=== PATIENT | female | born 1940 | race Caucasian/White ===

== ENCOUNTER → 2016-09-21 | Outpatient (CLI) | payer BC ==
[~2016-09-21] MED LIST: CARV25TA2 PO; ESCI1TAB6 PO; LCTL45 PO; LCTX PO; LSX40 PO; MAGNTAB4 PO; METO-157 PO; MONT1TAB3 PO; MULT1TAB22 PO; PANT40TA PO; POTA10CA28 PO; SPIR25TA PO; SYMIN160 INH; ULT50X PO; WARF-280 PO
[2016-09-21 12:11] LABS: BASO % 0.2 %; BASO ABS # 0.02 K/uL (0-0.2); COMPLETE YES; EOS % 0.9 %; HEMATOCRIT 37.1 % (37-47); IG% 0.3 %; LYMPH % 7.4 %; LYMPH ABS # 0.78 K/uL (1.2-3.4); MEAN CELL VOLUME 91.6 fL (80-100); MEAN CORPUSCULAR HEMOGLOBIN 31.4 pg (25-34); MEAN CORPUSCULAR HGB CONC 34.2 g/dl (32-36); MEAN PLATELET VOLUME 11.5 fL (7.4-10.4); MONO % 6.6 %; NEUT % 84.6 %; PLATELET COUNT 241 K/uL (130-400); RED BLOOD COUNT 4.05 M/uL (4.2-5.4); WHITE BLOOD COUNT 10.47 K/uL (4.8-10.8)
--- NOTE | 2016-09-21 12:27 | DIAGNOSTIC IMAGING REPORT ---
CHEST 2 VIEWS ROUTINE CLINICAL HISTORY: 76 years-old Female presenting with chronic asthmatic bronchitis. TECHNIQUE: PA and lateral views of the chest were obtained. COMPARISON: 02/09/2016. FINDINGS: Right sided implanted cardiac defibrillator with leads to the right atrium and right ventricular apex. Abandoned left-sided leads unchanged. Median sternotomy wires and prosthetic mitral valve also noted. Atherosclerosis of the aortic arch. Slight prominence of the main pulmonary artery, unchanged. No focal infiltrate. No large effusion or pneumothorax. Osseous structures and upper abdomen normal. IMPRESSION: 1. No acute cardiopulmonary disease. Electronically signed by: Sai Renee M.D. 09/21/2016 12:26 PM Dictated Date/Time: 09/21/2016 12:23 PM
[2016-09-21 12:44] LABS: ALT/SGPT 28 U/L (12-78); BLOOD UREA NITROGEN 78 mg/dl (7-18); BUN/CREATININE RATIO 48.9 (10-20); CALCIUM 9.9 mg/dl (8.5-10.1); CARBON DIOXIDE 28 mmol/L (21-32); CHLORIDE 88 mmol/L (98-107); GLUCOSE 93 mg/dl (70-99); POTASSIUM 5.2 mmol/L (3.5-5.1); SODIUM 124 mmol/L (136-145)
[2016-09-21 12:47] LABS: ALB/GLOB RATIO 0.9 (0.9-2); ALKALINE PHOSPHATASE 136 U/L (45-117); AST/SGOT 28 U/L (15-37)
== END | disposition home or self-care (01) ==
LOC: C.RAD 11:22
PROVIDERS: ATTEND Internal Medicine Pulmonary Disease
DX: J44.9 Chronic obstructive pulmonary disease, unspecified (principal)

== ENCOUNTER → 2017-01-23 | Outpatient (CLI) | payer BC ==
[2017-01-23 17:44] LABS: BASO % 0.2 %; BASO ABS # 0.02 K/uL (0-0.2); COMPLETE YES; EOS % 1.1 %; HEMATOCRIT 35.4 % (37-47); IG% 0.4 %; LYMPH % 10.7 %; LYMPH ABS # 0.91 K/uL (1.2-3.4); MEAN CELL VOLUME 90.5 fL (80-100); MEAN CORPUSCULAR HEMOGLOBIN 31.7 pg (25-34); MEAN PLATELET VOLUME 10.6 fL (7.4-10.4); MONO % 6.6 %; PLATELET COUNT 254 K/uL (130-400); RED BLOOD COUNT 3.91 M/uL (4.2-5.4); WHITE BLOOD COUNT 8.54 K/uL (4.8-10.8)
--- NOTE | 2017-01-23 17:44 | DIAGNOSTIC IMAGING REPORT ---
ABDOMEN LIMITED (US) HISTORY: Pain ACUTE RLQ PAIN, R10.31. COMPARISON: None. FINDINGS: The appendix is not identified. No evidence for abscess or collection. No free fluid. IMPRESSION: The appendix is not identified. The above report was generated using voice recognition software. It may contain grammatical, syntax or spelling errors. Electronically signed by: Derek Castanon M.D. 01/23/2017 5:43 PM Dictated Date/Time: 01/23/2017 5:42 PM
== END | disposition home or self-care (01) ==
LOC: C.ULTR 17:05
PROVIDERS: ATTEND Family Medicine
DX: R10.31 Right lower quadrant pain (principal)

== ENCOUNTER → 2017-05-26 | Outpatient (CLI) | payer BC ==
[2017-05-26 16:43] LABS: BASO % 0.3 %; BASO ABS # 0.02 K/uL (0-0.2); EOS % 1.1 %; EOS ABS # 0.07 K/uL (0-0.5); HEMATOCRIT 32.8 % (37-47); HEMOGLOBIN 11.3 g/dL (12.0-16.0); IG# 0.02 K/uL (0.00-0.02); LYMPH % 9.3 %; MEAN CELL VOLUME 89.1 fL (80-100); MEAN CORPUSCULAR HEMOGLOBIN 30.7 pg (25-34); MEAN CORPUSCULAR HGB CONC 34.5 g/dl (32-36); MEAN PLATELET VOLUME 10.5 fL (7.4-10.4); MONO % 6.8 %; MONO ABS # 0.44 K/uL (0.11-0.59); NEUT % 82.2 %; NEUT ABS # 5.29 K/uL (1.4-6.5); PLATELET COUNT 272 K/uL (130-400); RED CELL DISTRIBUTION WIDTH CV 15.1 % (11.5-14.5); WHITE BLOOD COUNT 6.44 K/uL (4.8-10.8)
[2017-05-26 17:02] LABS: ALBUMIN 3.8 gm/dl (3.4-5.0); BLOOD UREA NITROGEN 75 mg/dl (7-18); CALCIUM 9.3 mg/dl (8.5-10.1); CARBON DIOXIDE 27 mmol/L (21-32); CREATININE 1.41 mg/dl (0.60-1.20); GLUCOSE 109 mg/dl (70-99); POTASSIUM 4.8 mmol/L (3.5-5.1); SODIUM 125 mmol/L (136-145)
[2017-05-26 17:13] LABS: PHOSPHORUS 3.1 mg/dl (2.5-4.9)
== END | disposition home or self-care (01) ==
LOC: C.LAB1850 14:45
PROVIDERS: ATTEND Internal Medicine Cardiovascular Disease
DX: I48.2 Chronic atrial fibrillation (principal); I50.22 Chronic systolic (congestive) heart failure; I47.2 Ventricular tachycardia; Z87.898 Personal history of other specified conditions

== ENCOUNTER → 2017-06-02 | Outpatient (CLI) | payer BC | END | disposition home or self-care (01) | LOC: C.LAB1850 16:24 | PROVIDERS: ATTEND Internal Medicine Cardiovascular Disease | DX: R53.83 Other fatigue (principal) ==

== ENCOUNTER → 2017-06-15 | Outpatient (CLI) | payer BC ==
[~2017-06-15] MED LIST changes: +DMX250 PO; +FLUT0.15 NAE; +FRS/40 PO; +FURO80TA63 PO; +LACTCAP27 PO; +METO2.5T PO; +OFLO0.3S4 OP; +PANT20TA2 PO; +POTA1CAP53 PO; +PRDFOPS OPR; +SLWMEC PO; +TMPOPS15 OPR; +VNTHFA/IN INH; +[UNRECOGNIZED DRUG - CODE] OPR
--- NOTE | 2017-06-15 14:57 | DIAGNOSTIC IMAGING REPORT ---
PELVIS 1 OR 2 VIEW ROUTINE HISTORY: 77 years-old Female R07.81,M25.559 acute pelvic pain without known injury COMPARISON: CT abdomen and pelvis 02/12/2015 TECHNIQUE: Single AP view of the pelvis FINDINGS: Mild degenerative changes about the bilateral hips. The bones appear mildly demineralized. Pelvic ring is intact acute fracture. The bilateral hips also appear intact without acute fracture or dislocation. Degenerative changes are seen within the imaged lumbar spine. Probable phleboliths of the pelvis. IMPRESSION: No acute fracture or dislocation. The above report was generated using voice recognition software. It may contain grammatical, syntax or spelling errors. Electronically signed by: Adi Santos M.D. 06/15/2017 2:56 PM Dictated Date/Time: 06/15/2017 2:54 PM
--- NOTE | 2017-06-15 15:01 | DIAGNOSTIC IMAGING REPORT ---
L RIBS UNILATERAL WITH PA CHEST CLINICAL HISTORY: Left sided rib pain. COMPARISON STUDY: Chest radiograph September 21, 2016. FINDINGS: There is no pneumothorax or pleural effusion. A right subclavian pacer/AICD is noted. Old left-sided leads are noted. There are median sternotomy wires and a prosthetic mitral valve. Moderate cardiomegaly is noted without evidence for pulmonary edema. Biapical scarring is unchanged. There is no consolidation to suggest pneumonia. No acute left rib fractures are identified. IMPRESSION: 1. No pneumothorax. No acute left-sided rib fractures. 2. Moderate cardiomegaly. No acute cardiopulmonary findings. Electronically signed by: Donato Vasquez M.D. 06/15/2017 3:00 PM Dictated Date/Time: 06/15/2017 2:55 PM
== END | disposition home or self-care (01) ==
LOC: C.RAD1850 14:24
PROVIDERS: ATTEND Student in an Organized Health Care Education/Training Program
DX: R07.81 Pleurodynia (principal); M25.559 Pain in unspecified hip

== ENCOUNTER 2017-06-20 04:24 | Observation (INO) | payer BC ==
[~2017-06-20] VITALS: Ht 167.6 cm; Wt 71.3 kg
[~2017-06-20 04:24] MED LIST changes: -DMX250 PO; -FLUT0.15 NAE; -FRS/40 PO; -FURO80TA63 PO; -LACTCAP27 PO; -METO2.5T PO; -OFLO0.3S4 OP; -PANT20TA2 PO; -POTA1CAP53 PO; -PRDFOPS OPR; -SLWMEC PO; -TMPOPS15 OPR; -VNTHFA/IN INH; -[UNRECOGNIZED DRUG - CODE] OPR
[2017-06-20] MEDS ORDERED: AcetaZOLAMIDE 250 MG TAB PO STA (04:40)
[2017-06-20] MEDS ORDERED: PROPARACAINE HCL 0.5% OP SOLN 15 ML BTL OP STA (04:40)
[2017-06-20] MEDS ORDERED: FENTANYL CITRATE INJ 50 MCG/1 ML 2 ML VIAL IV STA ×2 (04:40→06:33)
[2017-06-20] MEDS ORDERED: TIMOLOL MALEATE 0.5% OP SOLN 5 ML BTL OP STA (04:40)
[2017-06-20] MEDS ORDERED: [UNRECOGNIZED DRUG - OTHER] OP STA (04:52)
[2017-06-20] MEDS ORDERED: PILOCARPINE HCL 2% OP SOLN 15 ML BTL OP ONE (05:00)
[2017-06-20] MEDS ORDERED: PrednisoLONE ACET 1% OP SUSP 5 ML BTL OP ONE (05:00)
[2017-06-20 05:44] LABS: BASO % 0.1 %; BASO ABS # 0.01 K/uL (0-0.2); EOS % 0.4 %; EOS ABS # 0.03 K/uL (0-0.5); HEMATOCRIT 30.6 % (37-47); HEMOGLOBIN 10.6 g/dL (12.0-16.0); IG# 0.02 K/uL (0.00-0.02); LYMPH % 5.8 %; MEAN CELL VOLUME 88.7 fL (80-100); MEAN CORPUSCULAR HEMOGLOBIN 30.7 pg (25-34); MEAN CORPUSCULAR HGB CONC 34.6 g/dl (32-36); MEAN PLATELET VOLUME 9.1 fL (7.4-10.4); MONO ABS # 0.41 K/uL (0.11-0.59); NEUT % 87.4 %; NEUT ABS # 5.99 K/uL (1.4-6.5); PLATELET COUNT 225 K/uL (130-400); RED CELL DISTRIBUTION WIDTH SD 51.5 fL (36.4-46.3); WHITE BLOOD COUNT 6.86 K/uL (4.8-10.8)
--- NOTE | 2017-06-20 05:47 | EMERGENCY ROOM VISIT NOTE ---
History First contact with patient: 04:30 Chief Complaint: EYE PAIN Stated Complaint: SEVERE EYE/HEAD PAIN S/P LASER SURG History of Present Illness The patient is a 77 year old female who presents to the Emergency Room for evaluation of right eye pain. Patient with poor vision in right eye since . Notes several weeks of eye issues with surgery [address] Orozco to left eye. Over last week on and off discomfort left eye. Last evening severe right eye pain with decreased vision. Pain radiates to right side of head. Associated iwth nothing. No trauma/injuries. Nothing makes better nor worse. Seen in Ophtho clinic at 10pm and had laser surgery for acute angle glaucoma with pressures in the 50s in the right eye. She was given "many drops " and was feeling better with pressure to the 30s thus discharged to home with planned follow up in am with Dr Orozco. Patient notes that symptoms rapidly worsened once home and now pain is much worse than previous. Associated nausea and unable to open eyes due to pain. Notes associated photophobia as well. Used drops at home without relief. Of note patient with worsening abdominal cramping last few weeks similar to that which required 3 week admission several years ago of uncertain etiology. Review of Systems See HPI for pertinent positives & negatives. A total of 10 systems reviewed and were otherwise negative. Past Medical/Surgical History Medical Problems: (1) Acute angle-closure glaucoma (2) Acute on chronic systolic heart failure (3) Ascites (4) BRUGADA SYNDROME (5) Cardiac cirrhosis (6) Implantation of automatic cardioverter/defibrillator, total system (7) Pneumonia (8) Recurrent right pleural effusion (9) Third degree heart block Surgical Problems: (1) History of heart valve repair Family History Cancer Diabetes mellitus Heart disease Seizures Social History Smoking Status: Never Smoker Alcohol Use: none Marital Status: Housing Status: lives with significant other Occupation Status: retired Current/Historical Medications Scheduled Budesonide/Formoterol Fumarate (Symbicort 160/4.5 Inhaler ), 2 PUFFS INH BID Carvedilol (Coreg), 25 MG PO BIDM Escitalopram Oxalate (Lexapro), 5 MG PO QAM Fluticasone Propionate (Nasal) (Flonase Allergy Relief), 2 SPRAYS JURGEN DAILY Furosemide (Lasix), 40 MG PO QPM Furosemide (Lasix), 80 MG PO QAM Lactobacillus-Inulin (Culturelle Digestive Heal), 1 CAP PO BID Magnesium Chloride (Slow-Mag Tab), 64 MG PO BID Montelukast Sodium (Singulair), 10 MG PO HS Multiple Vitamins W/ Minerals (One Daily For Women), 1 TAB PO DAILY Pantoprazole Sodium (Protonix), 20 MG PO DAILY Potassium Chloride (Klor-Con Sprinkle), 10 MEQ PO BID Spironolactone (Aldactone), 25 MG PO BID Warfarin Sodium (Warfarin Sodium), 2.5 MG PO DAILY Scheduled PRN Albuterol Hfa (Ventolin Hfa), 2 PUFFS INH QID PRN for Wheezing Metolazone (Zaroxolyn), 2.5 MG PO UD PRN for weight gain Physical Exam Vital Signs Date Time Temp Pulse Resp B/P (MAP) Pulse Ox O2 Delivery O2 Flow Rate FiO2 06/20/17 06:49 61 06/20/17 06:44 62 14 99/64 95 Room Air 06/20/17 05:48 62 12 109/60 93 Room Air 06/20/17 05:17 94 Room Air 06/20/17 05:14 69 18 96/62 93 Room Air 06/20/17 04:28 36.6 64 20 96/51 95 Room Air Physical Exam GENERAL: Patient is severely uncomfortable appearing and in severe distress, writhing in pain EYES: Right eye is firm to touch, with moderate sized fixed pupil, cloudy anterior chamber and injected conjunctiva. No evidence of abrasion to cornea itself. Left eye is reactive and normal. Pain in right eye with light shined in left. ENT: Mucous membranes moist, no nasal congestion. NECK: No masses appreciated, no meningismus, trachea is midline. RESPIRATORY: No dyspnea. Clear to auscultation and equal bilaterally. No wheeze , no rhonchi. CARDIOVASCULAR: Regular rate and rhythm. No murmurs, rubs, gallops appreciated. ABDO: Minimal TTP without distension BACK: Nontender EXTREMITIES: Normal motion all extremities, no cyanosis, no edema. NEUROLOGIC: Alert and oriented, no acute motor or sensory deficits, no focal weakness, cranial nerves grossly intact. SKIN: No rash, no jaundice, no diaphoresis. Medical Decision & Procedures Laboratory Results 06/20/17 05:32 Red Blood Count 3.45, Mean Corpuscular Volume 88.7, Mean Corpuscular Hemoglobin 30.7, Mean Corpuscular Hemoglobin Concent 34.6, Mean Platelet Volume 9.1, Neutrophils (%) (Auto) 87.4, Lymphocytes (%) (Auto) 5.8, Monocytes (%) (Auto) 6.0, Eosinophils (%) (Auto) 0.4, Basophils (%) (Auto) 0.1, Neutrophils # (Auto) 5.99, Lymphocytes # (Auto) 0.40, Monocytes # (Auto) 0.41, Eosinophils # (Auto) 0.03, Basophils # (Auto) 0.01 06/20/17 05:32 Test 06/20/17 05:32 White Blood Count 6.86 K/uL (4.8-10.8) Red Blood Count 3.45 M/uL (4.2-5.4) Hemoglobin 10.6 g/dL (12.0-16.0) Hematocrit 30.6 % (37-47) Mean Corpuscular Volume 88.7 fL (80-100) Mean Corpuscular Hemoglobin 30.7 pg (25-34) Mean Corpuscular Hemoglobin Concent 34.6 g/dl (32-36) Platelet Count 225 K/uL (130-400) Mean Platelet Volume 9.1 fL (7.4-10.4) Neutrophils (%) (Auto) 87.4 % Lymphocytes (%) (Auto) 5.8 % Monocytes (%) (Auto) 6.0 % Eosinophils (%) (Auto) 0.4 % Basophils (%) (Auto) 0.1 % Neutrophils # (Auto) 5.99 K/uL (1.4-6.5) Lymphocytes # (Auto) 0.40 K/uL (1.2-3.4) Monocytes # (Auto) 0.41 K/uL (0.11-0.59) Eosinophils # (Auto) 0.03 K/uL (0-0.5) Basophils # (Auto) 0.01 K/uL (0-0.2) RDW Standard Deviation 51.5 fL (36.4-46.3) RDW Coefficient of Variation 16.0 % (11.5-14.5) Immature Granulocyte % (Auto) 0.3 % Immature Granulocyte # (Auto) 0.02 K/uL (0.00-0.02) Prothrombin Time 20.2 SECONDS (9.0-12.0) Prothromb Time International Ratio 1.9 (0.9-1.1) Anion Gap 6.0 mmol/L (3-11) Estimated GFR () 36.2 Estimated GFR (Non- 31.2 BUN/Creatinine Ratio 38.9 (10-20) Calcium Level 9.3 mg/dl (8.5-10.1) Medications Administered Medications (Trade) Dose Ordered Sig/Golden Route Start Time Stop Time Status Last Admin Dose Admin Fentanyl Citrate (Fentanyl Inj) 50 mcg NOW STAT IV 06/20/17 04:40 06/20/17 04:52 DC 06/20/17 05:00 50 MCG Acetazolamide (Diamox Tab) 500 mg NOW STAT PO 06/20/17 04:40 06/20/17 04:52 DC 06/20/17 05:25 500 MG Timolol Maleate (Timoptic 0.5% Oph Soln) 4 drops NOW STAT OP 06/20/17 04:40 06/20/17 04:52 DC 06/20/17 05:28 4 DROPS Apraclonidine HCl (Iopidine 0.5% Op Soln) 1 drops NOW STAT OP 06/20/17 04:52 06/20/17 04:54 DC 06/20/17 05:28 1 DROPS Pilocarpine HCl (Isopto Carpine 2% Oph Soln) 1 drops NOW ONCE OP 06/20/17 05:00 06/20/17 05:01 DC 06/20/17 05:25 1 DROPS Prednisolone Acetate (Pred Forte 1% Oph Susp) 1 drops NOW ONCE OP 06/20/17 05:00 06/20/17 05:01 DC 06/20/17 05:26 1 DROPS Mannitol 500 ml/ Empty Bag 500 ml @ 1,000 mls/hr TODAY@0630 IV 06/20/17 06:30 07/20/17 06:29 06/20/17 06:51 1,000 MLS/HR Fentanyl Citrate (Fentanyl Inj) 50 mcg NOW STAT IV 06/20/17 06:33 06/20/17 06:34 DC 06/20/17 06:39 50 MCG Medical Decision 77 yr old female arrives with acute right eye pain already diagnosed with acute angle glaucoma by Ophtho this evening with laser therapy. Arrives in severe pain requiring IV narcotics. Initially pressure 65. Immediately discussed with Dr Aviles who advises drops, acetazolamide and re-assess. Multiple rechecks of patient and pressure has dropped to 55 after 45 minutes from initiation of treatment. Rediscussed with Dr Aviles who advised IV mannitol. He requested patient receive this and be discharged to clinic, but unfortunately patient clearly will not tolerate outpatient pain control, nor am I completely comfortable sending home patient with her extensive medical history, cardiac disease and worsening hyponatremia. Discussed with hospitalist for further evaluation and management. Patient with many re-peat evaluations throughout entire stay. Medication Reconcilliation Current Medication List: was personally reviewed by me Blood Pressure Screening Patient's blood pressure: Low blood pressure (along with previous vitals seems stable.) Impression Primary Impression: Acute angle-closure glaucoma Additional Impression: Hyponatremia Critical Care I have personally spent greater than 45 minutes of critical care time in the direct management of this patient. This was a life/limb threatening event. This includes time spent evaluating patient, direct bedside care, chart review, placing orders, interpretation of diagnostic studies, discussion with consultants, patient, and family members, as well as other required patient management activities. This 45 minutes is in excess of all separately billable procedures. Departure Information Referrals Maia Vega D.O. (PCP) Patient Instructions [facility] Problem Qualifiers
[2017-06-20 05:56] LABS: INR 1.9 (0.9-1.1)
[2017-06-20 06:04] LABS: BLOOD UREA NITROGEN 62 mg/dl (7-18); CALCIUM 9.3 mg/dl (8.5-10.1); CARBON DIOXIDE 23 mmol/L (21-32); GLUCOSE 116 mg/dl (70-99); POTASSIUM 4.5 mmol/L (3.5-5.1); SODIUM 122 mmol/L (136-145)
[2017-06-20] MEDS ORDERED: PANT20TA2 PO (06:04)
[2017-06-20] MEDS ORDERED: POTA1CAP53 PO (06:04)
[2017-06-20] MEDS ORDERED: FURO80TA63 PO (06:06)
[2017-06-20] MEDS ORDERED: FRS/40 PO (06:06)
[2017-06-20] MEDS ORDERED: FLUT0.15 NAE (06:08)
[2017-06-20] MEDS ORDERED: SLWMEC PO (06:08)
[2017-06-20] MEDS ORDERED: METO2.5T PO (06:08)
[2017-06-20] MEDS ORDERED: LACTCAP27 PO (06:10)
[2017-06-20] MEDS ORDERED: VNTHFA/IN INH (06:10)
[2017-06-20] MEDS ORDERED: 0.2 MICRON FILTER SET 1 EA IV SCH (06:30)
[2017-06-20] MEDS ORDERED: MANNITOL 20% IV SCH (06:30)
[2017-06-20] MEDS ORDERED: ACETAMINOPHEN IV 100 ML IV PRN (07:00)
[2017-06-20] MEDS ORDERED: ONDANSETRON INJ 2 MG/ML 2 ML VIAL IV PRN (07:00)
[2017-06-20] MEDS ORDERED: METOLAZONE 2.5 MG TAB PO PRN (07:00)
[2017-06-20] MEDS ORDERED: ALBUTEROL HFA 8 GM INHALER INH PRN (07:00)
[2017-06-20] MEDS ORDERED: FENTANYL CITRATE INJ 50 MCG/1 ML 2 ML VIAL IV PRN (07:00)
[2017-06-20] MEDS ORDERED: ALUMINUM/MAGNESIUM/SIMETH (MAALOX MAX) 30 ML UDC PO PRN (07:00)
[2017-06-20 07:30] VITALS: O2SAT 96; Ht 167.6 cm; Wt 71.3 kg
[2017-06-20] MEDS ORDERED: IV FLUIDS COMPLETED PRN (07:30)
--- NOTE | 2017-06-20 07:46 | History and Physical ---
History & Physical Date & Time of Service: Jun 20, 2017 at 07:17 Chief Complaint: Severe Eye/Head Pain S/P Laser Surg Primary Care Physician: Maia Vega D.O. History of Present Illness Source: patient, family Patient is a 77yo C female with complicated medial history presenting with acute angle closure glaucoma. She has been having intermittent right eye pain. Last evening she had severe right eye pain, decreased vision and headache. She was seen in Optho clinic at 2200, intraocular pressures at that time were 54. She was given drops and laser treatment and had a repeat pressure of 38. Her symptoms improved so she was sent home with plan to followup with Dr. Orozco today. However, the pain and headache continued through the night and rapidly worsened. She also has nausea, photophobia and is unable to open her eye due to pain. She had laser surgery performed 1 week ago on the LEFT eye by Dr. Orozco and has been complaining of intermittent left eye pain. Patient is followed by Dr. Horner ER Course: Pilocarpine gtt, Prednisolone gtt, Iopidine gtt, Proparacane gtt, Fentanyl, Diamox, Timolol Past Medical/Surgical History Medical Problems: 1. Acute angle-closure glaucoma 2. Heart failure 3. Renal insufficiency 4. Anemia 5. Ascites 6. Brugada syndrome 7. Cardiac cirrhosis 8. ICD placement 9. Third degree heart block Surgical Problems: (1) History of heart valve repair 2. ICD placement 3. Mitral valve repair - 2000 4. Cardiac ablation x 2 Family History Cancer Diabetes mellitus Heart disease Seizures Social History Smoking Status: Never Smoker Smokeless Tobacco Use: No Alcohol Use: none Drug Use: none Marital Status: Housing status: lives with family Occupational Status: retired Immunizations History of Influenza Vaccine: Yes Influenza Vaccine Date: Nov 10, 2008 History of Tetanus Vaccine?: Unknown History of Pneumococcal: Yes Pneumococcal Date: Apr 12, 1999 History of Hepatitis B Vaccine: Unknown Allergies Coded Allergies: AMADOU Inhibitors (Verified Allergy, Unknown, 06/20/17) Amiodarone (Verified Allergy, Unknown, 06/20/17) Azithromycin (Verified Allergy, Unknown, 06/20/17) Clarithromycin (Verified Allergy, Unknown, 06/20/17) Hydralazine (Verified Allergy, Unknown, 06/20/17) Hydrochlorothiazide (Unverified Allergy, Unknown, RASH, 06/20/17) Pt unsure of reaction, possible rash. Lisinopril (Verified Allergy, Unknown, 06/20/17) Penicillins (Verified Allergy, Unknown, 06/20/17) Procainamide (Verified Allergy, Unknown, 06/20/17) Home Medications Scheduled Budesonide/Formoterol Fumarate (Symbicort 160/4.5 Inhaler ), 2 PUFFS INH BID Carvedilol (Coreg), 25 MG PO BIDM Escitalopram Oxalate (Lexapro), 5 MG PO QAM Fluticasone Propionate (Nasal) (Flonase Allergy Relief), 2 SPRAYS JURGEN DAILY Furosemide (Lasix), 40 MG PO QPM Furosemide (Lasix), 80 MG PO QAM Lactobacillus-Inulin (Culturelle Digestive Heal), 1 CAP PO BID Magnesium Chloride (Slow-Mag Tab), 64 MG PO BID Montelukast Sodium (Singulair), 10 MG PO HS Multiple Vitamins W/ Minerals (One Daily For Women), 1 TAB PO DAILY Pantoprazole Sodium (Protonix), 20 MG PO DAILY Potassium Chloride (Klor-Con Sprinkle), 10 MEQ PO BID Spironolactone (Aldactone), 25 MG PO BID Warfarin Sodium (Warfarin Sodium), 2.5 MG PO DAILY Scheduled PRN Albuterol Hfa (Ventolin Hfa), 2 PUFFS INH QID PRN for Wheezing Metolazone (Zaroxolyn), 2.5 MG PO UD PRN for weight gain Review of Systems Constitutional: No fever, No chills Eyes: + worsening of vision, + eye pain, + redness, + diplopia, + problem reported ENT: + sore throat Respiratory: + cough, + sputum Cardiovascular: + chest pain Abdomen: + pain, + nausea, No vomiting, No diarrhea Physical Exam Vital Signs Date Time Temp Pulse Resp B/P (MAP) Pulse Ox O2 Delivery O2 Flow Rate FiO2 06/20/17 06:49 61 06/20/17 06:44 62 14 99/64 95 Room Air 06/20/17 05:48 62 12 109/60 93 Room Air 06/20/17 05:17 94 Room Air 06/20/17 05:14 69 18 96/62 93 Room Air 06/20/17 04:28 36.6 64 20 96/51 95 Room Air General: patient resting in bed, in mild distress secondary to pain Skin: warm, dry, intact, no rashes or lesions HEENT: NC/AT, left pupil small, minimally reactive with postoperative changes, right pupil dilated and irregular, unresponsive to light, +conjunctival injection, eye firm and tender to palpation, MMM, dentition intact, no JVD CV: +S1/S2, regular 3/6 rumbling JUNG at base with radiation across precordium Lungs: CTA, no rales/rhonchi or wheezes Abd: +BS, soft, NT/ND Ext: warm, well perfused, no edema Neuro: grossly nonfocal, patient ambulates with assistance Diagnostics Laboratory Results Results Past 24 Hours Test 06/20/17 05:32 Range/Units White Blood Count 6.86 4.8-10.8 K/uL Red Blood Count 3.45 4.2-5.4 M/uL Hemoglobin 10.6 12.0-16.0 g/dL Hematocrit 30.6 37-47 % Mean Corpuscular Volume 88.7 80-100 fL Mean Corpuscular Hemoglobin 30.7 25-34 pg Mean Corpuscular Hemoglobin Concent 34.6 32-36 g/dl Platelet Count 225 130-400 K/uL Mean Platelet Volume 9.1 7.4-10.4 fL Neutrophils (%) (Auto) 87.4 % Lymphocytes (%) (Auto) 5.8 % Monocytes (%) (Auto) 6.0 % Eosinophils (%) (Auto) 0.4 % Basophils (%) (Auto) 0.1 % Neutrophils # (Auto) 5.99 1.4-6.5 K/uL Lymphocytes # (Auto) 0.40 1.2-3.4 K/uL Monocytes # (Auto) 0.41 0.11-0.59 K/uL Eosinophils # (Auto) 0.03 0-0.5 K/uL Basophils # (Auto) 0.01 0-0.2 K/uL RDW Standard Deviation 51.5 36.4-46.3 fL RDW Coefficient of Variation 16.0 11.5-14.5 % Immature Granulocyte % (Auto) 0.3 % Immature Granulocyte # (Auto) 0.02 0.00-0.02 K/uL Prothrombin Time 20.2 9.0-12.0 SECONDS Prothromb Time International Ratio 1.9 0.9-1.1 Sodium Level 122 136-145 mmol/L Potassium Level 4.5 3.5-5.1 mmol/L Chloride Level 93 98-107 mmol/L Carbon Dioxide Level 23 21-32 mmol/L Anion Gap 6.0 3-11 mmol/L Blood Urea Nitrogen 62 7-18 mg/dl Creatinine 1.60 0.60-1.20 mg/dl Estimated GFR () 36.2 Estimated GFR (Non- 31.2 BUN/Creatinine Ratio 38.9 10-20 Random Glucose 116 70-99 mg/dl Calcium Level 9.3 8.5-10.1 mg/dl Impression Assessment and Plan 77yo C female with complex medical history presenting with acute angle-closure glaucoma. 1. Acute angle-closure glaucoma - pressures still elevated while in ER (66 on arrival which improved to 56 after administration of eye drops). Still above threshold, patient with considerable pain. -Mannitol infusion started in ER, to be completed on floor -Timolol gtt BID -Acetazolamide 250mg po q 6 hours -Prednisolone gtt q 6 hours -Iopidine gtt q 8 hours -Ophthalmology consultation -Fentanyl 25mcg IV q 4 hours PRN pain 2. CHF - patient with severely depressed LV function - EF of 20% per echo in 2015, severely dilated LV with anterior and septal dyskinesis. She seems to be well compensated at present, however, administration of Acetazolamide and Mannitol in CHF can be risky -Continue home medications to include Coreg, Lasix and Metolazone -Careful monitoring of cardiac status -Consider Cardiology consultation, patient is known to Dr. Horner 3. Renal insufficiency - patient with BUN of 62 and Cr of 1.6 which is near her baseline -Monitor BUN/Cr, electrolytes and UOP 4. Hyponatremia - patient with Mu=229, near her baseline, history of the same -Continue to monitor -BMP q 8 hours 5. Cardiac cirrhosis - stable, patient with no evidence of decompensated cirrhosis at this time -Continue to monitor 6. F/E/N - Mannitol infusion as above, monitor electrolytes TID, AHA diet as tolerated 7. Ppx - CAROLE stockings, patient is on Coumadin 8. Code - DNR per discussion with family 9. Dispo - Observation to medical floor Resuscitation Status DNR VTE Prophylaxis Will order VTE Prophylaxis: Yes Social Service Consult None Apply
[2017-06-20 08:13] VITALS: O2SAT 91
[2017-06-20 08:50] VITALS: BP 120/67; PULSE 71; TEMP 36.3; O2SAT 92
[2017-06-20] MEDS ORDERED: FLUTICASONE PROPIONATE NA SPR 16 GM BTL NAE SCH (09:00)
[2017-06-20] MEDS ORDERED: MAGNESIUM CHLORIDE 64MG DELAYED REL TAB PO SCH (09:00)
[2017-06-20] MEDS ORDERED: ESCITALOPRAM OXALATE 10 MG TAB PO SCH (09:00)
[2017-06-20] MEDS ORDERED: FUROSEMIDE 80 MG TAB PO SCH (09:00)
[2017-06-20] MEDS ORDERED: CEROVITE ADV FORMULA TAB PO SCH (09:00)
[2017-06-20] MEDS ORDERED: SPIRONOLACTONE 25 MG TAB PO SCH (09:00)
[2017-06-20] MEDS ORDERED: FUROSEMIDE INJ 80 MG in SYRINGE 0 ML IV ONE (10:35)
[2017-06-20] MEDS ORDERED: AcetaZOLAMIDE 250 MG TAB PO SCH (12:00)
[2017-06-20] MEDS ORDERED: [UNRECOGNIZED DRUG - OTHER] OPR SCH (14:00)
[2017-06-20] MEDS ORDERED: FUROSEMIDE INJ 80 MG in SYRINGE 0 ML IV SCH (14:00)
[2017-06-20 14:28] LABS: CALCIUM 8.8 mg/dl (8.5-10.1); CREATININE 1.53 mg/dl (0.60-1.20); POTASSIUM 3.9 mmol/L (3.5-5.1)
[2017-06-20] MEDS ORDERED: PRDFOPS OPR (15:13)
[2017-06-20] MEDS ORDERED: [UNRECOGNIZED DRUG - CODE] OPR (15:13)
[2017-06-20] MEDS ORDERED: DMX250 PO (15:13)
[2017-06-20] MEDS ORDERED: TMPOPS15 OPR (15:13)
--- NOTE | 2017-06-20 15:15 | Discharge Instructions ---
Discharge Instructions Date of Service Jun 20, 2017. Admission Reason for Admission: Acute Angle-Closure Glaucoma Discharge Discharge Diagnosis / Problem: Acute angle-closure glaucoma Discharge Goals Goal(s): Decrease discomfort, Diagnostic testing (go to see DR. AVILES) Activity Recommendations Activity Limitations: resume your previous activity . Instructions / Follow-Up Instructions / Follow-Up Medications: drops per Dr. Aviles, he gave you samples Diamox (acetazolamide) 250mg every 6 hours follow up this afternoon with DR. AVILES for further instructions Current Hospital Diet Patient's current hospital diet: AHA Diet (Heart Healthy) Discharge Diet Recommended Diet: AHA Diet (Heart Healthy) Pending Studies Studies pending at discharge: no Medical Emergencies . Who to Call and When: Medical Emergencies: If at any time you feel your situation is an emergency, please call 911 immediately. . Non-Emergent Contact Non-Emergency issues call your: Motor Vehicle Salesperson Call Non-Emergent contact if: your pain is not controlled, you have any medication questions . . "Provider Documentation" section prepared by Jerry Nunn. . [place] Drug Monitoring Program Search Results: no issues identified
[2017-06-20 15:29] VITALS: BP 120/67; PULSE 71; TEMP 36.3; O2SAT 92
[2017-06-20] MEDS ORDERED: WARFARIN SOD 2.5 MG TAB PO SCH (16:00)
[2017-06-20] MEDS ORDERED: FUROSEMIDE 40 MG TAB PO SCH (17:00)
[2017-06-20] MEDS ORDERED: CARVEDILOL 25 MG TAB PO SCH (17:00)
[2017-06-20] MEDS ORDERED: BUDESONIDE/FORMOTEROL FUMARATE 160/4.5 60 PUFFS/INHALER INH SCH (20:00)
[2017-06-20] MEDS ORDERED: TIMOLOL MALEATE 0.5% OP SOLN 5 ML BTL OPR SCH (20:00)
[2017-06-20] MEDS ORDERED: MONTELUKAST SOD 10 MG TAB PO SCH (22:00)
[2017-06-21] MEDS ORDERED: PrednisoLONE ACET 1% OP SUSP 5 ML BTL OPR SCH (08:00)
[2017-06-21] MEDS ORDERED: PANTOprazole SOD 40 MG TAB PO SCH (08:00)
--- NOTE | 2017-06-21 09:26 | Discharge Summary ---
Discharge Summary Date of Service Jun 20, 2017. Discharge Summary Admission Date: Jun 20, 2017 at 07:07 Discharge Date: Jun 20, 2017 Discharge Disposition: Home Principal Diagnosis: Acute angle closure glaucoma Problems/Secondary Diagnoses: Chronic systolic heart failure, compensated Chronic hyponatremia CKD stage III, stable Cardiac cirrhosis Immunizations: Have You Had Influenza Vaccine: Yes Influenza Vaccine Date: Nov 10, 2008 History of Tetanus Vaccine?: Unknown History of Pneumococcal: Yes Pneumococcal Date: Apr 12, 1999 History of Hepatitis B Vaccine: Unknown Procedures: none Consultations: Ophthomology - Dr. Aviles over the phone Medication Reconciliation New Medications: Acetazolamide (Acetazolamide) 250 Mg Tab 250 MG PO Q6, #120 TAB 0 Refills Apraclonidine HCl (Apraclonidine) 75 Drops/5 Ml Soln 1 DROPS OPR Q8, #1 BTL 1 Refill Prednisolone Acetate (Prednisolone Acetate) 75 Drops/5 Ml Susp 1 DROPS OPR DAILY, #1 BTL 1 Refill Timolol Maleate (Timolol 0.5% Oph Soln 15 Ml) 15 Ml Soln 4 DROPS OPR BID, #1 BTL 1 Refill Continued Medications: Albuterol Hfa (Ventolin Hfa) 200 Puffs/41324 Mcg Aers 2 PUFFS INH QID PRN for Wheezing, #1 INHALER Budesonide/Formoterol Fumarate (Symbicort 160/4.5 Inhaler ) Aero 2 PUFFS INH BID Carvedilol (Coreg) 25 Mg Tab 25 MG PO BIDM Escitalopram Oxalate (Lexapro) 5 Mg Tab 5 MG PO QAM Fluticasone Propionate (Nasal) (Flonase Allergy Relief) 50 Mcg/Act Spr 2 SPRAYS JURGEN DAILY Furosemide (Lasix) 40 Mg Tab 40 MG PO QPM, TAB Furosemide (Lasix) 80 Mg Tab 80 MG PO QAM, TAB Lactobacillus-Inulin (Culturelle Digestive Heal) 1 Cap Cap 1 CAP PO BID Magnesium Chloride (Slow-Mag Tab) 64 Mg Tabcr 64 MG PO BID, TAB Metolazone (Zaroxolyn) 2.5 Mg Tab 2.5 MG PO UD PRN for weight gain take 30 min before lasix as needed for weight gain Montelukast Sodium (Singulair) 10 Mg Tab 10 MG PO HS Multiple Vitamins W/ Minerals (One Daily For Women) 1 Tab Tab 1 TAB PO DAILY Pantoprazole Sodium (Protonix) 20 Mg Tab 20 MG PO DAILY Potassium Chloride (Klor-Con Sprinkle) 10 Meq Cap 10 MEQ PO BID Spironolactone (Aldactone) 25 Mg Tab 25 MG PO BID, TAB Warfarin Sodium (Warfarin Sodium) 2.5 Mg Tab 2.5 MG PO DAILY Discharge Exam Patient was feeling better on day of discharge, minimal right eye pain, reported that her vision was at baseline in that eye. Got up and ambulated, right eye pain increased slightly but nothing close to as bad as on admission. Checked pressure in right eye, found to be 28 which was much improved compared to admission when it was >50. Discussed with Dr. Aviles over the phone, he was pleased that her pain was improved and pressure down to 28. Requested that she be discharged so she could come to the office for detailed eye exam. Discussed this with patient and her daughter at the bedside, they agreed with plan to go see Dr. Aviles. Review of Systems: Constitutional: No fever, No chills, No sweats, No weight loss, No weakness , No fatigue, No problem reported Eyes: + eye pain (right eye, minimal), No redness, No discharge, No diplopia ENT: No hearing loss, No unusual epistaxis, No nasal symptoms, No sore throat, No tinnitus, No dental problems, No trouble swallowing, No problem reported Respiratory: No cough, No sputum, No wheezing, No shortness of breath, No dyspnea on exertion, No dyspnea at rest, No hemoptysis, No problem reported Cardiovascular: No chest pain, No orthopnea, No PND, No edema, No claudication, No palpitations, No problem reported Abdomen: No pain, No nausea, No vomiting, No diarrhea, No constipation, No GI bleeding, No problem reported Musculoskeletal: No joint pain, No muscle pain, No swelling, No calf pain, No problem reported Genitourinary - Female: No dysuria, No urinary frequency, No urinary urgency , No urinary incontinence, No urinary retention Neurologic: No memory loss, No paralysis, No weakness, No numbness/tingling , No vertigo, No balance problems, No problem reported Psychiatric: No depression symptoms, No anhedonism, No anxiety, No insomnia , No substance abuse, No problem reported Endocrine: No fatigue, No excessive thirst, No excessive urination, No problem reported Hematologic / Lymphatic: No abnormal bleeding/bruising, No clotting problems , No swollen lymph nodes, No night sweats, No problem reported Integumentary: No rash, No itch, No new/changing skin lesions, No color change, No bleeding, No problem reported Physical Exam: General Appearance: WD/WN, no apparent distress Eyes: normal inspection, PERRL, EOMI, sclerae normal ENT: normal ENT inspection, hearing grossly normal, pharynx normal Neck: supple, no adenopathy, thyroid normal, no JVD, no carotid bruits, trachea midline Respiratory/Chest: chest non-tender, lungs clear, normal breath sounds, no respiratory distress, no accessory muscle use Cardiovascular: regular rate, rhythm, no edema, no gallop, no JVD, no murmur , normal peripheral pulses Abdomen / GI: normal bowel sounds, non tender, soft, no organomegaly Extremities: normal inspection, no calf tenderness, normal capillary refill , no pedal edema, normal range of motion Neurologic/Psychiatric: peoplesoft developer II-XII nml as tested, no motor/sensory deficits , alert, normal mood/affect, normal reflexes, oriented x 3 Skin: normal color, warm/dry, no rash Hospital Course 77yo C female with complex medical history presenting with acute angle-closure glaucoma. 1. Acute angle-closure glaucoma - pressures elevated while in ER (66 on arrival which improved to 56 after administration of eye drops). patient with considerable pain. -Mannitol infusion started in ER, completed on the floor -Timolol gtt BID -Acetazolamide 250mg po q 6 hours -Prednisolone gtt q 6 hours -Iopidine gtt q 8 hours -Fentanyl 25mcg IV q 4 hours PRN pain pain markedly improved in the afternoon rechecked eye pressure and found to be 28 visual acuity was normal for her discharged and patient went directly to see Dr. Aviles reviewed necessary medications, daughter confirmed that they had all necessary drops 2. CHF - patient with severely depressed LV function - EF of 20% per echo in 2015, severely dilated LV with anterior and septal dyskinesis. She seems to be well compensated at present, no issues with Acetazolamide and Mannitol while admitted -Continue home medications to include Coreg, Lasix and Metolazone -Careful monitoring of cardiac status 3. Renal insufficiency - patient with BUN of 62 and Cr of 1.6 which is near her baseline -Monitor BUN/Cr, electrolytes and UOP 4. Hyponatremia - patient with Fj=615, near her baseline, history of the same 5. Cardiac cirrhosis - stable, patient with no evidence of decompensated cirrhosis at this time -Continue to monitor 6. F/E/N - Mannitol infusion as above, monitor electrolytes TID, AHA diet as tolerated 7. Ppx - CAROLE stockings, patient is on Coumadin 8. Code - DNR per discussion with family d/c to home, close follow up with Dr. Aviles Total Time Spent: Greater than 30 minutes This includes examination of the patient, discharge planning, medication reconciliation, and communication with other providers. Discharge Instructions Please refer to the electronic Patient Visit Report (Discharge Instructions) for additional information. Follow-Up Dr. Aviles on 06/20 Additional Copies To Maia Vega D.O.; Campbell Orozco D.O.
--- NOTE | 2017-06-23 11:45 | OPHTHALMOLOGY CONSULTATION ---
DATE OF CONSULTATION: 06/20/2017 REASON FOR CONSULTATION: Angle-closure glaucoma, right eye. HISTORY OF PRESENT ILLNESS: Patient is a 77-year-old white female with a 1 day history of angle-closure glaucoma in the right eye. She originally presented to my office in angle-closure with a pressure of 58. I attempted 2 laser PIs, which did not go all the way through due to corneal edema; however, with globe pressure and topical Simbrinza, Betimol and Lumigan, her pressure was down to 36 upon leaving the office. She called overnight with worsening eye pain and was sent to the ER for IV mannitol. She received IV mannitol and was monitored in the hospital and upon leaving the hospital, her pressure was reported to have dropped to 28. She was asked to follow up again in my office that afternoon to recheck her pressure. Review of her topical eye drops, which include Simbrinza twice a day, timolol twice a day, Lumigan at night and prednisolone 4 times a day and to get set up for emergent cataract extraction to resolve for angle-closure glaucoma.
[2017-06-24] MEDS ORDERED: FURO80TA63 PO (13:44)
== END 2017-06-20 16:29 | disposition home or self-care (01) ==
LOC: C.EDB 04:26 → C.MS4W 07:07 → EDBEDREQ 07:12 → ENRESERV 07:41
PROVIDERS: ADMIT Internal Medicine; ATTEND Internal Medicine
DX: H40.211 Acute angle-closure glaucoma, right eye (principal); E87.1 Hypo-osmolality and hyponatremia; I50.23 Acute on chronic systolic (congestive) heart failure; N18.3 Chronic kidney disease, stage 3 (moderate); N28.9 Disorder of kidney and ureter, unspecified; Z82.49 Family history of ischemic heart disease and other diseases of the circulatory system; Z82.0 Family history of epilepsy and other diseases of the nervous system; Z88.1 Allergy status to other antibiotic agents; Z88.0 Allergy status to penicillin

== ENCOUNTER 2017-06-23 11:36 | Inpatient (IN) | payer BC, OTHER ==
[~2017-06-23] VITALS: Ht 167.6 cm; Wt 73.0 kg
[~2017-06-23 11:36] MED LIST changes: +DMX250 PO; +FLUT0.15 NAE; +FRS/40 PO; +FURO80TA63 PO; +LACTCAP27 PO; -LCTL45 PO; -LCTX PO; -LSX40 PO; -MAGNTAB4 PO; -METO-157 PO; +METO2.5T PO; +PANT20TA2 PO; -PANT40TA PO; -POTA10CA28 PO; +POTA1CAP53 PO; +PRDFOPS OPR; +SLWMEC PO; +TMPOPS15 OPR; -ULT50X PO; +VNTHFA/IN INH; +[UNRECOGNIZED DRUG - CODE] OPR
[2017-06-23] MEDS ORDERED: OFLO0.3S4 OP (12:00)
[2017-06-23] MEDS ORDERED: SODIUM CHLORIDE 0.9% 500ML 500 ML IV STA ×2 (12:07→13:13)
[2017-06-23 12:15] LABS: BASO % 0.3 %; BASO ABS # 0.02 K/uL (0-0.2); EOS % 1.1 %; EOS ABS # 0.08 K/uL (0-0.5); HEMATOCRIT 39.1 % (37-47); HEMOGLOBIN 13.2 g/dL (12.0-16.0); IG# 0.04 K/uL (0.00-0.02); LYMPH % 9.3 %; LYMPH ABS # 0.69 K/uL (1.2-3.4); MEAN CELL VOLUME 90.1 fL (80-100); MEAN CORPUSCULAR HEMOGLOBIN 30.4 pg (25-34); MEAN CORPUSCULAR HGB CONC 33.8 g/dl (32-36); MEAN PLATELET VOLUME 9.9 fL (7.4-10.4); MONO % 8.1 %; NEUT % 80.7 %; PLATELET COUNT 295 K/uL (130-400); RED CELL DISTRIBUTION WIDTH CV 15.7 % (11.5-14.5); RED CELL DISTRIBUTION WIDTH SD 51.2 fL (36.4-46.3); WHITE BLOOD COUNT 7.43 K/uL (4.8-10.8)
--- NOTE | 2017-06-23 12:29 | DIAGNOSTIC IMAGING REPORT ---
CHEST ONE VIEW PORTABLE CLINICAL HISTORY: Weakness COMPARISON STUDY: 09/21/2016 FINDINGS: There is a right subclavian pacer/defibrillator present. There are unusual electrodes on the left side. There are postsurgical changes of a midline sternotomy and valvular replacement. There is no focal pulmonary consolidation. There are no pleural effusions.[ IMPRESSION: No active disease in the chest. Electronically signed by: Shreyas Resi M.D. 06/23/2017 12:28 PM Dictated Date/Time: 06/23/2017 12:27 PM
[2017-06-23 12:30] LABS: BLOOD UREA NITROGEN 81 mg/dl (7-18); CALCIUM 9.6 mg/dl (8.5-10.1); CARBON DIOXIDE 27 mmol/L (21-32); CREATININE 1.97 mg/dl (0.60-1.20); GLUCOSE 84 mg/dl (70-99); POTASSIUM 3.6 mmol/L (3.5-5.1); SODIUM 122 mmol/L (136-145)
[2017-06-23 12:36] LABS: ISTAT IONIZED CALCIUM 1.15 mmol/l (1.12-1.32); ISTAT POTASSIUM 3.7 mEq/L (3.3-5.0)
[2017-06-23 13:26] VITALS: O2SAT 97; Ht 167.6 cm; Wt 73.0 kg
[2017-06-23] MEDS ORDERED: ALBUTEROL HFA 8 GM INHALER INH PRN (13:45)
[2017-06-23 14:24] LABS: PTT PATIENT 52.8 SECONDS (21.0-31.0)
[2017-06-23 14:25] LABS: INR 4.2 (0.9-1.1)
--- NOTE | 2017-06-23 14:30 | History and Physical ---
History & Physical Date & Time of Service: Jun 23, 2017 at 14:02 Chief Complaint: General Weakness Primary Care Physician: Maia Vega D.O. History of Present Illness Source: patient, family Ms. Rod is a pleasant 77yo female who was recently at [facility] for acute angle- closure glaucoma of the right eye for which she was treated with Acetazolamide and IV Mannitol infusion. She was discharged home in stable condition and was followed by Ophthalmology outpatient. She presents today with severe weakness and fatigue requiring her to use a wheelchair at home. Patient presently complaining of feeling tired and weak as well as some occasional dizziness. She denies fevers/chills/cough/sputum/dysuria/abdominal pain/ diarrhea or vomiting. Denies hematuria/bloody stools. Denies AICD firing. States that her appetite is intact. The patient's and daughter-in law are at the bedside and endorse some periods of confusion as well. On arrival to the ER the patient was afebrile, 36.4, HR of 71, paced and regular, BP of 79/52. She was breathing 17 bpm and 97% on room air. She was administered 500mL of NSS. ER Course: NSS x 500mL received, 2nd 500mL bag hung now Past Medical/Surgical History Medical Problems: 1. Acute angle-closure glaucoma - s/p laser ablation 2. Heart failure - dilated cardiomyopathy with EF of <20% per echo in 2014 3. Renal insufficiency - baseline Cr of 1.6 4. Anemia 5. Ascites 6. Brugada syndrome 7. Cardiac cirrhosis 8. ICD placement 9. Third degree heart block 10 Paroxysmal VT s/p ablation 11. 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 ICD placement 3. Mitral valve repair - 2000 4. Cardiac ablation x 2 5. Cataract surgery yesterday - right eye Family History Cancer Diabetes mellitus Heart disease Seizures Social History Smoking Status: Never Smoker Drug Use: none Marital Status: Housing status: lives with family Occupational Status: retired Immunizations History of Influenza Vaccine: Yes Influenza Vaccine Date: Nov 10, 2008 History of Tetanus Vaccine?: Unknown History of Pneumococcal: Yes Pneumococcal Date: Apr 12, 1999 History of Hepatitis B Vaccine: Unknown Allergies Coded Allergies: AMADOU Inhibitors (Verified Allergy, Unknown, 06/20/17) Amiodarone (Verified Allergy, Unknown, 06/20/17) Azithromycin (Verified Allergy, Unknown, 06/20/17) Clarithromycin (Verified Allergy, Unknown, 06/20/17) Hydralazine (Verified Allergy, Unknown, 06/20/17) Hydrochlorothiazide (Unverified Allergy, Unknown, RASH, 06/20/17) Pt unsure of reaction, possible rash. Lisinopril (Verified Allergy, Unknown, 06/20/17) Penicillins (Verified Allergy, Unknown, 06/20/17) Procainamide (Verified Allergy, Unknown, 06/20/17) Home Medications Scheduled Budesonide/Formoterol Fumarate (Symbicort 160/4.5 Inhaler ), 2 PUFFS INH BID Carvedilol (Coreg), 25 MG PO BIDM Escitalopram Oxalate (Lexapro), 5 MG PO QAM Fluticasone Propionate (Nasal) (Flonase Allergy Relief), 2 SPRAYS JURGEN DAILY Furosemide (Lasix), 40 MG PO QPM Furosemide (Lasix), 80 MG PO QAM Lactobacillus-Inulin (Culturelle Digestive Heal), 1 CAP PO BID Magnesium Chloride (Slow-Mag Tab), 64 MG PO BID Montelukast Sodium (Singulair), 10 MG PO HS Multiple Vitamins W/ Minerals (One Daily For Women), 1 TAB PO DAILY Ofloxacin (Oph) (Ocuflox Oph Soln), 1 DROP OP QID Pantoprazole Sodium (Protonix), 20 MG PO DAILY Potassium Chloride (Klor-Con Sprinkle), 10 MEQ PO BID Prednisolone Acetate (Prednisolone Acetate), 1 DROPS OPR DAILY Spironolactone (Aldactone), 25 MG PO BID Warfarin Sodium (Warfarin Sodium), 2.5 MG PO DAILY Scheduled PRN Albuterol Hfa (Ventolin Hfa), 2 PUFFS INH QID PRN for Wheezing Metolazone (Zaroxolyn), 2.5 MG PO UD PRN for weight gain Review of Systems Constitutional: + weakness, + fatigue, No fever, No chills, No weight loss Eyes: No worsening of vision, No eye pain, No redness, No discharge, No diplopia ENT: No hearing loss, No sore throat, No trouble swallowing Respiratory: No cough, No sputum, No wheezing, No shortness of breath, No dyspnea on exertion Cardiovascular: No chest pain, No edema, No palpitations Abdomen: No pain, No nausea, No vomiting, No diarrhea, No constipation Musculoskeletal: No muscle pain, No swelling Genitourinary - Female: No dysuria, No urinary frequency, No urinary urgency Neurologic: + weakness, + balance problems, No numbness/tingling Endocrine: + fatigue, No excessive thirst, No excessive urination Hematologic / Lymphatic: No abnormal bleeding/bruising Integumentary: No rash Physical Exam Vital Signs Date Time Temp Pulse Resp B/P (MAP) Pulse Ox O2 Delivery O2 Flow Rate FiO2 06/23/17 13:26 97 Room Air 06/23/17 12:43 62 06/23/17 11:38 36.4 71 17 79/52 97 Room Air General: elderly C female resting comfortably in bed, oriented x 4, NAD Skin: warm, dry, intact, scattered ecchymoses on extremities HEENT: NC/AT, right pupil irregular and unreactive, left pupil round and reactive, anicteric sclera, conjunctiva without injection, MMM, dentition intact , neck supple, no JVD, no thyromegaly, trachea midline Heart: +S1/S2, regular, 4/6 JUNG at apex with radiation across precordium Lungs: CTA bilaterally, no rales/rhonchi or wheezes Abdomen: +BS, soft, NT/ND, no masses/organomegaly Extremities: warm, 2+ pulses in UE/LE bilaterally, no clubbing/cyanosis or edema Neuro: grossly nonfocal, moves 4 extremities with equal strength 4/5 Diagnostics Laboratory Results Results Past 24 Hours Test 06/23/17 11:55 06/23/17 12:12 06/23/17 13:47 06/23/17 13:54 Range/Units White Blood Count 7.43 4.8-10.8 K/uL Red Blood Count 4.34 4.2-5.4 M/uL Hemoglobin 13.2 12.0-16.0 g/dL Hematocrit 39.1 37-47 % Mean Corpuscular Volume 90.1 80-100 fL Mean Corpuscular Hemoglobin 30.4 25-34 pg Mean Corpuscular Hemoglobin Concent 33.8 32-36 g/dl Platelet Count 295 130-400 K/uL Mean Platelet Volume 9.9 7.4-10.4 fL Neutrophils (%) (Auto) 80.7 % Lymphocytes (%) (Auto) 9.3 % Monocytes (%) (Auto) 8.1 % Eosinophils (%) (Auto) 1.1 % Basophils (%) (Auto) 0.3 % Neutrophils # (Auto) 6.00 1.4-6.5 K/uL Lymphocytes # (Auto) 0.69 1.2-3.4 K/uL Monocytes # (Auto) 0.60 0.11-0.59 K/uL Eosinophils # (Auto) 0.08 0-0.5 K/uL Basophils # (Auto) 0.02 0-0.2 K/uL RDW Standard Deviation 51.2 36.4-46.3 fL RDW Coefficient of Variation 15.7 11.5-14.5 % Immature Granulocyte % (Auto) 0.5 % Immature Granulocyte # (Auto) 0.04 0.00-0.02 K/uL Sodium Level 122 136-145 mmol/L Potassium Level 3.6 3.5-5.1 mmol/L Chloride Level 86 98-107 mmol/L Carbon Dioxide Level 27 21-32 mmol/L Anion Gap 9.0 17.0 16-25 mmol/L Blood Urea Nitrogen 81 7-18 mg/dl Creatinine 1.97 0.60-1.20 mg/dl Est Creatinine Clear Calc Drug Dose 23.1 ml/min Estimated GFR () 28.1 Estimated GFR (Non- 24.3 BUN/Creatinine Ratio 41.0 10-20 Random Glucose 84 70-99 mg/dl Calcium Level 9.6 8.5-10.1 mg/dl Magnesium Level 3.2 1.8-2.4 mg/dl Troponin I < 0.015 0-0.045 ng/ml Chemistry Specimen Hemolysis Bedside Hemoglobin 15.3 12.0-16.0 g/dl Bedside Hematocrit 45 37-47 % Bedside Sodium 124 135-144 mEq/L Bedside Potassium 3.7 3.3-5.0 mEq/L Bedside Chloride 85 101-112 mEq/L Bedside Total CO2 27 24-31 mEq/l Bedside Blood Urea Nitrogen 74 7-18 mg/dl Bedside Creatinine 2.0 0.6-1.3 mg/dl Bedside Glucose (other) 85 70-99 mg/dl Bedside Ionized Calcium (Sharon) 1.15 1.12-1.32 mmol/l Microbiology Results 06/23/17 Blood Culture, Ordered Pending 06/23/17 Blood Culture, Ordered Pending Diagnostic Radiology CHEST ONE VIEW PORTABLE CLINICAL HISTORY: Weakness COMPARISON STUDY: 09/21/2016 FINDINGS: There is a right subclavian pacer/defibrillator present. There are unusual electrodes on the left side. There are postsurgical changes of a midline sternotomy and valvular replacement. There is no focal pulmonary consolidation. There are no pleural effusions.[ IMPRESSION: No active disease in the chest. EKG The study demonstrates A-sensed, V-paced at 62 bpm, no ischemic changes Impression Assessment and Plan 77yo C female presenting with weakness and fatigue, found to be hypotensive in ER at 79/52. Lab results significant for low magnesium and VAIBHAV on CKD with Cr of 1.97. 1. Hypotension - patient with BP of 79/52 on arrival. She has been given 500mL of NSS with no change in BP, repeat during my encounter was 78/50. Patient is mentating well. Baseline blood pressure tends to be mildly low with SBP in the 90's. Hypotension is most likely secondary to mild volume contraction - suspect due to recent treatment with Acetazolamide and Mannitol for her acute angle closure glaucoma, elevated Cr from baseline. Patient does not appear to have source of infection, SIRS 0/4, qSOFA 1/3 for SBP <100mmHg. -Will administer additional 500mL of NSS and monitor blood pressure response. If patient improves will place in Telemetry menendez, if BP remains low will place in ICU -Check random cortisol level, UA with culture if indicated and blood cultures -Check 2D echocardiogram, patient with history of markedly diminished EF <20% with dilated LV and anterior WMA. She is followed by Cardiology -NSS x 500mL bolus then at 100mL/hr x 2 liters with careful monitoring of cardiac status -Hold home Coreg and diuretic therapy for now 2. VAIBHAV on CKD - most likely secondary to prerenal azotemia in setting of recent diuresis -IVF as above -Monitor BUN/Cr, UOP and electrolytes -Renal dosing where appropriate for CrCl of 23 -Avoid nephrotoxic agents 3. CHF - patient with history of dilated cardiomyopathy and valvular heart disease, EF of <20% per echo in 2014. She does not appear to be in acute decompensated heart failure at this time -Hold diuretic therapy given VAIBHAV -Hold BB therapy given hypotension -Check 2D echocardiogram -Continue to monitor -Continue Coumadin 4. Anemia - patient with normochromic, normocytic anemia, baseline Hg of 12. Hg of 13.2 today, possibly secondary to volume contraction. No active bleeding -Continue to monitor 5. Depression -Continue Lexapro 6. GERD -Continue Protonix 7. F/E/N - NSS x 500mL x 2 in ER, continue IVF with NSS at 100mL/hr x 2 liters , monitor electrolytes and replete as needed, Mg x 2 gm now, regular diet as tolerated. Continue MVI 8. Code - DNR 9. Dispo - Observation to monitored unit, ICU vs Telemetry pending BP response to fluid bolus. PT, OT and Discharge planning consults Advanced Directives Existing Living Will: No Existing Power of Nitrator Operator: No Resuscitation Status DNR VTE Prophylaxis Will order VTE Prophylaxis: No Reason for no VTE drug order: Treatment not indicated Reason no Mechanical VTE Order: Treatment not indicated
[2017-06-23 17:00] VITALS: BP 87/60; PULSE 68; TEMP 36.5; O2SAT 97
[2017-06-23] MEDS ORDERED: MAGNESIUM SULFATE 1GM / D5W 100 ML IV ONE (17:00)
[2017-06-23] MEDS: NSS + 20MEQ KCL 1000ML 1,000 ML IV SCH (17:00)
[2017-06-23] MEDS: OFLOXACIN 0.3% OP SOLN 5 ML BTL OPR SCH ×2 (17:00→21:06)
[2017-06-23] MEDS ORDERED: IV FLUIDS COMPLETED PRN (17:15)
[2017-06-23 19:13] VITALS: BP 84/55; PULSE 66; TEMP 36.4; O2SAT 97
--- NOTE | 2017-06-23 19:29 | EMERGENCY ROOM VISIT NOTE ---
History Report prepared by Hayley: Sami Campoverde Under the Supervision of: Dr. Edouard Acuña M.D. First contact with patient: 11:57 Chief Complaint: WEAKNESS Stated Complaint: GENERAL WEAKNESS History of Present Illness The patient is a 77 year old female who presents to the Emergency Room with complaints of constant generalized weakness beginning one week ago. 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 She had cataract surgery yesterday. The patient's daughter notes that the patient had "light" sedation for the procedure. She also notes that the patient received Lasix while in the hospital recently. She adds that the patient's sodium was found to be 122 at the time as well. The patient also complains of intermittent diarrhea. She had one episode yesterday. She states that she has been having diarrhea occasionally for a long time. The patient denies any chest pain, headache, SOB, black or bloody stool, fevers, or vomiting. She states that she has not been eating or drinking as much as normal recently. Her symptoms are worsened with standing up. The patient is on Coumadin for a previous blood clot. She has a pacemaker in place. She has been ambulating using a wheelchair at home which is not normal for her. The patient's daughter notes that the patient has a history of low blood pressure, typically with a systolic pressure in the 90's. Source of History: patient Onset: One week ago Position: other (generalized) Quality: other (weakness) Timing: constant Modifying Factors (Worsening): other (standing up) Associated Symptoms: + diarrhea, No fevers, No headache, No chest pain, No SOB, No vomiting, No melena, No hematochezia Review of Systems See HPI for pertinent positives & negatives. A total of 10 systems reviewed and were otherwise negative. Past Medical & Surgical Medical Problems: (1) Acute angle-closure glaucoma (2) Acute on chronic systolic heart failure (3) Ascites (4) BRUGADA SYNDROME (5) Cardiac cirrhosis (6) Hypotension (7) Implantation of automatic cardioverter/defibrillator, total system (8) Pneumonia (9) Recurrent right pleural effusion (10) Third degree heart block Surgical Problems: (1) History of heart valve repair Family History Cancer Diabetes mellitus Heart disease Seizures Social History Smoking Status: Never Smoker Alcohol Use: none Drug Use: none Marital Status: Housing Status: lives with significant other Occupation Status: retired Current/Historical Medications Scheduled Budesonide/Formoterol Fumarate (Symbicort 160/4.5 Inhaler ), 2 PUFFS INH BID Carvedilol (Coreg), 25 MG PO BIDM Escitalopram Oxalate (Lexapro), 5 MG PO QAM Fluticasone Propionate (Nasal) (Flonase Allergy Relief), 2 SPRAYS JURGEN DAILY Furosemide (Lasix), 40 MG PO QPM Furosemide (Lasix), 80 MG PO QAM Lactobacillus-Inulin (Culturelle Digestive Heal), 1 CAP PO BID Magnesium Chloride (Slow-Mag Tab), 64 MG PO BID Montelukast Sodium (Singulair), 10 MG PO HS Multiple Vitamins W/ Minerals (One Daily For Women), 1 TAB PO DAILY Ofloxacin (Oph) (Ocuflox Oph Soln), 1 DROP OP QID Pantoprazole Sodium (Protonix), 20 MG PO DAILY Potassium Chloride (Klor-Con Sprinkle), 10 MEQ PO BID Prednisolone Acetate (Prednisolone Acetate), 1 DROPS OPR DAILY Spironolactone (Aldactone), 25 MG PO BID Warfarin Sodium (Warfarin Sodium), 2.5 MG PO DAILY Scheduled PRN Albuterol Hfa (Ventolin Hfa), 2 PUFFS INH QID PRN for Wheezing Metolazone (Zaroxolyn), 2.5 MG PO UD PRN for weight gain Allergies Coded Allergies: AMADOU Inhibitors (Verified Allergy, Unknown, 06/20/17) Amiodarone (Verified Allergy, Unknown, 06/20/17) Azithromycin (Verified Allergy, Unknown, 06/20/17) Clarithromycin (Verified Allergy, Unknown, 06/20/17) Hydralazine (Verified Allergy, Unknown, 06/20/17) Hydrochlorothiazide (Unverified Allergy, Unknown, RASH, 06/20/17) Pt unsure of reaction, possible rash. Lisinopril (Verified Allergy, Unknown, 06/20/17) Penicillins (Verified Allergy, Unknown, 06/20/17) Procainamide (Verified Allergy, Unknown, 06/20/17) Physical Exam Vital Signs Date Time Temp Pulse Resp B/P (MAP) Pulse Ox O2 Delivery O2 Flow Rate FiO2 06/23/17 14:06 63 14 97 06/23/17 14:01 105/59 06/23/17 13:36 61 16 4/20/18 13:32 78/50 06/23/17 13:31 73/47 06/23/17 13:26 97 Room Air 06/23/17 13:21 68 22 06/23/17 13:06 62 16 06/23/17 13:01 81/67 06/23/17 12:51 60 17 95 06/23/17 12:43 62 06/23/17 12:43 83/56 06/23/17 11:58 85/52 06/23/17 11:38 36.4 71 17 79/52 97 Room Air Physical Exam Constitutional: Vital signs reviewed. Noted to be hypotensive. Eyes: Right pupil is dilated. Left pupil is round and reactive to light. Conjunctiva are noninjected. ENT: Pharynx is clear without erythema or exudate. Mucous membranes are dry. Neck supple without meningeal signs. Respiratory: Clear to auscultation bilaterally. Breath sounds are equal bilaterally. Cardiovascular: Regular rate and rhythm. No rubs or gallops. GI: Soft, nondistended and nontender. Bowel sounds are present. Rectal: Guaiac negative brown stool. Musculoskeletal: No peripheral edema. No lower extremity tenderness. Integumentary: No cyanosis. Neurological: The patient is awake and alert. No focal deficits. Psychiatric: Normal affect. Medical Decision & Procedures ER Provider Diagnostic Interpretation: Radiology results as stated below per my review and the radiologist's interpretation: CHEST ONE VIEW PORTABLE FINDINGS: There is a right subclavian pacer/defibrillator present. There are unusual electrodes on the left side. There are postsurgical changes of a midline sternotomy and valvular replacement. There is no focal pulmonary consolidation. There are no pleural effusions.[ IMPRESSION: No active disease in the chest. Electronically signed by: Shreyas Reis M.D. 06/23/2017 12:28 PM Laboratory Results 06/23/17 11:55 Red Blood Count 4.34, Mean Corpuscular Volume 90.1, Mean Corpuscular Hemoglobin 30.4, Mean Corpuscular Hemoglobin Concent 33.8, Mean Platelet Volume 9.9, Neutrophils (%) (Auto) 80.7, Lymphocytes (%) (Auto) 9.3, Monocytes (%) (Auto) 8.1, Eosinophils (%) (Auto) 1.1, Basophils (%) (Auto) 0.3, Neutrophils # (Auto) 6.00, Lymphocytes # (Auto) 0.69, Monocytes # (Auto) 0.60, Eosinophils # (Auto) 0.08, Basophils # (Auto) 0.02 06/23/17 11:55 Test 06/23/17 11:55 06/23/17 12:12 06/23/17 13:47 White Blood Count 7.43 K/uL (4.8-10.8) Red Blood Count 4.34 M/uL (4.2-5.4) Hemoglobin 13.2 g/dL (12.0-16.0) Hematocrit 39.1 % (37-47) Mean Corpuscular Volume 90.1 fL (80-100) Mean Corpuscular Hemoglobin 30.4 pg (25-34) Mean Corpuscular Hemoglobin Concent 33.8 g/dl (32-36) Platelet Count 295 K/uL (130-400) Mean Platelet Volume 9.9 fL (7.4-10.4) Neutrophils (%) (Auto) 80.7 % Lymphocytes (%) (Auto) 9.3 % Monocytes (%) (Auto) 8.1 % Eosinophils (%) (Auto) 1.1 % Basophils (%) (Auto) 0.3 % Neutrophils # (Auto) 6.00 K/uL (1.4-6.5) Lymphocytes # (Auto) 0.69 K/uL (1.2-3.4) Monocytes # (Auto) 0.60 K/uL (0.11-0.59) Eosinophils # (Auto) 0.08 K/uL (0-0.5) Basophils # (Auto) 0.02 K/uL (0-0.2) RDW Standard Deviation 51.2 fL (36.4-46.3) RDW Coefficient of Variation 15.7 % (11.5-14.5) Immature Granulocyte % (Auto) 0.5 % Immature Granulocyte # (Auto) 0.04 K/uL (0.00-0.02) Est Creatinine Clear Calc Drug Dose 23.1 ml/min Estimated GFR () 28.1 Estimated GFR (Non- 24.3 BUN/Creatinine Ratio 41.0 (10-20) Calcium Level 9.6 mg/dl (8.5-10.1) Magnesium Level 3.2 mg/dl (1.8-2.4) Troponin I < 0.015 ng/ml (0-0.045) Random Cortisol 25.91 mcg/dl Chemistry Specimen Hemolysis Bedside Hemoglobin 15.3 g/dl (12.0-16.0) Bedside Hematocrit 45 % (37-47) Bedside Sodium 124 mEq/L (135-144) Bedside Potassium 3.7 mEq/L (3.3-5.0) Bedside Chloride 85 mEq/L (101-112) Bedside Total CO2 27 mEq/l (24-31) Anion Gap 17.0 mmol/L (16-25) Bedside Blood Urea Nitrogen 74 mg/dl (7-18) Bedside Creatinine 2.0 mg/dl (0.6-1.3) Bedside Glucose (other) 85 mg/dl (70-99) Bedside Ionized Calcium (Sharon) 1.15 mmol/l (1.12-1.32) Prothrombin Time 42.7 SECONDS (9.0-12.0) Prothromb Time International Ratio 4.2 (0.9-1.1) Activated Partial Thromboplast Time 52.8 SECONDS (21.0-31.0) Partial Thromboplastin Ratio 2.0 Thyroid Stimulating Hormone (TSH) 1.230 uIu/ml (0.300-4.500) Laboratory results as reviewed by me. Medications Administered Medications (Trade) Dose Ordered Sig/Golden Route Start Time Stop Time Status Last Admin Dose Admin Sodium Chloride 500 ml @ 999 mls/hr Q31M STAT IV 06/23/17 12:07 06/23/17 12:37 DC 06/23/17 12:20 999 MLS/HR Sodium Chloride 500 ml @ 100 mls/hr Q5H STAT IV 06/23/17 13:13 06/23/17 18:12 DC 06/23/17 13:57 100 MLS/HR ECG Per My Interpretation Indication: weakness Rate (beats per minute): 62 Rhythm: other (Atrial sensed, Ventricular paced) Findings: no ectopy, other (Prolonged AV conduction. ) ED Course 1158: The patient was evaluated in room B8. A complete history and physical exam was performed. 1207: Ordered Sodium Chloride 500 ml @ 999 mls/hr IV. 1312: Upon reevaluation, the patient is resting. Her systolic pressure is 81. I discussed tonight's findings with her. She verbalized agreement of the treatment plan. The patient will be evaluated for further management. 1522: The patient's blood pressure is 105/59. Medical Decision This is a 77-year-old female presents with generalized weakness and hypotension. Differential diagnosis includes dehydration, orthostatic hypotension, anemia, kidney injury, UTI, pneumonia. I did perform a limited focused review of portions of the patient's old chart on the electronic medical record. The patient was admitted June 20 for acute Angle Closure glaucoma. I did evaluate the patient as noted above. IV access was established. The patient was placed on a continuous monitoring coordinator. The patient is mildly hypotensive. She normally runs somewhere in the 90s according to her family. I did treat her with normal saline IV. I did order and personally review the patient's 12-lead EKG and chest x-ray as described above. I did order and review the patient's blood work as noted in the electronic medical record. Her INR is slightly elevated but she is not anemic. Rectal examination shows guaiac negative brown stool. She is hyponatremic but this is chronic for her. Kidney function is elevated. She is given additional normal saline IV. Her blood pressure did improve significantly. I did discuss the test results with the patient. I did discuss case with the hospitalist and residential case manager. Medication Reconcilliation Current Medication List: was personally reviewed by me Blood Pressure Screening Patient's blood pressure: Low blood pressure Blood pressure disposition: Did not require urgent referral Consults Time Called: 1312 Consulting Physician[facility] Returned Call: [address] Martines of [facility] [place]. We discussed the patient and her results. The patient will be further evaluated by [facility] [place]. Impression Primary Impression: Generalized weakness Additional Impressions: [id number] kidney injury Chronic hyponatremia Hypotension Supratherapeutic INR Scribe Attestation The scribe's documentation has been prepared under my direct and personally reviewed by me in its entirety. I confirm that the note above accurately reflects all work, treatment, procedures, and medical decision making performed by me. Departure Information Dispostion Being Evaluated By Hospitalist Referrals Maia VegaDPadminiOPadmini (PCP) Patient Instructions My [facility] Problem Qualifiers Additional Impressions: [id number] kidney injury Acute renal failure type: unspecified Chronic kidney disease stage: unspecified stage Qualified Codes: N17.9 - Acute kidney failure, unspecified; N18.9 - Chronic kidney disease, unspecified Hypotension Hypotension type: unspecified hypotension type Qualified Codes: I95.9 - Hypotension, unspecified
[2017-06-23] MEDS ORDERED: ONDANSETRON INJ 2 MG/ML 2 ML VIAL ONE (20:12)
--- NOTE | 2017-06-23 20:25 | ECHOCARDIOGRAM REPORT ---
*NOTICE TO RECEIVING REPUBLICAN AGENCY This information is strictly Confidential and protected under [place] law. [place] law prohibits you from making any further disclosure of this information unless further disclosure is expressly permitted by the written consent of the person to whom it pertains or is authorized by law. A general authorization for the release of medical or other information is not sufficient for this purpose. Hospital accepts no responsibility if the information is made available to any other person, INCLUDING THE PATIENT. Interpretation Summary * Name: KATIA SCHAEFER Study Date: 06/23/2017 03:09 PM BP: 79/52 mmHg * Patient Location: .EDB HR: 62 * : 1940 (M/d/yyyy) Gender: Female Height: 66 in * Age: 77 yrs Ethnicity: [place] Weight: 149 lb * Ordering Physician: Anne Martines * Referring Physician: Maia Vega D.O. * Performed By: Jose Smith RCS * * Reason For Study: CHF * BSA: 1.8 m2 * -- Conclusions -- * 1. Moderately dilated left ventricle with severely reduced systolic function. EF 20-25%. 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 Akinesis to dyskinesis of the mid to distal inferior wall. Akinesis of the distal anterior and mid inferolateral wall segments. Otherwise, global hypokinesis. No left ventricular hypertrophy. Thinning of the aneurysmal segments. * 2. Moderately dilated right ventricle with reduced systolic function. * 3. Severe biatrial dilation. * 4. Mitral annuloplasty ring with elevated transvalvular gradient suggesting mild (non severe) mitral stenosis. * 5. There is moderate mitral regurgitation. * 6. There is moderate tricuspid regurgitation. * 7. Normal estimated right ventricular systolic pressure. * 8. Compared to prior study on 06/16/2017 at outside service, LV systolic function reported as similar. Procedure Details * A complete two-dimensional transthoracic echocardiogram was performed (2D, M-mode, Doppler and color flow Doppler). Left Ventricle * Moderately dilated left ventricle with severely reduced systolic function. EF 20-25%. 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 Akinesis to dyskinesis of the mid to distal inferior wall. Akinesis of the distal anterior and mid inferolateral wall segments. Otherwise, global hypokinesis. No left ventricular hypertrophy. Thinning of the aneurysmal segments. Right Ventricle * There is a pacemaker lead in the right ventricle. * The right ventricle is moderately dilated. * The right ventricular systolic function is reduced as assessed by tricuspid annular plane systolic excursion (TAPSE) (TAPSE <1.6 cm). Atria * The left atrium is severely dilated. * The right atrium is severely dilated. Mitral Valve * Mitral annuloplasty ring with elevated transvalvular gradient suggesting non severe mitral stenosis. * There is moderate mitral regurgitation. Tricuspid Valve * There is no tricuspid stenosis. * There is moderate tricuspid regurgitation. Aortic Valve * The aortic valve opens well. * No hemodynamically significant valvular aortic stenosis. * There is no significant aortic regurgitation. Pulmonic Valve * The pulmonary valve is inadequately visualized, but the Doppler data is adequate for interpretation. * There is no pulmonic valvular stenosis. * Mild pulmonic valvular regurgitation. Great Vessels * The aortic root is normal size. * Mildly blunted pulmonary venous flow pattern. Pericardium/Pleural * There is no pericardial effusion. Great Vessels * Normal inferior vena cava size and collapsability with sniff indicates a normal right atrial pressure of 3 mmHg MMode 2D Measurements and Calculations IVSd 0.41 cm IVSs 0.36 cm LVIDd 6.3 cm LVIDs 5.7 cm LVPWd 1.1 cm LVPWs 1.2 cm IVS/LVPW 0.37 FS 10.3 % EDV(Teich) 203.7 ml ESV(Teich) 159.0 ml EF(Teich) 21.9 % EDV(cubed) 254.2 ml ESV(cubed) 183.7 ml EF(cubed) 27.7 % % IVS thick -11.52 % % LVPW thick 13.3 % LV mass(C)d 189.8 grams LV mass(C)dI 107.5 grams/m\S\2 LV mass(C)s 169.7 grams LV mass(C)sI 96.2 grams/m\S\2 SV(Teich) 44.7 ml SI(Teich) 25.3 ml/m\S\2 SV(cubed) 70.5 ml SI(cubed) 39.9 ml/m\S\2 Ao root diam 2.9 cm Ao root area 6.5 cm\S\2 ACS 1.4 cm LA dimension 4.5 cm LA/Ao 1.6 Doppler Measurements and Calculations MV E max tiff 196.3 cm/sec MV V2 max 218.0 cm/sec MV max PG 19.0 mmHg MV V2 mean 108.1 cm/sec MV mean PG 6.1 mmHg MV V2 VTI 56.6 cm MV P1/2t max tiff 218.7 cm/sec MV P1/2t 94.2 msec MVA(P1/2t) 2.3 cm\S\2 MV dec slope 680.0 cm/sec\S\2 Ao V2 max 131.7 cm/sec Ao max PG 7.0 mmHg Ao max PG (full) 4.5 mmHg LV V1 max PG 2.4 mmHg LV V1 max 77.1 cm/sec PA V2 max 79.5 cm/sec PA max PG 2.5 mmHg PI max tiff 244.1 cm/sec PI max PG 23.9 mmHg PI dec slope 200.2 cm/sec\S\2 PI P1/2t 357.1 msec TR max tiff 210.5 cm/sec RVSP(TR) 20.9 mmHg RAP systole 3.0 mmHg
--- NOTE | 2017-06-23 20:30 | DIAGNOSTIC IMAGING REPORT ---
HEAD WITHOUT CONTRAST (CT) CT DOSE: 614.27 mGy.cm HISTORY: Mental status change headache on warfarin TECHNIQUE: Multiaxial CT images of the head were performed without the use of intravenous contrast. A dose lowering technique was utilized adhering to the principles of ALARA. Comparison: 03/23/2008 Findings: The paranasal sinuses and mastoid air cells are clear. The calvarium and skull base are intact. The ventricles and sulci are within normal limits. There is no mass, hematoma, midline shift, or acute infarct. Impression: No acute intracranial abnormality. The above report was generated using voice recognition software. It may contain grammatical, syntax or spelling errors. Electronically signed by: Derek Castanon M.D. 06/23/2017 8:29 PM Dictated Date/Time: 06/23/2017 8:27 PM
[2017-06-23] MEDS: ACETAMINOPHEN 325 MG TAB PO PRN (20:41)
[2017-06-23] MEDS: MONTELUKAST SOD 10 MG TAB PO SCH (20:42)
[2017-06-23] MEDS: PrednisoLONE ACET 1% OP SUSP 5 ML BTL OPR SCH (21:06)
[2017-06-23] MEDS: BUDESONIDE/FORMOTEROL FUMARATE 160/4.5 60 PUFFS/INHALER INH SCH (21:06)
[2017-06-23 21:47] LABS: ALBUMIN 3.9 gm/dl (3.4-5.0); TOTAL PROTEIN 7.6 gm/dl (6.4-8.2)
[2017-06-23 23:48] VITALS: BP 98/65; PULSE 60; TEMP 36.7; O2SAT 95
[2017-06-24] VITALS (8 sets, daily range): BP systolic 96–108; BP diastolic 62–69; PULSE 59–74; TEMP 36.3–36.7; O2SAT 93–96
[2017-06-24 05:23] LABS: CALCIUM 8.8 mg/dl (8.5-10.1); CREATININE 1.66 mg/dl (0.60-1.20); POTASSIUM 3.7 mmol/L (3.5-5.1)
[2017-06-24] MEDS: NSS + 20MEQ KCL 1000ML 1,000 ML IV SCH (05:24)
[2017-06-24 05:27] LABS: BASO % 0.2 %; BASO ABS # 0.01 K/uL (0-0.2); EOS % 1.1 %; EOS ABS # 0.06 K/uL (0-0.5); HEMATOCRIT 36.8 % (37-47); HEMOGLOBIN 12.2 g/dL (12.0-16.0); IG# 0.03 K/uL (0.00-0.02); LYMPH % 8.6 %; LYMPH ABS # 0.49 K/uL (1.2-3.4); MEAN CELL VOLUME 88.9 fL (80-100); MEAN CORPUSCULAR HEMOGLOBIN 29.5 pg (25-34); MEAN CORPUSCULAR HGB CONC 33.2 g/dl (32-36); MEAN PLATELET VOLUME 10.1 fL (7.4-10.4); NEUT % 82.6 %; NEUT ABS # 4.72 K/uL (1.4-6.5); PLATELET COUNT 194 K/uL (130-400); RED CELL DISTRIBUTION WIDTH CV 15.8 % (11.5-14.5); RED CELL DISTRIBUTION WIDTH SD 51.2 fL (36.4-46.3); WHITE BLOOD COUNT 5.71 K/uL (4.8-10.8)
[2017-06-24 05:32] LABS: INR 3.8 (0.9-1.1)
[2017-06-24] MEDS: PrednisoLONE ACET 1% OP SUSP 5 ML BTL OPR SCH ×4 (08:01→20:53)
[2017-06-24] MEDS: BUDESONIDE/FORMOTEROL FUMARATE 160/4.5 60 PUFFS/INHALER INH SCH ×2 (08:02→20:52)
[2017-06-24] MEDS: ESCITALOPRAM OXALATE 10 MG TAB PO SCH (08:04)
[2017-06-24] MEDS: CEROVITE ADV FORMULA TAB PO SCH (08:05)
[2017-06-24] MEDS: OFLOXACIN 0.3% OP SOLN 5 ML BTL OPR SCH ×4 (08:08→20:53)
[2017-06-24] MEDS: FLUTICASONE PROPIONATE NA SPR 16 GM BTL NAE SCH (08:10)
[2017-06-24] MEDS ORDERED: WARFARIN SOD 2.5 MG TAB PO SCH (09:00)
--- NOTE | 2017-06-24 09:59 | Hospitalist Progress Note ---
Hospitalist Progress Note Date of Service Jun 24, 2017. (Jayleen Liu ., JOSEC) Subjective Pt evaluation today including: conversation w/ patient, physical exam, chart review, lab review, review of studies, review of inpatient medication list Pain: None PO Intake: Tolerating PO diet Voiding: voiding difficulty (dysuria) The patient reports feeling well. She does state that she feels weak and fatigued, but this seems to be improving. She just had cataract surgery in her right eye on 06/22 and does report some mild discomfort. She also reports some dysuria. The patient denies fevers, chills, sweats, chest pain, palpitations, claudication, cough, wheezing, shortness of breath, nausea, vomiting, abdominal pain, hematuria, urinary retention, paralysis, weakness, numbness and tingling. Additional Comments: See HPI for pertinent positives and negatives. All other systems reviewed and negative. (Jayleen Liu ., MARY-C) Objective Vital Signs Date Time Temp Pulse Resp B/P (MAP) Pulse Ox O2 Delivery O2 Flow Rate FiO2 06/24/17 07:18 36.4 59 18 98/62 (74) 96 Room Air 06/24/17 04:00 Room Air 06/24/17 03:12 36.4 70 18 104/67 (79) 96 Room Air 06/24/17 00:01 Room Air 06/23/17 23:48 36.7 60 19 98/65 (76) 95 Room Air 06/23/17 20:00 Room Air 06/23/17 19:13 36.4 66 15 84/55 (65) 97 Room Air 06/23/17 17:00 97 Room Air 06/23/17 17:00 97 Room Air 06/23/17 17:00 36.5 68 18 87/60 (69) 97 Room Air 06/23/17 15:16 73 18 102/60 98 Room Air 06/23/17 14:06 63 14 97 06/23/17 14:01 105/59 06/23/17 13:36 61 16 06/23/17 13:32 78/50 06/23/17 13:31 73/47 06/23/17 13:26 97 Room Air 06/23/17 13:21 68 22 06/23/17 13:06 62 16 06/23/17 13:01 81/67 06/23/17 12:51 60 17 95 06/23/17 12:43 62 06/23/17 12:43 83/56 06/23/17 11:58 85/52 06/23/17 11:38 36.4 71 17 79/52 97 Room Air (Jayleen Liu ., PA-C) Physical Exam Notes: General appearance: +Lethargic. Well-developed, well-nourished, no apparent distress Head: Normocephalic, atraumatic Eyes: +Right pupil more dilated than left, pt has trouble keeping right eye open. Normal inspection, EOMI ENT: Normal ENT inspection, hearing grossly normal, pharynx normal Neck: Supple, no JVD, trachea midline Respiratory/Chest: Lungs clear to auscultation, normal breath sounds, no respiratory distress Cardiovascular: +Systolic murmur. Regular rate & rhythm, no gallop Abdomen/GI: Normal bowel sounds, non-tender, soft Extremities/Musculoskeletal: Normal inspection, no calf tenderness, no pedal edema Neurological/Psych: Alert, normal mood/affect, oriented x 3 Skin: Normal color, warm/dry, no rash (Jayleen Liu ., PA-C) Laboratory Results Last 24 Hours Test 06/23/17 11:55 06/23/17 12:12 06/23/17 13:47 06/23/17 17:14 White Blood Count 7.43 K/uL Red Blood Count 4.34 M/uL Hemoglobin 13.2 g/dL Hematocrit 39.1 % Mean Corpuscular Volume 90.1 fL Mean Corpuscular Hemoglobin 30.4 pg Mean Corpuscular Hemoglobin Concent 33.8 g/dl Platelet Count 295 K/uL Mean Platelet Volume 9.9 fL Neutrophils (%) (Auto) 80.7 % Lymphocytes (%) (Auto) 9.3 % Monocytes (%) (Auto) 8.1 % Eosinophils (%) (Auto) 1.1 % Basophils (%) (Auto) 0.3 % Neutrophils # (Auto) 6.00 K/uL Lymphocytes # (Auto) 0.69 K/uL Monocytes # (Auto) 0.60 K/uL Eosinophils # (Auto) 0.08 K/uL Basophils # (Auto) 0.02 K/uL RDW Standard Deviation 51.2 fL RDW Coefficient of Variation 15.7 % Immature Granulocyte % (Auto) 0.5 % Immature Granulocyte # (Auto) 0.04 K/uL Sodium Level 122 mmol/L Potassium Level 3.6 mmol/L Chloride Level 86 mmol/L Carbon Dioxide Level 27 mmol/L Anion Gap 9.0 mmol/L 17.0 mmol/L Blood Urea Nitrogen 81 mg/dl Creatinine 1.97 mg/dl Est Creatinine Clear Calc Drug Dose 23.1 ml/min Estimated GFR () 28.1 Estimated GFR (Non- 24.3 BUN/Creatinine Ratio 41.0 Random Glucose 84 mg/dl Calcium Level 9.6 mg/dl Magnesium Level 3.2 mg/dl Troponin I < 0.015 ng/ml Random Cortisol 25.91 mcg/dl Chemistry Specimen Hemolysis Bedside Hemoglobin 15.3 g/dl Bedside Hematocrit 45 % Bedside Sodium 124 mEq/L Bedside Potassium 3.7 mEq/L Bedside Chloride 85 mEq/L Bedside Total CO2 27 mEq/l Bedside Blood Urea Nitrogen 74 mg/dl Bedside Creatinine 2.0 mg/dl Bedside Glucose (other) 85 mg/dl Bedside Ionized Calcium (Sharon) 1.15 mmol/l Prothrombin Time 42.7 SECONDS Prothromb Time International Ratio 4.2 Activated Partial Thromboplast Time 52.8 SECONDS Partial Thromboplastin Ratio 2.0 Total Bilirubin 0.5 mg/dl Direct Bilirubin 0.2 mg/dl Aspartate Amino Transf (AST/SGOT) 18 U/L Alanine Aminotransferase (ALT/SGPT) 30 U/L Alkaline Phosphatase 138 U/L Total Protein 7.6 gm/dl Albumin 3.9 gm/dl Thyroid Stimulating Hormone (TSH) 1.230 uIu/ml Lactic Acid Level 0.9 mmol/L Test 06/23/17 20:37 06/23/17 20:38 06/24/17 04:50 Ammonia 12.5 umol/L Urine Color YELLOW Urine Appearance CLOUDY Urine pH 6.5 Urine Specific [place] 1.011 Urine Protein NEG Urine Glucose (UA) NEG Urine Ketones NEG Urine Occult Blood 1+ Urine Nitrite NEG Urine Bilirubin NEG Urine Urobilinogen NEG Urine Leukocyte Esterase LARGE Urine WBC (Auto) >30 /hpf Urine RBC (Auto) 5-10 /hpf Urine Hyaline Casts (Auto) 0 /lpf Urine Epithelial Cells (Auto) 5-10 /lpf Urine Bacteria (Auto) NEG White Blood Count 5.71 K/uL Red Blood Count 4.14 M/uL Hemoglobin 12.2 g/dL Hematocrit 36.8 % Mean Corpuscular Volume 88.9 fL Mean Corpuscular Hemoglobin 29.5 pg Mean Corpuscular Hemoglobin Concent 33.2 g/dl Platelet Count 194 K/uL Mean Platelet Volume 10.1 fL Neutrophils (%) (Auto) 82.6 % Lymphocytes (%) (Auto) 8.6 % Monocytes (%) (Auto) 7.0 % Eosinophils (%) (Auto) 1.1 % Basophils (%) (Auto) 0.2 % Neutrophils # (Auto) 4.72 K/uL Lymphocytes # (Auto) 0.49 K/uL Monocytes # (Auto) 0.40 K/uL Eosinophils # (Auto) 0.06 K/uL Basophils # (Auto) 0.01 K/uL RDW Standard Deviation 51.2 fL RDW Coefficient of Variation 15.8 % Immature Granulocyte % (Auto) 0.5 % Immature Granulocyte # (Auto) 0.03 K/uL Prothrombin Time 39.0 SECONDS Prothromb Time International Ratio 3.8 Sodium Level 128 mmol/L Potassium Level 3.7 mmol/L Chloride Level 96 mmol/L Carbon Dioxide Level 22 mmol/L Anion Gap 10.0 mmol/L Blood Urea Nitrogen 68 mg/dl Creatinine 1.66 mg/dl Est Creatinine Clear Calc Drug Dose 27.4 ml/min Estimated GFR () 34.6 Estimated GFR (Non- 29.8 BUN/Creatinine Ratio 41.2 Random Glucose 91 mg/dl Calcium Level 8.8 mg/dl (Jayleen Liu ., PA-C) Assessment and Plan 77 y/o female with a history of 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 Found to be hypotensive and with VAIBHAV in ED. Hypotension--improving -Admit to telemetry. Pt paced, HR 60s overnight -BP improved with two 500 cc NSS boluses -Random cortisol WNL -Echo shows EF 20-25%, akinesis in inferior, inferolateral and anterior segments. EF similar to previous study -IVF d/c'd -Coreg and diuretics on hold for now VAIBHAV on CKD stage III--improving -IVF as above, now d/c'd -Creatinine 1.66 on 06/24, down from 1.97 -Baseline creatinine around 1.6 Hyponatremia--improving -Sodium 128 on 06/24, up from 122 -Nephro consulted, appreciate recs: Fluid restrict to 1200 cc. Can resume loop diuretics prn but appears euvolemic now. Recheck PRP in afternoon. Enterococcus UTI POA, possible yeast as well -Diflucan 150 mg PO x1 for possible yeast -Urine culture growing enterococcus, sensitivities pending -Vancomycin IV due to allergies and enterococcus Acute restless legs syndrome--After my exam pt was exhibiting signs of RLS, per daughter this has been going on all week causing insomnia -Neurology consulted, appreciate recs -Start Requip 0.25 mg PO BID -Ativan 0.5 mg PO q6h prn RLS or insomnia Recent acute angle closure glaucoma s/p ablation and cataract surgery--stable -Continue ofloxacin and prednisolone drops Chronic systolic CHF--stable, no acute exacerbation -Echo as above -IVF d/c'd -Diuretics, Coreg on hold due to hypotension which is improved by ongoing H/o a-fib--paced rhythm now -INR supratherapeutic but improving, 3.8 on 06/24, down from 4.2 -Continue to hold warfarin and monitor COPD--stable, no acute exacerbation -Continue Symbicort Depression -Continue Lexapro 5 mg PO qd DVT prophylaxis -INR supratherapeutic Code Status -Level V, DO NOT RESUSCITATE Dispo -PT/OT eval and treat (Jayleen Liu, SUSY) Reviewed: Pt Seen/Exam by Me (Leatha Casillas MD) History Physician Manager Land Supervision Note: I interviewed and examined the patient. Discussed with MARY Liu and agree with findings and plan as documented in the note. Any exceptions or clarifications are listed here: Biggest complaint is legs feel like they need to be moved to make them feel better. It is making her feel miserable. No pain necessarily in legs, cailin wants to move them all the time and slap her feet on the floor. Never had this before the last week. No headache, no cough or SOB, no CP, no abd pain, no n/V, no constipation, no other symptoms. Vitals reviewed alert awake oriented Holding head in her arm and looking down at ground-chronic as per daughter when just not feeling well RRR no mgr CTAB no wcr Abd +BS soft NT ND Ext no edema, 2+ DP pulses bilat, frequently kicking them up and down and slapping feet on floor Neuro-full strength throughout, DTRs 2+ and symmetric BLEs, sensation intact to light touch 77 yo female with history as above, here with hypotension, dehydration in setting of recent diuretic use, acute on chronic hypoantremia, recent acute angle closure glaucoma, and now with akathisia vs acute onset RLS? Hypotension-resolved Hyponatremia-back to baseline after giving IVFs -discussed leg symptoms with Neuro and consulted Neuro--> will trial Requip and can also give lorazepam as needed -no further IVFs needed, following serial PRPs, appreciate Nephrology consultation Documented By: Leatha Casillas (Leatha Casillas MD)
[2017-06-24] MEDS: PANTOprazole SOD 40 MG TAB PO SCH (10:10)
--- NOTE | 2017-06-24 11:19 | Nephrology Consultation ---
Nephrology Consultation Date & Providers Date of Consultation: Jun 24, 2017. Primary Care Provider: Maia Vega D.O. Referring Provider: Reason for Consultation Hyponatremia History of Present Illness Ms. Rod is a frail 77 year-old female with a dilated cardiomyopathy, valvular heart disease and cardiac cirrhosis. LV systolic function estimated at ~20% with moderate mitral regurgitation and moderated TR. LV and RV dilated with a history of Brugada syndrome as well as a history of AV block with pacer/AICD. 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 She has cirrhosis attributed to chronic heart failure with abdominal ascites. She had been treated with dobutamine in the past. Gabriela was admitted to [facility] in February 2015 with a notable pleural effusion and ascites. She developed hyponatremia associated with diuretics. Gabriela has had chronic hyponatremia since that time. Review of the medical records show serum sodium ranging from 124-133 mmol/L over the past two years. Serum sodium was 125 mmol/L in September when the patient was evaluated in the cardiology clinic by Dr. Horner. She felt very well at that time. Unfortunately, she notes a progressive decline in health over the past few months. The patient notes that she has been increasingly weak with reduced activity tolerance and poor appetite since February. There has been a notable decline in the past 2 weeks. Gabriela was seen and evaluated with her daughter at the bedside. Medical history was obtained through discussion with the patient and family as well as extensive review of the medical record. Gabriela was recently at [facility] for acute angle-closure glaucoma of the right eye. Treatment included acetazolamide and mannitol. She returned within 24 hours with severe weakness and fatigue. Moderate acute on chronic hyponatremia was noted. Gabriela was found to be intravascularly depleted. She was treated with IV 0.9% saline. Serum sodium improved from 122 to 128 mmol/L. Unfortunately, symptoms have not significantly improved. She is maintained on Lexapro for depression. Past Medical/Surgical History Medical: 1. Acute angle-closure glaucoma - s/p laser ablation 2. Heart failure - dilated cardiomyopathy with EF of <20% per echo in 2014 3. Renal insufficiency - baseline Cr of 1.6 4. Anemia 5. Ascites 6. Brugada syndrome 7. Cardiac cirrhosis 8. ICD placement 9. Third degree heart block 10 Paroxysmal VT s/p ablation 11. PFO 12. Amiodarone induced hypothyroidism Surgical: 2. ICD placement 3. Mitral valve repair - 2000 4. Cardiac ablation x 2 5. Cataract surgery - right eye Allergies Coded Allergies: AMADOU Inhibitors (Verified Allergy, Unknown, 06/20/17) Amiodarone (Verified Allergy, Unknown, 06/20/17) Azithromycin (Verified Allergy, Unknown, 06/20/17) Clarithromycin (Verified Allergy, Unknown, 06/20/17) Hydralazine (Verified Allergy, Unknown, 06/20/17) Hydrochlorothiazide (Unverified Allergy, Unknown, RASH, 06/20/17) Pt unsure of reaction, possible rash. Lisinopril (Verified Allergy, Unknown, 06/20/17) Penicillins (Verified Allergy, Unknown, 06/20/17) Procainamide (Verified Allergy, Unknown, 06/20/17) Inpatient Medications Current Inpatient Medications Medications (Trade) Dose Ordered Sig/Golden Route Start Time Stop Time Status Last Admin Dose Admin Albuterol (Ventolin Hfa Inhaler) 2 puffs QID PRN INH 06/23/17 13:45 07/23/17 13:44 Budesonide/ Formoterol Fumarate (Symbicort 160/ 4.5 Inh) 2 puffs BID INH 06/23/17 21:00 07/23/17 20:59 06/24/17 08:02 2 PUFFS Escitalopram Oxalate (Lexapro Tab) 5 mg QAM PO 06/24/17 09:00 07/24/17 08:59 06/24/17 08:04 5 MG Fluticasone Propionate (Flonase Nasal [place]) 2 sprays DAILY JURGEN 06/24/17 09:00 07/24/17 08:59 Montelukast Sodium (Singulair Tab) 10 mg HS PO 06/23/17 21:00 07/23/17 20:59 06/23/17 20:42 10 MG Multivitamins/ Minerals (Multivitamin W/ Minerals Tab) 1 tab DAILY PO 06/24/17 09:00 07/24/17 08:59 06/24/17 08:05 1 TAB Ofloxacin (Ocuflox 0.3% Oph Soln) 1 drops QID OPR 06/23/17 17:00 07/03/17 16:59 06/24/17 08:08 1 DROPS Prednisolone Acetate (Pred Forte 1% Oph Susp) 1 drops QID OPR 06/23/17 21:00 06/29/17 23:59 06/24/17 08:01 1 DROPS Pantoprazole Sodium (Protonix Tab) 40 mg DAILY PO 06/24/17 09:00 07/24/17 08:59 06/24/17 10:10 40 MG Miscellaneous (Iv Fluids Completed) 1 ea PRN PRN N/A 06/23/17 17:15 06/23/18 17:14 Prednisolone Acetate (Pred Forte 1% Oph Susp) 1 drops TID OPR 06/30/17 09:00 07/06/17 23:59 Ondansetron HCl (Zofran Inj) 4 mg Q6H PRN IV 06/23/17 20:15 07/23/17 20:14 Acetaminophen (Tylenol Tab) 650 mg Q4H PRN PO 06/23/17 20:15 07/23/17 20:14 06/23/17 20:41 650 MG Family History Cancer Diabetes mellitus Heart disease Seizures Social History Smoking Status: Never Smoker Drug Use: none Marital Status: Housing Status: lives with family Occupation: retired Review of Systems Constitutional: + weight loss, + weakness, No fever, No chills ENT: No trouble swallowing Respiratory: + dyspnea on exertion, No cough, No dyspnea at rest Cardiovascular: + orthopnea, No chest pain, No edema Abdomen: No nausea, No vomiting, No diarrhea Neurologic: + memory loss, + problem reported (confusion) Endocrine: + fatigue, No excessive thirst A complete review of systems was performed. Pertinent positives are noted above. All other systems are negative. Physical Exam Date Time Temp Pulse Resp B/P (MAP) Pulse Ox O2 Delivery O2 Flow Rate FiO2 06/24/17 07:18 36.4 59 18 98/62 (74) 96 Room Air 06/24/17 04:00 Room Air 06/24/17 03:12 36.4 70 18 104/67 (79) 96 Room Air 06/24/17 00:01 Room Air 06/23/17 23:48 36.7 60 19 98/65 (76) 95 Room Air 06/23/17 20:00 Room Air 06/23/17 19:13 36.4 66 15 84/55 (65) 97 Room Air 4/20/18 17:00 97 Room Air 06/23/17 17:00 97 Room Air 06/23/17 17:00 36.5 68 18 87/60 (69) 97 Room Air 06/23/17 15:16 73 18 102/60 98 Room Air 06/23/17 14:06 63 14 97 06/23/17 14:01 105/59 06/23/17 13:36 61 16 06/23/17 13:32 78/50 06/23/17 13:31 73/47 06/23/17 13:26 97 Room Air 06/23/17 13:21 68 22 06/23/17 13:06 62 16 06/23/17 13:01 81/67 06/23/17 12:51 60 17 95 06/23/17 12:43 62 06/23/17 12:43 83/56 06/23/17 11:58 85/52 06/23/17 11:38 36.4 71 17 79/52 97 Room Air General Appearance: + pertinent finding (frail, no acute distress, fatigues quickly) Head: normocephalic, atraumatic Eyes: normal inspection, sclerae normal ENT: hearing grossly normal, + pertinent finding (oral mucosa dry without lesions) Neck: supple, no JVD Respiratory/Chest: lungs clear, no respiratory distress, no accessory muscle use Cardiovascular: + bradycardia, + systolic murmur Abdomen/GI: non tender, soft Extremities/Musculoskelatal: normal inspection, + pedal edema (trace) Neurologic/Psych: alert, + depressed affect Laboratory Results Last 24 Hours Test 06/23/17 11:55 06/23/17 12:12 06/23/17 13:47 06/23/17 17:14 White Blood Count 7.43 K/uL Red Blood Count 4.34 M/uL Hemoglobin 13.2 g/dL Hematocrit 39.1 % Mean Corpuscular Volume 90.1 fL Mean Corpuscular Hemoglobin 30.4 pg Mean Corpuscular Hemoglobin Concent 33.8 g/dl Platelet Count 295 K/uL Mean Platelet Volume 9.9 fL Neutrophils (%) (Auto) 80.7 % Lymphocytes (%) (Auto) 9.3 % Monocytes (%) (Auto) 8.1 % Eosinophils (%) (Auto) 1.1 % Basophils (%) (Auto) 0.3 % Neutrophils # (Auto) 6.00 K/uL Lymphocytes # (Auto) 0.69 K/uL Monocytes # (Auto) 0.60 K/uL Eosinophils # (Auto) 0.08 K/uL Basophils # (Auto) 0.02 K/uL RDW Standard Deviation 51.2 fL RDW Coefficient of Variation 15.7 % Immature Granulocyte % (Auto) 0.5 % Immature Granulocyte # (Auto) 0.04 K/uL Sodium Level 122 mmol/L Potassium Level 3.6 mmol/L Chloride Level 86 mmol/L Carbon Dioxide Level 27 mmol/L Anion Gap 9.0 mmol/L 17.0 mmol/L Blood Urea Nitrogen 81 mg/dl Creatinine 1.97 mg/dl Est Creatinine Clear Calc Drug Dose 23.1 ml/min Estimated GFR () 28.1 Estimated GFR (Non- 24.3 BUN/Creatinine Ratio 41.0 Random Glucose 84 mg/dl Calcium Level 9.6 mg/dl Magnesium Level 3.2 mg/dl Troponin I < 0.015 ng/ml Random Cortisol 25.91 mcg/dl Chemistry Specimen Hemolysis Bedside Hemoglobin 15.3 g/dl Bedside Hematocrit 45 % Bedside Sodium 124 mEq/L Bedside Potassium 3.7 mEq/L Bedside Chloride 85 mEq/L Bedside Total CO2 27 mEq/l Bedside Blood Urea Nitrogen 74 mg/dl Bedside Creatinine 2.0 mg/dl Bedside Glucose (other) 85 mg/dl Bedside Ionized Calcium (Sharon) 1.15 mmol/l Prothrombin Time 42.7 SECONDS Prothromb Time International Ratio 4.2 Activated Partial Thromboplast Time 52.8 SECONDS Partial Thromboplastin Ratio 2.0 Total Bilirubin 0.5 mg/dl Direct Bilirubin 0.2 mg/dl Aspartate Amino Transf (AST/SGOT) 18 U/L Alanine Aminotransferase (ALT/SGPT) 30 U/L Alkaline Phosphatase 138 U/L Total Protein 7.6 gm/dl Albumin 3.9 gm/dl Thyroid Stimulating Hormone (TSH) 1.230 uIu/ml Lactic Acid Level 0.9 mmol/L Test 06/23/17 20:37 06/23/17 20:38 06/24/17 04:50 Ammonia 12.5 umol/L Urine Color YELLOW Urine Appearance CLOUDY Urine pH 6.5 Urine Specific [place] 1.011 Urine Protein NEG Urine Glucose (UA) NEG Urine Ketones NEG Urine Occult Blood 1+ Urine Nitrite NEG Urine Bilirubin NEG Urine Urobilinogen NEG Urine Leukocyte Esterase LARGE Urine WBC (Auto) >30 /hpf Urine RBC (Auto) 5-10 /hpf Urine Hyaline Casts (Auto) 0 /lpf Urine Epithelial Cells (Auto) 5-10 /lpf Urine Bacteria (Auto) NEG White Blood Count 5.71 K/uL Red Blood Count 4.14 M/uL Hemoglobin 12.2 g/dL Hematocrit 36.8 % Mean Corpuscular Volume 88.9 fL Mean Corpuscular Hemoglobin 29.5 pg Mean Corpuscular Hemoglobin Concent 33.2 g/dl Platelet Count 194 K/uL Mean Platelet Volume 10.1 fL Neutrophils (%) (Auto) 82.6 % Lymphocytes (%) (Auto) 8.6 % Monocytes (%) (Auto) 7.0 % Eosinophils (%) (Auto) 1.1 % Basophils (%) (Auto) 0.2 % Neutrophils # (Auto) 4.72 K/uL Lymphocytes # (Auto) 0.49 K/uL Monocytes # (Auto) 0.40 K/uL Eosinophils # (Auto) 0.06 K/uL Basophils # (Auto) 0.01 K/uL RDW Standard Deviation 51.2 fL RDW Coefficient of Variation 15.8 % Immature Granulocyte % (Auto) 0.5 % Immature Granulocyte # (Auto) 0.03 K/uL Prothrombin Time 39.0 SECONDS Prothromb Time International Ratio 3.8 Sodium Level 128 mmol/L Potassium Level 3.7 mmol/L Chloride Level 96 mmol/L Carbon Dioxide Level 22 mmol/L Anion Gap 10.0 mmol/L Blood Urea Nitrogen 68 mg/dl Creatinine 1.66 mg/dl Est Creatinine Clear Calc Drug Dose 27.4 ml/min Estimated GFR () 34.6 Estimated GFR (Non- 29.8 BUN/Creatinine Ratio 41.2 Random Glucose 91 mg/dl Calcium Level 8.8 mg/dl Impression (1) Acute hyponatremia (2) Chronic hyponatremia (3) [id number]-calntvy kidney injury (4) Chronic systolic CHF (congestive heart failure) (5) Dilated cardiomyopathy (6) Cardiac cirrhosis (7) He Ochoa is a 77-year-old female with acute on chronic hyponatremia in the setting of advanced chronic systolic CHF and cirrhosis. Acute hyponatremia can be attributed to diuretics, recent use of mannitol and poor solute intake. Symptoms related to acute hyponatremia would be expected to improve with correction of the serum sodium. Gbariela has some evidence of chronic excessive ADH which may be related to chronic prerenal physiology and less likely attributed to SSRI use. In any case, sodium has corrected appropriately with IV saline. No additional treatment is necessary at this time. Volume status is currently acceptable. I would avoid the use of additional sodium, or fluids. I would avoid the use of urea. Baseline sodium has been ~125-130 mmol/L and attempting to normalize serum sodium would be discouraged. Chronic hyponatremia is a manifestation of advanced underlying cardiac and liver disease as well as chronic diuretic use. Dysnatremia a marker for severity of illness in both conditions. Gabriela's progressive weakness as well as decreased activity tolerance suggest progression of underlying medical comorbid conditions. She had acute on chronic renal insufficiency associated with prerenal physiology which has also improved. Creatinine is approaching baseline of 1.6 mg /dL. Urine output is appropriate. I have ordered a repeat metabolic profile for this afternoon. Recommendations -- Document I/O's -- Fluid restriction to less than 1.2 L/d -- OK to resume loop diuretics as needed but currently seems euvolemic -- Repeat metabolic profile this afternoon -- Patient is not a candidate for vaptan therapy due to liver disease -- Encourage nutrition
[2017-06-24] MEDS ORDERED: FURO80TA63 PO (13:44)
[2017-06-24] MEDS: ONDANSETRON INJ 2 MG/ML 2 ML VIAL IV PRN (14:14)
[2017-06-24] MEDS: ACETAMINOPHEN 325 MG TAB PO PRN ×2 (14:14→19:41)
[2017-06-24] MEDS ORDERED: VANCOMYCIN CONSULT ACTIVE PRN (14:15)
--- NOTE | 2017-06-24 14:46 | Pharmacy Progress Note ---
Pharmacy Abx Dose Short Note Date of Service Jun 24, 2017. Assessment & Plan Assessment 77 year old female ordered Vancomycin for treatment of uncomplicated UTI. Day # 1 of antimicrobial therapy. * Urine culture from 06/23 grew Enterococcus species, preliminary * Pt allergic to PCN, reaction unknown * Renal function not at baseline. Scr continues to be elevated most likely due to diuretics. Plan Vancomycin * Loading dose: 1750mg (25mg/kg) * Random vanc level ordered for tomorrow am with labs due to renal function. * Goal trough level for UTI ~15mcg/mL Pharmacy will continue to follow and will adjust dose/frequency as necessary. Thank you.
[2017-06-24] MEDS ORDERED: VANCOMYCIN IV 1,750 MG in SODIUM CHLORIDE 0.9% 500ML 500 ML IV ONE (15:00)
[2017-06-24] MEDS ORDERED: ROPINIROLE HCL 0.25 MG TAB PO ONE (15:00)
[2017-06-24] MEDS ORDERED: FLUCONAZOLE 50 MG TAB PO ONE (17:00)
[2017-06-24 17:26] LABS: ALBUMIN 3.6 gm/dl (3.4-5.0); CALCIUM 8.6 mg/dl (8.5-10.1); CREATININE 1.74 mg/dl (0.60-1.20); PHOSPHORUS 3.6 mg/dl (2.5-4.9); POTASSIUM 4.8 mmol/L (3.5-5.1)
[2017-06-24] MEDS: LORAZEPAM 0.5 MG TAB PO PRN (17:53)
[2017-06-24] MEDS: MONTELUKAST SOD 10 MG TAB PO SCH (20:52)
[2017-06-24] MEDS: ROPINIROLE HCL 0.25 MG TAB PO SCH (20:52)
[2017-06-24] MEDS ORDERED: VANCOMYCIN IV 1,000 MG in SODIUM CHLORIDE 0.9% 250ML 250 ML IV SCH (21:00)
[2017-06-25] VITALS (7 sets, daily range): BP systolic 98–112; BP diastolic 66–76; PULSE 63–75; TEMP 36.3–36.7; O2SAT 93–96
[2017-06-25 05:08] LABS: BASO % 0.4 %; BASO ABS # 0.02 K/uL (0-0.2); EOS % 0.8 %; EOS ABS # 0.04 K/uL (0-0.5); IG# 0.01 K/uL (0.00-0.02); LYMPH ABS # 0.52 K/uL (1.2-3.4); MEAN CELL VOLUME 90.2 fL (80-100); MEAN CORPUSCULAR HEMOGLOBIN 30.1 pg (25-34); MEAN CORPUSCULAR HGB CONC 33.3 g/dl (32-36); MEAN PLATELET VOLUME 9.9 fL (7.4-10.4); MONO % 9.7 %; MONO ABS # 0.46 K/uL (0.11-0.59); NEUT % 77.9 %; NEUT ABS # 3.67 K/uL (1.4-6.5); PLATELET COUNT 215 K/uL (130-400); RED CELL DISTRIBUTION WIDTH CV 15.8 % (11.5-14.5); RED CELL DISTRIBUTION WIDTH SD 51.9 fL (36.4-46.3); WHITE BLOOD COUNT 4.72 K/uL (4.8-10.8)
[2017-06-25 05:26] LABS: CREATININE 1.42 mg/dl (0.60-1.20); POTASSIUM 4.1 mmol/L (3.5-5.1)
[2017-06-25] MEDS: LORAZEPAM 0.5 MG TAB PO PRN (07:19)
[2017-06-25] MEDS: ESCITALOPRAM OXALATE 10 MG TAB PO SCH (08:13)
[2017-06-25] MEDS: PANTOprazole SOD 40 MG TAB PO SCH (08:13)
[2017-06-25] MEDS: ROPINIROLE HCL 0.25 MG TAB PO SCH (08:13)
[2017-06-25] MEDS: CEROVITE ADV FORMULA TAB PO SCH (08:13)
[2017-06-25] MEDS: BUDESONIDE/FORMOTEROL FUMARATE 160/4.5 60 PUFFS/INHALER INH SCH ×2 (08:13→19:28)
[2017-06-25] MEDS: OFLOXACIN 0.3% OP SOLN 5 ML BTL OPR SCH ×4 (08:14→20:53)
[2017-06-25] MEDS: PrednisoLONE ACET 1% OP SUSP 5 ML BTL OPR SCH ×4 (08:14→20:53)
[2017-06-25] MEDS: FLUTICASONE PROPIONATE NA SPR 16 GM BTL NAE SCH (08:14)
[2017-06-25] MEDS: VANCOMYCIN IV 1,000 MG in SODIUM CHLORIDE 0.9% 250ML 250 ML IV SCH (09:38)
--- NOTE | 2017-06-25 09:48 | Nephrology Progress Note ---
Nephrology Progress Note Date of Service Jun 25, 2017. Chief Complaint Hyponatremia Subjective Gabriela rested well overnight. Unfortunately rest leg symptoms persist. This has been the patient's primary complaint. She was seen and evaluated with her daughter at the bedside. PT/OT evaluations completed this morning. No fevers or chills. Breathing comfortably. Weakness persists and appetite is poor. Gabriela is somnolent now following lorazepam for RLS. Review of Systems A complete review of systems was performed. Pertinent positives are noted above. All other systems are negative. Vital Signs Last 8 Hrs Date Time Temp Pulse Resp B/P (MAP) Pulse Ox O2 Delivery O2 Flow Rate FiO2 06/25/17 08:00 Room Air 06/25/17 07:20 36.3 66 20 101/66 (78) 96 Room Air 06/25/17 04:00 Room Air 06/25/17 03:29 36.6 75 18 108/74 (85) 93 Room Air Last Recorded Weight Weight (Kilograms): 71.300 Physical Exam General Appearance: + thin, + pertinent finding (frail) Head: normocephalic, atraumatic Eyes: normal inspection, sclerae normal ENT: normal ENT inspection, pharynx normal, + pertinent finding (oral mucosa dry) Neck: supple, + JVD Respiratory/Chest: no respiratory distress, no accessory muscle use, + rales ( few basilar) Cardiovascular: + systolic murmur, + pertinent finding (paced at 60) Abdomen/GI: non tender, soft Extremities/Musculoskelatal: no pedal edema, + pertinent finding (distal cyanosis noted with decreased refill) Neurologic/Psych: alert, + depressed affect Family History Cancer Diabetes mellitus Heart disease Seizures Social History Smoking Status: Never smoker Drug Use: none Marital Status: Housing Status: lives with family Occupation: retired Laboratory Results Past 24 Hours 06/25/17 04:55 Red Blood Count 3.66, Mean Corpuscular Volume 90.2, Mean Corpuscular Hemoglobin 30.1, Mean Corpuscular Hemoglobin Concent 33.3, Mean Platelet Volume 9.9, Neutrophils (%) (Auto) 77.9, Lymphocytes (%) (Auto) 11.0, Monocytes (%) (Auto) 9.7, Eosinophils (%) (Auto) 0.8, Basophils (%) (Auto) 0.4, Neutrophils # (Auto) 3.67, Lymphocytes # (Auto) 0.52, Monocytes # (Auto) 0.46, Eosinophils # (Auto) 0.04, Basophils # (Auto) 0.02 06/24/17 16:59 06/25/17 04:55 Test 06/24/17 16:59 06/25/17 04:55 Anion Gap 7.0 mmol/L (3-11) 6.0 mmol/L (3-11) Est Creatinine Clear Calc Drug Dose 26.1 ml/min 32.0 ml/min Estimated GFR () 32.7 41.8 Estimated GFR (Non- 28.2 36.0 BUN/Creatinine Ratio 37.2 (10-20) 36.8 (10-20) Calcium Level 8.6 mg/dl (8.5-10.1) 9.0 mg/dl (8.5-10.1) Phosphorus Level 3.6 mg/dl (2.5-4.9) Albumin 3.6 gm/dl (3.4-5.0) White Blood Count 4.72 K/uL (4.8-10.8) Red Blood Count 3.66 M/uL (4.2-5.4) Hemoglobin 11.0 g/dL (12.0-16.0) Hematocrit 33.0 % (37-47) Mean Corpuscular Volume 90.2 fL (80-100) Mean Corpuscular Hemoglobin 30.1 pg (25-34) Mean Corpuscular Hemoglobin Concent 33.3 g/dl (32-36) Platelet Count 215 K/uL (130-400) Mean Platelet Volume 9.9 fL (7.4-10.4) Neutrophils (%) (Auto) 77.9 % Lymphocytes (%) (Auto) 11.0 % Monocytes (%) (Auto) 9.7 % Eosinophils (%) (Auto) 0.8 % Basophils (%) (Auto) 0.4 % Neutrophils # (Auto) 3.67 K/uL (1.4-6.5) Lymphocytes # (Auto) 0.52 K/uL (1.2-3.4) Monocytes # (Auto) 0.46 K/uL (0.11-0.59) Eosinophils # (Auto) 0.04 K/uL (0-0.5) Basophils # (Auto) 0.02 K/uL (0-0.2) RDW Standard Deviation 51.9 fL (36.4-46.3) RDW Coefficient of Variation 15.8 % (11.5-14.5) Immature Granulocyte % (Auto) 0.2 % Immature Granulocyte # (Auto) 0.01 K/uL (0.00-0.02) Prothrombin Time 30.4 SECONDS (9.0-12.0) Prothromb Time International Ratio 3.0 (0.9-1.1) Random Vancomycin Level 18.5 mcg/ml Allergies Coded Allergies: AMADOU Inhibitors (Verified Allergy, Unknown, 06/20/17) Amiodarone (Verified Allergy, Unknown, 06/20/17) Azithromycin (Verified Allergy, Unknown, 06/20/17) Clarithromycin (Verified Allergy, Unknown, 06/20/17) Hydralazine (Verified Allergy, Unknown, 06/20/17) Hydrochlorothiazide (Unverified Allergy, Unknown, RASH, 06/20/17) Pt unsure of reaction, possible rash. Lisinopril (Verified Allergy, Unknown, 06/20/17) Penicillins (Verified Allergy, Unknown, 06/20/17) Procainamide (Verified Allergy, Unknown, 06/20/17) Medications Current Inpatient Medications Medications (Trade) Dose Ordered Sig/Golden Route Start Time Stop Time Status Last Admin Dose Admin Albuterol (Ventolin Hfa Inhaler) 2 puffs QID PRN INH 06/23/17 13:45 07/23/17 13:44 Budesonide/ Formoterol Fumarate (Symbicort 160/ 4.5 Inh) 2 puffs BID INH 06/23/17 21:00 07/23/17 20:59 06/25/17 08:13 2 PUFFS Escitalopram Oxalate (Lexapro Tab) 5 mg QAM PO 06/24/17 09:00 07/24/17 08:59 06/25/17 08:13 5 MG Fluticasone Propionate (Flonase Nasal Mcgregor) 2 sprays DAILY JURGEN 06/24/17 09:00 07/24/17 08:59 Montelukast Sodium (Singulair Tab) 10 mg HS PO 06/23/17 21:00 07/23/17 20:59 06/24/17 20:52 10 MG Multivitamins/ Minerals (Multivitamin W/ Minerals Tab) 1 tab DAILY PO 06/24/17 09:00 07/24/17 08:59 06/25/17 08:13 1 TAB Ofloxacin (Ocuflox 0.3% Oph Soln) 1 drops QID OPR 06/23/17 17:00 07/03/17 16:59 06/25/17 08:14 1 DROPS Prednisolone Acetate (Pred Forte 1% Oph Susp) 1 drops QID OPR 06/23/17 21:00 06/29/17 23:59 06/25/17 08:14 1 DROPS Pantoprazole Sodium (Protonix Tab) 40 mg DAILY PO 06/24/17 09:00 07/24/17 08:59 06/25/17 08:13 40 MG Miscellaneous (Iv Fluids Completed) 1 ea PRN PRN N/A 06/23/17 17:15 06/23/18 17:14 Prednisolone Acetate (Pred Forte 1% Oph Susp) 1 drops TID OPR 06/30/17 09:00 07/06/17 23:59 Ondansetron HCl (Zofran Inj) 4 mg Q6H PRN IV 06/23/17 20:15 07/23/17 20:14 06/24/17 14:14 4 MG Acetaminophen (Tylenol Tab) 650 mg Q4H PRN PO 06/23/17 20:15 07/23/17 20:14 06/24/17 19:41 650 MG Miscellaneous Information (Consult) 1 ea UD PRN N/A 06/24/17 14:15 07/24/17 14:14 Ropinirole HCl (Requip Tab) 0.25 mg BID PO 06/24/17 21:00 07/24/17 20:59 06/25/17 08:13 0.25 MG Lorazepam (Ativan Tab) 0.5 mg Q6H PRN PO 06/24/17 16:45 07/24/17 16:44 06/25/17 07:19 0.5 MG Vancomycin HCl 1000 mg/Sodium Chloride 270 ml @ 125 mls/hr DAILY@0900 IV 06/25/17 09:00 06/30/17 08:59 Impression (1) Acute hyponatremia (2) Chronic hyponatremia (3) Chyha-ub-wnspwwg kidney injury (4) Chronic systolic CHF (congestive heart failure) (5) Dilated cardiomyopathy (6) Cardiac cirrhosis (7) Weakness Gabriela is a 77-year-old female with acute on chronic hyponatremia in the setting of advanced chronic systolic CHF and cirrhosis. Acute hyponatremia can be attributed to diuretics, recent use of mannitol and poor solute intake. Symptoms related to acute hyponatremia would be expected to improve with correction of the serum sodium. Sodium remains at baseline. Chronic hyponatremia is a manifestation of advanced underlying cardiac and liver disease as well as chronic diuretic use. Dysnatremia a marker for severity of illness in both conditions. Gabriela's progressive weakness as well as decreased activity tolerance suggest progression of underlying medical comorbid conditions. Overall, prognosis is guarded. She is being treated for Enterococcus UTI. She had acute on chronic renal insufficiency associated with prerenal physiology which has also improved. Creatinine is stable this morning. Urine output is appropriate. Recommendations -- Document I/O's -- Fluid restriction to less than 1 L/d -- Resume furosemide 80 mg now with a goal to encourage a slightly negative fluid balance -- Repeat metabolic profile this afternoon -- Encourage nutrition -- Lab has been contact regarding iron profile reporting error
[2017-06-25] MEDS ORDERED: FUROSEMIDE 80 MG TAB PO ONE (10:00)
--- NOTE | 2017-06-25 10:25 | Hospitalist Progress Note ---
Hospitalist Progress Note Date of Service Jun 25, 2017. (Jayleen Liu ., PA-C) Subjective Pt evaluation today including: conversation w/ patient, conversation w/ family (daughter at bedside), physical exam, chart review, lab review, conversation w/ new vehicle sales consultant (Dr. Reilly), review of inpatient medication list PO Intake: Decreased appetite Voiding: no voiding problems Patient very sleepy on my exam, received Ativan about 3 hours ago. She denies any discomfort in her legs currently. She does state that her appetite is decreased compared to normal. The patient denies fevers, chills, sweats, chest pain, palpitations, claudication, cough, wheezing, shortness of breath, nausea, vomiting, abdominal pain, dysuria, hematuria, urinary retention, paralysis, weakness, numbness and tingling. Additional Comments: See HPI for pertinent positives and negatives. All other systems reviewed and negative. (Jayleen Liu ., PA-C) Objective Vital Signs Date Time Temp Pulse Resp B/P (MAP) Pulse Ox O2 Delivery O2 Flow Rate FiO2 06/25/17 08:00 Room Air 06/25/17 07:20 36.3 66 20 101/66 (78) 96 Room Air 06/25/17 04:00 Room Air 06/25/17 03:29 36.6 75 18 108/74 (85) 93 Room Air 06/25/17 00:01 Room Air 06/24/17 23:06 36.7 74 18 97/62 (74) 94 Room Air 06/24/17 20:04 36.5 64 20 101/67 (78) 93 Room Air 06/24/17 20:00 Room Air 06/24/17 16:03 36.5 67 18 96/63 (74) 95 Room Air 06/24/17 16:00 95 Room Air 06/24/17 12:00 Room Air 06/24/17 10:53 36.3 62 19 108/69 (82) 95 Room Air (Jayleen Liu ., MARY-C) Physical Exam Notes: General appearance: +Lethargic. Well-developed, well-nourished, no apparent distress Head: Normocephalic, atraumatic Eyes: +Right pupil more dilated than left, pt has trouble keeping right eye open. Normal inspection, EOMI ENT: Normal ENT inspection, hearing grossly normal, pharynx normal Neck: Supple, no JVD, trachea midline Respiratory/Chest: Lungs clear to auscultation, normal breath sounds, no respiratory distress Cardiovascular: +Systolic murmur. Regular rate & rhythm, no gallop Abdomen/GI: Normal bowel sounds, non-tender, soft Extremities/Musculoskeletal: Normal inspection, no calf tenderness, no pedal edema Neurological/Psych: Alert, normal mood/affect, oriented x 3 Skin: Normal color, warm/dry, no rash (Jayleen Liu, SUSY) Laboratory Results Last 24 Hours Test 06/24/17 16:59 06/25/17 04:55 Sodium Level 126 mmol/L 127 mmol/L Potassium Level 4.8 mmol/L 4.1 mmol/L Chloride Level 96 mmol/L 99 mmol/L Carbon Dioxide Level 23 mmol/L 22 mmol/L Anion Gap 7.0 mmol/L 6.0 mmol/L Blood Urea Nitrogen 65 mg/dl 52 mg/dl Creatinine 1.74 mg/dl 1.42 mg/dl Est Creatinine Clear Calc Drug Dose 26.1 ml/min 32.0 ml/min Estimated GFR () 32.7 41.8 Estimated GFR (Non- 28.2 36.0 BUN/Creatinine Ratio 37.2 36.8 Random Glucose 108 mg/dl 92 mg/dl Calcium Level 8.6 mg/dl 9.0 mg/dl Phosphorus Level 3.6 mg/dl Albumin 3.6 gm/dl White Blood Count 4.72 K/uL Red Blood Count 3.66 M/uL Hemoglobin 11.0 g/dL Hematocrit 33.0 % Mean Corpuscular Volume 90.2 fL Mean Corpuscular Hemoglobin 30.1 pg Mean Corpuscular Hemoglobin Concent 33.3 g/dl Platelet Count 215 K/uL Mean Platelet Volume 9.9 fL Neutrophils (%) (Auto) 77.9 % Lymphocytes (%) (Auto) 11.0 % Monocytes (%) (Auto) 9.7 % Eosinophils (%) (Auto) 0.8 % Basophils (%) (Auto) 0.4 % Neutrophils # (Auto) 3.67 K/uL Lymphocytes # (Auto) 0.52 K/uL Monocytes # (Auto) 0.46 K/uL Eosinophils # (Auto) 0.04 K/uL Basophils # (Auto) 0.02 K/uL RDW Standard Deviation 51.9 fL RDW Coefficient of Variation 15.8 % Immature Granulocyte % (Auto) 0.2 % Immature Granulocyte # (Auto) 0.01 K/uL Prothrombin Time 30.4 SECONDS Prothromb Time International Ratio 3.0 Random Vancomycin Level 18.5 mcg/ml (Jayleen Liu .SUSY) Assessment and Plan 77 y/o female with a history of 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 Found to be hypotensive and with VAIBHAV in ED. Hypotension--improving -Admit to telemetry. Pt paced, HR 60s overnight -BP improved with two 500 cc NSS boluses -Random cortisol WNL -Echo shows EF 20-25%, akinesis in inferior, inferolateral and anterior segments. EF similar to previous study -IVF d/c'd -Coreg on hold for now VAIBHAV on CKD stage III--resolved after IVF -Creatinine 1.42 on 06/25, down from 1.74 -Baseline creatinine around 1.6 Hyponatremia--stable -Sodium 127 on 06/25, stable from 126 -Nephro consulted, appreciate recs: Spoke with Dr. Reilly extensively. Will further fluid restrict to 1000 cc. Will resume Lasix 80 mg now (pt takes 80 mg BID at home). Monitor I's & O's with goal of slight negative balance. Recheck renal profile in afternoon. Contacted lab regarding iron profile error. May benefit from iron supplementation. May require dobutamine again. Recommend consulting cardiology. Enterococcus UTI POA, possible yeast as well -Diflucan 150 mg PO x1 for possible yeast -Urine culture growing enterococcus, sensitivities pending -Vancomycin IV due to allergies and enterococcus Acute restless legs syndrome vs akathisia--ongoing -Neurology consulted, appreciate recs -Continue Requip 0.25 mg PO BID pending neuro recs -Ativan 0.5 mg PO q6h prn RLS or insomnia Recent acute angle closure glaucoma s/p ablation and cataract surgery--stable -Continue ofloxacin and prednisolone drops Chronic systolic CHF--stable -Echo as above -IVF d/c'd -Resume Lasix 80 mg PO qd, monitor response. Pt takes 80 BID at home. Still w/ borderline hypotension -Coreg on hold due to borderline hypotension -Consult cardiology, appreciate recs. Hyponatremia in setting of severe CHF has poor prognosis. May benefit from dobutamine again -Hold metolazone, spironolactone for now H/o a-fib--paced rhythm now -INR 3.0 on 06/25, down from 3.8 -Can likely resume warfarin tomorrow COPD--stable, no acute exacerbation -Continue Symbicort Depression -Continue Lexapro 5 mg PO qd DVT prophylaxis -INR upper range of therapeutic Code Status -Level V, DO NOT RESUSCITATE Dispo -PT/OT eval and treat (Jayleen Liu ., PABrittanyC) Attending Attestation - Pt seen/examined, chart reviewed, care plan d/w MAYR Liu. I agree w/ the olson components of her documentation except - patient has acute kidney injury in setting of CKD stage 3. Pt states that the ativan was helpful w/ restless legs this am; requip was not helpful. Has poor appetite. Very tired. Had exhausting week due to her acute glaucoma and need for urgent cataract removal in right eye (done at [facility]). VSS afebrile gen - looks tired, depressed neck - JVD to the jaw even sitting at 90 degrees heart - RRR, s1, s2, 2/6 systolic murmur LSB lungs - CTA b/l abd - soft, NT ext - no edema A/P: 1. hypotension - 2nd to recent use of mannitol & diamox along with chronic lasix - improved s/p judicious IVF. 2. hyponatremia - 2nd to recent use of mannitol & diamox along with chronic lasix - improved s/p fluids. Lasix to be resumed today per recommendations of Dr. Reilly - agree w/ such. 3. restless legs syndrome - would change to mirapex in francois of requip; consider iron replacement given the known association between low iron stores & RLS. appreciate neuro consultation. 4. enterococcal UTI - if renal function is stable tomorrow would d/c vanco, change to macrobid to complete course. 5. chronic systolic CHF - appears compensated; resume lasix. 6. h/o a flutter - INR has been >3; resume coumadin but at 2mg daily (was on 2.5mg daily prior). Daily INR. PT, OT daughter updated Parul MATUTE MD (Fabio Matute MD)
--- NOTE | 2017-06-25 11:31 | Pharmacy Progress Note ---
Pharmacy Abx Initial Consult Date of Service Jun 25, 2017. Pharmacy Dosing Scope Date of Consult: 06/25/17 Consultation requested by: Dr. Casillas Pharmacy is consulted to initiate Vancomycin IV dosing therapy, order appropriate labs and adjust drug dose/frequency. Subjective The patient is a 77 year old female admitted on Jun 24, 2017 at 14:06. Objective Height (Feet): 5 Height (Inches): 6.00 Weight (Kilograms): 71.300 Vital Signs (Past 12Hrs) Vital Signs Past 12 Hours Date Time Temp Pulse Resp B/P (MAP) Pulse Ox O2 Delivery O2 Flow Rate FiO2 06/25/17 08:00 Room Air 06/25/17 07:20 36.3 66 20 101/66 (78) 96 Room Air 06/25/17 04:00 Room Air 06/25/17 03:29 36.6 75 18 108/74 (85) 93 Room Air 06/25/17 00:01 Room Air Lab Results (24Hrs) Laboratory Tests (24 Hours) Test 06/25/17 04:55 White Blood Count 4.72 K/uL (4.8-10.8) L Red Blood Count 3.66 M/uL (4.2-5.4) L Hemoglobin 11.0 g/dL (12.0-16.0) L Hematocrit 33.0 % (37-47) L Mean Corpuscular Volume 90.2 fL (80-100) Mean Corpuscular Hemoglobin 30.1 pg (25-34) Mean Corpuscular Hemoglobin Concent 33.3 g/dl (32-36) Platelet Count 215 K/uL (130-400) Mean Platelet Volume 9.9 fL (7.4-10.4) Neutrophils (%) (Auto) 77.9 % Lymphocytes (%) (Auto) 11.0 % Monocytes (%) (Auto) 9.7 % Eosinophils (%) (Auto) 0.8 % Basophils (%) (Auto) 0.4 % Neutrophils # (Auto) 3.67 K/uL (1.4-6.5) Lymphocytes # (Auto) 0.52 K/uL (1.2-3.4) L Monocytes # (Auto) 0.46 K/uL (0.11-0.59) Eosinophils # (Auto) 0.04 K/uL (0-0.5) Basophils # (Auto) 0.02 K/uL (0-0.2) Micro Results Date/Time Source Procedure Growth Status 06/23/17 17:14 Blood Blood Culture - Preliminary NO GROWTH TO DATE. Resulted 06/23/17 17:02 Blood Blood Culture - Preliminary NO GROWTH TO DATE. Resulted 06/23/17 20:38 Urine , Clean Catch Urine Culture - Preliminary Enterococcus Species Resulted Assessment & Plan Assessment 77 year old female admitted with UTI (uncomplicated?) Plan Vancomycin for treatment of UTI - urine culture grew Enterococcus species. Vancomycin IV * Loading dose: 1750 mg (25 mg/kg) x1 dose given yesterday. * Estimated PK parameters: Ke = 0.031/hr, t1/2 = 22.4 hrs, Vd = 0.7 L/kg based on Scr = 1.42, Crcl = 32 today. * Maintenance dose: 1000 mg IV (15 mg/kg) every 24 hours started today. * Goal trough level for UTI: ~15 mcg/mL * Trough Vanco level ordered for 06/27/17 before dose at 9 AM * A less than traditional dose and/or extended dosing interval has/have been selected due to likelihood of drug accumulation in patient with h/o CKD. Pharmacy will continue to follow and will adjust dose/frequency as necessary. Thank you.
--- NOTE | 2017-06-25 12:28 | Neurology Consultation ---
Neurology Consultation Date of Consultation: Jun 25, 2017. Attending Physician: Fabio Matute MD Primary Care Physician: Maia Vega D.O. Reason for Consultation: Restlessness History of Present Illness Source: patient, hospital records Patient is a 77-year-old female who presented with generalized weakness for the past week. Her history is notable for recent treatment for angle closure glaucoma for which she received Diamox and mannitol. She has hyponatremia, intermittent diarrhea, poor p.o. intake, and hypotension. Her history is further complicated by acute on chronic kidney injury. I was contacted by Dr. Casillas, hospitalist physician, last night regarding this patient's significant restlessness. She has been complaining of considerable restlessness and discomfort in her legs over the past few days. This symptom is especially problematic while sitting still or lying in bed. She feels strong compulsion to kick in move around which seems to alleviate her symptoms modestly. In speaking with the patient further this morning, she indicates that she has actually been having this symptom for the past few months although it has not been as severe as it is currently. I had recommended a trial of ropinirole last night. This medication was apparently not effective. She was subsequently treated with lorazepam which improved her symptoms and allowed her to sleep. She is somewhat somnolent this morning after receiving additional lorazepam. I also discussed her case with her daughter at bedside this morning. Her daughter is an occupational therapist with [employer]. Patient 's past medical history is also notable for dilated cardiomyopathy, anemia, cardiac cirrhosis, paroxysmal ventricular tachycardia status post ablation with placement of an ICD as well, and amiodarone induced hypothyroidism. Past Medical/Surgical History Medical Problems: (1) Abdominal pain, acute, generalized Status: Acute (2) Qkxci-[id number]-[id number] kidney injury Status: Acute (3) Chronic hyponatremia Status: Acute (4) Generalized weakness Status: Acute (5) Lactic acidosis Status: Acute (6) Non-cardiac chest pain Status: Acute (7) Supratherapeutic INR Status: Acute Family History Family history notable for diabetes, heart disease, and seizure disorder Social History Smoking Status: Never smoker Drug Use: none Marital Status: Housing Status: lives with significant other Occupation Status: retired Allergies Coded Allergies: AMADOU Inhibitors (Verified Allergy, Unknown, 06/20/17) Amiodarone (Verified Allergy, Unknown, 06/20/17) Azithromycin (Verified Allergy, Unknown, 06/20/17) Clarithromycin (Verified Allergy, Unknown, 06/20/17) Hydralazine (Verified Allergy, Unknown, 06/20/17) Hydrochlorothiazide (Unverified Allergy, Unknown, RASH, 06/20/17) Pt unsure of reaction, possible rash. Lisinopril (Verified Allergy, Unknown, 06/20/17) Penicillins (Verified Allergy, Unknown, 06/20/17) Procainamide (Verified Allergy, Unknown, 06/20/17) Current Inpatient Medications Current Inpatient Medications Medications (Trade) Dose Ordered Sig/Golden Route Start Time Stop Time Status Last Admin Dose Admin Albuterol (Ventolin Hfa Inhaler) 2 puffs QID PRN INH 06/23/17 13:45 07/23/17 13:44 Budesonide/ Formoterol Fumarate (Symbicort 160/ 4.5 Inh) 2 puffs BID INH 06/23/17 21:00 07/23/17 20:59 06/25/17 08:13 2 PUFFS Escitalopram Oxalate (Lexapro Tab) 5 mg QAM PO 06/24/17 09:00 07/24/17 08:59 06/25/17 08:13 5 MG Fluticasone Propionate (Flonase Nasal [place]) 2 sprays DAILY JURGEN 06/24/17 09:00 07/24/17 08:59 Montelukast Sodium (Singulair Tab) 10 mg HS PO 06/23/17 21:00 07/23/17 20:59 06/24/17 20:52 10 MG Multivitamins/ Minerals (Multivitamin W/ Minerals Tab) 1 tab DAILY PO 06/24/17 09:00 07/24/17 08:59 06/25/17 08:13 1 TAB Ofloxacin (Ocuflox 0.3% Oph Soln) 1 drops QID OPR 06/23/17 17:00 07/03/17 16:59 06/25/17 08:14 1 DROPS Prednisolone Acetate (Pred Forte 1% Oph Susp) 1 drops QID OPR 06/23/17 21:00 06/29/17 23:59 06/25/17 08:14 1 DROPS Pantoprazole Sodium (Protonix Tab) 40 mg DAILY PO 06/24/17 09:00 07/24/17 08:59 06/25/17 08:13 40 MG Miscellaneous (Iv Fluids Completed) 1 ea PRN PRN N/A 06/23/17 17:15 06/23/18 17:14 Prednisolone Acetate (Pred Forte 1% Oph Susp) 1 drops TID OPR 06/30/17 09:00 07/06/17 23:59 Ondansetron HCl (Zofran Inj) 4 mg Q6H PRN IV 06/23/17 20:15 07/23/17 20:14 06/24/17 14:14 4 MG Acetaminophen (Tylenol Tab) 650 mg Q4H PRN PO 06/23/17 20:15 07/23/17 20:14 06/24/17 19:41 650 MG Miscellaneous Information (Consult) 1 ea UD PRN N/A 06/24/17 14:15 07/24/17 14:14 Ropinirole HCl (Requip Tab) 0.25 mg BID PO 06/24/17 21:00 07/24/17 20:59 06/25/17 08:13 0.25 MG Lorazepam (Ativan Tab) 0.5 mg Q6H PRN PO 06/24/17 16:45 07/24/17 16:44 06/25/17 07:19 0.5 MG Vancomycin HCl 1000 mg/Sodium Chloride 270 ml @ 125 mls/hr DAILY@0900 IV 06/25/17 09:00 06/30/17 08:59 06/25/17 09:38 125 MLS/HR Review of Systems Constitutional: Patient complains of fatigue Eyes: As per history of present illness with recent treatment for acute angle glaucoma ENT: No vertigo or hearing loss Cardiovascular: No chest pain or palpitations Respiratory: No cough or shortness of breath Neurological: As per history of present illness Psychiatric: No history of recent exposure to neuroleptics or similar medications A full 10 point review of systems was obtained from this patient with pertinent positives and negatives described in the history of present illness and otherwise listed above. All remaining systems were reviewed and are negative. Physical Exam Vital Signs (Past 24 Hrs): Date Time Temp Pulse Resp B/P (MAP) Pulse Ox O2 Delivery O2 Flow Rate FiO2 06/25/17 08:00 Room Air 06/25/17 07:20 36.3 66 20 101/66 (78) 96 Room Air 06/25/17 04:00 Room Air 06/25/17 03:29 36.6 75 18 108/74 (85) 93 Room Air 06/25/17 00:01 Room Air 06/24/17 23:06 36.7 74 18 97/62 (74) 94 Room Air 06/24/17 20:04 36.5 64 20 101/67 (78) 93 Room Air 06/24/17 20:00 Room Air 06/24/17 16:03 36.5 67 18 96/63 (74) 95 Room Air 06/24/17 16:00 95 Room Air The patient is a well-developed elderly female. She is in no acute distress. Patient is mildly lethargic this morning although did arouse with verbal stimulation and is fully oriented. Recent and remote memory intact. Attention and concentration mildly impaired due to somnolence. Patient exhibits a normal spontaneous speech pattern and age-appropriate fund of knowledge. Visual cloud full to confrontation. Visual acuity normal. Pupils equal round react to light and accommodation. Eye movements normal. There is no nystagmus. Facial sensation intact. There is normal facial symmetry and strength. Hearing intact. Palate elevates to midline. Shoulder shrug intact. Tongue protrudes to midline. Sensation intact for all 4 limbs. Deep tendon reflexes are intact and symmetrical. There is no dysdiadochokinesia or dysmetria of [id number] or heel to nassar bilaterally. Ophthalmoscopic examination cannot be adequately completed due to poor patient cooperation. Carotid pulses normal bilaterally, no bruits to auscultation. Gait and station not tested due to safety concerns. Patient exhibits normal muscle strength and tone for all 4 limbs. She has a very mild bilateral upper extremity postural tremor. No rest tremor. No atrophy. She does not exhibit obvious dyskinesias or other gross abnormal movements. Laboratory Results Past 24 Hours: 06/25/17 04:55 Red Blood Count 3.66, Mean Corpuscular Volume 90.2, Mean Corpuscular Hemoglobin 30.1, Mean Corpuscular Hemoglobin Concent 33.3, Mean Platelet Volume 9.9, Neutrophils (%) (Auto) 77.9, Lymphocytes (%) (Auto) 11.0, Monocytes (%) (Auto) 9.7, Eosinophils (%) (Auto) 0.8, Basophils (%) (Auto) 0.4, Neutrophils # (Auto) 3.67, Lymphocytes # (Auto) 0.52, Monocytes # (Auto) 0.46, Eosinophils # (Auto) 0.04, Basophils # (Auto) 0.02 06/25/17 04:55 Test 06/24/17 16:59 06/25/17 04:55 Phosphorus Level 3.6 mg/dl (2.5-4.9) Albumin 3.6 gm/dl (3.4-5.0) White Blood Count 4.72 K/uL (4.8-10.8) Red Blood Count 3.66 M/uL (4.2-5.4) Hemoglobin 11.0 g/dL (12.0-16.0) Hematocrit 33.0 % (37-47) Mean Corpuscular Volume 90.2 fL (80-100) Mean Corpuscular Hemoglobin 30.1 pg (25-34) Mean Corpuscular Hemoglobin Concent 33.3 g/dl (32-36) Platelet Count 215 K/uL (130-400) Mean Platelet Volume 9.9 fL (7.4-10.4) Neutrophils (%) (Auto) 77.9 % Lymphocytes (%) (Auto) 11.0 % Monocytes (%) (Auto) 9.7 % Eosinophils (%) (Auto) 0.8 % Basophils (%) (Auto) 0.4 % Neutrophils # (Auto) 3.67 K/uL (1.4-6.5) Lymphocytes # (Auto) 0.52 K/uL (1.2-3.4) Monocytes # (Auto) 0.46 K/uL (0.11-0.59) Eosinophils # (Auto) 0.04 K/uL (0-0.5) Basophils # (Auto) 0.02 K/uL (0-0.2) RDW Standard Deviation 51.9 fL (36.4-46.3) RDW Coefficient of Variation 15.8 % (11.5-14.5) Immature Granulocyte % (Auto) 0.2 % Immature Granulocyte # (Auto) 0.01 K/uL (0.00-0.02) Prothrombin Time 30.4 SECONDS (9.0-12.0) Prothromb Time International Ratio 3.0 (0.9-1.1) Anion Gap 6.0 mmol/L (3-11) Est Creatinine Clear Calc Drug Dose 32.0 ml/min Estimated GFR () 41.8 Estimated GFR (Non- 36.0 BUN/Creatinine Ratio 36.8 (10-20) Calcium Level 9.0 mg/dl (8.5-10.1) Random Vancomycin Level 18.5 mcg/ml Imaging A CT of the head completed 2 days ago was unremarkable Impression This patient probably has restless leg syndrome. However, her condition is notably worse in the context of her current medical illness which includes hyponatremia, acute on chronic renal failure, poor p.o. intake, intermittent diarrhea, and recent treatment for angle closure glaucoma with Diamox and mannitol. She does not have a history of exposure to neuroleptics or similar medications recently. She is on a very low dose of Lexapro which is probably not responsible for her restlessness. Plan As this patient did not respond to a low dose of ropinirole, I think it would be reasonable to try pramipexole. She may start with 0.25 milligrams taken 2 hours before bedtime A low dose of lorazepam is also appropriate and may be used on an as-needed basis I expect her symptoms to improve gradually over the next few days
[2017-06-25] MEDS: ACETAMINOPHEN 325 MG TAB PO PRN (14:36)
[2017-06-25 17:48] LABS: ALBUMIN 3.6 gm/dl (3.4-5.0); CALCIUM 8.8 mg/dl (8.5-10.1); CREATININE 1.46 mg/dl (0.60-1.20); POTASSIUM 4.4 mmol/L (3.5-5.1)
[2017-06-25] MEDS: PRAMIPEXOLE DIHYDROCHLORIDE 0.25MG TAB PO SCH (19:27)
[2017-06-25] MEDS: MONTELUKAST SOD 10 MG TAB PO SCH (19:28)
[2017-06-25] MEDS ORDERED: WARFARIN SOD 2 MG TAB PO ONE (19:45)
[2017-06-26] VITALS (9 sets, daily range): BP systolic 100–116; BP diastolic 63–74; PULSE 58–75; TEMP 36.4–36.9; O2SAT 93–99
[2017-06-26] MEDS: ACETAMINOPHEN 325 MG TAB PO PRN ×2 (01:53→22:25)
[2017-06-26 06:43] LABS: CALCIUM 8.9 mg/dl (8.5-10.1); CREATININE 1.34 mg/dl (0.60-1.20); POTASSIUM 4.1 mmol/L (3.5-5.1)
[2017-06-26] MEDS: BUDESONIDE/FORMOTEROL FUMARATE 160/4.5 60 PUFFS/INHALER INH SCH ×2 (08:26→21:40)
[2017-06-26] MEDS: FLUTICASONE PROPIONATE NA SPR 16 GM BTL NAE SCH (08:26)
[2017-06-26] MEDS: ESCITALOPRAM OXALATE 10 MG TAB PO SCH (08:27)
[2017-06-26] MEDS: FUROSEMIDE 80 MG TAB PO SCH (08:27)
[2017-06-26] MEDS: CEROVITE ADV FORMULA TAB PO SCH (08:27)
[2017-06-26] MEDS: OFLOXACIN 0.3% OP SOLN 5 ML BTL OPR SCH ×4 (08:28→21:40)
[2017-06-26] MEDS: PANTOprazole SOD 40 MG TAB PO SCH (08:28)
[2017-06-26] MEDS: PrednisoLONE ACET 1% OP SUSP 5 ML BTL OPR SCH ×4 (08:29→21:40)
[2017-06-26] MEDS: VANCOMYCIN IV 1,000 MG in SODIUM CHLORIDE 0.9% 250ML 250 ML IV SCH (08:35)
[2017-06-26] MEDS ORDERED: DOCUSATE SODIUM 100 MG CAP PO SCH (11:45)
[2017-06-26] MEDS ORDERED: POLYETHYLENE (MIRALAX) 17 GM PACK PO SCH (11:45)
--- NOTE | 2017-06-26 13:17 | Nephrology Progress Note ---
Nephrology Progress Note Date of Service Jun 26, 2017. Chief Complaint Hyponatremia Subjective Gabriela was very despondent this morning. She feels weak and tired. Her appetite is poor. She struggles with the fluid restriction. She denies significant dyspnea. She has been ambulating in the halls with assistance but fatigues quickly. She also reports some nausea. Gabriela stated that she is tired of feeling sick. She is frustrated and depressed by her change in health. She reported that her personal goal is to feel better at this point. She notes that RLS symptoms seem to have improved. Review of Systems A complete review of systems was performed. Pertinent positives are noted above. All other systems are negative. Vital Signs Last 8 Hrs Date Time Temp Pulse Resp B/P (MAP) Pulse Ox O2 Delivery O2 Flow Rate FiO2 06/26/17 12:00 97 06/26/17 12:00 95 Room Air 06/26/17 11:51 36.5 58 18 110/69 (83) 99 06/26/17 08:00 98 Room Air 06/26/17 07:44 36.9 64 16 106/71 (83) 98 Last Recorded Weight Weight (Kilograms): 71.600 Physical Exam General Appearance: no apparent distress, + pertinent finding (elderly, frail) Head: normocephalic, atraumatic Eyes: normal inspection, sclerae normal ENT: pharynx normal, + pertinent finding (oral mucosa slightly dry) Neck: supple, no JVD (JVP 10 + cm) Respiratory/Chest: lungs clear, no respiratory distress, no accessory muscle use Cardiovascular: no edema, no gallop, + systolic murmur Abdomen/GI: non tender, soft Extremities/Musculoskelatal: normal inspection, no pedal edema Neurologic/Psych: alert, + depressed affect Family History Cancer Diabetes mellitus Heart disease Seizures Social History Smoking Status: Never smoker Drug Use: none Marital Status: Housing Status: lives with family Occupation: retired Laboratory Results Past 24 Hours 06/25/17 17:11 06/26/17 05:52 Test 06/25/17 17:11 06/26/17 05:52 Anion Gap 9.0 mmol/L (3-11) 6.0 mmol/L (3-11) Est Creatinine Clear Calc Drug Dose 33.7 ml/min 36.7 ml/min Estimated GFR () 40.4 44.8 Estimated GFR (Non- 34.8 38.7 BUN/Creatinine Ratio 32.3 (10-20) 30.9 (10-20) Calcium Level 8.8 mg/dl (8.5-10.1) 8.9 mg/dl (8.5-10.1) Phosphorus Level 3.0 mg/dl (2.5-4.9) Albumin 3.6 gm/dl (3.4-5.0) Prothrombin Time 21.1 SECONDS (9.0-12.0) Prothromb Time International Ratio 2.0 (0.9-1.1) Allergies Coded Allergies: AMADOU Inhibitors (Verified Allergy, Unknown, 06/20/17) Amiodarone (Verified Allergy, Unknown, 06/20/17) Azithromycin (Verified Allergy, Unknown, 06/20/17) Clarithromycin (Verified Allergy, Unknown, 06/20/17) Hydralazine (Verified Allergy, Unknown, 06/20/17) Hydrochlorothiazide (Unverified Allergy, Unknown, RASH, 06/20/17) Pt unsure of reaction, possible rash. Lisinopril (Verified Allergy, Unknown, 06/20/17) Penicillins (Verified Allergy, Unknown, 06/20/17) Procainamide (Verified Allergy, Unknown, 06/20/17) Medications Current Inpatient Medications Medications (Trade) Dose Ordered Sig/Golden Route Start Time Stop Time Status Last Admin Dose Admin Albuterol (Ventolin Hfa Inhaler) 2 puffs QID PRN INH 06/23/17 13:45 07/23/17 13:44 Budesonide/ Formoterol Fumarate (Symbicort 160/ 4.5 Inh) 2 puffs BID INH 06/23/17 21:00 07/23/17 20:59 06/26/17 08:26 2 PUFFS Escitalopram Oxalate (Lexapro Tab) 5 mg QAM PO 06/24/17 09:00 07/24/17 08:59 06/26/17 08:27 5 MG Fluticasone Propionate (Flonase Nasal [place]) 2 sprays DAILY JURGEN 06/24/17 09:00 07/24/17 08:59 Montelukast Sodium (Singulair Tab) 10 mg HS PO 06/23/17 21:00 07/23/17 20:59 06/25/17 19:28 10 MG Multivitamins/ Minerals (Multivitamin W/ Minerals Tab) 1 tab DAILY PO 06/24/17 09:00 07/24/17 08:59 06/26/17 08:27 1 TAB Ofloxacin (Ocuflox 0.3% Oph Soln) 1 drops QID OPR 06/23/17 17:00 07/03/17 16:59 06/26/17 12:42 1 DROPS Prednisolone Acetate (Pred Forte 1% Oph Susp) 1 drops QID OPR 06/23/17 21:00 06/29/17 23:59 06/26/17 12:42 1 DROPS Pantoprazole Sodium (Protonix Tab) 40 mg DAILY PO 06/24/17 09:00 07/24/17 08:59 06/26/17 08:28 40 MG Miscellaneous (Iv Fluids Completed) 1 ea PRN PRN N/A 06/23/17 17:15 06/23/18 17:14 Prednisolone Acetate (Pred Forte 1% Oph Susp) 1 drops TID OPR 06/30/17 09:00 07/06/17 23:59 Ondansetron HCl (Zofran Inj) 4 mg Q6H PRN IV 06/23/17 20:15 07/23/17 20:14 06/24/17 14:14 4 MG Acetaminophen (Tylenol Tab) 650 mg Q4H PRN PO 06/23/17 20:15 07/23/17 20:14 06/26/17 01:53 650 MG Miscellaneous Information (Consult) 1 ea UD PRN N/A 06/24/17 14:15 07/24/17 14:14 Lorazepam (Ativan Tab) 0.5 mg Q6H PRN PO 06/24/17 16:45 07/24/17 16:44 06/25/17 07:19 0.5 MG Vancomycin HCl 1000 mg/Sodium Chloride 270 ml @ 125 mls/hr DAILY@0900 IV 06/25/17 09:00 06/30/17 08:59 06/26/17 08:35 125 MLS/HR Pramipexole Dihydrochloride (miraPEX TAB) 0.25 mg DAILY@1900 PO 06/25/17 19:00 07/25/17 18:59 06/25/17 19:27 0.25 MG Warfarin Sodium (Coumadin Tab) 2 mg DAILY@16 PO 06/26/17 16:00 07/26/17 15:59 Furosemide (Lasix Tab) 80 mg QAM PO 06/26/17 09:00 07/26/17 08:59 06/26/17 08:27 80 MG Polyethylene (Miralax Powder Packet) 17 gm DAILY PO 06/27/17 09:00 07/27/17 08:59 Polyethylene (Miralax Powder Packet) 17 gm TODAY@1145 PO 06/26/17 11:45 06/26/17 14:00 06/26/17 12:42 17 GM Docusate Sodium (coLACE CAP) 100 mg BID PO 06/26/17 21:00 07/26/17 20:59 Docusate Sodium (coLACE CAP) 100 mg TODAY@1145 PO 06/26/17 11:45 06/26/17 14:00 06/26/17 12:42 100 MG Impression (1) Acute hyponatremia (2) Chronic hyponatremia (3) Gcrap-da-yidwilx kidney injury (4) Chronic systolic CHF (congestive heart failure) (5) Dilated cardiomyopathy (6) Cardiac cirrhosis (7) He Ochoa is a 77-year-old female who developed acute on chronic hyponatremia in the setting of advanced chronic systolic CHF and cirrhosis. Acute hyponatremia can be attributed to diuretics, recent use of mannitol and poor solute intake. Sodium has returned to baseline. It is unlikely that dysnatremia is contributing to symptoms at this time. Chronic hyponatremia is a manifestation of advanced underlying cardiac and liver disease as well as chronic diuretic use. Overall, this is unfortunately a marker for severity of illness in both conditions. At this time, improvement of acute symptoms including nausea and RLS symptoms is primary goal of therapy. Though severe disease, she appears to be relatively compensated overall in terms of her cardiac and liver disease. Volume status appears appropriate. Furosemide to be used to encourage even to slightly negative fluid balance. She is being treated for Enterococcus UTI. She had acute on chronic renal insufficiency associated with prerenal physiology which has also improved. Creatinine remains stable today. Urine output is appropriate. Recommendations Hyponatremia: -- Continue to monitor metabolic profile daily -- Encourage oral solute intake -- Maintain 1 L daily fluid restriction -- Avoid overcorrecting baseline chronic hyponatremia VAIBHAV: -- Resolved [employer]/chronic systolic CHF: -- Appreciate cardiology input -- Furosemide 80 mg daily with additional doses as needed to encourage slightly negative fluid balance Anemia: -- Iron deficiency noted -- IV vs oral iron deferred at this time due to current nausea -- RLS symptoms improved and hemoglobin appropriate, certainly consider iron replacement if RLS symptoms become a burden
--- NOTE | 2017-06-26 15:14 | DIAGNOSTIC IMAGING REPORT ---
[facility] CLINICAL HISTORY: Abdominal Pain/Distended COMPARISON STUDY: 04/21/2014 FINDINGS: There is no pathologic bowel dilatation. There are no calcifications suspicious for renal calculi. Pelvic basin calcifications remain similar to the prior study and likely represent phleboliths. IMPRESSION: No evidence of pathologic bowel dilatation. Electronically signed by: Shreyas Reis M.D. 06/26/2017 3:12 PM Dictated Date/Time: 06/26/2017 3:11 PM
[2017-06-26] MEDS: WARFARIN SOD 2 MG TAB PO SCH (15:37)
--- NOTE | 2017-06-26 15:40 | Hospitalist Progress Note ---
Hospitalist Progress Note Date of Service Jun 26, 2017. (Caity Jensen PA-C) Subjective Pt evaluation today including: conversation w/ patient, conversation w/ family , physical exam, chart review, lab review, review of studies, review of inpatient medication list Patient seen and evaluated. No acute events overnight. Reporting some abdominal discomfort and feels she is constipated. Only complaint is of generalized fatigue/weakness. Labs show improvement but Na remains low but appears chronic Pramipexole seems to be helping with the RLS. Constitutional: + weakness (generalized), No fever, No chills, No fatigue Respiratory: No cough, No shortness of breath Cardiovascular: No chest pain Abdomen: + constipation, No pain, No nausea, No vomiting Female : No dysuria Heme: No abnormal bleeding/bruising (Caity Jensen, JOSEC) Medications Current Inpatient Medications Medications (Trade) Dose Ordered Sig/Golden Route Start Time Stop Time Status Last Admin Dose Admin Albuterol (Ventolin Hfa Inhaler) 2 puffs QID PRN INH 06/23/17 13:45 07/23/17 13:44 Budesonide/ Formoterol Fumarate (Symbicort 160/ 4.5 Inh) 2 puffs BID INH 06/23/17 21:00 07/23/17 20:59 06/26/17 08:26 2 PUFFS Escitalopram Oxalate (Lexapro Tab) 5 mg QAM PO 06/24/17 09:00 07/24/17 08:59 06/26/17 08:27 5 MG Fluticasone Propionate (Flonase Nasal [place]) 2 sprays DAILY JURGEN 06/24/17 09:00 07/24/17 08:59 Montelukast Sodium (Singulair Tab) 10 mg HS PO 06/23/17 21:00 07/23/17 20:59 06/25/17 19:28 10 MG Multivitamins/ Minerals (Multivitamin W/ Minerals Tab) 1 tab DAILY PO 06/24/17 09:00 07/24/17 08:59 06/26/17 08:27 1 TAB Ofloxacin (Ocuflox 0.3% Oph Soln) 1 drops QID OPR 06/23/17 17:00 07/03/17 16:59 06/26/17 12:42 1 DROPS Prednisolone Acetate (Pred Forte 1% Oph Susp) 1 drops QID OPR 06/23/17 21:00 06/29/17 23:59 06/26/17 12:42 1 DROPS Pantoprazole Sodium (Protonix Tab) 40 mg DAILY PO 06/24/17 09:00 07/24/17 08:59 06/26/17 08:28 40 MG Miscellaneous (Iv Fluids Completed) 1 ea PRN PRN N/A 06/23/17 17:15 06/23/18 17:14 Prednisolone Acetate (Pred Forte 1% Oph Susp) 1 drops TID OPR 06/30/17 09:00 07/06/17 23:59 Ondansetron HCl (Zofran Inj) 4 mg Q6H PRN IV 06/23/17 20:15 07/23/17 20:14 06/24/17 14:14 4 MG Acetaminophen (Tylenol Tab) 650 mg Q4H PRN PO 06/23/17 20:15 07/23/17 20:14 06/26/17 01:53 650 MG Miscellaneous Information (Consult) 1 ea UD PRN N/A 06/24/17 14:15 07/24/17 14:14 Lorazepam (Ativan Tab) 0.5 mg Q6H PRN PO 06/24/17 16:45 07/24/17 16:44 06/25/17 07:19 0.5 MG Vancomycin HCl 1000 mg/Sodium Chloride 270 ml @ 125 mls/hr DAILY@0900 IV 06/25/17 09:00 06/30/17 08:59 06/26/17 08:35 125 MLS/HR Pramipexole Dihydrochloride (miraPEX TAB) 0.25 mg DAILY@1900 PO 06/25/17 19:00 07/25/17 18:59 06/25/17 19:27 0.25 MG Warfarin Sodium (Coumadin Tab) 2 mg DAILY@16 PO 06/26/17 16:00 07/26/17 15:59 Furosemide (Lasix Tab) 80 mg QAM PO 06/26/17 09:00 07/26/17 08:59 06/26/17 08:27 80 MG Polyethylene (Miralax Powder Packet) 17 gm DAILY PO 06/27/17 09:00 07/27/17 08:59 Docusate Sodium (coLACE CAP) 100 mg BID PO 06/26/17 21:00 07/26/17 20:59 (Caity Jensen PA-C) Objective Vital Signs Date Time Temp Pulse Resp B/P (MAP) Pulse Ox O2 Delivery O2 Flow Rate FiO2 06/26/17 12:00 97 06/26/17 12:00 95 Room Air 06/26/17 11:51 36.5 58 18 110/69 (83) 99 06/26/17 08:00 98 Room Air 06/26/17 07:44 36.9 64 16 106/71 (83) 98 06/26/17 04:00 Room Air 06/26/17 02:35 36.5 75 20 100/63 (75) 93 Room Air 06/26/17 00:01 Room Air 06/25/17 23:11 36.7 63 17 110/69 (83) 95 Room Air 06/25/17 20:00 Room Air 06/25/17 19:10 36.7 70 14 98/66 (77) 95 Room Air 06/25/17 16:00 94 Room Air 06/25/17 15:29 36.7 71 20 112/76 (88) 94 Room Air (Caity Jensen PA-C) Physical Exam General Appearance: WD/WN, no apparent distress Eyes: sclerae normal ENT: hearing grossly normal Neck: supple, no JVD, trachea midline Respiratory/Chest: lungs clear, normal breath sounds, no respiratory distress, no accessory muscle use Cardiovascular: regular rate, rhythm, + systolic murmur Abdomen: normal bowel sounds, non tender, soft Extremities: no pedal edema Neurologic/Psychiatric: alert, oriented x 3 Skin: normal color, warm/dry (Caity Jensen PA-C) Laboratory Results Last 24 Hours Test 06/25/17 17:11 06/26/17 05:52 Sodium Level 128 mmol/L 127 mmol/L Potassium Level 4.4 mmol/L 4.1 mmol/L Chloride Level 98 mmol/L 98 mmol/L Carbon Dioxide Level 20 mmol/L 23 mmol/L Anion Gap 9.0 mmol/L 6.0 mmol/L Blood Urea Nitrogen 47 mg/dl 41 mg/dl Creatinine 1.46 mg/dl 1.34 mg/dl Est Creatinine Clear Calc Drug Dose 33.7 ml/min 36.7 ml/min Estimated GFR () 40.4 44.8 Estimated GFR (Non- 34.8 38.7 BUN/Creatinine Ratio 32.3 30.9 Random Glucose 132 mg/dl 95 mg/dl Calcium Level 8.8 mg/dl 8.9 mg/dl Phosphorus Level 3.0 mg/dl Albumin 3.6 gm/dl Prothrombin Time 21.1 SECONDS Prothromb Time International Ratio 2.0 (Caity Jensen, SUSY) Assessment and Plan 77 y/o female with a history of 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 Found to be hypotensive and with VAIBHAV in ED. Hypotension 2/2 Recent Mannitol Acetazolamide: RESOLVED - Improved with fluid resuscitation; Coreg on hold at this time VAIBHAV on CKD Stage III: Baseline Cr 1.6 - RESOLVED - Currently at 1.34 - continue to monitor - Nephrology following appreciate recommendations with Na level and kidney function -- Continue daily monitoring; hold on iron replacement until GI symptoms resolved and could consider if RLS symptoms worsen Chronic Hyponatremia: STABLE - Continue fluid restriction and Lasix 80 mg daily Enterococcus and Possible Yeast UTI, POA: STABLE - Given Diflucan x 1 dose - Continue Vancomycin and could consider transition to orals - Abx started on Constipation: - KUB obtained without obstruction; Miralax and Colace BID RLS vs Akathisia: IMPROVING - Mirapex 0.25 mg HS - seems to be resolved - Appreciated neurology's input Recent Acute Angle Closure Glaucoma S/P Ablation and Cataract Surgery: STABLE - Ofloxacin and Prednisone gtts Acute Systolic CHF: - Echo with significantly reduced EF - Continue Lasix daily and monitor daily weights and I&Os - Spironolactone and Metolazone remain on hold - Cardiology consulted - appreciate assistances Atrial Fibrillation: Paced Rhythm - INR 2 - continue warfarin and trend INR COPD without Exacerbation: STABLE - Symbicort BID; Singulair daily; Ventolin PRN Depression: - Appears to have a flat affect; some symptoms may be related to depression - Lexapro 5 mg daily DVT prophylaxis: Warfarin Code Status: DO NOT RESUSCITATE Disposition: - PT/OT recommending rehab Continued [facility] stay due to: multiple IV medications needed Discharge planning: group home facility (Caity Jensen, PABrittanyC) Attending Attestation - Pt seen/examined, chart reviewed, care plan d/w PA Caity Jensen. I agree w/ the olson components of her documentation. Pt states she doesn't feel well. C/o constipation and upset stomach. No dyspnea. Restless legs symptoms improved. States she has had fatigue/lack of energy since "joaquin." Admits to some depression. VSS afebrile gen - looks tired, depressed - no change neck - laying flat and thus unable to assess JVD heart - RRR, s1, s2, 2/6 systolic murmur LSB lungs - CTA b/l abd - soft, NT, ND, BS+ ext - no edema A/P: 1. hypotension - 2nd to recent use of mannitol & diamox along with chronic lasix - resolved. 2. hyponatremia - 2nd to recent use of mannitol & diamox along with chronic lasix - improved s/p fluids. Remains on lasix. Na level is about her chronic baseline today. 3. restless legs syndrome - cont mirapex, consider iron replacement w/ IV venofer. 4. enterococcal UTI - would d/c vanco tomorrow and change to macrobid to complete her course. 5. chronic systolic CHF - appears compensated; resumed lasix. 6. h/o a flutter - cont coumadin. 7. chronic fatigue - depression? due to severe CHF? other metabolic derangement? undiagnosed CAD? other? check b12 AM consider increasing lexapro to 10mg daily check sed rate PT, OT daughter updated Parul QUEVEDO MD (Fabio Quevedo MD)
[2017-06-26] MEDS: PRAMIPEXOLE DIHYDROCHLORIDE 0.25MG TAB PO SCH (19:06)
[2017-06-26] MEDS: DOCUSATE SODIUM 100 MG CAP PO SCH (21:00)
[2017-06-26] MEDS: MONTELUKAST SOD 10 MG TAB PO SCH (21:41)
[2017-06-27] MEDS ORDERED: CALCIUM CARBONATE 500 MG CHEWABLE PO PRN (00:15)
[2017-06-27] MEDS ORDERED: RANITIDINE HCL 150 MG TAB PO ONE (00:15)
[2017-06-27] MEDS: ONDANSETRON INJ 2 MG/ML 2 ML VIAL IV PRN ×3 (00:32→19:41)
[2017-06-27] MEDS: ACETAMINOPHEN 325 MG TAB PO PRN (03:10)
[2017-06-27 03:26] VITALS: BP 116/76; PULSE 62; TEMP 36.3; O2SAT 94
[2017-06-27 06:23] LABS: HEMATOCRIT 32.6 % (37-47); HEMOGLOBIN 11.1 g/dL (12.0-16.0); MEAN CELL VOLUME 89.6 fL (80-100); MEAN CORPUSCULAR HEMOGLOBIN 30.5 pg (25-34); MEAN PLATELET VOLUME 9.9 fL (7.4-10.4); PLATELET COUNT 206 K/uL (130-400); RED CELL DISTRIBUTION WIDTH SD 51.7 fL (36.4-46.3)
[2017-06-27 06:49] LABS: INR 2.2 (0.9-1.1)
[2017-06-27 07:06] LABS: CALCIUM 9.2 mg/dl (8.5-10.1); CREATININE 1.18 mg/dl (0.60-1.20); POTASSIUM 4.1 mmol/L (3.5-5.1)
[2017-06-27 07:50] VITALS: BP 111/71; PULSE 74; TEMP 36.4; O2SAT 93
[2017-06-27] MEDS: OFLOXACIN 0.3% OP SOLN 5 ML BTL OPR SCH ×4 (08:02→20:21)
[2017-06-27] MEDS: FUROSEMIDE 80 MG TAB PO SCH (08:03)
[2017-06-27] MEDS: PrednisoLONE ACET 1% OP SUSP 5 ML BTL OPR SCH ×4 (08:03→20:21)
[2017-06-27] MEDS: DOCUSATE SODIUM 100 MG CAP PO SCH ×2 (08:03→20:20)
[2017-06-27] MEDS: POLYETHYLENE (MIRALAX) 17 GM PACK PO SCH (08:04)
[2017-06-27] MEDS: CEROVITE ADV FORMULA TAB PO SCH (08:04)
[2017-06-27] MEDS: ESCITALOPRAM OXALATE 10 MG TAB PO SCH (08:04)
[2017-06-27] MEDS: PANTOprazole SOD 40 MG TAB PO SCH (08:04)
[2017-06-27] MEDS: FLUTICASONE PROPIONATE NA SPR 16 GM BTL NAE SCH (08:05)
[2017-06-27] MEDS: BUDESONIDE/FORMOTEROL FUMARATE 160/4.5 60 PUFFS/INHALER INH SCH ×2 (08:05→20:20)
[2017-06-27] MEDS ORDERED: VANCOMYCIN TROUGH ONE (08:30)
[2017-06-27] MEDS ORDERED: RANITIDINE HCL 150 MG TAB PO SCH (09:00)
--- NOTE | 2017-06-27 09:17 | Pharmacy Progress Note ---
Pharmacy Abx Dose Short Note Date of Service Jun 27, 2017. Assessment & Plan Assessment 77 year old female receiving vancomycin for treatment of UTI growing enterococcus. Per provider notes, will most likely transition to PO antibiotics soon. If that occurs do not anticipate needing to check another level unless clinical status changes acutely. Day # 4 of antimicrobial therapy. Plan Vancomycin * Trough level of 15.6 mcg/mL is therapeutic. * Continue dose of 1000 mg IV every 24 hours * Trough or random level ordered for:as clinically indicated Pharmacy will continue to follow and will adjust dose/frequency as necessary. Thank you.
[2017-06-27] MEDS: VANCOMYCIN IV 1,000 MG in SODIUM CHLORIDE 0.9% 250ML 250 ML IV SCH (09:27)
--- NOTE | 2017-06-27 10:36 | Nephrology Progress Note ---
Nephrology Progress Note Date of Service Jun 27, 2017. Chief Complaint Hyponatremia Subjective No acute events overnight. Gabriela was sitting in a bedside chair this morning. She continues to complain of abdominal distention and colicky gas pains. She was able to move her bowels yesterday with a laxative. Appetite is poor. She is breathing comfortably. No chest pain or palpitations. Fatigue and weakness persist. Appetite is poor. Restless leg symptoms seem to have improved. Review of Systems A complete review of systems was performed. Pertinent positives are noted above. All other systems are negative. Vital Signs Last 8 Hrs Date Time Temp Pulse Resp B/P (MAP) Pulse Ox O2 Delivery O2 Flow Rate FiO2 06/27/17 07:50 36.4 74 19 111/71 (84) 93 Room Air 06/27/17 04:15 Room Air 06/27/17 03:26 36.3 62 17 116/76 (89) 94 Room Air Last Recorded Weight Weight (Kilograms): 71.800 Physical Exam General Appearance: no apparent distress, + pertinent finding (frail, elderly) Head: normocephalic, atraumatic Eyes: normal inspection, sclerae normal ENT: normal ENT inspection, pharynx normal, + pertinent finding (oral mucosa dry) Neck: supple, + JVD Respiratory/Chest: lungs clear, no respiratory distress, no accessory muscle use Cardiovascular: no gallop, + JVD, + systolic murmur Abdomen/GI: non tender, soft, + distended (slightly) Extremities/Musculoskelatal: normal inspection, + pedal edema Neurologic/Psych: alert, + depressed affect Family History Cancer Diabetes mellitus Heart disease Seizures Social History Smoking Status: Never smoker Drug Use: none Marital Status: Housing Status: lives with family Occupation: retired Laboratory Results Past 24 Hours 06/27/17 06:05 06/27/17 06:05 Test 06/27/17 06:05 06/27/17 08:17 Red Blood Count 3.64 M/uL (4.2-5.4) Mean Corpuscular Volume 89.6 fL (80-100) Mean Corpuscular Hemoglobin 30.5 pg (25-34) Mean Corpuscular Hemoglobin Concent 34.0 g/dl (32-36) RDW Standard Deviation 51.7 fL (36.4-46.3) RDW Coefficient of Variation 16.0 % (11.5-14.5) Mean Platelet Volume 9.9 fL (7.4-10.4) Prothrombin Time 22.7 SECONDS (9.0-12.0) Prothromb Time International Ratio 2.2 (0.9-1.1) Anion Gap 5.0 mmol/L (3-11) Est Creatinine Clear Calc Drug Dose 41.8 ml/min Estimated GFR () 52.2 Estimated GFR (Non- 45.1 BUN/Creatinine Ratio 27.3 (10-20) Calcium Level 9.2 mg/dl (8.5-10.1) Magnesium Level 2.3 mg/dl (1.8-2.4) Vancomycin Level Trough 15.6 mcg/ml (SEE COMMENT) Allergies Coded Allergies: AMADOU Inhibitors (Verified Allergy, Unknown, 06/20/17) Amiodarone (Verified Allergy, Unknown, 06/20/17) Azithromycin (Verified Allergy, Unknown, 06/20/17) Clarithromycin (Verified Allergy, Unknown, 06/20/17) Hydralazine (Verified Allergy, Unknown, 06/20/17) Hydrochlorothiazide (Unverified Allergy, Unknown, RASH, 06/20/17) Pt unsure of reaction, possible rash. Lisinopril (Verified Allergy, Unknown, 06/20/17) Penicillins (Verified Allergy, Unknown, 06/20/17) Procainamide (Verified Allergy, Unknown, 06/20/17) Medications Current Inpatient Medications Medications (Trade) Dose Ordered Sig/Golden Route Start Time Stop Time Status Last Admin Dose Admin Albuterol (Ventolin Hfa Inhaler) 2 puffs QID PRN INH 06/23/17 13:45 07/23/17 13:44 Budesonide/ Formoterol Fumarate (Symbicort 160/ 4.5 Inh) 2 puffs BID INH 06/23/17 21:00 07/23/17 20:59 06/27/17 08:05 2 PUFFS Escitalopram Oxalate (Lexapro Tab) 5 mg QAM PO 06/24/17 09:00 07/24/17 08:59 06/27/17 08:04 5 MG Fluticasone Propionate (Flonase Nasal [place]) 2 sprays DAILY JURGEN 06/24/17 09:00 07/24/17 08:59 Montelukast Sodium (Singulair Tab) 10 mg HS PO 06/23/17 21:00 07/23/17 20:59 06/26/17 21:41 10 MG Multivitamins/ Minerals (Multivitamin W/ Minerals Tab) 1 tab DAILY PO 06/24/17 09:00 07/24/17 08:59 06/27/17 08:04 1 TAB Ofloxacin (Ocuflox 0.3% Oph Soln) 1 drops QID OPR 06/23/17 17:00 07/03/17 16:59 06/27/17 08:02 1 DROPS Prednisolone Acetate (Pred Forte 1% Oph Susp) 1 drops QID OPR 06/23/17 21:00 06/29/17 23:59 06/27/17 08:03 1 DROPS Pantoprazole Sodium (Protonix Tab) 40 mg DAILY PO 06/24/17 09:00 07/24/17 08:59 06/27/17 08:04 40 MG Miscellaneous (Iv Fluids Completed) 1 ea PRN PRN N/A 06/23/17 17:15 06/23/18 17:14 Prednisolone Acetate (Pred Forte 1% Oph Susp) 1 drops TID OPR 06/30/17 09:00 07/06/17 23:59 Ondansetron HCl (Zofran Inj) 4 mg Q6H PRN IV 06/23/17 20:15 07/23/17 20:14 06/27/17 00:32 4 MG Acetaminophen (Tylenol Tab) 650 mg Q4H PRN PO 06/23/17 20:15 07/23/17 20:14 06/27/17 03:10 650 MG Miscellaneous Information (Consult) 1 ea UD PRN N/A 06/24/17 14:15 07/24/17 14:14 Lorazepam (Ativan Tab) 0.5 mg Q6H PRN PO 06/24/17 16:45 07/24/17 16:44 06/25/17 07:19 0.5 MG Vancomycin HCl 1000 mg/Sodium Chloride 270 ml @ 125 mls/hr DAILY@0900 IV 06/25/17 09:00 06/30/17 08:59 06/27/17 09:27 125 MLS/HR Pramipexole Dihydrochloride (miraPEX TAB) 0.25 mg DAILY@1900 PO 06/25/17 19:00 07/25/17 18:59 06/26/17 19:06 0.25 MG Warfarin Sodium (Coumadin Tab) 2 mg DAILY@16 PO 06/26/17 16:00 07/26/17 15:59 06/26/17 15:37 2 MG Furosemide (Lasix Tab) 80 mg QAM PO 06/26/17 09:00 07/26/17 08:59 06/27/17 08:03 80 MG Polyethylene (Miralax Powder Packet) 17 gm DAILY PO 06/27/17 09:00 07/27/17 08:59 06/27/17 08:04 17 GM Docusate Sodium (coLACE CAP) 100 mg BID PO 06/26/17 21:00 07/26/17 20:59 06/27/17 08:03 100 MG Ranitidine HCl (zANTac TAB) 150 mg QAM PO 06/27/17 09:00 07/27/17 08:59 06/27/17 08:01 150 MG Calcium Carbonate (Tums Chew Tab) 500 mg Q6H PRN PO 06/27/17 00:15 07/27/17 00:14 06/27/17 00:32 500 MG Impression (1) Acute hyponatremia (2) Chronic hyponatremia (3) [id number] kidney injury (4) Chronic systolic CHF (congestive heart failure) (5) Dilated cardiomyopathy (6) Cardiac cirrhosis (7) He Ochoa is a 77-year-old female who developed acute on chronic hyponatremia in the setting of advanced chronic systolic CHF and cirrhosis. Acute hyponatremia attributed to diuretics, recent use of mannitol and poor solute intake. Sodium has returned to baseline. Chronic hyponatremia is a manifestation of advanced underlying advanced cardiac and liver disease as well as chronic diuretic use and poor oral solute intake. Volume status remains acceptable. Furosemide to be used to encourage even to slightly negative fluid balance. She is being treated for Enterococcus UTI. She had acute on chronic renal insufficiency associated with prerenal physiology which has also improved. Creatinine remains stable today. Urine output is appropriate. 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
[2017-06-27 12:03] VITALS: BP 115/82; PULSE 62; TEMP 36.5; O2SAT 96
[2017-06-27] MEDS: SIMETHICONE 80 MG CHEW PO PRN ×2 (12:08→18:54)
[2017-06-27] MEDS: LACTOBACILLUS ACIDOPHILUS (FLORANEX) TAB PO SCH ×2 (12:08→16:46)
--- NOTE | 2017-06-27 14:04 | CARDIOLOGY CONSULTATION ---
DATE OF CONSULTATION: 06/27/2017 PERTINENT HISTORY: Mrs. Rod is a 77-year-old white female with a complex past medical history who is well known to me from the outpatient setting. The patient was admitted on 06/23/2017 with weakness, relative hypotension, hyponatremia, and an enterococcal urinary tract infection. This consultation was ordered to assist in her cardiac management. The patient was in her usual state of marginal health until approximately Trace time 2017. She began to note significant fatigue and became more lethargic and uninterested in her usual activities. There was no decompensation of her chronic systolic congestive heart failure. The patient had been managing her volume status in her usual fashion. Approximately 1 week ago, the patient had an acute episode of glaucoma and required several laser procedures. She was admitted to the hospital overnight because of eye pain. She returned to the Emergency Room on 06/23/2017 with the above complaints. The patient has a longstanding cardiac history. In terms of her congestive failure, she was admitted in early 2014 with a severe decompensation. She required intravenous dobutamine and a PleurX catheter for chronic pleural effusion. Consultation was made with first cardiothoracic surgeon at [facility], Dr. Justin Faulkner. We discussed the possibility of a mitral valve replacement, however, her severe left ventricular dysfunction would make that procedure impossible. Fortunately, she has done well since that time. Currently, the patient is resting comfortably in bed complaining only of fatigue. PAST MEDICAL HISTORY: 1. Brugada syndrome - right ventricular dysplasia. 2. Status post ventricular tachycardia ablation - 04/2008. 3. History of atrial flutter. 4. History of atrial flutter ablation - 04/2009. 5. Permanent atrial fibrillation. 6. Dilated cardiomyopathy. 7. Severe left ventricular dysfunction - less than 20%. 8. Chronic systolic congestive heart failure. 9. Status post mitral valve repair/angioplasty ring - 03/2000. 10. Mild mitral stenosis. 11. Patent foramen ovale. 12. ICD/pacemaker - 12/2007, 08/2013. 13. History of lead fracture - 08/2013. 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 15. Chronically elevated right hemidiaphragm. 16. Asthma. 17. History of right upper extremity deep venous thrombosis. 18. Pulmonary hypertension. 19. Depression. 20. Chronic renal failure. 21. Cardiac cirrhosis. 22. GERD. 23. Acute glaucoma - status post laser ablation - 06/2017. MEDICATIONS: 1. Lasix 80 mg daily. 2. Coumadin 2 mg per day. 3. Vancomycin 1 g IV daily. 4. Lexapro 5 mg per day. 5. Protonix 40 mg per day. 6. Symbicort 2 puffs b.i.d. 7. Singulair 10 mg daily. 8. Prednisone Forte 1% one drop q.i.d. 9. Carvedilol 25 mg b.i.d. - on hold. 10. Spironolactone 25 mg b.i.d. - on hold. 11. Potassium 10 mEq b.i.d. - on hold. ALLERGIES: 1. AMADOU INHIBITORS. 2. PENICILLIN. 3. PROCAINAMIDE. SOCIAL HISTORY: The patient is and lives with her . Does not use tobacco or alcohol. FAMILY HISTORY: Noncontributory. REVIEW OF SYSTEMS: A 10-point review of systems was negative except for that described above. PHYSICAL EXAMINATION: GENERAL: This is a well-developed, well-nourished white female, in no acute distress. VITAL SIGNS: Blood pressure is 115/82 with a regular pulse of 62. Respiratory rate is 18. The patient is afebrile at 36.5 degrees Celsius. Saturations 96% on room air. HEENT: Negative. NECK: Supple with full carotid upstrokes. No carotid bruits. Jugular venous pressure, difficult to evaluate due to a prominent V wave. CARDIOVASCULAR: Reveals a regular rhythm with a 2/6 holosystolic murmur heard across the entire precordium but loudest along the left sternal border. No S3 noted. CHEST: Reveals a palpable device in the right subclavicular region. LUNGS: Clear without rales, rhonchi, or wheeze. ABDOMEN: Soft and nontender without bruits. EXTREMITIES: Reveal intact radial pulse bilaterally. There is no peripheral edema. DATA: CBC notes hemoglobin of 11.1, hematocrit 32.6, white count 6.2, platelet count 206,000. Electrolytes, sodium is down to 126, potassium 4.1, chloride 97, bicarbonate 24, BUN 32, creatinine 1.18, glucose 114. INR is 2.2. EKG notes atrial fibrillation with ventricular pacing. Chest x-ray notes cardiomegaly but no congestive failure. Urine culture notes Enterococcus faecalis. monitor and storage bin tender notes appropriate pacing. Echocardiogram noted dilated left ventricle with an ejection fraction of 20-25%. There are multiple wall motion abnormalities involving the inferior wall, inferolateral wall and in the anterior wall. Mitral annuloplasty ring noted with mild stenosis and moderate mitral regurgitation. IMPRESSION: Mrs. Rod was admitted with relative hypotension, weakness, fatigue, hyponatremia, and an enterococcal urinary tract infection. At no time she demonstrated decompensation in terms of congestive failure and in fact, she required intravenous hydration for hypotension in the Emergency Room. I see no need for intravenous dobutamine at this time. She is able to sleep completely flat in the last 2 evenings. Would eventually resume her usual outpatient cardiac medications when able. PLAN: 1. Agree with current management. 2. Restart carvedilol, spironolactone, potassium when able. 3. No use of intravenous dobutamine at this time. 4. Further recommendation pending on her clinical course. ERICA
[2017-06-27 15:34] LABS: ALBUMIN 3.6 gm/dl (3.4-5.0); TOTAL PROTEIN 7.3 gm/dl (6.4-8.2)
[2017-06-27 15:45] VITALS: BP 113/74; PULSE 61; TEMP 36.6; O2SAT 94
--- NOTE | 2017-06-27 16:24 | Hospitalist Progress Note ---
Hospitalist Progress Note Date of Service Jun 27, 2017. (Caity Jensen PA-C) Subjective Pt evaluation today including: conversation w/ patient, conversation w/ family , physical exam, lab review, review of studies, review of inpatient medication list Patient seen and evaluated. Had episode of emesis this AM but reports feeling better. States she felt like she needed to throw up for a couple months and now feels better. She is more animated and smiling more today. Yesterday she seemed rather flat and depressed. She is happy she has yellow socks and is planning a yard sale with her for their sabianist during my visit. Reviewed old imaging and reports that suggested possible chronic cholecystitis. Asked patient about this and she states she had issues after she was having heart issues but she still has be GB and states never thought much more of it. Possible GB related contribution? Will check LFTs...could consider RUQ U/S Discussed rehab options. is concerned that she may be too weak to help take care of her alone at this point. States she seems to be a little better today but feels rehab may be necessary to get her appropriately transitioned home. Constitutional: + weakness (slowly improving), No fever, No chills Respiratory: No shortness of breath Cardiovascular: No chest pain Abdomen: + vomiting (one episode with lunch), No pain, No nausea, No diarrhea, No constipation Musculoskeletal: No calf pain Heme: No abnormal bleeding/bruising (Caity Jensen, PA-C) Medications Current Inpatient Medications Medications (Trade) Dose Ordered Sig/Golden Route Start Time Stop Time Status Last Admin Dose Admin Albuterol (Ventolin Hfa Inhaler) 2 puffs QID PRN INH 06/23/17 13:45 07/23/17 13:44 Budesonide/ Formoterol Fumarate (Symbicort 160/ 4.5 Inh) 2 puffs BID INH 06/23/17 21:00 07/23/17 20:59 06/27/17 08:05 2 PUFFS Escitalopram Oxalate (Lexapro Tab) 5 mg QAM PO 06/24/17 09:00 07/24/17 08:59 06/27/17 08:04 5 MG Fluticasone Propionate (Flonase Nasal [place]) 2 sprays DAILY JURGEN 06/24/17 09:00 07/24/17 08:59 Montelukast Sodium (Singulair Tab) 10 mg HS PO 06/23/17 21:00 07/23/17 20:59 06/26/17 21:41 10 MG Multivitamins/ Minerals (Multivitamin W/ Minerals Tab) 1 tab DAILY PO 06/24/17 09:00 07/24/17 08:59 06/27/17 08:04 1 TAB Ofloxacin (Ocuflox 0.3% Oph Soln) 1 drops QID OPR 06/23/17 17:00 07/03/17 16:59 06/27/17 13:31 1 DROPS Prednisolone Acetate (Pred Forte 1% Oph Susp) 1 drops QID OPR 06/23/17 21:00 06/29/17 23:59 06/27/17 13:31 1 DROPS Pantoprazole Sodium (Protonix Tab) 40 mg DAILY PO 06/24/17 09:00 07/24/17 08:59 06/27/17 08:04 40 MG Miscellaneous (Iv Fluids Completed) 1 ea PRN PRN N/A 06/23/17 17:15 06/23/18 17:14 Prednisolone Acetate (Pred Forte 1% Oph Susp) 1 drops TID OPR 06/30/17 09:00 07/06/17 23:59 Ondansetron HCl (Zofran Inj) 4 mg Q6H PRN IV 06/23/17 20:15 07/23/17 20:14 06/27/17 00:32 4 MG Acetaminophen (Tylenol Tab) 650 mg Q4H PRN PO 06/23/17 20:15 07/23/17 20:14 06/27/17 03:10 650 MG Miscellaneous Information (Consult) 1 ea UD PRN N/A 06/24/17 14:15 07/24/17 14:14 Lorazepam (Ativan Tab) 0.5 mg Q6H PRN PO 06/24/17 16:45 07/24/17 16:44 06/25/17 07:19 0.5 MG Vancomycin HCl 1000 mg/Sodium Chloride 270 ml @ 125 mls/hr DAILY@0900 IV 06/25/17 09:00 06/30/17 08:59 06/27/17 09:27 125 MLS/HR Pramipexole Dihydrochloride (miraPEX TAB) 0.25 mg DAILY@1900 PO 06/25/17 19:00 07/25/17 18:59 06/26/17 19:06 0.25 MG Warfarin Sodium (Coumadin Tab) 2 mg DAILY@16 PO 06/26/17 16:00 07/26/17 15:59 06/26/17 15:37 2 MG Furosemide (Lasix Tab) 80 mg QAM PO 06/26/17 09:00 07/26/17 08:59 06/27/17 08:03 80 MG Polyethylene (Miralax Powder Packet) 17 gm DAILY PO 06/27/17 09:00 07/27/17 08:59 06/27/17 08:04 17 GM Docusate Sodium (coLACE CAP) 100 mg BID PO 06/26/17 21:00 07/26/17 20:59 06/27/17 08:03 100 MG Calcium Carbonate (Tums Chew Tab) 500 mg Q6H PRN PO 06/27/17 00:15 07/27/17 00:14 06/27/17 00:32 500 MG Simethicone (Mylicon Chew Tab) 80 mg Q6H PRN PO 06/27/17 11:00 07/27/17 10:59 06/27/17 12:08 80 MG Enteral Nutritional Formula (Boost Plus Vanilla) 1 can BID PO 06/27/17 21:00 07/27/17 20:59 Lactobacillus Acidophilus (Floranex Tab) 4 tab TIDM PO 06/27/17 11:30 07/27/17 11:29 06/27/17 12:08 4 TAB Ranitidine HCl (zANTac TAB) 150 mg BID PO 06/27/17 21:00 07/27/17 08:59 (Caity Jensen, SUSY) Objective Vital Signs Date Time Temp Pulse Resp B/P (MAP) Pulse Ox O2 Delivery O2 Flow Rate FiO2 06/27/17 15:45 36.6 61 20 113/74 (87) 94 Room Air 06/27/17 12:03 36.5 62 18 115/82 (93) 96 Room Air 06/27/17 12:00 Room Air 06/27/17 08:00 Room Air 06/27/17 07:50 36.4 74 19 111/71 (84) 93 Room Air 06/27/17 04:15 Room Air 06/27/17 03:26 36.3 62 17 116/76 (89) 94 Room Air 06/27/17 00:01 Room Air 06/26/17 23:52 36.4 60 18 110/72 (85) 96 Room Air 06/26/17 20:00 95 Room Air (Caity Jensen PA-C) Physical Exam General Appearance: WD/WN, no apparent distress Eyes: sclerae normal ENT: hearing grossly normal Neck: supple, no JVD, trachea midline Respiratory/Chest: lungs clear, normal breath sounds, no respiratory distress, no accessory muscle use Cardiovascular: regular rate, rhythm Abdomen: normal bowel sounds, non tender, soft Extremities: no pedal edema Neurologic/Psychiatric: alert, oriented x 3 Skin: normal color, warm/dry (Caity Jensen PA-C) Laboratory Results Last 24 Hours Test 06/27/17 06:05 06/27/17 08:17 06/27/17 14:34 White Blood Count 6.60 K/uL Red Blood Count 3.64 M/uL Hemoglobin 11.1 g/dL Hematocrit 32.6 % Mean Corpuscular Volume 89.6 fL Mean Corpuscular Hemoglobin 30.5 pg Mean Corpuscular Hemoglobin Concent 34.0 g/dl RDW Standard Deviation 51.7 fL RDW Coefficient of Variation 16.0 % Platelet Count 206 K/uL Mean Platelet Volume 9.9 fL Prothrombin Time 22.7 SECONDS Prothromb Time International Ratio 2.2 Sodium Level 126 mmol/L Potassium Level 4.1 mmol/L Chloride Level 97 mmol/L Carbon Dioxide Level 24 mmol/L Anion Gap 5.0 mmol/L Blood Urea Nitrogen 32 mg/dl Creatinine 1.18 mg/dl Est Creatinine Clear Calc Drug Dose 41.8 ml/min Estimated GFR () 52.2 Estimated GFR (Non- 45.1 BUN/Creatinine Ratio 27.3 Random Glucose 114 mg/dl Calcium Level 9.2 mg/dl Magnesium Level 2.3 mg/dl Vancomycin Level Trough 15.6 mcg/ml Total Bilirubin 0.8 mg/dl Direct Bilirubin 0.3 mg/dl Aspartate Amino Transf (AST/SGOT) 22 U/L Alanine Aminotransferase (ALT/SGPT) 33 U/L Alkaline Phosphatase 123 U/L Total Protein 7.3 gm/dl Albumin 3.6 gm/dl Lipase 113 U/L (Caity Jensen, SUSY) Assessment and Plan 77 y/o female with a history of 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 Found to be hypotensive and with VAIBHAV in ED. Hypotension 2/2 Recent Mannitol Acetazolamide: RESOLVED - Improved with fluid resuscitation; Coreg on hold at this time but if BPs remain stable can consider implementing VAIBHAV on CKD Stage III: Baseline Cr 1.6 - RESOLVED - Nephrology following appreciate recommendations with Na level and kidney function -- Continue daily monitoring; hold on iron replacement until GI symptoms resolved and could consider if RLS symptoms worsen Chronic Hyponatremia: STABLE - Continue fluid restriction and Lasix 80 mg daily Enterococcus and Possible Yeast UTI, POA: STABLE - Given Diflucan x 1 dose - Stop Vanco and convert to Macrobid as kidney function adequate to continue - treatment until 06/30 Constipation and Emesis: - Feeling a little better today but did vomit after eating - maybe some gastroparesis? GB? - Review HIDA and US - which reveals possibly chronic cholecystitis which could be contributing - KUB obtained without obstruction; Miralax and Colace BID RLS vs Akathisia: IMPROVING - Mirapex 0.25 mg HS - seems to be resolved - Appreciated neurology's input Recent Acute Angle Closure Glaucoma S/P Ablation and Cataract Surgery: STABLE - Ofloxacin and Prednisone gtts Acute Systolic CHF: - Echo with significantly reduced EF - Continue Lasix daily and monitor daily weights and I&Os - Spironolactone and Metolazone remain on hold; Will resume Coreg 25 mg BID with hold parameters - Cardiology consulted - appreciate recommendations - recommend resuming medications when able Atrial Fibrillation: Paced Rhythm - INR 2.2 - continue warfarin and trend INR COPD without Exacerbation: STABLE - Symbicort BID; Singulair daily; Ventolin PRN Depression: - Mood seems to be improved today; more optimistic and smiling - Lexapro 5 mg daily DVT prophylaxis: Warfarin Code Status: DO NOT RESUSCITATE Disposition: - PT/OT recommending rehab - patient agrees to [facility] - possible D/C next 1-2 days and will need to see how we can reintroduce Spironolactone at least...maybe Metolazone Continued [facility] stay due to: multiple IV medications needed Discharge planning: home (Caity Jensen, PABrittanyC) Attending Attestation - Pt seen/examined, chart reviewed, care plan d/w MARY Jensen. I agree w/ the olson components of her documentation. Pt again states she doesn't feel well. She reports poor appetite and had emesis twice today, both times after eating. Reports abdominal pain/discomfort. In retrospect she has had lackluster appetite for some time and on/off abdominal pain for several weeks-months. Reports that the pain is often in the lower abdomen; denies upper abdominal pain. No vomiting at home. Denies dyspnea. Denies cp. VSS afebrile gen - affect improved today, sitting in chair, more animated neck - ?JVD heart - RRR, s1, s2, 2/6 systolic murmur LSB lungs - CTA b/l abd - soft, ND, BS+, mild tenderness RUQ to deep palpation; NO pain w/ palpation in lower quadrants ext - no edema A/P: 1. hypotension - 2nd to recent use of mannitol & diamox along with chronic lasix - resolved. 2. hyponatremia - 2nd to recent use of mannitol & diamox along with chronic lasix - improved s/p fluids earlier this stay. Na level is slightly worse today but still near baseline. Defer management to nephrology. Remains on diuretic for CHF. Daily BMP. 3. restless legs syndrome - cont mirapex, consider iron replacement w/ IV venofer. 4. enterococcal UTI - would d/c vanco and change to macrobid to complete her course. 5. chronic systolic CHF - appears compensated. appreciate cardiology consult by Dr. Horner. 6. h/o a flutter - cont coumadin. 7. chronic fatigue - depression? due to severe CHF? other metabolic derangement? undiagnosed CAD? other? check b12 AM consider increasing lexapro to 10mg daily check sed rate 8. abdominal complaints - despite pain being in the lower quadrants, the only tender spot on exam was RUQ. she has a prior HIDA scan suggesting possible chronic cholecystitis LFTs and lipase today were normal will obtain a RUQ u/s to r/o biliary disease as cause of abd complaints and then re-eval in AM would restrict diet to clears given her recurrent emesis doubt UTI is causing these symptoms PT, OT updated by Ms. Mikey MATUTE MD (Fabio Matute MD)
[2017-06-27] MEDS: WARFARIN SOD 2 MG TAB PO SCH (16:45)
[2017-06-27] MEDS ORDERED: BOOST PLUS VANILLA PO SCH ×2 (17:00→21:00)
[2017-06-27] MEDS ORDERED: NURSING VERBAL MED ORDER ONE ×2 (17:00→23:15)
[2017-06-27] MEDS: PRAMIPEXOLE DIHYDROCHLORIDE 0.25MG TAB PO SCH (17:42)
[2017-06-27] MEDS: CARVEDILOL 25 MG TAB PO SCH (17:43)
[2017-06-27] MEDS: LORAZEPAM 0.5 MG TAB PO PRN (19:10)
[2017-06-27 19:39] VITALS: BP 103/69; PULSE 60; TEMP 37; O2SAT 95
[2017-06-27] MEDS: ALUMINUM/MAGNESIUM/SIMETH (MAALOX MAX) 30 ML UDC PO PRN (20:17)
[2017-06-27] MEDS: NITROFURANTOIN MONOHYDRATE 100 MG CAP PO SCH (20:20)
[2017-06-27] MEDS: RANITIDINE HCL 150 MG TAB PO SCH (20:22)
[2017-06-27] MEDS: MONTELUKAST SOD 10 MG TAB PO SCH (20:22)
[2017-06-27] MEDS ORDERED: MoRPHine SULFATE 4 MG/ML 1 ML CARP\\VIAL IV PRN (21:45)
[2017-06-27 23:10] VITALS: BP 118/73; PULSE 60; TEMP 36.8; O2SAT 93
[2017-06-28 03:53] VITALS: BP 105/69; PULSE 61; TEMP 36.7; O2SAT 92
[2017-06-28 06:23] LABS: HEMATOCRIT 32.2 % (37-47); HEMOGLOBIN 10.5 g/dL (12.0-16.0); MEAN CORPUSCULAR HEMOGLOBIN 29.7 pg (25-34); MEAN CORPUSCULAR HGB CONC 32.6 g/dl (32-36); MEAN PLATELET VOLUME 10.4 fL (7.4-10.4); PLATELET COUNT 203 K/uL (130-400); RED CELL DISTRIBUTION WIDTH CV 16.2 % (11.5-14.5); RED CELL DISTRIBUTION WIDTH SD 53.4 fL (36.4-46.3); WHITE BLOOD COUNT 5.57 K/uL (4.8-10.8)
[2017-06-28 06:31] LABS: INR 2.7 (0.9-1.1)
[2017-06-28 06:55] LABS: ALBUMIN 3.4 gm/dl (3.4-5.0); CALCIUM 9.3 mg/dl (8.5-10.1); CREATININE 1.23 mg/dl (0.60-1.20); PHOSPHORUS 2.8 mg/dl (2.5-4.9); POTASSIUM 4.5 mmol/L (3.5-5.1)
--- NOTE | 2017-06-28 07:19 | DIAGNOSTIC IMAGING REPORT ---
ABDOMINAL ULTRASOUND, RIGHT UPPER QUADRANT HISTORY: RUQ abdominal Pain; N/V. COMPARISON: Abdominal ultrasound 09/22/2014. FINDINGS: Pancreas: The pancreatic tail is obscured by overlying bowel gas. The remaining portions of the pancreas are within normal limits. Liver: The liver is mildly enlarged measuring 21 cm in length. There is again suggestion of a slightly nodular contour consistent with cirrhosis. The liver slightly echogenic. No hepatic masses identified. Gallbladder: Gallbladder wall is top normal in 6 thickness measuring between 2 and 3 mm. No gallstones. The technologist reported a possibility of a sonographic Sargent's sign. CBD: 5 mm. Right kidney: No hydronephrosis. Moderate cortical thinning. IMPRESSION: 1. Gallbladder wall is top normal in thickness. There are no gallstones. However, the technologist reported possible tenderness in the region of the gallbladder during scanning. 2. The liver is enlarged with a slightly nodular contour consistent with cirrhosis. Electronically signed by: Broderick Atkinson M.D. 06/28/2017 7:18 AM Dictated Date/Time: 06/28/2017 7:14 AM
[2017-06-28 08:13] VITALS: BP 109/66; PULSE 84; TEMP 36.8; O2SAT 96
[2017-06-28] MEDS: PANTOprazole SOD 40 MG TAB PO SCH (08:30)
[2017-06-28] MEDS: CEROVITE ADV FORMULA TAB PO SCH (08:30)
[2017-06-28] MEDS: DOCUSATE SODIUM 100 MG CAP PO SCH ×2 (08:30→21:00)
[2017-06-28] MEDS: FUROSEMIDE 80 MG TAB PO SCH (08:30)
[2017-06-28] MEDS: BUDESONIDE/FORMOTEROL FUMARATE 160/4.5 60 PUFFS/INHALER INH SCH ×2 (08:31→21:33)
[2017-06-28] MEDS: LACTOBACILLUS ACIDOPHILUS (FLORANEX) TAB PO SCH ×3 (08:31→17:09)
[2017-06-28] MEDS: ESCITALOPRAM OXALATE 10 MG TAB PO SCH (08:31)
[2017-06-28] MEDS: NITROFURANTOIN MONOHYDRATE 100 MG CAP PO SCH ×2 (08:31→21:34)
[2017-06-28] MEDS: RANITIDINE HCL 150 MG TAB PO SCH ×2 (08:31→21:34)
[2017-06-28] MEDS: CARVEDILOL 25 MG TAB PO SCH ×2 (08:32→17:08)
[2017-06-28] MEDS: OFLOXACIN 0.3% OP SOLN 5 ML BTL OPR SCH ×4 (08:33→21:33)
[2017-06-28] MEDS: PrednisoLONE ACET 1% OP SUSP 5 ML BTL OPR SCH ×4 (08:33→21:33)
[2017-06-28] MEDS: FLUTICASONE PROPIONATE NA SPR 16 GM BTL NAE SCH (09:00)
[2017-06-28] MEDS: POLYETHYLENE (MIRALAX) 17 GM PACK PO SCH (09:00)
--- NOTE | 2017-06-28 09:26 | Nephrology Progress Note ---
Nephrology Progress Note Date of Service Jun 28, 2017. Chief Complaint Hyponatremia Subjective Gabriela is sitting comfortably in bed this morning. She feels well. Abdominal pain improved after treatment with morphine overnight. She was able to sleep well. This morning mild abdominal discomfort persists. She continues to describe mild tenderness to palpation. A RUQ US was obtained overnight and reviewed this morning. No fevers or chills. Gabriela is breathing comfortably. Appetite remains poor. No nausea. No diarrhea. Review of Systems A complete review of systems was performed. Pertinent positives are noted above. All other systems are negative. Vital Signs Last 8 Hrs Date Time Temp Pulse Resp B/P (MAP) Pulse Ox O2 Delivery O2 Flow Rate FiO2 06/28/17 08:13 36.8 84 18 109/66 (80) 96 06/28/17 04:00 Room Air 06/28/17 03:53 36.7 61 18 105/69 (81) 92 Room Air Last Recorded Weight Weight (Kilograms): 72.600 Physical Exam General Appearance: no apparent distress, + pertinent finding (frail, elderly) Head: normocephalic, atraumatic Eyes: normal inspection, sclerae normal ENT: normal ENT inspection, pharynx normal Neck: supple, + JVD (10+ cm) Respiratory/Chest: lungs clear, no respiratory distress, no accessory muscle use Cardiovascular: regular rate, rhythm, no gallop, + systolic murmur Back: no CVA tenderness Abdomen/GI: soft, + pertinent finding (slightly distended, mild tenderness in UQ R>L) Extremities/Musculoskelatal: normal inspection, + pedal edema Neurologic/Psych: alert, normal mood/affect Family History Cancer Diabetes mellitus Heart disease Seizures Social History Smoking Status: Never smoker Drug Use: none Marital Status: Housing Status: lives with family Occupation: retired Laboratory Results Past 24 Hours 06/28/17 05:56 06/28/17 05:56 Test 06/27/17 14:34 06/28/17 05:56 Total Bilirubin 0.8 mg/dl (0.2-1) Direct Bilirubin 0.3 mg/dl (0-0.2) Aspartate Amino Transf (AST/SGOT) 22 U/L (15-37) Alanine Aminotransferase (ALT/SGPT) 33 U/L (12-78) Alkaline Phosphatase 123 U/L (45-117) Total Protein 7.3 gm/dl (6.4-8.2) Albumin 3.6 gm/dl (3.4-5.0) 3.4 gm/dl (3.4-5.0) Lipase 113 U/L (73-393) Red Blood Count 3.54 M/uL (4.2-5.4) Mean Corpuscular Volume 91.0 fL (80-100) Mean Corpuscular Hemoglobin 29.7 pg (25-34) Mean Corpuscular Hemoglobin Concent 32.6 g/dl (32-36) RDW Standard Deviation 53.4 fL (36.4-46.3) RDW Coefficient of Variation 16.2 % (11.5-14.5) Mean Platelet Volume 10.4 fL (7.4-10.4) Erythrocyte Sedimentation Rate 21 mm/hr (0-21) Prothrombin Time 27.7 SECONDS (9.0-12.0) Prothromb Time International Ratio 2.7 (0.9-1.1) Anion Gap 6.0 mmol/L (3-11) Est Creatinine Clear Calc Drug Dose 40.3 ml/min Estimated GFR () 49.7 Estimated GFR (Non- 42.9 BUN/Creatinine Ratio 22.0 (10-20) Calcium Level 9.3 mg/dl (8.5-10.1) Phosphorus Level 2.8 mg/dl (2.5-4.9) Magnesium Level 2.3 mg/dl (1.8-2.4) Vitamin B12 Level 1186 pg/mL (211-911) Allergies Coded Allergies: AMADOU Inhibitors (Verified Allergy, Unknown, 06/20/17) Amiodarone (Verified Allergy, Unknown, 06/20/17) Azithromycin (Verified Allergy, Unknown, 06/20/17) Clarithromycin (Verified Allergy, Unknown, 06/20/17) Hydralazine (Verified Allergy, Unknown, 06/20/17) Hydrochlorothiazide (Unverified Allergy, Unknown, RASH, 06/20/17) Pt unsure of reaction, possible rash. Lisinopril (Verified Allergy, Unknown, 06/20/17) Penicillins (Verified Allergy, Unknown, 06/20/17) Procainamide (Verified Allergy, Unknown, 06/20/17) Medications Current Inpatient Medications Medications (Trade) Dose Ordered Sig/Golden Route Start Time Stop Time Status Last Admin Dose Admin Albuterol (Ventolin Hfa Inhaler) 2 puffs QID PRN INH 06/23/17 13:45 07/23/17 13:44 Budesonide/ Formoterol Fumarate (Symbicort 160/ 4.5 Inh) 2 puffs BID INH 06/23/17 21:00 07/23/17 20:59 06/28/17 08:31 2 PUFFS Escitalopram Oxalate (Lexapro Tab) 5 mg QAM PO 06/24/17 09:00 07/24/17 08:59 06/28/17 08:31 5 MG Fluticasone Propionate (Flonase Nasal [place]) 2 sprays DAILY JURGEN 06/24/17 09:00 07/24/17 08:59 Montelukast Sodium (Singulair Tab) 10 mg HS PO 06/23/17 21:00 07/23/17 20:59 06/27/17 20:22 10 MG Multivitamins/ Minerals (Multivitamin W/ Minerals Tab) 1 tab DAILY PO 06/24/17 09:00 07/24/17 08:59 06/28/17 08:30 1 TAB Ofloxacin (Ocuflox 0.3% Oph Soln) 1 drops QID OPR 06/23/17 17:00 07/03/17 16:59 06/28/17 08:33 1 DROPS Prednisolone Acetate (Pred Forte 1% Oph Susp) 1 drops QID OPR 06/23/17 21:00 06/29/17 23:59 06/28/17 08:33 1 DROPS Pantoprazole Sodium (Protonix Tab) 40 mg DAILY PO 06/24/17 09:00 07/24/17 08:59 06/28/17 08:30 40 MG Miscellaneous (Iv Fluids Completed) 1 ea PRN PRN N/A 06/23/17 17:15 06/23/18 17:14 Prednisolone Acetate (Pred Forte 1% Oph Susp) 1 drops TID OPR 06/30/17 09:00 07/06/17 23:59 Ondansetron HCl (Zofran Inj) 4 mg Q6H PRN IV 06/23/17 20:15 07/23/17 20:14 06/27/17 19:41 4 MG Acetaminophen (Tylenol Tab) 650 mg Q4H PRN PO 06/23/17 20:15 07/23/17 20:14 06/27/17 03:10 650 MG Lorazepam (Ativan Tab) 0.5 mg Q6H PRN PO 06/24/17 16:45 07/24/17 16:44 06/27/17 19:10 0.5 MG Pramipexole Dihydrochloride (miraPEX TAB) 0.25 mg DAILY@1900 PO 06/25/17 19:00 07/25/17 18:59 06/27/17 17:42 0.25 MG Warfarin Sodium (Coumadin Tab) 2 mg DAILY@16 PO 06/26/17 16:00 07/26/17 15:59 06/27/17 16:45 2 MG Furosemide (Lasix Tab) 80 mg QAM PO 06/26/17 09:00 07/26/17 08:59 06/28/17 08:30 80 MG Polyethylene (Miralax Powder Packet) 17 gm DAILY PO 06/27/17 09:00 07/27/17 08:59 06/27/17 08:04 17 GM Docusate Sodium (coLACE CAP) 100 mg BID PO 06/26/17 21:00 07/26/17 20:59 06/28/17 08:30 100 MG Calcium Carbonate (Tums Chew Tab) 500 mg Q6H PRN PO 06/27/17 00:15 07/27/17 00:14 06/27/17 00:32 500 MG Simethicone (Mylicon Chew Tab) 80 mg Q6H PRN PO 06/27/17 11:00 07/27/17 10:59 06/27/17 18:54 80 MG Lactobacillus Acidophilus (Floranex Tab) 4 tab TIDM PO 06/27/17 11:30 07/27/17 11:29 06/28/17 08:31 4 TAB Ranitidine HCl (zANTac TAB) 150 mg BID PO 06/27/17 21:00 07/27/17 08:59 06/28/17 08:31 150 MG Nitrofurantoin Macrocrystals (Macrobid Cap) 100 mg BID PO 06/27/17 21:00 06/30/17 23:00 06/28/17 08:31 100 MG Carvedilol (Coreg Tab) 25 mg BIDM PO 06/27/17 16:45 07/27/17 16:44 06/28/17 08:32 25 MG Al Hydrox/Mg Hydrox/Simethicone (Maalox Max Susp) 30 ml Q6H PRN PO 06/27/17 20:00 07/27/17 19:59 06/27/17 20:17 30 ML Morphine Sulfate (MoRPHine SULFATE INJ) 2 mg Q4H PRN IV 06/27/17 23:30 07/11/17 23:29 Impression (1) Acute hyponatremia (2) Chronic hyponatremia (3) [id number] kidney injury (4) Chronic systolic CHF (congestive heart failure) (5) Dilated cardiomyopathy (6) Cardiac cirrhosis (7) He Ochoa is a 77-year-old female who developed acute on chronic hyponatremia in the setting of advanced chronic systolic CHF and cirrhosis. Acute hyponatremia attributed to diuretics, recent use of mannitol and poor solute intake. Sodium has returned to baseline. Chronic hyponatremia is a manifestation of advanced underlying advanced cardiac and liver disease as well as chronic diuretic use and poor oral solute intake. Volume status remains acceptable. Furosemide is being used to encourage a slightly negative fluid balance. She is being treated for Enterococcus UTI. She had acute on chronic renal insufficiency associated with prerenal physiology which has also improved. Creatinine remains stable today. Urine output is appropriate. Recommendations Hyponatremia: -- Continue to monitor metabolic profile daily -- Encourage oral solute intake -- Maintain 1 L daily fluid restriction VAIBHAV: -- Resolved STRAIGHTEDGE MAN/chronic systolic CHF: -- Appreciate cardiology input -- Furosemide 80 mg daily with additional doses as needed to encourage slightly negative fluid balance -- Reasonable to restart spironolactone -- Avoid metolazone and thiazide diuretics Anemia: -- Iron deficiency noted -- IV vs oral iron deferred pending improvement in GI symptoms
[2017-06-28] MEDS: ACETAMINOPHEN 325 MG TAB PO PRN (09:35)
--- NOTE | 2017-06-28 09:59 | CARDIOLOGY PROGRESS NOTE ---
DATE: 06/28/2017 SUBJECTIVE: Mrs. Rod is resting comfortably at the bedside without complaints of chest pain, dyspnea, nausea, or vomiting. OBJECTIVE: VITAL SIGNS: Blood pressure is 109/66 with a regular pulse of 84. Respiratory rate is 18. The patient is afebrile at 36.8 degrees Celsius. Saturations 96% on room air. NECK: Supple with full carotid upstrokes. No carotid bruits. Jugular venous pressure notes a prominent V wave. CARDIOVASCULAR: Reveals a regular rhythm with a 2/6 holosystolic murmur heard across the entire precordium, but loudest along the left sternal border. No S3. LUNGS: Clear without rales, rhonchi, or wheezes. CHEST: Reveals a palpable device in the right subclavicular region. ABDOMEN: Soft without bruits. EXTREMITIES: Reveal intact radial artery pulse bilaterally. There is no peripheral edema. LABORATORY DATA: Electrolytes note a sodium of 128, potassium 4.5, chloride 98, bicarbonate 24, BUN 27, creatinine 1.23, glucose 91. The CBC notes a hemoglobin of 10.5, hematocrit 32.2, white count 5.5, platelet count 203,000. 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 IMPRESSION AND PLAN: 1. Chronic systolic congestive heart failure -- patient compensated at this time. She has restarted carvedilol 25 mg b.i.d. Spironolactone and potassium remain on hold. No need for intravenous dobutamine at this time. 2. Severe left ventricular dysfunction -- ejection fraction of 20%-25%. 3. Implantable cardioverter defibrillator/pacemaker. 4. Status post mitral valve repair/annuloplasty ring -- March 2000. There is evidence of mild mitral stenosis. 5. Atrial fibrillation. 6. History of Brugada syndrome, status post VT ablation, April 2008. 7. Pulmonary hypertension. 8. Chronic cholecystitis.
[2017-06-28] MEDS: ONDANSETRON INJ 2 MG/ML 2 ML VIAL IV PRN (11:25)
[2017-06-28] MEDS: SIMETHICONE 80 MG CHEW PO PRN (11:25)
[2017-06-28 12:05] VITALS: BP 104/66; PULSE 80; TEMP 37.3; O2SAT 96
--- NOTE | 2017-06-28 15:14 | DIAGNOSTIC IMAGING REPORT ---
CT SCAN OF THE ABDOMEN AND PELVIS WITHOUT CONTRAST CLINICAL HISTORY: Abdominal pain. Right lower quadrant tenderness on palpation. Also patient reports left upper quadrant pain. COMPARISON STUDY: 02/12/2015 TECHNIQUE: CT scan of the abdomen and pelvis was performed from the lung bases to the proximal femurs. Images are reviewed in the axial, sagittal, and coronal planes. IV contrast was not administered for this examination. A dose lowering technique was utilized adhering to the principles of ALARA. CT DOSE: 617.56 mGycm FINDINGS: Lower chest: The heart is significantly enlarged. There is a small right pleural effusion. A cardiac pacemaker is visualized. There are basilar atelectatic changes. Liver: The liver appears slightly nodular. No space-occupying masses are visualized on this noncontrast examination. Gallbladder: Unremarkable. Spleen: There is a stable 15 mm hypodensity arising from the anterior aspect of the spleen Pancreas: Unremarkable. Adrenal glands: Unremarkable. Kidneys: There is a 56 mm lower pole left renal cyst. There are is a tiny mural calcification. Bowel: There are no transition zones indicate bowel obstruction. There is colonic diverticulosis. There is no evidence of acute diverticulitis. The appendix appears normal. There is minimal stranding within the pericolonic fat at the ascending colon level. This is of questionable acute clinical significance. Peritoneum: There is low volume ascites. There is no free intraperitoneal air. Vasculature: The abdominal aorta is normal in course and caliber. Adenopathy: None. Pelvic viscera: There is mild bladder wall thickening. There is minor infiltration the perivesical fat. Clinical correlation in regards to a cystitis is recommended Skeletal structures: No destructive osseous lesions are seen. IMPRESSION: 1. Cirrhotic morphology of liver. Mild hepatomegaly 2. Stable 56 mm lower pole left renal cyst 3. Stable 15 mm hypodensity arising from the spleen 4. No evidence of bowel obstruction. No evidence of free air 5. No renal, ureteral, or bladder calculi identified 6. Normal appendix 7. Minimal pelvic ascites 8. Bladder wall thickening with mild infiltration the perivesical fat. Clinical correlation in regards to a cystitis is recommended 9. Small right pleural effusion Electronically signed by: Shreyas Reis M.D. 06/28/2017 3:12 PM Dictated Date/Time: 06/28/2017 3:03 PM
[2017-06-28] MEDS: WARFARIN SOD 2 MG TAB PO SCH (15:24)
[2017-06-28 16:07] VITALS: BP 121/67; PULSE 65; TEMP 36.5; O2SAT 95
--- NOTE | 2017-06-28 16:10 | Hospitalist Progress Note ---
Hospitalist Progress Note Date of Service Jun 28, 2017. (Caity Jensen PA-C) Subjective Pt evaluation today including: conversation w/ patient, conversation w/ family ([id number]), physical exam, chart review, lab review, review of studies, conversation w/ inside solar sales consultant (Gen Surg), review of inpatient medication list Patient seen and evaluated. Continues to have intermittent pain that has improved with Morphine last night. However seems that medication is slowly coming out of her system. Continues to complain of intermittent abdominal pain which is chronic. Reviewed notes from 2014 when she had her last scope which showed diffuse gastritis as she did complain then of similar issues. CT reviewed and largely unremarkable for specific causes. However does suggests some bladder wall thickening No surgical indication for gallbladder at this time. Review of previous notes questioned the heart failure/congestion may be contributing to GI issues especially with cirrhotic findings. During visit she had LUQ discomfort that only lasted a few seconds and she was not able to describe this. On exam she has tenderness to palpation of the RLQ but no tenderness elsewhere Constitutional: No fever, No chills Respiratory: No cough, No shortness of breath Cardiovascular: No chest pain Abdomen: + pain, + nausea, No vomiting, No diarrhea, No constipation Musculoskeletal: No swelling, No calf pain Female : No dysuria Heme: No abnormal bleeding/bruising (Caity Jensen, JOSEC) Medications Current Inpatient Medications Medications (Trade) Dose Ordered Sig/Golden Route Start Time Stop Time Status Last Admin Dose Admin Albuterol (Ventolin Hfa Inhaler) 2 puffs QID PRN INH 06/23/17 13:45 07/23/17 13:44 Budesonide/ Formoterol Fumarate (Symbicort 160/ 4.5 Inh) 2 puffs BID INH 06/23/17 21:00 07/23/17 20:59 06/28/17 08:31 2 PUFFS Escitalopram Oxalate (Lexapro Tab) 5 mg QAM PO 06/24/17 09:00 07/24/17 08:59 06/28/17 08:31 5 MG Fluticasone Propionate (Flonase Nasal [place]) 2 sprays DAILY JURGEN 06/24/17 09:00 07/24/17 08:59 Montelukast Sodium (Singulair Tab) 10 mg HS PO 06/23/17 21:00 07/23/17 20:59 06/27/17 20:22 10 MG Multivitamins/ Minerals (Multivitamin W/ Minerals Tab) 1 tab DAILY PO 06/24/17 09:00 07/24/17 08:59 06/28/17 08:30 1 TAB Ofloxacin (Ocuflox 0.3% Oph Soln) 1 drops QID OPR 06/23/17 17:00 07/03/17 16:59 06/28/17 15:05 1 DROPS Prednisolone Acetate (Pred Forte 1% Oph Susp) 1 drops QID OPR 06/23/17 21:00 06/29/17 23:59 06/28/17 15:06 1 DROPS Pantoprazole Sodium (Protonix Tab) 40 mg DAILY PO 06/24/17 09:00 07/24/17 08:59 06/28/17 08:30 40 MG Miscellaneous (Iv Fluids Completed) 1 ea PRN PRN N/A 06/23/17 17:15 06/23/18 17:14 Prednisolone Acetate (Pred Forte 1% Oph Susp) 1 drops TID OPR 06/30/17 09:00 07/06/17 23:59 Ondansetron HCl (Zofran Inj) 4 mg Q6H PRN IV 06/23/17 20:15 07/23/17 20:14 06/28/17 11:25 4 MG Acetaminophen (Tylenol Tab) 650 mg Q4H PRN PO 06/23/17 20:15 07/23/17 20:14 06/28/17 09:35 650 MG Lorazepam (Ativan Tab) 0.5 mg Q6H PRN PO 06/24/17 16:45 07/24/17 16:44 06/27/17 19:10 0.5 MG Pramipexole Dihydrochloride (miraPEX TAB) 0.25 mg DAILY@1900 PO 06/25/17 19:00 07/25/17 18:59 06/27/17 17:42 0.25 MG Warfarin Sodium (Coumadin Tab) 2 mg DAILY@16 PO 06/26/17 16:00 07/26/17 15:59 06/28/17 15:24 2 MG Furosemide (Lasix Tab) 80 mg QAM PO 06/26/17 09:00 07/26/17 08:59 06/28/17 08:30 80 MG Polyethylene (Miralax Powder Packet) 17 gm DAILY PO 06/27/17 09:00 07/27/17 08:59 06/27/17 08:04 17 GM Docusate Sodium (coLACE CAP) 100 mg BID PO 06/26/17 21:00 07/26/17 20:59 06/28/17 08:30 100 MG Calcium Carbonate (Tums Chew Tab) 500 mg Q6H PRN PO 06/27/17 00:15 07/27/17 00:14 06/27/17 00:32 500 MG Simethicone (Mylicon Chew Tab) 80 mg Q6H PRN PO 06/27/17 11:00 07/27/17 10:59 06/28/17 11:25 80 MG Lactobacillus Acidophilus (Floranex Tab) 4 tab TIDM PO 06/27/17 11:30 07/27/17 11:29 06/28/17 08:31 4 TAB Ranitidine HCl (zANTac TAB) 150 mg BID PO 06/27/17 21:00 07/27/17 08:59 06/28/17 08:31 150 MG Nitrofurantoin Macrocrystals (Macrobid Cap) 100 mg BID PO 06/27/17 21:00 06/30/17 23:00 06/28/17 08:31 100 MG Carvedilol (Coreg Tab) 25 mg BIDM PO 06/27/17 16:45 07/27/17 16:44 06/28/17 08:32 25 MG Al Hydrox/Mg Hydrox/Simethicone (Maalox Max Susp) 30 ml Q6H PRN PO 06/27/17 20:00 07/27/17 19:59 06/27/17 20:17 30 ML Morphine Sulfate (MoRPHine SULFATE INJ) 2 mg Q4H PRN IV 06/27/17 23:30 07/11/17 23:29 (Caity Jensen PA-C) Objective Vital Signs Date Time Temp Pulse Resp B/P (MAP) Pulse Ox O2 Delivery O2 Flow Rate FiO2 06/28/17 12:05 37.3 80 18 104/66 (79) 96 06/28/17 12:00 Room Air 06/28/17 08:13 36.8 84 18 109/66 (80) 96 06/28/17 08:00 Room Air 06/28/17 04:00 Room Air 06/28/17 03:53 36.7 61 18 105/69 (81) 92 Room Air 06/28/17 00:01 Room Air 06/27/17 23:10 36.8 60 18 118/73 (88) 93 Room Air 06/27/17 20:00 Room Air 06/27/17 19:39 37.0 60 20 103/69 (80) 95 Room Air 06/27/17 16:00 Room Air (Caity Jensen PA-C) Physical Exam General Appearance: WD/WN, no apparent distress Eyes: sclerae normal ENT: hearing grossly normal Neck: supple, no JVD, trachea midline Respiratory/Chest: lungs clear, normal breath sounds, no respiratory distress, no accessory muscle use Cardiovascular: regular rate, rhythm, + systolic murmur Abdomen: normal bowel sounds, soft, + tenderness (RLQ) Extremities: no pedal edema, no calf tenderness Neurologic/Psychiatric: alert Skin: normal color, warm/dry (Caity Jensen, MARY-C) Laboratory Results Last 24 Hours Test 06/28/17 05:56 White Blood Count 5.57 K/uL Red Blood Count 3.54 M/uL Hemoglobin 10.5 g/dL Hematocrit 32.2 % Mean Corpuscular Volume 91.0 fL Mean Corpuscular Hemoglobin 29.7 pg Mean Corpuscular Hemoglobin Concent 32.6 g/dl RDW Standard Deviation 53.4 fL RDW Coefficient of Variation 16.2 % Platelet Count 203 K/uL Mean Platelet Volume 10.4 fL Erythrocyte Sedimentation Rate 21 mm/hr Prothrombin Time 27.7 SECONDS Prothromb Time International Ratio 2.7 Sodium Level 128 mmol/L Potassium Level 4.5 mmol/L Chloride Level 98 mmol/L Carbon Dioxide Level 24 mmol/L Anion Gap 6.0 mmol/L Blood Urea Nitrogen 27 mg/dl Creatinine 1.23 mg/dl Est Creatinine Clear Calc Drug Dose 40.3 ml/min Estimated GFR () 49.7 Estimated GFR (Non- 42.9 BUN/Creatinine Ratio 22.0 Random Glucose 91 mg/dl Calcium Level 9.3 mg/dl Phosphorus Level 2.8 mg/dl Magnesium Level 2.3 mg/dl Albumin 3.4 gm/dl Vitamin B12 Level 1186 pg/mL (Caity Jensen, SUSY) Assessment and Plan 77 y/o female with a history of 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 Found to be hypotensive and with VAIBHAV in ED. Hypotension 2/2 Recent Mannitol Acetazolamide: RESOLVED - Improved with fluid resuscitation - no further intervention necessary VAIBHAV on CKD Stage III: Baseline Cr 1.6 - RESOLVED - Nephrology following appreciate recommendations with Na level and kidney function -- Continue daily monitoring; hold on iron replacement until GI symptoms resolved and could consider if RLS symptoms worsen Chronic Hyponatremia: STABLE - Continue fluid restriction and Lasix 80 mg daily Enterococcus and Possible Yeast UTI, POA: STABLE - Given Diflucan x 1 dose - Stop Vanco and convert to Macrobid as kidney function adequate to continue - treatment until 06/30 Constipation and Emesis - RESOLVED/Ongoing Vague GI Issues - Continues to have vague GI complaints mostly of bloating and lack of appetite - previous issues in 2014 with notes and EGD reviewed that showed diffuse gastritis and suggested symptoms related to her cirrhosis/congestive failure - No specific etiology identified at this point RLS vs Akathisia: IMPROVING - Mirapex 0.25 mg HS - seems to be resolved Recent Acute Angle Closure Glaucoma S/P Ablation and Cataract Surgery: STABLE - Ofloxacin and Prednisone gtts Acute Systolic CHF: STABLE - Echo with significantly reduced EF - Continue Lasix daily and monitor daily weights and I&Os - Spironolactone and Metolazone remain on hold; Continue Coreg 25 mg BID with hold parameters - Cardiology consulted - appreciate recommendations - recommend resuming medications when able Atrial Fibrillation: Paced Rhythm - INR 2.7 - continue warfarin and trend INR COPD without Exacerbation: STABLE - Symbicort BID; Singulair daily; Ventolin PRN Depression: - Mood continues to be improved over past couple days - Lexapro 5 mg daily DVT prophylaxis: Warfarin Code Status: DO NOT RESUSCITATE Disposition: - PT/OT recommending rehab - patient agrees to [facility] - possible D/C next 1-2 days and will need to see how we can reintroduce Spironolactone at least...maybe Metolazone Continued [facility] stay due to: multiple IV medications needed Discharge planning: [facility] facility (Caity Jensen, PABrittanyC) Attending Attestation - Pt seen/examined, chart reviewed, care plan d/w PA Caity Jensen. I agree w/ the olson components of her documentation. Lengthy discussion held with pt, her daughter, her , and son-in-law during my early evening visit. We discussed all test results including RUQ u/s and CT abd/pelvis. She apparently has had 3 loose stools since this am (liquid brown). No blood. Appetite continues to be poor and she states, once again, that she "just doesn' t feel good." She continues w/ intermittent abdominal pain in various locations. Tele stable overnight VSS afebrile gen - affect again improved; smiling today in fact neck - ?JVD heart - RRR, s1, s2, 2/6 systolic murmur LSB lungs - CTA b/l abd - soft, ND, BS+, mild tenderness RUQ to deep palpation as well as epigastric region under xiphoid area ext - no edema A/P: 1. hypotension - resolved. 2. hyponatremia - 2nd to recent use of mannitol & diamox along with chronic lasix - improved s/p fluids earlier this stay. Na level is stable and near her chronic baseline. Daily BMP for stability. 3. restless legs syndrome - cont mirapex, consider iron replacement w/ IV venofer. 4. enterococcal UTI - day #5 of Rx; no symptoms at this point. agree w/ macrobid for remainder of course. 5. chronic systolic CHF - appears compensated. appreciate cardiology consult by Dr. Horner. 6. h/o a flutter - cont coumadin. daily INR. 7. chronic fatigue - depression? due to severe CHF? other metabolic derangement? undiagnosed CAD? other? sed rate, b12 wnl ammonia wnl depression? - consider titration of lexapro 8. abdominal pain - exact etiology remains elusive. chronic cholecystitis? gastritis? other? agree with carafate qid serial exams appreciate gen surg consult check c. diff toxin 9. diarrhea - check c. diff toxin PT, OT family extensively updated this evening visit time was about 25-30 minutes in addition to Ms. Jensen's total time today J SIUTA MD (Fabio Matute MD)
[2017-06-28] MEDS: PRAMIPEXOLE DIHYDROCHLORIDE 0.25MG TAB PO SCH (20:00)
--- NOTE | 2017-06-28 20:41 | SURGICAL CONSULTATION ---
DATE OF CONSULTATION: 06/28/2017 I have been asked by Dr. Matute to see this 77-year-old female who presented to the hospital with a complaint of severe weakness and fatigue. She was normally ambulatory, but had such fatigue that she had to use her wheelchair. She had occasional dizziness. Obtaining a detailed description of her symptoms was very difficult in her description even with more detailed questioning was very vague. Her and [id number] were present during the interview and provided some of the information. For about the last 3-1/2 months, she has "just not felt well." She is mostly unable to better define that. She has occasional abdominal discomfort that she describes throughout her abdomen. There is occasional nausea with it. She had not vomited. She denied fever. She had not had any cough. On the day prior to admission, she underwent an ophthalmologic procedure for a newly-diagnosed glaucoma. Her bowels had been moving, although not as frequently. There was no melena or hematochezia. She felt like her appetite had decreased but it was more that she just did not have any desire to eat rather than it being due to nausea or the abdominal pain. Workup for her symptoms included a chest x-ray. There was not felt to be any active disease. She had a head CT on admission as well with no acute intracranial abnormality. When the abdominal discomfort seemed to increase in intensity a KUB was obtained, but there were no abnormal findings of a pathologic bowel dilatation. She then underwent an ultrasound of the right upper quadrant that showed the gallbladder wall to be top normal in thickness, but there were no gallstones. There may have been possible tenderness in the area of the gallbladder. The liver was enlarged with slightly nodular contour consistent with cirrhosis. It was 21 cm in length. She has since had a CT of the abdomen. The liver appeared slightly nodular, but there were no space occupying lesions. The gallbladder was felt to be unremarkable. There was a 15 mm hypodensity in the anterior aspect of the spleen that was stable. Pancreas and adrenal glands were unremarkable. There was low volume ascites but no free intraperitoneal air. There was mild bladder wall thickening and a minor infiltration of the perivesical fat. PAST MEDICAL HISTORY: Includes mitral valve disease for which she underwent a mitral valve repair, but may now have some degree of stenosis. She has CHF. Her most recent echocardiogram demonstrated dilated cardiomyopathy with a left ventricular ejection fraction of approximately 20%. She has renal insufficiency with baseline creatinine of around 1.5-1.6. She has Brugada syndrome. She has cirrhosis. There is also a history of pulmonary hypertension. She has a history of third-degree heart block and paroxysmal ventricular tachycardia status post ablation, atrial fibrillation PAST SURGICAL HISTORY: For the mitral valve repair, placement of an ICD, placement of a pacemaker, cardiac ablation and cataract surgery with glaucoma procedure. She has also had a tubal ligation. MEDICATIONS: At home included Symbicort, Coreg, Lexapro, Flonase, Lasix, Slow-Mag, Singulair, multivitamin, Ocuflox, Protonix, Klor-Con, prednisolone eye drops, Aldactone and warfarin. ALLERGIES: AMADOU INHIBITORS, AMIODARONE, AZITHROMYCIN, CLARITHROMYCIN, HYDRALAZINE, HYDROCHLOROTHIAZIDE, LISINOPRIL, PENICILLIN, AND PROCAINAMIDE. SOCIAL HISTORY: She does not smoke nor does she drink alcohol. PHYSICAL EXAMINATION: GENERAL: Reveals a well-developed, well-nourished elderly female who appears in no acute distress and answers questions appropriately. VITAL SIGNS: Blood pressure is 104/66, heart rate 80, respirations 18, temperature 37.3, pulse oximetry is 96%. HEENT: Reveals her sclerae to be anicteric. Mucous membranes are moist. NECK: Supple. BACK: Has no spinal or CVA tenderness. HEART: Irregularly irregular. ABDOMEN: Her abdomen has normoactive bowel sounds; is soft, nondistended and nontender on my exam. EXTREMITIES: Show mild pretibial edema. LABORATORY DATA: Most recently shows a WBC of 5.57 with an H&H of 10.5 and 32.2 and a platelet count of 203,000. Sodium 128, potassium 4.5, chloride 98, CO2 24, BUN 27, creatinine 1.23, glucose 91, total bilirubin yesterday was 0.8, AST was 22, ALT was 33, alkaline phosphatase was 123. Radiologic studies as per HPI. ASSESSMENT AND PLAN: This patient has vague complaints that are difficult to pin down. She has abdominal pain. There is no tenderness at the present time. There was top normal size of the gallbladder wall thickness. There were no gallstones. There was no pericholecystic fluid. Gallbladder appeared unremarkable by CT scan. Etiology of the patient's abdominal discomfort is not clear, but I doubt that the gallbladder is the source. We would not want to consider cholecystectomy in this patient with multiple comorbid conditions and especially the ejection fraction of no higher than 20%, cirrhosis and pulmonary hypertension. Thank you for allowing me to see this patient and participate in her care.
[2017-06-28 21:00] VITALS: BP 107/73; PULSE 84; TEMP 36.8; O2SAT 94
[2017-06-28] MEDS: SUCRALFATE 1 GM/10 ML UDC PO SCH (21:32)
[2017-06-28] MEDS: MONTELUKAST SOD 10 MG TAB PO SCH (21:33)
[2017-06-28] MEDS: ALUMINUM/MAGNESIUM/SIMETH (MAALOX MAX) 30 ML UDC PO PRN (23:46)
[2017-06-29 04:00] VITALS: BP 108/64; PULSE 63; TEMP 36.5; O2SAT 94
[2017-06-29] MEDS: ONDANSETRON INJ 2 MG/ML 2 ML VIAL IV PRN (04:11)
[2017-06-29 07:45] LABS: INR 3.6 (0.9-1.1)
[2017-06-29 07:51] VITALS: BP 129/96; PULSE 54; TEMP 36.8; O2SAT 96
[2017-06-29 08:03] LABS: CALCIUM 9.5 mg/dl (8.5-10.1); CREATININE 1.16 mg/dl (0.60-1.20); POTASSIUM 4.5 mmol/L (3.5-5.1)
[2017-06-29] MEDS: LACTOBACILLUS ACIDOPHILUS (FLORANEX) TAB PO SCH ×3 (08:26→17:36)
[2017-06-29] MEDS: PANTOprazole SOD 40 MG TAB PO SCH (08:27)
[2017-06-29] MEDS: DOCUSATE SODIUM 100 MG CAP PO SCH ×2 (08:27→19:20)
[2017-06-29] MEDS: NITROFURANTOIN MONOHYDRATE 100 MG CAP PO SCH ×2 (08:27→19:49)
[2017-06-29] MEDS: RANITIDINE HCL 150 MG TAB PO SCH ×2 (08:27→19:48)
[2017-06-29] MEDS: CEROVITE ADV FORMULA TAB PO SCH (08:27)
[2017-06-29] MEDS: CARVEDILOL 25 MG TAB PO SCH ×2 (08:28→17:35)
[2017-06-29] MEDS: ESCITALOPRAM OXALATE 10 MG TAB PO SCH (08:28)
[2017-06-29] MEDS: SUCRALFATE 1 GM/10 ML UDC PO SCH ×4 (08:29→19:49)
[2017-06-29] MEDS: FUROSEMIDE 80 MG TAB PO SCH (08:29)
[2017-06-29] MEDS: FLUTICASONE PROPIONATE NA SPR 16 GM BTL NAE SCH (08:30)
[2017-06-29] MEDS: BUDESONIDE/FORMOTEROL FUMARATE 160/4.5 60 PUFFS/INHALER INH SCH ×2 (08:30→19:49)
[2017-06-29] MEDS ORDERED: POLYETHYLENE (MIRALAX) 17 GM PACK PO PRN (08:30)
[2017-06-29] MEDS: OFLOXACIN 0.3% OP SOLN 5 ML BTL OPR SCH ×4 (08:31→19:49)
[2017-06-29] MEDS: PrednisoLONE ACET 1% OP SUSP 5 ML BTL OPR SCH ×4 (08:31→19:50)
[2017-06-29] MEDS: SPIRONOLACTONE 25 MG TAB PO SCH ×2 (09:26→17:34)
--- NOTE | 2017-06-29 09:38 | CARDIOLOGY PROGRESS NOTE ---
DATE: 06/29/2017 SUBJECTIVE: Mrs. Rod is resting comfortably at the bedside without complaints of chest pain or dyspnea. Continues to note abdominal discomfort. OBJECTIVE: VITAL SIGNS: Blood pressure 129/96 with a regular pulse of 54. Respiratory rate is 18. The patient is afebrile at 36.8 degrees Celsius. Saturation 96% on room air. NECK: Supple with full carotid upstrokes. No obvious bruits. Jugular venous pressure notes a prominent V wave. CARDIOVASCULAR: Reveals a regular rhythm with a 2/6 holosystolic murmur heard loudest along the left sternal border. No S3. LUNGS: Clear without rales, rhonchi, or wheeze. ABDOMEN: Soft without bruits. CHEST: Reveals a palpable device in the right subclavicular region. EXTREMITIES: Reveal intact radial pulse bilaterally. There is no peripheral edema. DATA: Electrolytes note a sodium of 131, potassium 4.5, chloride 98, bicarbonate 26, BUN 25, creatinine 1.16, glucose 83. INR is 3.6. desk monitor notes atrial fibrillation with ventricular pacing. IMPRESSION AND PLAN: 1. Chronic systolic congestive heart failure -- compensated at this time. As tolerated reinitiation of carvedilol at 25 mg b.i.d. Spironolactone has also been reinitiated 25 mg b.i.d. 2. Severe left ventricular dysfunction -- ejection fraction of 20%-25%. 3. Implantable cardioverter defibrillator/pacemaker. 4. Status post mitral valve repair/angioplasty ring -- March 2000. There is evidence of mild mitral stenosis. Permanent atrial fibrillation. 5. History of Brugada syndrome -- status post VT ablation in April 2008. 6 Pulmonary hypertension. 7. Chronic cholecystitis -- surgery not indicated at this time.
--- NOTE | 2017-06-29 11:24 | Nephrology Progress Note ---
Nephrology Progress Note Date of Service Jun 29, 2017. Chief Complaint Hyponatremia Subjective Abdominal symptoms persist. Noted diarrhea overnight. No fevers or chills. Appetite remains poor. Breathing comfortably. Review of Systems A complete review of systems was performed. Pertinent positives are noted above. All other systems are negative. Vital Signs Last 8 Hrs Date Time Temp Pulse Resp B/P (MAP) Pulse Ox O2 Delivery O2 Flow Rate FiO2 06/29/17 08:00 Room Air 06/29/17 07:51 36.8 54 18 129/96 (107) 96 06/29/17 04:00 Room Air 06/29/17 04:00 36.5 63 17 108/64 (79) 94 Room Air Last Recorded Weight Weight (Kilograms): 72.200 Physical Exam General Appearance: no apparent distress, + thin, + pertinent finding (frail) Head: normocephalic, atraumatic Eyes: normal inspection, sclerae normal ENT: normal ENT inspection, pharynx normal Neck: supple, no JVD (10 cm) Respiratory/Chest: lungs clear, normal breath sounds, no accessory muscle use Cardiovascular: regular rate, rhythm, no gallop, + systolic murmur Abdomen/GI: non tender, soft Extremities/Musculoskelatal: normal inspection, + pedal edema Neurologic/Psych: alert, normal mood/affect Family History Cancer Diabetes mellitus Heart disease Seizures Social History Smoking Status: Never smoker Drug Use: none Marital Status: Housing Status: lives with family Occupation: retired Laboratory Results Past 24 Hours 06/29/17 06:33 Test 06/29/17 06:33 Prothrombin Time 36.6 SECONDS (9.0-12.0) Prothromb Time International Ratio 3.6 (0.9-1.1) Anion Gap 7.0 mmol/L (3-11) Est Creatinine Clear Calc Drug Dose 42.6 ml/min Estimated GFR () 53.3 Estimated GFR (Non- 46.0 BUN/Creatinine Ratio 21.7 (10-20) Calcium Level 9.5 mg/dl (8.5-10.1) Magnesium Level 2.5 mg/dl (1.8-2.4) Date/Time Source Procedure Growth Status 06/28/17 19:50 Stool C.difficile Toxin B Gene (PCR) - Final No C. difficile toxin B gene detected Complete Allergies Coded Allergies: AMADOU Inhibitors (Verified Allergy, Unknown, 06/20/17) Amiodarone (Verified Allergy, Unknown, 06/20/17) Azithromycin (Verified Allergy, Unknown, 06/20/17) Clarithromycin (Verified Allergy, Unknown, 06/20/17) Hydralazine (Verified Allergy, Unknown, 06/20/17) Hydrochlorothiazide (Unverified Allergy, Unknown, RASH, 06/20/17) Pt unsure of reaction, possible rash. Lisinopril (Verified Allergy, Unknown, 06/20/17) Penicillins (Verified Allergy, Unknown, 06/20/17) Procainamide (Verified Allergy, Unknown, 06/20/17) Medications Current Inpatient Medications Medications (Trade) Dose Ordered Sig/Golden Route Start Time Stop Time Status Last Admin Dose Admin Albuterol (Ventolin Hfa Inhaler) 2 puffs QID PRN INH 06/23/17 13:45 07/23/17 13:44 Budesonide/ Formoterol Fumarate (Symbicort 160/ 4.5 Inh) 2 puffs BID INH 06/23/17 21:00 07/23/17 20:59 06/29/17 08:30 2 PUFFS Escitalopram Oxalate (Lexapro Tab) 5 mg QAM PO 06/24/17 09:00 07/24/17 08:59 06/29/17 08:28 5 MG Fluticasone Propionate (Flonase Nasal [place]) 2 sprays DAILY JURGEN 06/24/17 09:00 07/24/17 08:59 Montelukast Sodium (Singulair Tab) 10 mg HS PO 06/23/17 21:00 07/23/17 20:59 06/28/17 21:33 10 MG Multivitamins/ Minerals (Multivitamin W/ Minerals Tab) 1 tab DAILY PO 06/24/17 09:00 07/24/17 08:59 06/29/17 08:27 1 TAB Ofloxacin (Ocuflox 0.3% Oph Soln) 1 drops QID OPR 06/23/17 17:00 07/03/17 16:59 06/29/17 08:31 1 DROPS Prednisolone Acetate (Pred Forte 1% Oph Susp) 1 drops QID OPR 06/23/17 21:00 06/29/17 23:59 06/29/17 08:31 1 DROPS Pantoprazole Sodium (Protonix Tab) 40 mg DAILY PO 06/24/17 09:00 07/24/17 08:59 06/29/17 08:27 40 MG Miscellaneous (Iv Fluids Completed) 1 ea PRN PRN N/A 06/23/17 17:15 06/23/18 17:14 Prednisolone Acetate (Pred Forte 1% Oph Susp) 1 drops TID OPR 06/30/17 09:00 07/06/17 23:59 Ondansetron HCl (Zofran Inj) 4 mg Q6H PRN IV 06/23/17 20:15 07/23/17 20:14 06/29/17 04:11 4 MG Acetaminophen (Tylenol Tab) 650 mg Q4H PRN PO 06/23/17 20:15 07/23/17 20:14 06/28/17 09:35 650 MG Lorazepam (Ativan Tab) 0.5 mg Q6H PRN PO 06/24/17 16:45 07/24/17 16:44 06/27/17 19:10 0.5 MG Pramipexole Dihydrochloride (miraPEX TAB) 0.25 mg DAILY@1900 PO 06/25/17 19:00 07/25/17 18:59 06/28/17 20:00 0.25 MG Warfarin Sodium (Coumadin Tab) 2 mg DAILY@16 PO 06/26/17 16:00 07/26/17 15:59 Future Hold 06/28/17 15:24 2 MG Furosemide (Lasix Tab) 80 mg QAM PO 06/26/17 09:00 07/26/17 08:59 06/29/17 08:29 80 MG Docusate Sodium (coLACE CAP) 100 mg BID PO 06/26/17 21:00 07/26/17 20:59 06/28/17 08:30 100 MG Calcium Carbonate (Tums Chew Tab) 500 mg Q6H PRN PO 06/27/17 00:15 07/27/17 00:14 06/27/17 00:32 500 MG Simethicone (Mylicon Chew Tab) 80 mg Q6H PRN PO 06/27/17 11:00 07/27/17 10:59 06/28/17 11:25 80 MG Lactobacillus Acidophilus (Floranex Tab) 4 tab TIDM PO 06/27/17 11:30 07/27/17 11:29 06/29/17 11:16 4 TAB Ranitidine HCl (zANTac TAB) 150 mg BID PO 06/27/17 21:00 07/27/17 08:59 06/29/17 08:27 150 MG Nitrofurantoin Macrocrystals (Macrobid Cap) 100 mg BID PO 06/27/17 21:00 06/30/17 23:00 06/29/17 08:27 100 MG Carvedilol (Coreg Tab) 25 mg BIDM PO 06/27/17 16:45 07/27/17 16:44 06/29/17 08:28 25 MG Al Hydrox/Mg Hydrox/Simethicone (Maalox Max Susp) 30 ml Q6H PRN PO 06/27/17 20:00 07/27/17 19:59 06/28/17 23:46 30 ML Morphine Sulfate (MoRPHine SULFATE INJ) 2 mg Q4H PRN IV 06/27/17 23:30 07/11/17 23:29 Sucralfate (Carafate Susp) 1 gm QID PO 06/28/17 21:00 07/28/17 20:59 06/29/17 08:29 1 GM Polyethylene (Miralax Powder Packet) 17 gm DAILY PRN PO 06/29/17 08:30 07/27/17 08:59 Spironolactone (Aldactone Tab) 25 mg BID17 PO 06/29/17 09:00 07/29/17 08:59 06/29/17 09:26 25 MG Impression (1) Acute hyponatremia (2) Chronic hyponatremia (3) Iczzs-gb-thlango kidney injury (4) Chronic systolic CHF (congestive heart failure) (5) Dilated cardiomyopathy (6) Cardiac cirrhosis (7) He Ochoa is a 77-year-old female who developed acute on chronic hyponatremia in the setting of advanced chronic systolic CHF and cirrhosis. Acute hyponatremia attributed to diuretics, recent use of mannitol and poor solute intake. Sodium has returned to baseline. Chronic hyponatremia is a manifestation of advanced underlying advanced cardiac and liver disease as well as chronic diuretic use and poor oral solute intake. Volume status remains acceptable. Furosemide is being used to encourage a slightly negative fluid balance. She is being treated for Enterococcus UTI. She had acute on chronic renal insufficiency associated with prerenal physiology which has also improved. Creatinine remains stable today. Urine output is appropriate. 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 Please call with any questions or concerns.
[2017-06-29 11:31] VITALS: BP 132/69; PULSE 54; TEMP 36.9; O2SAT 96
[2017-06-29] MEDS ORDERED: CHOLESTYRAMINE LIGHT 4 GM PKT PO ONE (11:33)
[2017-06-29 16:04] VITALS: BP 103/70; PULSE 65; TEMP 36.6; O2SAT 94
--- NOTE | 2017-06-29 16:25 | Surgery Progress Note ---
Surgery Progress Note Date of Service Jun 29, 2017. Subjective Post OP Day: HD # 5 "feeling slightly better but would feel much better if it were not for this diarrhea" abdominal pain still present, no worse has some clear liquids today, chicken broth, no nausea or vomiting Objective Vital Signs: Date Time Temp Pulse Resp B/P (MAP) Pulse Ox O2 Delivery O2 Flow Rate FiO2 06/29/17 16:04 36.6 65 18 103/70 (81) 94 Room Air 06/29/17 12:00 Room Air 06/29/17 11:31 36.9 54 16 132/69 (90) 96 06/29/17 08:00 Room Air 06/29/17 07:51 36.8 54 18 129/96 (107) 96 06/29/17 04:00 Room Air 06/29/17 04:00 36.5 63 17 108/64 (79) 94 Room Air 06/28/17 23:59 Room Air 06/28/17 21:00 36.8 84 16 107/73 (84) 94 Room Air 06/28/17 20:16 Room Air General Appearance: WD/WN, no apparent distress Head: normocephalic, atraumatic Neck: trachea midline Respiratory/Chest: no respiratory distress, no accessory muscle use Abdomen: non distended, soft, no organomegaly, no pulsatile mass, + tenderness (mild tenderness in the LLQ, no rebound, rigidity, or guarding) Laboratory Results: Results Past 24 Hours Test 06/29/17 06:33 Range/Units Prothrombin Time 36.6 9.0-12.0 SECONDS Prothromb Time International Ratio 3.6 0.9-1.1 Sodium Level 131 136-145 mmol/L Potassium Level 4.5 3.5-5.1 mmol/L Chloride Level 98 98-107 mmol/L Carbon Dioxide Level 26 21-32 mmol/L Anion Gap 7.0 3-11 mmol/L Blood Urea Nitrogen 25 7-18 mg/dl Creatinine 1.16 0.60-1.20 mg/dl Est Creatinine Clear Calc Drug Dose 42.6 ml/min Estimated GFR () 53.3 Estimated GFR (Non- 46.0 BUN/Creatinine Ratio 21.7 10-20 Random Glucose 83 70-99 mg/dl Calcium Level 9.5 8.5-10.1 mg/dl Magnesium Level 2.5 1.8-2.4 mg/dl Microbiology Results 06/28/17 C.difficile Toxin B Gene (PCR) - Final, Complete No C. difficile toxin B gene detected Assessment & Plan Abdominal pain Diarrhea - Gallbladder wall top limits of normal, no evidence of cholelithiasis or acute cholecystitis - vitals stable - afebrile - tolerating some clear liquids today Plan: Etiology of patient's abdominal pain unclear. No evidence of acute cholecystitis or indication for cholecystectomy. Patient would be at significantly high risk for any surgical intervention given low EF of 20%, pulmonary hypertension, and cirrhosis. Continue current medical management Recommend boost in between meals Our services signing off, please call with concerns Dr. Mello has seen and examined patient, agrees with above I interviewed and examined this patient and I agree with the above note. Her abdominal tenderness is less. She still has some vague abdominal discomfort and diarrhea. She is not a good candidate for surgical intervention. I do not think that cholecystitis is her issue at the present time. Thank you for allowing us to see this patient. Will sign off. Let us know if there is anything else we can do for this patient.
[2017-06-29] MEDS: PRAMIPEXOLE DIHYDROCHLORIDE 0.25MG TAB PO SCH (17:40)
[2017-06-29] MEDS ORDERED: LOPERAMIDE HCL 2 MG CAP PO STA (18:27)
--- NOTE | 2017-06-29 18:35 | Hospitalist Progress Note ---
Hospitalist Progress Note Date of Service Jun 29, 2017. (Caity Jensen PA-C) Subjective Pt evaluation today including: conversation w/ patient, conversation w/ family (), physical exam, lab review, review of inpatient medication list Patient seen and evaluated. No acute events overnight. Having continued diarrhea today but neg C. diff. Objectively appearing very well and more comfortable and laughing. Still complaining of vague GI symptoms but states it is not as bad as yesterday but a little cramping today with the diarrhea. Eager to try a more advanced diet. Will also send a celiac panel in the AM to assess if this could be related. On thorough chart review she had an EGD in the past with diffuse gastritis and suspicion that GI issues were related to her CHF which is possible. Constitutional: No fever, No chills Respiratory: No cough, No shortness of breath Cardiovascular: No chest pain Abdomen: + pain (intermittent - cramping), + nausea (intermittent), + diarrhea, No vomiting, No GI bleeding Musculoskeletal: No swelling, No calf pain Female : No dysuria (Caity Jensen PA-C) Medications Current Inpatient Medications Medications (Trade) Dose Ordered Sig/Golden Route Start Time Stop Time Status Last Admin Dose Admin Albuterol (Ventolin Hfa Inhaler) 2 puffs QID PRN INH 06/23/17 13:45 07/23/17 13:44 Budesonide/ Formoterol Fumarate (Symbicort 160/ 4.5 Inh) 2 puffs BID INH 06/23/17 21:00 07/23/17 20:59 06/29/17 08:30 2 PUFFS Escitalopram Oxalate (Lexapro Tab) 5 mg QAM PO 06/24/17 09:00 07/24/17 08:59 06/29/17 08:28 5 MG Fluticasone Propionate (Flonase Nasal [place]) 2 sprays DAILY JURGEN 06/24/17 09:00 07/24/17 08:59 Montelukast Sodium (Singulair Tab) 10 mg HS PO 06/23/17 21:00 07/23/17 20:59 06/28/17 21:33 10 MG Multivitamins/ Minerals (Multivitamin W/ Minerals Tab) 1 tab DAILY PO 06/24/17 09:00 07/24/17 08:59 06/29/17 08:27 1 TAB Ofloxacin (Ocuflox 0.3% Oph Soln) 1 drops QID OPR 06/23/17 17:00 07/03/17 16:59 06/29/17 17:36 1 DROPS Prednisolone Acetate (Pred Forte 1% Oph Susp) 1 drops QID OPR 06/23/17 21:00 06/29/17 23:59 06/29/17 17:36 1 DROPS Pantoprazole Sodium (Protonix Tab) 40 mg DAILY PO 06/24/17 09:00 07/24/17 08:59 06/29/17 08:27 40 MG Miscellaneous (Iv Fluids Completed) 1 ea PRN PRN N/A 06/23/17 17:15 06/23/18 17:14 Prednisolone Acetate (Pred Forte 1% Oph Susp) 1 drops TID OPR 06/30/17 09:00 07/06/17 23:59 Ondansetron HCl (Zofran Inj) 4 mg Q6H PRN IV 06/23/17 20:15 07/23/17 20:14 06/29/17 04:11 4 MG Acetaminophen (Tylenol Tab) 650 mg Q4H PRN PO 06/23/17 20:15 07/23/17 20:14 06/28/17 09:35 650 MG Lorazepam (Ativan Tab) 0.5 mg Q6H PRN PO 06/24/17 16:45 07/24/17 16:44 06/27/17 19:10 0.5 MG Pramipexole Dihydrochloride (miraPEX TAB) 0.25 mg DAILY@1900 PO 06/25/17 19:00 07/25/17 18:59 06/29/17 17:40 0.25 MG Warfarin Sodium (Coumadin Tab) 2 mg DAILY@16 PO 06/26/17 16:00 07/26/17 15:59 Future Hold 06/28/17 15:24 2 MG Furosemide (Lasix Tab) 80 mg QAM PO 06/26/17 09:00 07/26/17 08:59 06/29/17 08:29 80 MG Docusate Sodium (coLACE CAP) 100 mg BID PO 06/26/17 21:00 07/26/17 20:59 06/28/17 08:30 100 MG Calcium Carbonate (Tums Chew Tab) 500 mg Q6H PRN PO 06/27/17 00:15 07/27/17 00:14 06/27/17 00:32 500 MG Simethicone (Mylicon Chew Tab) 80 mg Q6H PRN PO 06/27/17 11:00 07/27/17 10:59 06/28/17 11:25 80 MG Lactobacillus Acidophilus (Floranex Tab) 4 tab TIDM PO 06/27/17 11:30 07/27/17 11:29 06/29/17 17:36 4 TAB Ranitidine HCl (zANTac TAB) 150 mg BID PO 06/27/17 21:00 07/27/17 08:59 06/29/17 08:27 150 MG Nitrofurantoin Macrocrystals (Macrobid Cap) 100 mg BID PO 06/27/17 21:00 06/30/17 23:00 06/29/17 08:27 100 MG Carvedilol (Coreg Tab) 25 mg BIDM PO 06/27/17 16:45 07/27/17 16:44 06/29/17 17:35 25 MG Al Hydrox/Mg Hydrox/Simethicone (Maalox Max Susp) 30 ml Q6H PRN PO 06/27/17 20:00 07/27/17 19:59 06/28/17 23:46 30 ML Morphine Sulfate (MoRPHine SULFATE INJ) 2 mg Q4H PRN IV 06/27/17 23:30 07/11/17 23:29 Sucralfate (Carafate Susp) 1 gm QID PO 06/28/17 21:00 07/28/17 20:59 06/29/17 17:34 1 GM Polyethylene (Miralax Powder Packet) 17 gm DAILY PRN PO 06/29/17 08:30 07/27/17 08:59 Spironolactone (Aldactone Tab) 25 mg BID17 PO 06/29/17 09:00 07/29/17 08:59 06/29/17 17:34 25 MG Cholestyramine Resin (Questran Powder Light) 4 gm BID@10,22 PO 06/29/17 22:00 07/29/17 21:59 (Caity Jensen, JOSEC) Objective Vital Signs Date Time Temp Pulse Resp B/P (MAP) Pulse Ox O2 Delivery O2 Flow Rate FiO2 06/29/17 16:04 36.6 65 18 103/70 (81) 94 Room Air 06/29/17 12:00 Room Air 06/29/17 11:31 36.9 54 16 132/69 (90) 96 06/29/17 08:00 Room Air 06/29/17 07:51 36.8 54 18 129/96 (107) 96 06/29/17 04:00 Room Air 06/29/17 04:00 36.5 63 17 108/64 (79) 94 Room Air 06/28/17 23:59 Room Air 06/28/17 21:00 36.8 84 16 107/73 (84) 94 Room Air 06/28/17 20:16 Room Air (Caity Jensen PA-C) Physical Exam General Appearance: WD/WN, no apparent distress Eyes: sclerae normal ENT: hearing grossly normal Neck: supple, no JVD, trachea midline Respiratory/Chest: lungs clear, normal breath sounds, no respiratory distress, no accessory muscle use Cardiovascular: regular rate, rhythm, no gallop, no murmur Abdomen: normal bowel sounds, non tender, soft Extremities: no pedal edema, no calf tenderness Neurologic/Psychiatric: alert Skin: normal color, warm/dry (Caity Jensen PA-C) Laboratory Results Last 24 Hours Test 06/29/17 06:33 Prothrombin Time 36.6 SECONDS Prothromb Time International Ratio 3.6 Sodium Level 131 mmol/L Potassium Level 4.5 mmol/L Chloride Level 98 mmol/L Carbon Dioxide Level 26 mmol/L Anion Gap 7.0 mmol/L Blood Urea Nitrogen 25 mg/dl Creatinine 1.16 mg/dl Est Creatinine Clear Calc Drug Dose 42.6 ml/min Estimated GFR () 53.3 Estimated GFR (Non- 46.0 BUN/Creatinine Ratio 21.7 Random Glucose 83 mg/dl Calcium Level 9.5 mg/dl Magnesium Level 2.5 mg/dl (Caity Jensen PA-C) Assessment and Plan 77 y/o female with a history of 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 Found to be hypotensive and with VAIBHAV in ED. Hypotension 2/2 Recent Mannitol Acetazolamide: RESOLVED - Improved with fluid resuscitation - no further intervention necessary VAIBHAV on CKD Stage III: Baseline Cr 1.6 - RESOLVED - Nephrology following appreciate recommendations with Na level and kidney function -- Continue daily monitoring; hold on iron replacement until GI symptoms resolved and could consider if RLS symptoms worsen Chronic Hyponatremia: STABLE - Continue fluid restriction and Lasix 80 mg daily; Spironolactone resumed Enterococcus and Possible Yeast UTI, POA: STABLE - Given Diflucan x 1 dose at beginning of hospitalization - Stop Vanco and convert to Macrobid as kidney function adequate to continue - treatment until 06/30 Constipation and Emesis - RESOLVED/Ongoing Vague GI Issues - Continues to have vague GI complaints mostly of bloating and lack of appetite - previous issues in 2014 with notes and EGD reviewed that showed diffuse gastritis and suggested symptoms related to her cirrhosis/congestive failure - No specific etiology identified at this point - extensive record review suggests possible relation to congestive failure/cirrhosis and medication induced gastritis - Trial of Carafate QID RLS vs Akathisia: RESOLVED - Mirapex 0.25 mg HS - seems to be resolved Recent Acute Angle Closure Glaucoma S/P Ablation and Cataract Surgery: STABLE - Ofloxacin and Prednisone gtts Acute Systolic CHF: STABLE - Echo with significantly reduced EF - Continue Lasix daily and monitor daily weights and I&Os - Metolazone remains on hold which likely will not be continued on D/C; Resumed Spironolactone BID; Continue Coreg 25 mg BID with hold parameters - Cardiology consulted - appreciate recommendations - recommend resuming medications when able Atrial Fibrillation: Paced Rhythm - Hold Coumadin today given INR 3.6 and recheck INR in AM and adjust as necessary COPD without Exacerbation: STABLE - Symbicort BID; Singulair daily; Ventolin PRN Depression: - Mood continues to be improved over past couple days - Lexapro 5 mg daily DVT prophylaxis: Warfarin Code Status: DO NOT RESUSCITATE Disposition: - PT/OT recommending rehab - patient agrees to [facility] - possible D/C tomorrow if diarrhea resolves Discharge planning: halfway facility (Caity Jensen PA-C) Attending Attestation - Pt seen/examined, chart reviewed, care plan d/w MARY Jensen. I agree w/ the olson components of her documentation. Tele stable overnight Pt continues with "severe" diarrhea - loose, runny - no blood or mucous. Associated w/ urgency. Cont w/ mild stomach discomfort/upset - lower areas of abdomen. Still w/ burping. No vomiting. VSS afebrile gen - affect normal today; laughing at times, smiling, NAD neck - no JVD heart - RRR, s1, s2, 2/6 systolic murmur LSB lungs - CTA b/l abd - soft, ND, BS+, mild tenderness once again RUQ/high epigastric region to deep palpation ext - no edema A/P: 1. hypotension - resolved. 2. hyponatremia - 2nd to recent use of mannitol & diamox along with chronic lasix - improved s/p fluids earlier this stay. Na level is stable and actually slightly above her chronic baseline. Daily BMP for stability. 3. restless legs syndrome - cont mirapex, consider iron replacement w/ IV venofer. 4. enterococcal UTI - day #6 of Rx; no symptoms at this point. agree w/ macrobid for remainder of course. 5. chronic systolic CHF - appears compensated. 6. h/o a flutter - cont coumadin. daily INR. INR high today and coumadin thus on hold. 7. chronic fatigue - depression? due to severe CHF? other metabolic derangement? undiagnosed CAD? other? sed rate, b12 wnl ammonia wnl 8. abdominal pain - exact etiology remains elusive. s/p RUQ u/s and CT abd/ pelvis. chronic cholecystitis? gastritis? due to her diarrhea? other? Cont carafate qid + PPI appreciate gen surg consult for their opinion re: gall bladder consider GI consultation celiac panel ordered to be complete 9. diarrhea - started DURING this hospitalization. C diff negative. Placed on cholestyramine earlier today immodium 2mg po x 1 now antibiotic-associated diarrhea?? PT, OT - will need SNF after d/c [place], her daughter, updated at bedside Parul QUEVEDO MD (Fabio Quevedo MD)
[2017-06-29] MEDS: MoRPHine SULFATE 2 MG/ML CARP IV PRN (19:45)
[2017-06-29] MEDS: MONTELUKAST SOD 10 MG TAB PO SCH (19:48)
[2017-06-29 20:01] VITALS: BP 96/66; PULSE 63; TEMP 36.5; O2SAT 95
[2017-06-29] MEDS: ALUMINUM/MAGNESIUM/SIMETH (MAALOX MAX) 30 ML UDC PO PRN (20:14)
[2017-06-29] MEDS: CHOLESTYRAMINE LIGHT 4 GM PKT PO SCH (22:39)
[2017-06-29 23:35] VITALS: BP 92/55; PULSE 62; TEMP 36.6; O2SAT 92
[2017-06-29] MEDS: ACETAMINOPHEN 325 MG TAB PO PRN (23:41)
[2017-06-30] VITALS (7 sets, daily range): BP systolic 99–115; BP diastolic 61–79; PULSE 56–84; TEMP 36.4–36.8; O2SAT 91–96
[2017-06-30] MEDS: FLUTICASONE PROPIONATE NA SPR 16 GM BTL NAE SCH (06:49)
[2017-06-30] MEDS: CHOLESTYRAMINE LIGHT 4 GM PKT PO SCH ×2 (07:08→20:38)
[2017-06-30] MEDS: CARVEDILOL 25 MG TAB PO SCH ×2 (07:30→17:26)
[2017-06-30] MEDS: SUCRALFATE 1 GM/10 ML UDC PO SCH ×4 (07:50→20:36)
[2017-06-30] MEDS: OFLOXACIN 0.3% OP SOLN 5 ML BTL OPR SCH ×4 (07:51→20:32)
[2017-06-30] MEDS: BUDESONIDE/FORMOTEROL FUMARATE 160/4.5 60 PUFFS/INHALER INH SCH ×2 (07:51→20:30)
[2017-06-30] MEDS: PrednisoLONE ACET 1% OP SUSP 5 ML BTL OPR SCH ×3 (07:51→20:34)
[2017-06-30] MEDS: NITROFURANTOIN MONOHYDRATE 100 MG CAP PO SCH ×2 (07:52→20:37)
[2017-06-30] MEDS: RANITIDINE HCL 150 MG TAB PO SCH ×2 (07:52→20:37)
[2017-06-30] MEDS: LACTOBACILLUS ACIDOPHILUS (FLORANEX) TAB PO SCH ×3 (07:53→17:24)
[2017-06-30] MEDS: FUROSEMIDE 80 MG TAB PO SCH (07:53)
[2017-06-30] MEDS: ESCITALOPRAM OXALATE 10 MG TAB PO SCH (07:53)
[2017-06-30] MEDS: CEROVITE ADV FORMULA TAB PO SCH (07:54)
[2017-06-30] MEDS: DOCUSATE SODIUM 100 MG CAP PO SCH ×2 (07:54→20:00)
[2017-06-30] MEDS: PANTOprazole SOD 40 MG TAB PO SCH (07:54)
[2017-06-30] MEDS: SPIRONOLACTONE 25 MG TAB PO SCH ×2 (07:55→17:25)
[2017-06-30] MEDS: ALUMINUM/MAGNESIUM/SIMETH (MAALOX MAX) 30 ML UDC PO PRN (07:59)
[2017-06-30 08:43] LABS: HEMATOCRIT 32.9 % (37-47); MEAN CELL VOLUME 91.6 fL (80-100); MEAN CORPUSCULAR HEMOGLOBIN 30.6 pg (25-34); MEAN CORPUSCULAR HGB CONC 33.4 g/dl (32-36); MEAN PLATELET VOLUME 9.9 fL (7.4-10.4); NUCLEATED RED BLOOD CELL ABS 0.04 K/uL (0-0); PLATELET COUNT 241 K/uL (130-400); RED CELL DISTRIBUTION WIDTH CV 16.6 % (11.5-14.5); RED CELL DISTRIBUTION WIDTH SD 53.8 fL (36.4-46.3)
[2017-06-30 09:00] LABS: INR 3.9 (0.9-1.1)
[2017-06-30 09:10] LABS: CALCIUM 9.2 mg/dl (8.5-10.1); CREATININE 1.39 mg/dl (0.60-1.20); POTASSIUM 4.4 mmol/L (3.5-5.1)
--- NOTE | 2017-06-30 09:47 | CARDIOLOGY PROGRESS NOTE ---
DATE: 06/30/2017 SUBJECTIVE: Ms. Rod is resting comfortably in bedside chair without complaints of chest pain or dyspnea. Continues to note a vague abdominal discomfort. OBJECTIVE: VITAL SIGNS: Blood pressure is 115/80 with a regular pulse of 84. Respiratory rate is 18. The patient is afebrile at 36.4 degrees Celsius. Saturations 94% on room air. NECK: Supple with full carotid upstrokes. No carotid bruits. Jugular venous pressure notes a prominent V wave. CARDIOVASCULAR: Reveals a regular rhythm with distant heart sounds. A 2/6 holosystolic murmur noted along the left sternal border. No S3. LUNGS: Clear without rales, rhonchi, or wheeze. ABDOMEN: Soft without bruits. EXTREMITIES: Reveal intact radial artery pulses bilaterally. There is no peripheral edema. DATA: CBC notes hemoglobin 11.0, hematocrit 32.9, white count 5.2, and platelet count 241,000. Electrolytes note sodium of 126, potassium of 4.4, chloride 96, bicarbonate 23, BUN 27, creatinine 1.39, glucose 118. INR is 3.9. 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 IMPRESSION AND PLAN: 1. Chronic systolic congestive heart failure - compensated. Tolerating carvedilol and spironolactone without difficulty. 2. Severe left ventricular dysfunction - ejection fraction of 20-25%. 3. Status post implantable cardioverter defibrillator/pacemaker. 4. Status post mitral valve repair/angioplasty ring - 03/2000. Evidence of mild mitral stenosis on recent echocardiogram. 5. Permanent atrial fibrillation. 6. History of Brugada syndrome - status post VT ablation in 04/2008. 7. Pulmonary hypertension. 8. Chronic cholecystitis - seen by Dr. Mello. Surgery not indicated at this time.
[2017-06-30] MEDS ORDERED: LOPERAMIDE HCL 2 MG CAP PO PRN ×2 (10:30→11:15)
[2017-06-30] MEDS ORDERED: BOOST VANILLA PO ONE (12:39)
[2017-06-30] MEDS: ONDANSETRON INJ 2 MG/ML 2 ML VIAL IV PRN ×2 (15:56→23:15)
[2017-06-30] MEDS: PRAMIPEXOLE DIHYDROCHLORIDE 0.25MG TAB PO SCH (19:29)
[2017-06-30] MEDS: MoRPHine SULFATE 2 MG/ML CARP IV PRN (19:31)
[2017-06-30] MEDS: BOOST VANILLA PO SCH (20:00)
[2017-06-30] MEDS: MONTELUKAST SOD 10 MG TAB PO SCH (20:38)
--- NOTE | 2017-06-30 22:05 | Hospitalist Progress Note ---
Hospitalist Progress Note Date of Service Jun 30, 2017. (Caity Jensen PA-C) Subjective Pt evaluation today including: conversation w/ patient, conversation w/ family , physical exam, chart review, lab review, review of studies, review of inpatient medication list Patient seen and evaluated. No acute events overnight. Continues to have diarrhea and intermittent nausea and other intermittent vague abdominal discomfort that she can't put a descriptive term to. Also having a lot of belching. Appears clinically a lot improved since presentation. However states she is just wiped out with each bout of diarrhea Appears to be very similar to issues in 2015. Have done extensive imaging and studies that have been unremarkable. Sent a celiac panel to assess this as cause. This could be an irritable bowel picture? This appears to be largely a chronic ongoing issue with some acute exacerbations...unsure if there is any further testing necessary. Patient states she wouldn't really want anesthesia to do scopes or anything of that nature. Wants GIs opinion for explanation since one has not been developed. This could easily be related to her CHF vs IBS vs diarrhea may even be in the setting of recently starting probiotics as this can happen for some people? Constitutional: No fever, No chills Respiratory: No cough, No shortness of breath Cardiovascular: No chest pain Abdomen: + pain (vague - migratory - can't describe), + nausea, + diarrhea Musculoskeletal: No swelling, No calf pain Female : No dysuria Heme: No abnormal bleeding/bruising (Caity Jensen, PA-C) Medications Current Inpatient Medications Medications (Trade) Dose Ordered Sig/Golden Route Start Time Stop Time Status Last Admin Dose Admin Albuterol (Ventolin Hfa Inhaler) 2 puffs QID PRN INH 06/23/17 13:45 07/23/17 13:44 Budesonide/ Formoterol Fumarate (Symbicort 160/ 4.5 Inh) 2 puffs BID INH 06/23/17 21:00 07/23/17 20:59 06/30/17 20:30 2 PUFFS Escitalopram Oxalate (Lexapro Tab) 5 mg QAM PO 06/24/17 09:00 07/24/17 08:59 06/30/17 07:53 5 MG Fluticasone Propionate (Flonase Nasal [facility]) 2 sprays DAILY JURGEN 06/24/17 09:00 07/24/17 08:59 Montelukast Sodium (Singulair Tab) 10 mg HS PO 06/23/17 21:00 07/23/17 20:59 06/30/17 20:38 10 MG Multivitamins/ Minerals (Multivitamin W/ Minerals Tab) 1 tab DAILY PO 06/24/17 09:00 07/24/17 08:59 06/30/17 07:54 1 TAB Ofloxacin (Ocuflox 0.3% Oph Soln) 1 drops QID OPR 06/23/17 17:00 07/03/17 16:59 06/30/17 20:32 1 DROPS Pantoprazole Sodium (Protonix Tab) 40 mg DAILY PO 06/24/17 09:00 07/24/17 08:59 06/30/17 07:54 40 MG Miscellaneous (Iv Fluids Completed) 1 ea PRN PRN N/A 06/23/17 17:15 06/23/18 17:14 Prednisolone Acetate (Pred Forte 1% Oph Susp) 1 drops TID OPR 06/30/17 09:00 07/06/17 23:59 06/30/17 20:34 1 DROPS Ondansetron HCl (Zofran Inj) 4 mg Q6H PRN IV 06/23/17 20:15 07/23/17 20:14 06/30/17 15:56 4 MG Acetaminophen (Tylenol Tab) 650 mg Q4H PRN PO 06/23/17 20:15 07/23/17 20:14 06/29/17 23:41 650 MG Lorazepam (Ativan Tab) 0.5 mg Q6H PRN PO 06/24/17 16:45 07/24/17 16:44 06/27/17 19:10 0.5 MG Pramipexole Dihydrochloride (miraPEX TAB) 0.25 mg DAILY@1900 PO 06/25/17 19:00 07/25/17 18:59 06/30/17 19:29 0.25 MG Furosemide (Lasix Tab) 80 mg QAM PO 06/26/17 09:00 07/26/17 08:59 06/30/17 07:53 80 MG Docusate Sodium (coLACE CAP) 100 mg BID PO 06/26/17 21:00 07/26/17 20:59 06/28/17 08:30 100 MG Calcium Carbonate (Tums Chew Tab) 500 mg Q6H PRN PO 06/27/17 00:15 07/27/17 00:14 06/27/17 00:32 500 MG Simethicone (Mylicon Chew Tab) 80 mg Q6H PRN PO 06/27/17 11:00 07/27/17 10:59 06/28/17 11:25 80 MG Lactobacillus Acidophilus (Floranex Tab) 4 tab TIDM PO 06/27/17 11:30 07/27/17 11:29 06/30/17 17:24 4 TAB Ranitidine HCl (zANTac TAB) 150 mg BID PO 06/27/17 21:00 07/27/17 08:59 06/30/17 20:37 150 MG Nitrofurantoin Macrocrystals (Macrobid Cap) 100 mg BID PO 06/27/17 21:00 06/30/17 23:00 06/30/17 20:37 100 MG Carvedilol (Coreg Tab) 25 mg BIDM PO 06/27/17 16:45 07/27/17 16:44 06/30/17 17:26 25 MG Al Hydrox/Mg Hydrox/Simethicone (Maalox Max Susp) 30 ml Q6H PRN PO 06/27/17 20:00 07/27/17 19:59 06/30/17 07:59 30 ML Morphine Sulfate (MoRPHine SULFATE INJ) 2 mg Q4H PRN IV 06/27/17 23:30 07/11/17 23:29 06/30/17 19:31 2 MG Sucralfate (Carafate Susp) 1 gm QID PO 06/28/17 21:00 07/28/17 20:59 06/30/17 20:36 1 GM Polyethylene (Miralax Powder Packet) 17 gm DAILY PRN PO 06/29/17 08:30 07/27/17 08:59 Spironolactone (Aldactone Tab) 25 mg BID17 PO 06/29/17 09:00 07/29/17 08:59 06/30/17 17:25 25 MG Cholestyramine Resin (Questran Powder Light) 4 gm BID@10,22 PO 06/29/17 22:00 5/26/18 21:59 Loperamide HCl (Imodium Cap) 2 mg Q4H PRN PO 06/30/17 11:15 07/30/17 10:29 06/30/17 11:20 2 MG Enteral Nutritional Formula (Boost) 1 can BID PO 06/30/17 20:00 07/30/17 20:59 (Caity Jensen PA-C) Objective Vital Signs Date Time Temp Pulse Resp B/P (MAP) Pulse Ox O2 Delivery O2 Flow Rate FiO2 06/30/17 17:50 36.8 65 20 107/71 (83) 96 Room Air 06/30/17 17:38 36.7 56 16 91 06/30/17 16:17 36.7 56 16 103/68 (80) 91 Room Air 06/30/17 16:00 Room Air 06/30/17 12:00 Room Air 06/30/17 11:28 36.6 65 20 102/61 (75) 95 06/30/17 08:01 36.4 84 18 115/79 (91) 94 06/30/17 08:00 Room Air 06/30/17 04:28 36.6 64 18 99/66 (77) 92 Room Air 06/30/17 04:00 Room Air 06/30/17 00:01 Room Air 06/29/17 23:35 36.6 62 18 92/55 (67) 92 Room Air (Caity Jensen PA-C) Physical Exam General Appearance: WD/WN, no apparent distress Eyes: sclerae normal ENT: hearing grossly normal Neck: supple, no JVD, trachea midline Respiratory/Chest: lungs clear, normal breath sounds, no respiratory distress, no accessory muscle use Cardiovascular: regular rate, rhythm, no gallop, no murmur Abdomen: normal bowel sounds, non tender, soft Extremities: no pedal edema Neurologic/Psychiatric: alert Skin: normal color, warm/dry (Caity Jensen PA-C) Laboratory Results Last 24 Hours Test 06/30/17 08:23 White Blood Count 5.20 K/uL Red Blood Count 3.59 M/uL Hemoglobin 11.0 g/dL Hematocrit 32.9 % Mean Corpuscular Volume 91.6 fL Mean Corpuscular Hemoglobin 30.6 pg Mean Corpuscular Hemoglobin Concent 33.4 g/dl RDW Standard Deviation 53.8 fL RDW Coefficient of Variation 16.6 % Platelet Count 241 K/uL Mean Platelet Volume 9.9 fL Nucleated RBC Absolute Count (auto) 0.04 K/uL Nucleated Red Blood Cells % 0.7 % Prothrombin Time 40.1 SECONDS Prothromb Time International Ratio 3.9 Sodium Level 126 mmol/L Potassium Level 4.4 mmol/L Chloride Level 96 mmol/L Carbon Dioxide Level 23 mmol/L Anion Gap 7.0 mmol/L Blood Urea Nitrogen 27 mg/dl Creatinine 1.39 mg/dl Est Creatinine Clear Calc Drug Dose 35.8 ml/min Estimated GFR () 42.9 Estimated GFR (Non- 37.0 BUN/Creatinine Ratio 19.3 Random Glucose 118 mg/dl Calcium Level 9.2 mg/dl (Caity Jensen, SUSY) Assessment and Plan 77 y/o female with a history of 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 Found to be hypotensive and with VAIBHAV in ED. Hypotension 2/2 Recent Mannitol Acetazolamide: RESOLVED - Improved with fluid resuscitation - no further intervention necessary VAIBHAV on CKD Stage III: Baseline Cr 1.6 - RESOLVED - Nephrology following appreciate recommendations with Na level and kidney function -- Continue daily monitoring; hold on iron replacement until GI symptoms resolved and could consider if RLS symptoms worsen Chronic Hyponatremia: STABLE - Continue fluid restriction and Lasix 80 mg daily; Spironolactone resumed Enterococcus and Possible Yeast UTI, POA: STABLE - Given Diflucan x 1 dose at beginning of hospitalization - Stop Vanco and convert to Macrobid as kidney function adequate to continue - treatment until 06/30 Constipation and Emesis - RESOLVED/Ongoing Vague GI Issues - Continues to have vague GI complaints mostly of bloating and lack of appetite - previous issues in 2014 with notes and EGD reviewed that showed diffuse gastritis and suggested symptoms related to her cirrhosis/congestive failure - No specific etiology identified at this point - extensive record review and new testing performed - no direct findings - Send celiac panel; C. diff checked and negative and could repeat if not resolving but she states this doesn't feel like how she was with C. diff - Trial of Carafate QID - Consult GI - she followed with Dr. Valiente but then saw [facility] and wants to see [facility] - unfortunately an explanation for an acute process may be hard to come up with..given extensive testing and IBS may be a possibility RLS vs Akathisia: RESOLVED - Mirapex 0.25 mg HS - seems to be resolved Recent Acute Angle Closure Glaucoma S/P Ablation and Cataract Surgery: STABLE - Ofloxacin and Prednisone gtts Acute Systolic CHF: STABLE - Echo with significantly reduced EF - Continue Lasix daily and monitor daily weights and I&Os - Metolazone remains on hold which likely will not be continued on D/C; Resumed Spironolactone BID; Continue Coreg 25 mg BID with hold parameters - Cardiology consulted - appreciate recommendations - recommend resuming medications when able Atrial Fibrillation: Paced Rhythm - Hold Coumadin today given INR 3.6 and recheck INR in AM and adjust as necessary COPD without Exacerbation: STABLE - Symbicort BID; Singulair daily; Ventolin PRN Depression: - Mood continues to be improved over past couple days - Lexapro 5 mg daily DVT prophylaxis: Warfarin Code Status: DO NOT RESUSCITATE Disposition: - PT/OT recommending rehab - patient agrees to [facility] - trying to resolve diarrhea and see if anything can help current symptoms Discharge planning: [facility] facility (Caity Jensen PA-C) Reviewed: Pt Seen/Exam by Me (Leatha Casillas MD) History Physician [employer] Supervision Note: I interviewed and examined the patient. Discussed with MARY Liu and agree with findings and plan as documented in the note. Any exceptions or clarifications are listed here: Continues with diarrhea although has slowed down now with Imodium. Has some epigastric pain that is intermittent, also with some lower abdominal pain that has been intermittent and present since prior to admission. She is a very vague historian. Has very low appetite and states this has been ongoing off and on for months. Vitals reviewed alert awake oriented RRR no mgr CTAB no wcr Abd +BS soft ND, positive mild tenderness to palpation diffusely without guarding or rebound, no masses Ext no edema 77 yo female with history as above, here with hypotension, dehydration in setting of recent diuretic use, acute on chronic hyponatremia, recent acute angle closure glaucoma, and with akathisia vs acute onset RLS? Also with enterococcus UTI and now with diarrhea, acute on chronic abdominal pain, poor appetite, and loose stools. -add on stool cultures and fecal leukocytes for workup for diarrhea, unlikely that IV vancomycin would cause diarrhea -Similar complaints on an admission from 3 years ago-had gastritis diffusely an EGD at that time-consult GI for further evaluation -Continue PPI, Carafate, Imodium as needed for diarrhea -All other issues fairly stable as above -Discussed case extensively with patient and her daughter at the bedside Documented By: Leatha Casillas (Leatha Casillas MD)
[2017-07-01] MEDS: SIMETHICONE 80 MG CHEW PO PRN (01:14)
[2017-07-01 07:46] VITALS: BP 104/68; PULSE 59; TEMP 36.4; O2SAT 96
[2017-07-01] MEDS: BOOST VANILLA PO SCH ×2 (09:12→20:00)
[2017-07-01] MEDS: BUDESONIDE/FORMOTEROL FUMARATE 160/4.5 60 PUFFS/INHALER INH SCH ×2 (09:14→20:22)
[2017-07-01] MEDS: OFLOXACIN 0.3% OP SOLN 5 ML BTL OPR SCH ×3 (09:15→17:32)
[2017-07-01] MEDS: FLUTICASONE PROPIONATE NA SPR 16 GM BTL NAE SCH (09:15)
[2017-07-01] MEDS: DOCUSATE SODIUM 100 MG CAP PO SCH ×3 (09:16→20:00)
[2017-07-01] MEDS: PrednisoLONE ACET 1% OP SUSP 5 ML BTL OPR SCH ×3 (09:16→20:27)
[2017-07-01] MEDS: SUCRALFATE 1 GM/10 ML UDC PO SCH ×2 (09:16→12:23)
[2017-07-01] MEDS: CARVEDILOL 25 MG TAB PO SCH ×2 (09:17→17:32)
[2017-07-01] MEDS: LACTOBACILLUS ACIDOPHILUS (FLORANEX) TAB PO SCH ×2 (09:17→12:25)
[2017-07-01] MEDS: PANTOprazole SOD 40 MG TAB PO SCH (09:18)
[2017-07-01] MEDS: ESCITALOPRAM OXALATE 10 MG TAB PO SCH (09:18)
[2017-07-01] MEDS: CEROVITE ADV FORMULA TAB PO SCH (09:18)
[2017-07-01] MEDS: FUROSEMIDE 80 MG TAB PO SCH (09:18)
[2017-07-01] MEDS: SPIRONOLACTONE 25 MG TAB PO SCH ×2 (09:19→17:32)
[2017-07-01] MEDS: ONDANSETRON INJ 2 MG/ML 2 ML VIAL IV PRN ×2 (09:19→14:50)
[2017-07-01] MEDS: ACETAMINOPHEN 325 MG TAB PO PRN (09:20)
[2017-07-01] MEDS: CHOLESTYRAMINE LIGHT 4 GM PKT PO SCH (10:00)
[2017-07-01 10:20] LABS: INR 2.8 (0.9-1.1)
[2017-07-01 10:31] LABS: CALCIUM 8.7 mg/dl (8.5-10.1); CREATININE 1.37 mg/dl (0.60-1.20); POTASSIUM 4.6 mmol/L (3.5-5.1)
[2017-07-01 10:37] LABS: HEMATOCRIT 25.3 % (37-47); HEMOGLOBIN 8.5 g/dL (12.0-16.0); MEAN CELL VOLUME 90.4 fL (80-100); MEAN CORPUSCULAR HEMOGLOBIN 30.4 pg (25-34); MEAN CORPUSCULAR HGB CONC 33.6 g/dl (32-36); MEAN PLATELET VOLUME 9.8 fL (7.4-10.4); PLATELET COUNT 264 K/uL (130-400); RED CELL DISTRIBUTION WIDTH CV 16.7 % (11.5-14.5); RED CELL DISTRIBUTION WIDTH SD 54.5 fL (36.4-46.3); WHITE BLOOD COUNT 7.25 K/uL (4.8-10.8)
[2017-07-01 11:14] LABS: HEMATOCRIT 31.8 % (37-47); HEMOGLOBIN 10.5 g/dL (12.0-16.0); MEAN CELL VOLUME 91.4 fL (80-100); MEAN CORPUSCULAR HEMOGLOBIN 30.2 pg (25-34); MEAN PLATELET VOLUME 9.7 fL (7.4-10.4); PLATELET COUNT 214 K/uL (130-400); RED CELL DISTRIBUTION WIDTH CV 16.9 % (11.5-14.5); RED CELL DISTRIBUTION WIDTH SD 54.5 fL (36.4-46.3); WHITE BLOOD COUNT 6.21 K/uL (4.8-10.8)
[2017-07-01 11:26] LABS: BASO ABS # 0.07 K/uL (0-0.2); EOS % 0.8 %; EOS ABS # 0.06 K/uL (0-0.5); LYMPH % 9.7 %; MONO % 8.4 %; MONO ABS # 0.61 K/uL (0.11-0.59); NEUT % 78.7 %; NEUT ABS # 5.71 K/uL (1.4-6.5)
--- NOTE | 2017-07-01 11:49 | Hospitalist Progress Note ---
Hospitalist Progress Note Date of Service Jul 01, 2017. Subjective Pt evaluation today including: conversation w/ patient, conversation w/ family Only had 2 bowel movements in the last 24 hours, but insists that she probably will have more and that it is just slowed down since taking Imodium. They were brown and soft. She was able to eat breakfast this morning, but did have complaints of nausea and lower abdominal pain earlier that is now improved. She still says that she is not ready to go home and wants to know why she feels so lousy. Incidentally noted, her hemoglobin had a significant drop to 8.5 this morning, but this might be a lab error as there is no evidence of bleeding anywhere. Also still complains of dizziness and fatigue. Constitutional: + weakness (Generalized), + fatigue Respiratory: No shortness of breath Cardiovascular: No chest pain Abdomen: + pain, + nausea, No vomiting All Other Systems: Reviewed and Negative Objective Vital Signs Date Time Temp Pulse Resp B/P (MAP) Pulse Ox O2 Delivery O2 Flow Rate FiO2 07/01/17 10:23 Room Air 07/01/17 07:46 36.4 59 18 104/68 (80) 96 Room Air 07/01/17 00:00 Room Air 06/30/17 23:35 36.7 71 20 104/71 (82) 95 Room Air 06/30/17 17:50 36.8 65 20 107/71 (83) 96 Room Air 06/30/17 17:38 36.7 56 16 91 06/30/17 16:17 36.7 56 16 103/68 (80) 91 Room Air 06/30/17 16:00 Room Air 06/30/17 12:00 Room Air 06/30/17 11:28 36.6 65 20 102/61 (75) 95 Physical Exam General Appearance: WD/WN, no apparent distress (Sitting in a chair smiling at times this morning, and daughter are present at the bedside) Eyes: normal inspection, sclerae normal ENT: hearing grossly normal, pharynx normal Neck: trachea midline Respiratory/Chest: lungs clear, normal breath sounds, no respiratory distress, no accessory muscle use Cardiovascular: regular rate, rhythm, no edema, no gallop, + systolic murmur (3 /6 at the LLSB) Abdomen: normal bowel sounds, soft, + tenderness (Mild in the lower quadrants without guarding or rebound tenderness) Extremities: no pedal edema, no calf tenderness Neurologic/Psychiatric: alert, normal mood/affect, oriented x 3 Skin: normal color, warm/dry, no rash Laboratory Results Last 24 Hours Test 07/01/17 09:57 07/01/17 10:56 White Blood Count 7.25 K/uL 6.21 K/uL Red Blood Count 2.80 M/uL 3.48 M/uL Hemoglobin 8.5 g/dL 10.5 g/dL Hematocrit 25.3 % 31.8 % Mean Corpuscular Volume 90.4 fL 91.4 fL Mean Corpuscular Hemoglobin 30.4 pg 30.2 pg Mean Corpuscular Hemoglobin Concent 33.6 g/dl 33.0 g/dl Platelet Count 264 K/uL 214 K/uL Mean Platelet Volume 9.8 fL 9.7 fL RDW Standard Deviation 54.5 fL 54.5 fL RDW Coefficient of Variation 16.7 % 16.9 % Prothrombin Time 29.0 SECONDS Prothromb Time International Ratio 2.8 Sodium Level 125 mmol/L Potassium Level 4.6 mmol/L Chloride Level 95 mmol/L Carbon Dioxide Level 23 mmol/L Anion Gap 7.0 mmol/L Blood Urea Nitrogen 27 mg/dl Creatinine 1.37 mg/dl Est Creatinine Clear Calc Drug Dose 36.3 ml/min Estimated GFR () 43.6 Estimated GFR (Non- 37.6 BUN/Creatinine Ratio 19.6 Random Glucose 147 mg/dl Calcium Level 8.7 mg/dl Magnesium Level 2.2 mg/dl Assessment and Plan This patient is a 77 y/o female with a history of 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 She was recently admitted for IV Diamox and mannitol for acute angle-closure glaucoma. She was found to be hypotensive and with VAIBHAV in ED. Since admission, she developed akathisia vs acute onset RLS? Also with enterococcus UTI and now with diarrhea, acute on chronic abdominal pain, poor appetite, and loose stools. Hypotension 2/2 Recent Mannitol and acetazolamide: RESOLVED - Improved with fluid resuscitation - no further intervention necessary VAIBHAV on CKD Stage III: Baseline Cr 1.6 - RESOLVED, creatinine stable today at 1.3 - Nephrology following appreciate recommendations with Na level and kidney function -Follow PRP Nausea/abdominal pain/poor appetite/diarrhea-diarrhea now resolving with Imodium , C. difficile negative. No signs of GI bleeding. Hemoglobin was falsely low today but recheck was back to baseline at 10.5. Continues to have vague GI complaints mostly of bloating and lack of appetite, along with epigastric and lower abdominal pain that is intermittent. Previous similar complaints in 2014 and EGD at that time reviewed that showed diffuse gastritis and suggested symptoms related to her cirrhosis/congestive failure -Does have low volume ascites on CT, is afebrile and no leukocytosis-question if could possibly have SBP? Seems unlikely, but consulting gastroenterology for further evaluation -Consult GI also to see if needs EGD and/or colonoscopy? -Follow-up stool cultures and fecal leukocytes for workup for diarrhea, unlikely that IV vancomycin would cause diarrhea -Continue PPI, Carafate, Imodium as needed for diarrhea - Send celiac panel; C. diff checked and negative and could repeat if not resolving but she states this doesn't feel like how she was with C. diff Chronic Hyponatremia secondary to CHF cardiac cirrhosis: STABLE but slightly lower today at 125 which is still around her baseline - Continue fluid restriction and Lasix 80 mg daily; Spironolactone resumed -DC'd metolazone -Appreciate nephrology consultation Enterococcus UTI/genital burning-resolved - Given Diflucan x 1 dose at beginning of hospitalization -Received IV Vanco and finish out 1 week course with Macrobid RLS vs Akathisia: Had significant restless leg syndrome on admission for unknown reasons, neurology consulted. Now is RESOLVED with giving Mirapex, however possibly Mirapex is contributing to her dizziness and GI issues? -We will hold Mirapex tonight and see if makes a difference for tomorrow in her symptomatology Recent Acute Angle Closure Glaucoma S/P Ablation and Cataract Surgery: STABLE -Continue ofloxacin and Prednisone gtts -Follow-up with ophthalmology as an outpatient as scheduled Acute on chronic systolic CHF: STABLE - Echo with significantly reduced EF - Continue Lasix daily and monitor daily weights and I&Os - Metolazone remains on hold which likely will not be continued on D/C; Resumed Spironolactone BID; Continue Coreg 25 mg BID with hold parameters - Cardiology consulted - appreciate recommendations - recommend resuming medications when able Permanent Atrial Fibrillation: Paced Rhythm -Coumadin was on hold for supratherapeutic INR, INR now 2.8 today -Restart Coumadin 2 mg daily (home dose was 2.5 mg daily) -Follow PT/INR -Continue carvedilol for rate control COPD without Exacerbation: STABLE -Continue Symbicort BID; Singulair daily; Ventolin PRN Major depressive disorder-stable -Continue Lexapro 5 mg daily Chronic normocytic anemia-iron studies fairly normal except mildly low transferrin saturation at 9%, ferritin normal in the 40s, B12 and folate normal. -Suspect anemia of chronic kidney disease -Follow CBC -Check Hemoccult stool DVT prophylaxis: Warfarin Code Status: DO NOT RESUSCITATE Disposition: - PT/OT recommending rehab -authorization obtained for SNF at the [facility]-is good for 4 days through July 04
[2017-07-01] MEDS: RANITIDINE HCL 150 MG TAB PO SCH ×2 (12:22→20:24)
[2017-07-01 14:35] VITALS: BP 104/70; PULSE 60; TEMP 36.4; O2SAT 96
[2017-07-01] MEDS: WARFARIN SOD 2 MG TAB PO SCH (16:47)
--- NOTE | 2017-07-01 16:58 | Medical Consult ---
Consultation Note Date of Service Jul 01, 2017. Consultation Note Reason for consult: nausea, diarrhea, malaise HPI; 77 yo female with PMH most significant for severe cardiomyopathy, s/p recent admit for acute angle closure glaucoma rx'd mannitol/diuresis admit with fatigue, renal failure, and hypoNA. During admission, she has received volume and diuresis for kidney injury with improvement in creat, She has also complained of loose stool, and has received Immdoium, cholestyramine. She reports nausea without abd pain causing poor appetite, which has been rx'd with Zofran, PPI, Maalox, Zantac. She has similar symptoms chronically at home, although less severe. She also had similar symptoms during hosp in 2014, during which she underwent unremarkable EGD. Non con CT was unremarkable. Gb uls showed hepatomegaly and GB wall thick - subsequent surg consult did not think she had cholecystitis. Medical Problems: 1. Acute angle-closure glaucoma - s/p laser ablation 2. Heart failure - dilated cardiomyopathy with EF of <20% per echo in 2014 3. Renal insufficiency - baseline Cr of 1.6 4. Anemia 5. Ascites 6. Brugada syndrome 7. Cardiac cirrhosis 8. ICD placement 9. Third degree heart block 10 Paroxysmal VT s/p ablation 11. 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 ICD placement 3. Mitral valve repair - 2000 4. Cardiac ablation x 2 5. Cataract surgery yesterday - right eye Family History Cancer Diabetes mellitus Heart disease Seizures Social History Smoking Status: Never Smoker Drug Use: none Marital Status: Housing status: lives with family Occupational Status: retired Immunizations History of Influenza Vaccine: Yes Influenza Vaccine Date: Nov 10, 2008 History of Tetanus Vaccine?: Unknown History of Pneumococcal: Yes Pneumococcal Date: Apr 12, 1999 History of Hepatitis B Vaccine: Unknown Allergies Coded Allergies: AMADOU Inhibitors (Verified Allergy, Unknown, 06/20/17) Amiodarone (Verified Allergy, Unknown, 06/20/17) Azithromycin (Verified Allergy, Unknown, 06/20/17) Clarithromycin (Verified Allergy, Unknown, 06/20/17) Hydralazine (Verified Allergy, Unknown, 06/20/17) Hydrochlorothiazide (Unverified Allergy, Unknown, RASH, 06/20/17) Pt unsure of reaction, possible rash. Lisinopril (Verified Allergy, Unknown, 06/20/17) Penicillins (Verified Allergy, Unknown, 06/20/17) Procainamide (Verified Allergy, Unknown, 06/20/17) Home Medications Scheduled Budesonide/Formoterol Fumarate (Symbicort 160/4.5 Inhaler ), 2 PUFFS INH BID Carvedilol (Coreg), 25 MG PO BIDM Escitalopram Oxalate (Lexapro), 5 MG PO QAM Fluticasone Propionate (Nasal) (Flonase Allergy Relief), 2 SPRAYS JURGEN DAILY Furosemide (Lasix), 40 MG PO QPM Furosemide (Lasix), 80 MG PO QAM Lactobacillus-Inulin (Culturelle Digestive Heal), 1 CAP PO BID Magnesium Chloride (Slow-Mag Tab), 64 MG PO BID Montelukast Sodium (Singulair), 10 MG PO HS Multiple Vitamins W/ Minerals (One Daily For Women), 1 TAB PO DAILY Ofloxacin (Oph) (Ocuflox Oph Soln), 1 DROP OP QID Pantoprazole Sodium (Protonix), 20 MG PO DAILY Potassium Chloride (Klor-Con Sprinkle), 10 MEQ PO BID Prednisolone Acetate (Prednisolone Acetate), 1 DROPS OPR DAILY Spironolactone (Aldactone), 25 MG PO BID Warfarin Sodium (Warfarin Sodium), 2.5 MG PO DAILY Scheduled PRN Albuterol Hfa (Ventolin Hfa), 2 PUFFS INH QID PRN for Wheezing Metolazone (Zaroxolyn), 2.5 MG PO UD PRN for weight gain Physical Exam Vital Signs Date Time Temp Pulse Resp B/P (MAP) Pulse Ox O2 Delivery O2 Flow Rate FiO2 07/01/17 14:35 36.4 60 20 104/70 (81) 96 07/01/17 10:23 Room Air 07/01/17 07:46 36.4 59 18 104/68 (80) 96 Room Air 07/01/17 00:00 Room Air 06/30/17 23:35 36.7 71 20 104/71 (82) 95 Room Air 06/30/17 17:50 36.8 65 20 107/71 (83) 96 Room Air 06/30/17 17:38 36.7 56 16 91 General: Appears comfortable, sitting in chair Skin: warm, dry, intact, scattered ecchymoses on extremities HEENT: No thrush. JVP to angle of mandible while sitting upright Heart: RRR, + Syst mumrur Lungs: CTA bilaterally, no rales/rhonchi or wheezes Abdomen: She is examined in chair - in this positinon, i did not appreciate abd distention, hsm, or HJR Extremities: Mild pedal edema Neuro: grossly nonfocal, moves 4 extremities with equal strength 4/5 Diagnostics Labs and imaging reviewed Impression Assessment and Plan H/o severe CMP, now with nausea and loose stool - I suspect that her chronic symptoms are related to CHF, from venous congestion and poor forward flow - malabsorption from lymphatic congestion, dysmotility, and bacterial overgrowth are common in this patient population. Her acute worsening may be related to her fluctuating volume status, or med changes - medications used to treat RLS are commonly associated with nausea; use of carafate and cholestyramine may be contributing to this as well. Of note , acute glaucoma may aggravate nausea, and though she does not have other symptoms of this condition, it may be reasonable to ask for ophtho f/u. - Will d/c cholestyramine, carafate, probiotic and follow. Can consider low dose phenothiazine, although will defer this for now as this may aggravate her RLS . If symptoms persistent, would request mesenteric dopplers r/o venous thrombosis or atherosclerotic disease.
[2017-07-01] MEDS ORDERED: FUROSEMIDE 80 MG TAB PO STA (17:10)
[2017-07-01] MEDS: MONTELUKAST SOD 10 MG TAB PO SCH (20:24)
[2017-07-01] MEDS: MoRPHine SULFATE 2 MG/ML CARP IV PRN (21:27)
[2017-07-01 23:29] VITALS: BP 98/62; PULSE 66; TEMP 36.2; O2SAT 94
[2017-07-02 05:57] LABS: BASO % 0.8 %; BASO ABS # 0.04 K/uL (0-0.2); EOS % 1.8 %; EOS ABS # 0.09 K/uL (0-0.5); HEMATOCRIT 30.2 % (37-47); HEMOGLOBIN 10.1 g/dL (12.0-16.0); IG# 0.02 K/uL (0.00-0.02); LYMPH % 11.2 %; LYMPH ABS # 0.56 K/uL (1.2-3.4); MEAN CORPUSCULAR HEMOGLOBIN 30.4 pg (25-34); MEAN CORPUSCULAR HGB CONC 33.4 g/dl (32-36); MEAN PLATELET VOLUME 10.4 fL (7.4-10.4); MONO ABS # 0.55 K/uL (0.11-0.59); NEUT % 74.8 %; NEUT ABS # 3.76 K/uL (1.4-6.5); NUCLEATED RED BLOOD CELL ABS 0.02 K/uL (0-0); PLATELET COUNT 186 K/uL (130-400); RED CELL DISTRIBUTION WIDTH CV 16.8 % (11.5-14.5); RED CELL DISTRIBUTION WIDTH SD 55.5 fL (36.4-46.3); WHITE BLOOD COUNT 5.02 K/uL (4.8-10.8)
[2017-07-02 06:02] LABS: INR 2.6 (0.9-1.1)
[2017-07-02 06:43] LABS: ALBUMIN 3.2 gm/dl (3.4-5.0); CALCIUM 8.9 mg/dl (8.5-10.1); CREATININE 1.28 mg/dl (0.60-1.20); POTASSIUM 3.9 mmol/L (3.5-5.1); TOTAL PROTEIN 6.2 gm/dl (6.4-8.2)
[2017-07-02 07:30] VITALS: BP 94/62; PULSE 62; TEMP 36.7; O2SAT 92
[2017-07-02] MEDS: FLUTICASONE PROPIONATE NA SPR 16 GM BTL NAE SCH (09:15)
[2017-07-02] MEDS: BUDESONIDE/FORMOTEROL FUMARATE 160/4.5 60 PUFFS/INHALER INH SCH ×2 (09:15→20:39)
[2017-07-02] MEDS: CARVEDILOL 25 MG TAB PO SCH ×2 (09:16→17:40)
[2017-07-02] MEDS: PrednisoLONE ACET 1% OP SUSP 5 ML BTL OPR SCH ×3 (09:16→20:44)
[2017-07-02] MEDS: ESCITALOPRAM OXALATE 10 MG TAB PO SCH (09:17)
[2017-07-02] MEDS: PANTOprazole SOD 40 MG TAB PO SCH (09:17)
[2017-07-02] MEDS: RANITIDINE HCL 150 MG TAB PO SCH ×2 (09:17→20:45)
[2017-07-02] MEDS: FUROSEMIDE 80 MG TAB PO SCH (09:17)
[2017-07-02] MEDS: SPIRONOLACTONE 25 MG TAB PO SCH ×2 (09:18→17:40)
[2017-07-02] MEDS: SIMETHICONE 80 MG CHEW PO PRN (09:18)
[2017-07-02] MEDS: DOCUSATE SODIUM 100 MG CAP PO SCH ×2 (09:20→18:30)
[2017-07-02] MEDS: ONDANSETRON INJ 2 MG/ML 2 ML VIAL IV PRN (10:44)
[2017-07-02] MEDS: BOOST VANILLA PO SCH ×2 (11:28→20:40)
[2017-07-02 13:02] VITALS: BP 98/61; PULSE 64
[2017-07-02 14:54] VITALS: BP 106/72; PULSE 62; TEMP 36.2; O2SAT 95
[2017-07-02] MEDS: WARFARIN SOD 2 MG TAB PO SCH (17:40)
--- NOTE | 2017-07-02 17:54 | Hospitalist Progress Note ---
Hospitalist Progress Note Date of Service Jul 02, 2017. Subjective Pt evaluation today including: conversation w/ patient Still feels nauseated throughout the day and some vague lower abdominal pain. Has not been able to eat much. Had one loose stool today. Is tearful and feels hopeless like there is nothing that can be done for her nausea. Also feels like her legs are still swollen today. All Other Systems: Reviewed and Negative Objective Vital Signs Date Time Temp Pulse Resp B/P (MAP) Pulse Ox O2 Delivery O2 Flow Rate FiO2 07/02/17 16:00 Room Air 07/02/17 14:54 36.2 62 20 106/72 (83) 95 07/02/17 13:02 64 98/61 (73) 07/02/17 11:23 Room Air 07/02/17 07:30 36.7 62 18 94/62 (73) 92 07/02/17 00:00 Room Air 07/01/17 23:29 36.2 66 20 98/62 (74) 94 Room Air 07/01/17 21:15 Room Air Physical Exam General Appearance: WD/WN, no apparent distress Eyes: normal inspection, sclerae normal ENT: hearing grossly normal Neck: trachea midline Respiratory/Chest: lungs clear, normal breath sounds, no respiratory distress, no accessory muscle use Cardiovascular: regular rate, rhythm, + systolic murmur, + pertinent finding ( Trace pitting edema the mid tibia bilaterally) Abdomen: normal bowel sounds, soft, + tenderness (Mild in the lower quadrants without guarding or rebound) Extremities: no calf tenderness Neurologic/Psychiatric: alert, + depressed affect Skin: normal color, warm/dry, no rash Laboratory Results Last 24 Hours Test 07/02/17 05:08 White Blood Count 5.02 K/uL Red Blood Count 3.32 M/uL Hemoglobin 10.1 g/dL Hematocrit 30.2 % Mean Corpuscular Volume 91.0 fL Mean Corpuscular Hemoglobin 30.4 pg Mean Corpuscular Hemoglobin Concent 33.4 g/dl Platelet Count 186 K/uL Mean Platelet Volume 10.4 fL Neutrophils (%) (Auto) 74.8 % Lymphocytes (%) (Auto) 11.2 % Monocytes (%) (Auto) 11.0 % Eosinophils (%) (Auto) 1.8 % Basophils (%) (Auto) 0.8 % Neutrophils # (Auto) 3.76 K/uL Lymphocytes # (Auto) 0.56 K/uL Monocytes # (Auto) 0.55 K/uL Eosinophils # (Auto) 0.09 K/uL Basophils # (Auto) 0.04 K/uL RDW Standard Deviation 55.5 fL RDW Coefficient of Variation 16.8 % Immature Granulocyte % (Auto) 0.4 % Immature Granulocyte # (Auto) 0.02 K/uL Nucleated RBC Absolute Count (auto) 0.02 K/uL Nucleated Red Blood Cells % 0.4 % Prothrombin Time 26.5 SECONDS Prothromb Time International Ratio 2.6 Sodium Level 129 mmol/L Potassium Level 3.9 mmol/L Chloride Level 97 mmol/L Carbon Dioxide Level 24 mmol/L Anion Gap 8.0 mmol/L Blood Urea Nitrogen 30 mg/dl Creatinine 1.28 mg/dl Est Creatinine Clear Calc Drug Dose 38.8 ml/min Estimated GFR () 47.4 Estimated GFR (Non- 40.9 BUN/Creatinine Ratio 23.4 Random Glucose 89 mg/dl Calcium Level 8.9 mg/dl Magnesium Level 2.3 mg/dl Total Bilirubin 0.8 mg/dl Direct Bilirubin 0.2 mg/dl Aspartate Amino Transf (AST/SGOT) 45 U/L Alanine Aminotransferase (ALT/SGPT) 79 U/L Alkaline Phosphatase 110 U/L Total Protein 6.2 gm/dl Albumin 3.2 gm/dl Assessment and Plan This patient is a 77 y/o female with a history of 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 She was recently admitted for IV Diamox and mannitol for acute angle-closure glaucoma. She was found to be hypotensive and with VAIBHAV in ED. Since admission, she developed akathisia vs acute onset RLS? Also with enterococcus UTI and now with diarrhea, acute on chronic abdominal pain, poor appetite, and loose stools. Hypotension 2/2 Recent Mannitol and acetazolamide: RESOLVED - Improved with fluid resuscitation - no further intervention necessary VAIBHAV on CKD Stage III: Baseline Cr 1.6 - RESOLVED, creatinine stable today at 1.28 - Nephrology following appreciate recommendations with Na level and kidney function -Follow PRP Nausea/abdominal pain/poor appetite/diarrhea-diarrhea resolved with Imodium 2 doses, C. difficile negative. No signs of GI bleeding. Continues to have vague GI complaints mostly of bloating and lack of appetite, nausea, along with epigastric and lower abdominal pain that is intermittent. Previous similar complaints in 2014 and EGD at that time reviewed that showed diffuse gastritis and suggested symptoms related to her cirrhosis/congestive failure. Fecal leukocytes negative, stool culture negative. GI consultation appreciated-suggest that symptoms are from CHF with vascular congestion of the bowel wall and poor forward flow-malabsorption from lymphatic congestion, causing dysmotility, possible bacterial overgrowth which can all be common in patients with CHF. He-suggested stopping Carafate/cholestyramine/ probiotic, and to consider low-dose phenothiazine. If symptoms persist, check mesenteric Dopplers to rule out venous thrombosis or atherosclerotic disease -Discussed with patient, will trial low-dose Compazine 5 mg p.o. 3 times daily -Stopped Mirapex as may be worsening nausea -Check mesenteric ultrasound -GI following along -Follow-up results of celiac panel Chronic Hyponatremia secondary to CHF cardiac cirrhosis: Improved today to 129 - Continue fluid restriction -Increase in Lasix 80 mg p.o. twice daily -Continue spironolactone -DC'd metolazone -Appreciate nephrology consultation Enterococcus UTI/genital burning-resolved - Given Diflucan x 1 dose at beginning of hospitalization -Received IV Vanco and finish out 1 week course with Macrobid RLS vs Akathisia: Completely resolved. Stopped Mirapex last night and has had no recurrent symptoms. Had significant restless leg syndrome on admission for unknown reasons, neurology consulted. -We will not give any more Mirapex and observe for worsening especially with getting Compazine now as above Recent Acute Angle Closure Glaucoma S/P Ablation and Cataract Surgery: STABLE -Continue ofloxacin and Prednisone gtts -Follow-up with ophthalmology as an outpatient as scheduled Acute on chronic systolic CHF: Slight worsening of lower extremity edema in the last 24 hours, improved with extra dose of Lasix yesterday -Increase Lasix to 80 mg p.o. twice daily - Echo with significantly reduced EF - Continue daily weights and I&Os - Metolazone remains on hold which likely will not be continued on D/C; Resumed Spironolactone BID; Continue Coreg 25 mg BID with hold parameters - Cardiology consulted - appreciate recommendations - recommend resuming medications when able Permanent Atrial Fibrillation: Paced Rhythm - INR now 2.6 today -Continue Coumadin 2 mg daily (home dose was 2.5 mg daily) -Follow PT/INR -Continue carvedilol for rate control COPD without Exacerbation: STABLE -Continue Symbicort BID; Singulair daily; Ventolin PRN Major depressive disorder-stable but acutely worse with ongoing nausea and medical conditions -Continue Lexapro 5 mg daily Chronic normocytic anemia-iron studies fairly normal except mildly low transferrin saturation at 9%, ferritin normal in the 40s, B12 and folate normal. Hemoccult stool negative -Suspect anemia of chronic kidney disease -Follow CBC DVT prophylaxis: Warfarin Code Status: DO NOT RESUSCITATE Disposition: - PT/OT recommending rehab -authorization obtained for SNF at the [facility]-is good for 4 days through July 04 -Patient does not want to leave until her nausea is better-explained to her that this might not be for many more days with a trial of Compazine
[2017-07-02] MEDS ORDERED: FUROSEMIDE 80 MG TAB PO ONE (18:15)
[2017-07-02] MEDS ORDERED: PROCHLORPERAZINE MALEATE 5 MG TAB PO ONE (18:15)
[2017-07-02] MEDS: PROCHLORPERAZINE MALEATE 5 MG TAB PO SCH (20:45)
[2017-07-02] MEDS: MONTELUKAST SOD 10 MG TAB PO SCH (20:45)
[2017-07-03 00:12] VITALS: BP 91/58; PULSE 62; TEMP 36.6; O2SAT 97
[2017-07-03] MEDS: MoRPHine SULFATE 2 MG/ML CARP IV PRN (02:33)
[2017-07-03 06:18] LABS: BASO % 0.5 %; BASO ABS # 0.03 K/uL (0-0.2); EOS % 1.3 %; EOS ABS # 0.08 K/uL (0-0.5); HEMOGLOBIN 10.1 g/dL (12.0-16.0); IG# 0.03 K/uL (0.00-0.02); LYMPH % 10.1 %; LYMPH ABS # 0.61 K/uL (1.2-3.4); MEAN CELL VOLUME 91.5 fL (80-100); MEAN CORPUSCULAR HEMOGLOBIN 30.8 pg (25-34); MEAN CORPUSCULAR HGB CONC 33.7 g/dl (32-36); MONO % 10.3 %; MONO ABS # 0.62 K/uL (0.11-0.59); NEUT % 77.3 %; NEUT ABS # 4.64 K/uL (1.4-6.5); NUCLEATED RED BLOOD CELL ABS 0.03 K/uL (0-0); PLATELET COUNT 178 K/uL (130-400); RED CELL DISTRIBUTION WIDTH CV 17.1 % (11.5-14.5); RED CELL DISTRIBUTION WIDTH SD 55.3 fL (36.4-46.3); WHITE BLOOD COUNT 6.01 K/uL (4.8-10.8)
[2017-07-03 06:28] LABS: INR 2.7 (0.9-1.1)
[2017-07-03 06:54] LABS: CALCIUM 8.6 mg/dl (8.5-10.1); CREATININE 1.35 mg/dl (0.60-1.20); POTASSIUM 4.2 mmol/L (3.5-5.1)
[2017-07-03 07:42] VITALS: BP 111/77; PULSE 73; TEMP 36.3; O2SAT 96
[2017-07-03] MEDS: FLUTICASONE PROPIONATE NA SPR 16 GM BTL NAE SCH (08:00)
--- NOTE | 2017-07-03 08:11 | DIAGNOSTIC IMAGING REPORT ---
DUPLEX MESENTERIC CLINICAL HISTORY: 77 years-old Female presenting with abdominal pain, nausea. TECHNIQUE: Real-time grayscale and color and spectral Doppler ultrasound imaging of the aorta and mesenteric vessels was performed. COMPARISON: 04/26/2014. FINDINGS: Aorta: Patent. Normal waveforms. Peak systolic velocity 66 cm/s. Celiac axis: Patent. Normal waveforms. Peak systolic velocity 110 cm/s. Hepatic artery: Not evaluated. Splenic artery: Not evaluated. Superior mesenteric artery: Patent. Normal waveforms. Peak systolic velocity 110 cm/s proximally, 108 cm/s in the midportion, and 88 cm/s distally. Inferior mesenteric artery: Not evaluated. Reference ranges: Celiac artery: PSV ? 240 cm/s suggests stenosis ? 50%; PSV ? 320 cm/s suggests stenosis ? 70%. Superior mesenteric artery: PSV ? 295 cm/s suggests stenosis ? 50%; PSV ? 400 cm/s suggests stenosis ? 70%. IMPRESSION: 1. No evidence of abdominal aortic aneurysm or hemodynamically significant atherosclerotic plaque. Electronically signed by: Sai Renee M.D. 07/03/2017 8:10 AM Dictated Date/Time: 07/03/2017 8:07 AM
[2017-07-03] MEDS: BUDESONIDE/FORMOTEROL FUMARATE 160/4.5 60 PUFFS/INHALER INH SCH (08:21)
[2017-07-03] MEDS: DOCUSATE SODIUM 100 MG CAP PO SCH ×2 (08:21→14:04)
[2017-07-03] MEDS: PrednisoLONE ACET 1% OP SUSP 5 ML BTL OPR SCH ×2 (08:21→14:04)
[2017-07-03] MEDS: CARVEDILOL 25 MG TAB PO SCH (08:21)
[2017-07-03] MEDS: PROCHLORPERAZINE MALEATE 5 MG TAB PO SCH ×2 (08:21→14:04)
[2017-07-03] MEDS: RANITIDINE HCL 150 MG TAB PO SCH (08:22)
[2017-07-03] MEDS: PANTOprazole SOD 40 MG TAB PO SCH (08:22)
[2017-07-03] MEDS: ESCITALOPRAM OXALATE 10 MG TAB PO SCH (08:22)
[2017-07-03] MEDS: SPIRONOLACTONE 25 MG TAB PO SCH (08:22)
[2017-07-03] MEDS ORDERED: FUROSEMIDE 80 MG TAB PO SCH (09:00)
--- NOTE | 2017-07-03 11:18 | CARDIOLOGY PROGRESS NOTE ---
DATE: 07/03/2017 SUBJECTIVE: Mrs. Rod is resting comfortably in bed without complaints of chest pain, dyspnea, palpitations, or nausea. OBJECTIVE: VITAL SIGNS: Blood pressure is 111/77 with a regular pulse of 73. Respiratory rate is 18. The patient is afebrile at 36.3 degrees Celsius with saturation of 96% on room air. NECK: Supple with full carotid upstrokes. No obvious bruits. Jugular venous pressure notes a prominent V wave. CARDIOVASCULAR: Reveals a regular rhythm with distant heart sounds. A 2/6 holosystolic murmur heard along the left sternal border. No S3. LUNGS: Clear without rales, rhonchi, or wheezes. ABDOMEN: Soft without bruits. EXTREMITIES: Reveal intact radial artery pulses bilaterally. There is no peripheral edema. LABORATORY DATA: CBC notes hemoglobin of 10.1, hematocrit 30.0, white count 6.0, and a platelet count of 178,000. Electrolytes note a sodium of 131, potassium 4.2, chloride 98, bicarb 26, BUN 34, creatinine 1.35, glucose 83. IMPRESSION AND PLAN: 1. Chronic systolic congestive heart failure - compensated on current medical regimen. 2. Severe left ventricular dysfunction - ejection fraction 20-25%. 3. Status post implantable cardioverter defibrillator/pacemaker. 4. Status post mitral valve repair/annuloplasty ring - March 2000. Evidence of mild mitral stenosis on echocardiogram. 5. Permanent atrial fibrillation. 6. History of Brugada syndrome - status post VT ablation in April 2008. 7. Pulmonary hypertension.
[2017-07-03 13:15] LABS: HEP C IGG 13 YRS+OLDER_RFLX NEG (NEG)
[2017-07-03] MEDS: BOOST VANILLA PO SCH (13:30)
--- NOTE | 2017-07-03 13:34 | Gastroenterology Progress Note ---
Progress Note Date of Service: Jul 03, 2017 Subjective Pt evaluation today including: conversation w/ patient, physical exam, chart review, lab review, review of inpatient medication list Pt reports feels well today, denies any n/v since Compazine started. Ate regular meals w/o n/v or abd pain. Review of Systems Constitutional: No fever, No chills Respiratory: No cough, No shortness of breath Abdomen: No pain, No nausea, No vomiting Medications Current Inpatient Medications Medications (Trade) Dose Ordered Sig/Golden Route Start Time Stop Time Status Last Admin Dose Admin Albuterol (Ventolin Hfa Inhaler) 2 puffs QID PRN INH 06/23/17 13:45 07/23/17 13:44 Budesonide/ Formoterol Fumarate (Symbicort 160/ 4.5 Inh) 2 puffs BID INH 06/23/17 21:00 07/23/17 20:59 07/03/17 08:21 2 PUFFS Escitalopram Oxalate (Lexapro Tab) 5 mg QAM PO 06/24/17 09:00 07/24/17 08:59 07/03/17 08:22 5 MG Fluticasone Propionate (Flonase Nasal [place]) 2 sprays DAILY JURGEN 06/24/17 09:00 07/24/17 08:59 Montelukast Sodium (Singulair Tab) 10 mg HS PO 06/23/17 21:00 07/23/17 20:59 07/02/17 20:45 10 MG Pantoprazole Sodium (Protonix Tab) 40 mg DAILY PO 06/24/17 09:00 07/24/17 08:59 07/03/17 08:22 40 MG Miscellaneous (Iv Fluids Completed) 1 ea PRN PRN N/A 06/23/17 17:15 06/23/18 17:14 Prednisolone Acetate (Pred Forte 1% Oph Susp) 1 drops TID OPR 06/30/17 09:00 07/06/17 23:59 07/03/17 08:21 1 DROPS Ondansetron HCl (Zofran Inj) 4 mg Q6H PRN IV 06/23/17 20:15 07/23/17 20:14 07/02/17 10:44 4 MG Acetaminophen (Tylenol Tab) 650 mg Q4H PRN PO 4/20/18 20:15 07/23/17 20:14 07/01/17 09:20 650 MG Lorazepam (Ativan Tab) 0.5 mg Q6H PRN PO 06/24/17 16:45 07/24/17 16:44 06/27/17 19:10 0.5 MG Pramipexole Dihydrochloride (miraPEX TAB) 0.25 mg DAILY@1900 PO 06/25/17 19:00 07/25/17 18:59 Future Hold 06/30/17 19:29 0.25 MG Docusate Sodium (coLACE CAP) 100 mg BID PO 06/26/17 21:00 07/26/17 20:59 07/03/17 08:21 100 MG Calcium Carbonate (Tums Chew Tab) 500 mg Q6H PRN PO 06/27/17 00:15 07/27/17 00:14 06/27/17 00:32 500 MG Simethicone (Mylicon Chew Tab) 80 mg Q6H PRN PO 06/27/17 11:00 07/27/17 10:59 07/02/17 09:18 80 MG Ranitidine HCl (zANTac TAB) 150 mg BID PO 06/27/17 21:00 07/27/17 08:59 07/03/17 08:22 150 MG Carvedilol (Coreg Tab) 25 mg BIDM PO 06/27/17 16:45 07/27/17 16:44 07/03/17 08:21 25 MG Al Hydrox/Mg Hydrox/Simethicone (Maalox Max Susp) 30 ml Q6H PRN PO 06/27/17 20:00 07/27/17 19:59 06/30/17 07:59 30 ML Morphine Sulfate (MoRPHine SULFATE INJ) 2 mg Q4H PRN IV 06/27/17 23:30 07/11/17 23:29 07/03/17 02:33 2 MG Polyethylene (Miralax Powder Packet) 17 gm DAILY PRN PO 06/29/17 08:30 07/27/17 08:59 Spironolactone (Aldactone Tab) 25 mg BID17 PO 06/29/17 09:00 07/29/17 08:59 07/03/17 08:22 25 MG Loperamide HCl (Imodium Cap) 2 mg Q4H PRN PO 06/30/17 11:15 07/30/17 10:29 06/30/17 11:20 2 MG Enteral Nutritional Formula (Boost) 1 can BID PO 06/30/17 20:00 07/30/17 20:59 07/02/17 20:40 1 CAN Warfarin Sodium (Coumadin Tab) 2 mg DAILY@16 PO 07/01/17 16:00 07/31/17 15:59 07/02/17 17:40 2 MG Prochlorperazine Maleate (Compazine Tab) 5 mg TID PO 07/02/17 20:00 08/01/17 19:59 07/03/17 08:21 5 MG Furosemide (Lasix Tab) 80 mg BID17 PO 07/03/17 09:00 07/26/17 08:59 07/03/17 08:22 80 MG Objective Vital Signs Date Time Temp Pulse Resp B/P (MAP) Pulse Ox O2 Delivery O2 Flow Rate FiO2 07/03/17 10:50 Room Air 07/03/17 07:42 36.3 73 18 111/77 (88) 96 Room Air 07/03/17 00:12 36.6 62 18 91/58 (69) 97 Room Air 07/03/17 00:00 Room Air 07/02/17 16:00 Room Air 07/02/17 14:54 36.2 62 20 106/72 (83) 95 Physical Exam General Appearance: WD/WN, no apparent distress Eyes: normal inspection, PERRL, EOMI Neck: supple, no JVD, trachea midline Respiratory/Chest: normal breath sounds, no respiratory distress, no accessory muscle use Cardiovascular: regular rate, rhythm, no gallop, no murmur Abdomen: normal bowel sounds, non tender, soft Extremities: normal inspection, no pedal edema, no calf tenderness Neurologic/Psych: alert, normal mood/affect, oriented x 3 Skin: normal color, no jaundice, no rash Laboratory Results Last 24 Hours Test 07/03/17 05:46 07/03/17 11:38 White Blood Count 6.01 K/uL Red Blood Count 3.28 M/uL Hemoglobin 10.1 g/dL Hematocrit 30.0 % Mean Corpuscular Volume 91.5 fL Mean Corpuscular Hemoglobin 30.8 pg Mean Corpuscular Hemoglobin Concent 33.7 g/dl Platelet Count 178 K/uL Mean Platelet Volume 10.0 fL Neutrophils (%) (Auto) 77.3 % Lymphocytes (%) (Auto) 10.1 % Monocytes (%) (Auto) 10.3 % Eosinophils (%) (Auto) 1.3 % Basophils (%) (Auto) 0.5 % Neutrophils # (Auto) 4.64 K/uL Lymphocytes # (Auto) 0.61 K/uL Monocytes # (Auto) 0.62 K/uL Eosinophils # (Auto) 0.08 K/uL Basophils # (Auto) 0.03 K/uL RDW Standard Deviation 55.3 fL RDW Coefficient of Variation 17.1 % Immature Granulocyte % (Auto) 0.5 % Immature Granulocyte # (Auto) 0.03 K/uL Nucleated RBC Absolute Count (auto) 0.03 K/uL Nucleated Red Blood Cells % 0.5 % Prothrombin Time 28.2 SECONDS Prothromb Time International Ratio 2.7 Sodium Level 131 mmol/L Potassium Level 4.2 mmol/L Chloride Level 98 mmol/L Carbon Dioxide Level 26 mmol/L Anion Gap 7.0 mmol/L Blood Urea Nitrogen 34 mg/dl Creatinine 1.35 mg/dl Est Creatinine Clear Calc Drug Dose 36.8 ml/min Estimated GFR () 44.4 Estimated GFR (Non- 38.3 BUN/Creatinine Ratio 25.0 Random Glucose 83 mg/dl Calcium Level 8.6 mg/dl Hepatitis B Surface Antibody NEG Hepatitis C Antibody NEG Assessment and Plan Pt is a 77 y/o female admitted with weakness, hypotension, recently had treatment for acute closed angle glaucoma; GI consulted for N/V, currently resolved since she's started on Compazine. DDx included med related adverse effects, glaucoma, bacterial overgrowth. mesentery artery stenosis though abd u/ s normal. Gallbladder pathology not suspected given relatively normal u/s and CT scan. CT did show liver somewhat nodular in appearance. She denies any hx of hepatitis, ETOH uses, tobacco, autoimmune or hereditary liver diseases. - Ok for DC from GI standpoint - May continue Compazine on PRN basis - F/U in GI clinic in about 2 week's time after DC and to also further workup/ manage cirrhosis. May consider Fibroscan to r/o fibrosis. Meanwhile will obtain acute hepatitis panel here. I have seen and evaluated the patient. She notes that her symptoms are much improved this morning. At this time we believe that her nausea could be related to underlying congestive heart failure. We would suggest a fiber scan as an outpatient given the question nodularity on her CT scan. Unfortunately this nodularity is likely related to her congestive heart failure and we may not have much to offer the patient of then upper endoscopy surveillance and periodic right upper quadrant ultrasound.
[2017-07-03] MEDS ORDERED: Boost PO (13:51)
[2017-07-03] MEDS ORDERED: CMP5 PO (13:51)
[2017-07-03] MEDS ORDERED: CMD2 PO (13:51)
[2017-07-03] MEDS ORDERED: CLC100 PO (13:51)
--- NOTE | 2017-07-03 14:07 | Discharge Instructions ---
Discharge Instructions Date of Service Jul 03, 2017. Admission Reason for Admission: Hypotension Discharge Discharge Diagnosis / Problem: Hypotension,Nausea,Abdominal pain Discharge Goals Goal(s): Improve disease control, Diagnostic testing, Therapeutic intervention Activity Recommendations Activity Level: Assistance Required Therapies: Physical Therapy, Occupational Therapy Exercise/Sports Limitations: gradually increase as tolerated Shower/Bathe: no limitations . Additional Information Patient informed of condition: Yes Advance Directives: No DNR: Yes Level of Care: Skilled Communicable Disease: No Prognosis: Stable Oxygen at (LPM): N/A Carvalho Catheter: No Instructions / Follow-Up Instructions / Follow-Up This patient is a 77 y/o female with a history of 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 She was recently admitted for IV Diamox and mannitol for acute angle-closure glaucoma. She was found to be hypotensive and with VAIBHAV in ED. Since admission, she developed akathisia vs acute onset RLS? Also with enterococcus UTI and now with diarrhea, acute on chronic abdominal pain, poor appetite, and loose stools. Hypotension 2/2 Recent Mannitol and acetazolamide: RESOLVED - Improved with fluid resuscitation - no further intervention necessary VAIBHAV on CKD Stage III: Baseline Cr 1.6 - RESOLVED, creatinine stable today at 1.35 - Nephrology following appreciate recommendations with Na level and kidney function -Follow PRP Nausea/abdominal pain/poor appetite/diarrhea-diarrhea resolved with Imodium 2 doses, C. difficile negative. No signs of GI bleeding. Continued to have vague GI complaints mostly of bloating and lack of appetite, nausea, along with epigastric and lower abdominal pain that is intermittent. Previous similar complaints in 2014 and EGD at that time reviewed that showed diffuse gastritis and suggested symptoms related to her cirrhosis/congestive failure. Fecal leukocytes negative, stool culture negative. GI consultation appreciated-suggest that symptoms are from CHF with vascular congestion of the bowel wall and poor forward flow-malabsorption from lymphatic congestion, causing dysmotility, possible bacterial overgrowth which can all be common in patients with CHF. He-suggested stopping Carafate/cholestyramine/ probiotic, and to consider low-dose phenothiazine. If symptoms persist, check mesenteric Dopplers to rule out venous thrombosis or atherosclerotic disease -Discussed with patient, will trial low-dose Compazine 5 mg p.o. 3 times daily- this has worked tremendously well and she has completely resolved all nausea and all abdominal pain and is tolerating p.o. Mesenteric Dopplers negative -Stopped Mirapex as may have been worsening nausea -GI following along and would like to see her in the office in 2 weeks for follow-up on her cirrhosis -Follow-up results of celiac panel as an outpatient Chronic Hyponatremia secondary to CHF cardiac cirrhosis: Improved today to 131 with increasing Lasix dose back to twice daily - Continue fluid restriction -Continue with Lasix 80 mg p.o. twice daily -Continue spironolactone -DC'd metolazone permanently -Appreciate nephrology consultation Enterococcus UTI/genital burning-resolved - Given Diflucan x 1 dose at beginning of hospitalization -Received IV Vanco and finished out 1 week course with Macrobid RLS vs Akathisia: Completely resolved. Stopped Mirapex and has had no recurrent symptoms. Had significant restless leg syndrome on admission for unknown reasons, neurology consulted. Recent Acute Angle Closure Glaucoma S/P Ablation and Cataract Surgery: STABLE -Continue ofloxacin and Prednisone gtts -Follow-up with ophthalmology as an outpatient as scheduled Acute on chronic systolic CHF: Resolved-she had slight worsening of lower extremity edema 2 days prior to discharge which improved with increasing Lasix back to twice daily -Continue Lasix to 80 mg p.o. twice daily - Echo with significantly reduced EF - Continue daily weights, low-sodium diet - Metolazone remains on hold which likely will not be continued on D/C; Resumed Spironolactone BID; Continue Coreg 25 mg BID with hold parameters - Cardiology consulted - appreciate recommendations - recommend resuming medications when able -Follow-up with cardiology within 2 weeks after discharge Permanent Atrial Fibrillation: Paced Rhythm - INR now 2.7 today -Continue Coumadin 2 mg daily (home dose was 2.5 mg daily) -Follow PT/INR in 3 days at the SNF -Continue carvedilol for rate control COPD without Exacerbation: STABLE -Continue Symbicort BID; Singulair daily; Ventolin PRN Major depressive disorder-stable -Continue Lexapro 5 mg daily Chronic normocytic anemia-iron studies fairly normal except mildly low transferrin saturation at 9%, ferritin normal in the 40s, B12 and folate normal. Hemoccult stool negative -Suspect anemia of chronic kidney disease -Follow CBC Stable for discharge to SNF today Current Hospital Diet Patient's current hospital diet: Low Fat Diet Discharge Diet Recommended Diet: Low Sodium Diet (2gm Na) Fluid Restriction: 2000 ml (8 cups) Pending Studies Studies pending at discharge: no Physician Orders On Transfer Vital Signs: Daily Weigh: Daily Additional Orders: Check CBC and INR in 2-3 days Laboratory Results Last 24 Hours Test 07/03/17 05:46 07/03/17 11:38 White Blood Count 6.01 K/uL Red Blood Count 3.28 M/uL Hemoglobin 10.1 g/dL Hematocrit 30.0 % Mean Corpuscular Volume 91.5 fL Mean Corpuscular Hemoglobin 30.8 pg Mean Corpuscular Hemoglobin Concent 33.7 g/dl Platelet Count 178 K/uL Mean Platelet Volume 10.0 fL Neutrophils (%) (Auto) 77.3 % Lymphocytes (%) (Auto) 10.1 % Monocytes (%) (Auto) 10.3 % Eosinophils (%) (Auto) 1.3 % Basophils (%) (Auto) 0.5 % Neutrophils # (Auto) 4.64 K/uL Lymphocytes # (Auto) 0.61 K/uL Monocytes # (Auto) 0.62 K/uL Eosinophils # (Auto) 0.08 K/uL Basophils # (Auto) 0.03 K/uL RDW Standard Deviation 55.3 fL RDW Coefficient of Variation 17.1 % Immature Granulocyte % (Auto) 0.5 % Immature Granulocyte # (Auto) 0.03 K/uL Nucleated RBC Absolute Count (auto) 0.03 K/uL Nucleated Red Blood Cells % 0.5 % Prothrombin Time 28.2 SECONDS Prothromb Time International Ratio 2.7 Sodium Level 131 mmol/L Potassium Level 4.2 mmol/L Chloride Level 98 mmol/L Carbon Dioxide Level 26 mmol/L Anion Gap 7.0 mmol/L Blood Urea Nitrogen 34 mg/dl Creatinine 1.35 mg/dl Est Creatinine Clear Calc Drug Dose 36.8 ml/min Estimated GFR () 44.4 Estimated GFR (Non- 38.3 BUN/Creatinine Ratio 25.0 Random Glucose 83 mg/dl Calcium Level 8.6 mg/dl Hepatitis B Surface Antibody NEG Hepatitis C Antibody NEG Medical Emergencies . Who to Call and When: Medical Emergencies: If at any time you feel your situation is an emergency, please call 911 immediately. . Non-Emergent Contact Non-Emergency issues call your: Primary Care Provider, Platform Beater, Statistics Manager Call Non-Emergent contact if: your pain is not controlled, your pain is worsening, your pain is unusual for you, your pain is concerning you, you have any medication questions . . "Provider Documentation" section prepared by Leatha Casillas. . Core Measure Problem Core Measures: None
--- NOTE | 2017-07-03 14:17 | Discharge Summary ---
Discharge Summary Date of Service Jul 03, 2017. Discharge Summary Admission Date: Jun 24, 2017 at 14:06 Discharge Date: Jul 03, 2017 Discharge Disposition: intermediate facility Principal Diagnosis: Hypotension, nausea, abdominal pain Problems/Secondary Diagnoses: This patient is a 77 y/o female with a history of 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 She was recently admitted for IV Diamox and mannitol for acute angle-closure glaucoma. She was found to be hypotensive and with VAIBHAV in ED. Since admission, she developed akathisia vs acute onset RLS? Also with enterococcus UTI and now with diarrhea, acute on chronic abdominal pain, poor appetite, and loose stools. Hypotension 2/2 Recent Mannitol and acetazolamide: RESOLVED - Improved with fluid resuscitation - no further intervention necessary VAIBHAV on CKD Stage III: Baseline Cr 1.6 - RESOLVED, creatinine stable today at 1.35 - Nephrology following appreciate recommendations with Na level and kidney function -Follow PRP Nausea/abdominal pain/poor appetite/diarrhea-diarrhea resolved with Imodium 2 doses, C. difficile negative. No signs of GI bleeding. Continued to have vague GI complaints mostly of bloating and lack of appetite, nausea, along with epigastric and lower abdominal pain that is intermittent. Previous similar complaints in 2014 and EGD at that time reviewed that showed diffuse gastritis and suggested symptoms related to her cirrhosis/congestive failure. Fecal leukocytes negative, stool culture negative. GI consultation appreciated-suggest that symptoms are from CHF with vascular congestion of the bowel wall and poor forward flow-malabsorption from lymphatic congestion, causing dysmotility, possible bacterial overgrowth which can all be common in patients with CHF. He-suggested stopping Carafate/cholestyramine/ probiotic, and to consider low-dose phenothiazine. If symptoms persist, check mesenteric Dopplers to rule out venous thrombosis or atherosclerotic disease -Discussed with patient, will trial low-dose Compazine 5 mg p.o. 3 times daily- this has worked tremendously well and she has completely resolved all nausea and all abdominal pain and is tolerating p.o. Mesenteric Dopplers negative -Stopped Mirapex as may have been worsening nausea -GI following along and would like to see her in the office in 2 weeks for follow-up on her cirrhosis -Follow-up results of celiac panel as an outpatient Chronic Hyponatremia secondary to CHF cardiac cirrhosis: Improved today to 131 with increasing Lasix dose back to twice daily - Continue fluid restriction -Continue with Lasix 80 mg p.o. twice daily -Continue spironolactone -DC'd metolazone permanently -Appreciate nephrology consultation Enterococcus UTI/genital burning-resolved - Given Diflucan x 1 dose at beginning of hospitalization -Received IV Vanco and finished out 1 week course with Macrobid RLS vs Akathisia: Completely resolved. Stopped Mirapex and has had no recurrent symptoms. Had significant restless leg syndrome on admission for unknown reasons, neurology consulted. Recent Acute Angle Closure Glaucoma S/P Ablation and Cataract Surgery: STABLE -Continue ofloxacin and Prednisone gtts -Follow-up with ophthalmology as an outpatient as scheduled Acute on chronic systolic CHF: Resolved-she had slight worsening of lower extremity edema 2 days prior to discharge which improved with increasing Lasix back to twice daily -Continue Lasix to 80 mg p.o. twice daily - Echo with significantly reduced EF - Continue daily weights, low-sodium diet - Metolazone remains on hold which likely will not be continued on D/C; Resumed Spironolactone BID; Continue Coreg 25 mg BID with hold parameters - Cardiology consulted - appreciate recommendations - recommend resuming medications when able -Follow-up with cardiology within 2 weeks after discharge Permanent Atrial Fibrillation: Paced Rhythm - INR now 2.7 today -Continue Coumadin 2 mg daily (home dose was 2.5 mg daily) -Follow PT/INR in [address] [facility] -Continue carvedilol for rate control COPD without Exacerbation: STABLE -Continue Symbicort BID; Singulair daily; Ventolin PRN Major depressive disorder-stable -Continue Lexapro 5 mg daily Chronic normocytic anemia-iron studies fairly normal except mildly low transferrin saturation at 9%, ferritin normal in the 40s, B12 and folate normal. Hemoccult stool negative -Suspect anemia of chronic kidney disease -Follow CBC Stable for discharge to [facility] today Immunizations: Have You Had Influenza Vaccine: Yes Influenza Vaccine Date: Nov 10, 2008 History of Tetanus Vaccine?: Unknown History of Pneumococcal: Yes Pneumococcal Date: Apr 12, 1999 History of Hepatitis B Vaccine: Unknown Medication Reconciliation New Medications: Docusate Sodium (Docusate Sodium) 100 Mg Cap 100 MG PO BID PRN for Constipation for 30 Days Prochlorperazine Maleate (Prochlorperazine Maleate) 5 Mg Tab 5 MG PO TID for 30 Days, #90 TAB FOR NAUSEA Warfarin Sod (Coumadin) 2 Mg Tab 2 MG PO DAILY@16 for 30 Days, #30 TAB [Boost] () 1 CAN LIQD 1 CAN PO BID for 30 Days Continued Medications: Albuterol Hfa (Ventolin Hfa) 200 Puffs/84603 Mcg Aers 2 PUFFS INH QID PRN for Wheezing, #1 INHALER Budesonide/Formoterol Fumarate (Symbicort 160/4.5 Inhaler ) Aero 2 PUFFS INH BID Carvedilol (Coreg) 25 Mg Tab 25 MG PO BIDM Escitalopram Oxalate (Lexapro) 5 Mg Tab 5 MG PO QAM Fluticasone Propionate (Nasal) (Flonase Allergy Relief) 50 Mcg/Act Spr 2 SPRAYS JURGEN DAILY Furosemide (Lasix) 80 Mg Tab 80 MG PO BID for 30 Days, #60 TAB Magnesium Chloride (Slow-Mag Tab) 64 Mg Tabcr 64 MG PO BID, TAB Montelukast Sodium (Singulair) 10 Mg Tab 10 MG PO HS Ofloxacin (Oph) (Ocuflox Oph Soln) 0.3 % Christopher 1 DROP OP QID Pantoprazole Sodium (Protonix) 20 Mg Tab 20 MG PO DAILY Prednisolone Acetate (Prednisolone Acetate) 75 Drops/5 Ml Susp 1 DROPS OPR DAILY, #1 BTL 1 Refill Spironolactone (Aldactone) 25 Mg Tab 25 MG PO BID, TAB Discontinued Medications: Lactobacillus-Inulin (Culturelle Digestive Heal) 1 Cap Cap 1 CAP PO BID Metolazone (Zaroxolyn) 2.5 Mg Tab 2.5 MG PO UD PRN for weight gain take 30 min before lasix as needed for weight gain Multiple Vitamins W/ Minerals (One Daily For Women) 1 Tab Tab 1 TAB PO DAILY Potassium Chloride (Klor-Con Sprinkle) 10 Meq Cap 10 MEQ PO BID Warfarin Sodium (Warfarin Sodium) 2.5 Mg Tab 2.5 MG PO DAILY Discharge Exam Feeling much improved. Nausea and abdominal pain are completely resolved with starting Compazine. She is eating 100% of all of her trace. No difficulty with restless legs with starting Compazine, however notes that her knees are hurting. Hospital Course This patient is a 77 y/o female with a history of 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 She was recently admitted for IV Diamox and mannitol for acute angle-closure glaucoma. She was found to be hypotensive and with VAIBHAV in ED. Since admission, she developed akathisia vs acute onset RLS? Also with enterococcus UTI and now with diarrhea, acute on chronic abdominal pain, poor appetite, and loose stools. Hypotension 2/2 Recent Mannitol and acetazolamide: RESOLVED - Improved with fluid resuscitation - no further intervention necessary VAIBHAV on CKD Stage III: Baseline Cr 1.6 - RESOLVED, creatinine stable today at 1.35 - Nephrology following appreciate recommendations with Na level and kidney function -Follow PRP Nausea/abdominal pain/poor appetite/diarrhea-diarrhea resolved with Imodium 2 doses, C. difficile negative. No signs of GI bleeding. Continued to have vague GI complaints mostly of bloating and lack of appetite, nausea, along with epigastric and lower abdominal pain that is intermittent. Previous similar complaints in 2014 and EGD at that time reviewed that showed diffuse gastritis and suggested symptoms related to her cirrhosis/congestive failure. Fecal leukocytes negative, stool culture negative. GI consultation appreciated-suggest that symptoms are from CHF with vascular congestion of the bowel wall and poor forward flow-malabsorption from lymphatic congestion, causing dysmotility, possible bacterial overgrowth which can all be common in patients with CHF. He-suggested stopping Carafate/cholestyramine/ probiotic, and to consider low-dose phenothiazine. If symptoms persist, check mesenteric Dopplers to rule out venous thrombosis or atherosclerotic disease -Discussed with patient, will trial low-dose Compazine 5 mg p.o. 3 times daily- this has worked tremendously well and she has completely resolved all nausea and all abdominal pain and is tolerating p.o. Mesenteric Dopplers negative -Stopped Mirapex as may have been worsening nausea -GI following along and would like to see her in the office in 2 weeks for follow-up on her cirrhosis -Follow-up results of celiac panel as an outpatient Chronic Hyponatremia secondary to CHF cardiac cirrhosis: Improved today to 131 with increasing Lasix dose back to twice daily - Continue fluid restriction -Continue with Lasix 80 mg p.o. twice daily -Continue spironolactone -DC'd metolazone permanently -Appreciate nephrology consultation Enterococcus UTI/genital burning-resolved - Given Diflucan x 1 dose at beginning of hospitalization -Received IV Vanco and finished out 1 week course with Macrobid RLS vs Akathisia: Completely resolved. Stopped Mirapex and has had no recurrent symptoms. Had significant restless leg syndrome on admission for unknown reasons, neurology consulted. Recent Acute Angle Closure Glaucoma S/P Ablation and Cataract Surgery: STABLE -Continue ofloxacin and Prednisone gtts -Follow-up with ophthalmology as an outpatient as scheduled Acute on chronic systolic CHF: Resolved-she had slight worsening of lower extremity edema 2 days prior to discharge which improved with increasing Lasix back to twice daily -Continue Lasix to 80 mg p.o. twice daily - Echo with significantly reduced EF - Continue daily weights, low-sodium diet - Metolazone remains on hold which likely will not be continued on D/C; Resumed Spironolactone BID; Continue Coreg 25 mg BID with hold parameters - Cardiology consulted - appreciate recommendations - recommend resuming medications when able -Follow-up with cardiology within 2 weeks after discharge Permanent Atrial Fibrillation: Paced Rhythm - INR now 2.7 today -Continue Coumadin 2 mg daily (home dose was 2.5 mg daily) -Follow PT/INR in 3 days at the SNF -Continue carvedilol for rate control COPD without Exacerbation: STABLE -Continue Symbicort BID; Singulair daily; Ventolin PRN Major depressive disorder-stable -Continue Lexapro 5 mg daily Chronic normocytic anemia-iron studies fairly normal except mildly low transferrin saturation at 9%, ferritin normal in the 40s, B12 and folate normal. Hemoccult stool negative -Suspect anemia of chronic kidney disease -Follow CBC Stable for discharge to SNF today Total Time Spent: Greater than 30 minutes This includes examination of the patient, discharge planning, medication reconciliation, and communication with other providers. Discharge Instructions Please refer to the electronic Patient Visit Report (Discharge Instructions) for additional information. Follow-Up With PCP within 1-2 weeks after discharge from [facility] With cardiology within 2 weeks With gastroenterology within 2 weeks Additional Copies To Maia Vega D.O.
[2017-07-03 14:30] VITALS: BP 111/77; PULSE 73; TEMP 36.3; O2SAT 96
[2017-07-03] MEDS: WARFARIN SOD 2 MG TAB PO SCH (15:23)
[2017-07-05 04:36] LABS: HEPATITIS A IGM TC 51813E NON-REACTIVE (NON-REACTIVE); HEPATITIS B CORE IGM TC51854R NON-REACTIVE (NON-REACTIVE); HEPATITIS BE ANTIBODY TC 556 Nonreactive; HEPATITIS BE ANTIGEN TC 555 Nonreactive
== END 2017-07-03 16:35 | DRG 314 ==
LOC: C.EDB 11:38 → C.2T 14:49 → ENRESERV 14:58 → OBSVTOIN 06-24 14:06 → ENRESERV 06-30 16:57 → C.4E 06-30 18:13
PROVIDERS: ADMIT Internal Medicine; ATTEND Family Medicine
DX: I95.9 Hypotension, unspecified (principal); I50.23 Acute on chronic systolic (congestive) heart failure; I44.2 Atrioventricular block, complete; Q21.1 Atrial septal defect; N17.9 Acute kidney failure, unspecified; E87.1 Hypo-osmolality and hyponatremia; N39.0 Urinary tract infection, site not specified; B37.89 Other sites of candidiasis; D64.9 Anemia, unspecified; I49.8 Other specified cardiac arrhythmias; K76.1 Chronic passive congestion of liver; E03.2 Hypothyroidism due to medicaments and other exogenous substances; F32.9 Major depressive disorder, single episode, unspecified; K21.9 Gastro-esophageal reflux disease without esophagitis; N18.3 Chronic kidney disease, stage 3 (moderate); B95.2 Enterococcus as the cause of diseases classified elsewhere; G25.81 Restless legs syndrome; R79.1 Abnormal coagulation profile; J44.9 Chronic obstructive pulmonary disease, unspecified; I48.2 Chronic atrial fibrillation; Z95.810 Presence of automatic (implantable) cardiac defibrillator; Z88.8 Allergy status to other drugs, medicaments and biological substances; Z88.3 Allergy status to other anti-infective agents; Z82.49 Family history of ischemic heart disease and other diseases of the circulatory system; Z88.1 Allergy status to other antibiotic agents; Z79.01 Long term (current) use of anticoagulants; Z66 Do not resuscitate; Z88.0 Allergy status to penicillin

== ENCOUNTER → 2017-07-07 | Outpatient (CLI) | payer BC ==
[~2017-07-07] MED LIST changes: +Boost PO; +CLC100 PO; +CMD2 PO; +CMP5 PO; -DMX250 PO; -FRS/40 PO; -LACTCAP27 PO; -METO2.5T PO; -MULT1TAB22 PO; +OFLO0.3S4 OP; -POTA1CAP53 PO; -TMPOPS15 OPR; -WARF-280 PO; -[UNRECOGNIZED DRUG - CODE] OPR
[2017-07-07 10:06] LABS: BASO % 0.5 %; BASO ABS # 0.03 K/uL (0-0.2); EOS % 1.8 %; HEMATOCRIT 31.3 % (37-47); HEMOGLOBIN 10.1 g/dL (12.0-16.0); IG# 0.02 K/uL (0.00-0.02); LYMPH % 8.8 %; LYMPH ABS # 0.49 K/uL (1.2-3.4); MEAN CELL VOLUME 92.1 fL (80-100); MEAN CORPUSCULAR HEMOGLOBIN 29.7 pg (25-34); MEAN CORPUSCULAR HGB CONC 32.3 g/dl (32-36); MEAN PLATELET VOLUME 10.7 fL (7.4-10.4); MONO ABS # 0.61 K/uL (0.11-0.59); NEUT % 77.5 %; NEUT ABS # 4.32 K/uL (1.4-6.5); PLATELET COUNT 209 K/uL (130-400); RED CELL DISTRIBUTION WIDTH CV 17.4 % (11.5-14.5); RED CELL DISTRIBUTION WIDTH SD 57.3 fL (36.4-46.3); WHITE BLOOD COUNT 5.57 K/uL (4.8-10.8)
[2017-07-07 10:14] LABS: BLOOD UREA NITROGEN 35 mg/dl (7-18); CALCIUM 8.8 mg/dl (8.5-10.1); CARBON DIOXIDE 28 mmol/L (21-32); CREATININE 0.95 mg/dl (0.60-1.20); GLUCOSE 79 mg/dl (70-99); POTASSIUM 4.2 mmol/L (3.5-5.1); SODIUM 131 mmol/L (136-145)
[2017-07-07 10:18] LABS: INR 2.3 (0.9-1.1)
== END | disposition home or self-care (01) ==
LOC: C.LABVPSUA 08:53
PROVIDERS: ATTEND Internal Medicine Critical Care Medicine
DX: N18.9 Chronic kidney disease, unspecified (principal); D64.9 Anemia, unspecified; I48.91 Unspecified atrial fibrillation

== ENCOUNTER 2017-09-11 21:18 | Emergency (ER) | payer BC, OTHER ==
[~2017-09-11 21:18] MED LIST changes: -Boost PO; +CHOL1000 PO; +CHOL100010 PO; -CLC100 PO; -CMD2 PO; +DICY10CA12 PO; -FLUT0.15 NAE; +METO2.5T PO; -OFLO0.3S4 OP; -PANT20TA2 PO; +POTA10CA28 PO; -PRDFOPS OPR; -SLWMEC PO; -SYMIN160 INH; +ULT50X PO; -VNTHFA/IN INH; +WARF2.5T8 PO
[2017-09-11 21:21] VITALS: TEMP 36.8; Ht 167.6 cm
--- NOTE | 2017-09-11 22:14 | EMERGENCY ROOM VISIT NOTE ---
History Report prepared by Hayley: Shorty Fuentes Under the Supervision of: Dr. Lamar Simon M.D. First contact with patient: 21:50 Chief Complaint: WEAKNESS Stated Complaint: WEAKNESS Nursing Triage Summary: Patient was d/c from [facility] about 3 hours ago. As soon as patient got home she started not feeling well again. Patient states that she just feels weak. Denies nausea or vomiting. Denies dizziniess, headaches. Denies vision changes. Says that both of her legs hurt from the knees down and that this pain comes and goes. Denies any falls. History of Present Illness The patient is a 77 year old female who presents to the Emergency Room with complaints of constant weakness beginning three hours ago. The patient states that she was discharged from the hospital three hours ago. She notes that when she got home, she began to feel weak. She reports that she is also having intermittent elbow pain and leg pain. She denies any nausea, headache, and bloody stools. The patient states that she felt fine this morning, and she notes that she walked around the "block" in the hospital at least four times without difficulty. She reports that she is currently having difficulty walking on her own. The patient states that she has not eaten anything since 1630 today. She notes that she had a bowel movement at home and reports that it "was a little tough." Per , the patient had extreme lab values while in the hospital. Source of History: patient, spouse/significant other () Onset: three hours ago Position: other (generalized) Quality: other (weakness) Timing: constant Associated Symptoms: No headache, No nausea Note: She reports that she is also having intermittent elbow pain and leg pain. She denies having any bloody stool. She notes that her last bowel movement "was a little tough." Review of Systems See HPI for pertinent positives & negatives. A total of 10 systems reviewed and were otherwise negative. Past Medical & Surgical Medical Problems: (1) Acute angle-closure glaucoma (2) Acute hyponatremia (3) Acute on chronic systolic heart failure (4) Ascites (5) BRUGADA SYNDROME (6) Cardiac cirrhosis (7) Chronic systolic CHF (congestive heart failure) (8) Dilated cardiomyopathy (9) Gastroparesis (10) Gastroparesis (11) Hypotension (12) Implantation of automatic cardioverter/defibrillator, total system (13) Liver cirrhosis (14) Pelvic varices (15) Pneumonia (16) Recurrent right pleural effusion (17) Third degree heart block Surgical Problems: (1) H/O mitral valve repair (2) History of heart valve repair Family History Cancer Diabetes mellitus FH: CVA (cerebrovascular accident) Heart disease Seizures Social History Smoking Status: Never Smoker Alcohol Use: none Drug Use: none Marital Status: Housing Status: lives with family Occupation Status: retired Current/Historical Medications Scheduled Budesonide/Formoterol Fumarate (Symbicort 160/4.5 Inhaler ), 2 PUFFS INH BID Carvedilol (Coreg), 25 MG PO BIDM Cholecalciferol (Vitamin D3), 1,000 UNITS PO DAILY Escitalopram Oxalate (Lexapro), 5 MG PO QAM Furosemide (Lasix), 80 MG PO BID Magnesium Chloride (Slow-Mag Tab), 64 MG PO BID Montelukast Sodium (Singulair), 10 MG PO HS Multivitamin (Multivitamin), 1 TAB PO DAILY Pantoprazole Sodium (Protonix), 40 MG PO DAILY Prochlorperazine Maleate (Compazine), 5 MG PO TID Spironolactone (Aldactone), 25 MG PO BID Warfarin Sod (Jantoven), 2.5 MG PO QPM Scheduled PRN Albuterol Hfa (Ventolin Hfa), 2 PUFFS INH QID PRN for Wheezing Clindamycin Hcl (Cleocin), 4 CAP PO UD PRN for dental appt Ondansetron Hcl (Zofran), 4 MG SL Q8 PRN for Nausea Tramadol (Ultram), 50 MG PO Q6H PRN for Pain Allergies Coded Allergies: AMADOU Inhibitors (Verified Allergy, Unknown, UNKNOWN, 09/07/17) Amiodarone (Verified Allergy, Unknown, UNKNOWN, 09/07/17) Azithromycin (Verified Allergy, Unknown, UNKNOWN, 09/07/17) Clarithromycin (Verified Allergy, Unknown, UNKNOWN, 09/07/17) Hydralazine (Verified Allergy, Unknown, UNKNOWN, 09/07/17) Hydrochlorothiazide (Verified Allergy, Unknown, RASH, 09/07/17) Pt unsure of reaction, possible rash. Lisinopril (Verified Allergy, Unknown, UNKNOWN, 09/07/17) Penicillins (Verified Allergy, Unknown, UNKNOWN, 09/07/17) Procainamide (Verified Allergy, Unknown, UNKNOWN, 09/07/17) Physical Exam Vital Signs Date Time Temp Pulse Resp B/P (MAP) Pulse Ox O2 Delivery O2 Flow Rate FiO2 09/12/17 00:56 60 16 98/62 96 09/11/17 23:01 60 16 98/63 96 Room Air 09/11/17 22:24 60 09/11/17 21:21 36.8 61 21 91/61 93 Room Air Physical Exam Vital signs reviewed. Noted to be hypotensive. General: Chronically ill appearing 77 year old female, in no significant distress. Generally weak appearing. HEENT: No scleral icterus, PERRLA, neck supple. Atraumatic. Pale conjunctiva. Cardiovascular: Regular rate and rhythm, no extra sounds. Pulmonary: Clear to auscultation bilaterally, normal work of breathing. Abdomen: Soft, nontender, nondistended, positive bowel sounds. Musculoskeletal: Atraumatic, no peripheral edema. Neurologic: Patient awake alert and oriented x 3, sitting up at the bedside. Following commands appropriately. Skin: Warm, dry, no rash Medical Decision & Procedures ER Provider Diagnostic Interpretation: Radiology results as stated below per my review and radiologist interpretation: HEAD WITHOUT CONTRAST (CT) FINDINGS: No acute intracranial hemorrhage, midline shift, intracranial mass, hydrocephalus, territorial ischemia or abnormal extra-axial collection. Age-related involutional changes with mild ex vacuo ventriculomegaly. The calvarium is intact. Polypoid mucosal thickening about the right maxillary sinus. Remaining paranasal sinuses are generally clear. Mastoid air cells and middle ear cavities are clear. Soft tissues are unremarkable. Prior right-sided cataract repair. IMPRESSION: No acute intracranial abnormal. The above report was generated using voice recognition software. It may contain grammatical, syntax or spelling errors. Electronically signed by: Adi Santos M.D. 09/11/2017 10:50 PM Dictated Date/Time: 09/11/2017 10:47 PM Laboratory Results 09/11/17 22:25 Red Blood Count 4.58, Mean Corpuscular Volume 79.9, Mean Corpuscular Hemoglobin 25.8, Mean Corpuscular Hemoglobin Concent 32.2, Mean Platelet Volume 9.6, Neutrophils (%) (Auto) 77.8, Lymphocytes (%) (Auto) 10.3, Monocytes (%) (Auto) 11.1, Eosinophils (%) (Auto) 0.3, Basophils (%) (Auto) 0.3, Neutrophils # (Auto ) 4.84, Lymphocytes # (Auto) 0.64, Monocytes # (Auto) 0.69, Eosinophils # (Auto ) 0.02, Basophils # (Auto) 0.02 09/11/17 22:25 Test 09/11/17 22:24 09/11/17 22:25 Ammonia 49.3 umol/L (11-32) White Blood Count 6.22 K/uL (4.8-10.8) Red Blood Count 4.58 M/uL (4.2-5.4) Hemoglobin 11.8 g/dL (12.0-16.0) Hematocrit 36.6 % (37-47) Mean Corpuscular Volume 79.9 fL (80-100) Mean Corpuscular Hemoglobin 25.8 pg (25-34) Mean Corpuscular Hemoglobin Concent 32.2 g/dl (32-36) Platelet Count 176 K/uL (130-400) Mean Platelet Volume 9.6 fL (7.4-10.4) Neutrophils (%) (Auto) 77.8 % Lymphocytes (%) (Auto) 10.3 % Monocytes (%) (Auto) 11.1 % Eosinophils (%) (Auto) 0.3 % Basophils (%) (Auto) 0.3 % Neutrophils # (Auto) 4.84 K/uL (1.4-6.5) Lymphocytes # (Auto) 0.64 K/uL (1.2-3.4) Monocytes # (Auto) 0.69 K/uL (0.11-0.59) Eosinophils # (Auto) 0.02 K/uL (0-0.5) Basophils # (Auto) 0.02 K/uL (0-0.2) RDW Standard Deviation 52.3 fL (36.4-46.3) RDW Coefficient of Variation 18.3 % (11.5-14.5) Immature Granulocyte % (Auto) 0.2 % Immature Granulocyte # (Auto) 0.01 K/uL (0.00-0.02) Nucleated RBC Absolute Count (auto) 0.06 K/uL (0-0) Nucleated Red Blood Cells % 0.9 % Prothrombin Time 14.7 SECONDS (9.0-12.0) Prothromb Time International Ratio 1.4 (0.9-1.1) Activated Partial Thromboplast Time 37.1 SECONDS (21.0-31.0) Partial Thromboplastin Ratio 1.4 Anion Gap 11.0 mmol/L (3-11) Estimated GFR () 50.7 Estimated GFR (Non- 43.7 BUN/Creatinine Ratio 27.4 (10-20) Calcium Level 8.4 mg/dl (8.5-10.1) Magnesium Level 1.9 mg/dl (1.8-2.4) Total Bilirubin 1.2 mg/dl (0.2-1) Direct Bilirubin 0.6 mg/dl (0-0.2) Aspartate Amino Transf (AST/SGOT) 35 U/L (15-37) Alanine Aminotransferase (ALT/SGPT) 70 U/L (12-78) Alkaline Phosphatase 135 U/L (45-117) Total Creatine Kinase 52 U/L (26-192) Total Protein 6.7 gm/dl (6.4-8.2) Albumin 3.4 gm/dl (3.4-5.0) Laboratory results per my review. Medications Administered Medications (Trade) Dose Ordered Sig/Golden Route Start Time Stop Time Status Last Admin Dose Admin Sodium Chloride 1,000 ml @ 125 mls/hr Q8H STAT IV 09/11/17 23:08 09/12/17 01:14 DC 09/11/17 23:26 125 MLS/HR ECG Per My Interpretation Indication: weakness Rate (beats per minute): 62 Rhythm: other (Ventricularly paced) Findings: PVC, other (QTC 529) ED Course 2106: Past medical records reviewed. The patient was evaluated in room A5. A complete history and physical examination was performed. 2311: I reevaluated and updated the patient. 2331: Upon reevaluation, the patient is resting comfortably. I discussed laboratory and radiographic results with her. She verbalized agreement of the treatment plan. Discussed the patient's case with Dr. Escamilla - Hospitalist , [place]. The patient will be evaluated for further management and care. Medical Decision Differential diagnoses: Etiologies such as metabolic, infection, hypo/hyperglycemia, electrolyte abnormalities, cardiac sources, intracerebral event, toxicologic, neurologic, as well as others were entertained. This patient was evaluated and appeared to be in no significant distress. Patient is complaining of some uneasiness of the distal lower extremities. She will not state that this is pain. She states she has been told it is restless legs. She states Ativan has "snowed" her in the past. She does not want this medication. Patient's laboratory work is significant for a hyponatremia that is slightly depleted from earlier today. Patient's ammonia level is also slightly elevated. The patient has multiple chronic medical conditions. At this time I am not able to identify the source of the patient's weakness or discomfort today. She was gently hydrated with normal saline solution. I did discuss my findings with the patient and her family. As she was recently discharged from the hospital earlier today, a hospitalist consult was placed. Dr. Bertrand and Dr. Dawson of the [facility] physician group hospitalist service evaluated the patient. Upon their evaluation, the patient seemed to be feeling much improved. She was ambulatory without much difficulty. She did request to be discharged. Patient was discharged to the care of her family and will follow up with her PCP this week. She will return to the ED for worsening symptoms or any medical concerns. Medication Reconcilliation Current Medication List: was personally reviewed by me Blood Pressure Screening Patient's blood pressure: Low blood pressure Low blood pressure will be monitored by hospitalist. Consults Time Called: 2326 Consulting Physician: Dr. Escamilla - José Luis, [facility] [place] Returned Call: 2331 I reviewed the patient's case with Dr. Escamilla. He will evaluate the patient for further management. Impression Primary Impression: Hyponatremia Additional Impression: Hyperammonemia Scribe Attestation The scribe's documentation has been prepared under my direction and personally reviewed by me in its entirety. I confirm that the note above accurately reflects all work, treatment, procedures, and medical decision making performed by me. Departure Information Dispostion Being Evaluated By Hospitalist Referrals Maia Vega D.O. (PCP) Patient Instructions My [facility] Health Problem Qualifiers
[2017-09-11] MEDS ORDERED: FURO80TA63 PO (22:20)
[2017-09-11] MEDS ORDERED: PROC5TAB PO (22:24)
[2017-09-11] MEDS ORDERED: TRAM-10 PO (22:25)
[2017-09-11] MEDS ORDERED: WARF2.5T8 PO (22:27)
[2017-09-11 22:32] LABS: BASO % 0.3 %; BASO ABS # 0.02 K/uL (0-0.2); EOS % 0.3 %; EOS ABS # 0.02 K/uL (0-0.5); HEMATOCRIT 36.6 % (37-47); HEMOGLOBIN 11.8 g/dL (12.0-16.0); IG# 0.01 K/uL (0.00-0.02); LYMPH % 10.3 %; LYMPH ABS # 0.64 K/uL (1.2-3.4); MEAN CELL VOLUME 79.9 fL (80-100); MEAN CORPUSCULAR HEMOGLOBIN 25.8 pg (25-34); MEAN CORPUSCULAR HGB CONC 32.2 g/dl (32-36); MEAN PLATELET VOLUME 9.6 fL (7.4-10.4); MONO % 11.1 %; MONO ABS # 0.69 K/uL (0.11-0.59); NEUT % 77.8 %; NEUT ABS # 4.84 K/uL (1.4-6.5); NUCLEATED RED BLOOD CELL ABS 0.06 K/uL (0-0); PLATELET COUNT 176 K/uL (130-400); RED CELL DISTRIBUTION WIDTH CV 18.3 % (11.5-14.5); RED CELL DISTRIBUTION WIDTH SD 52.3 fL (36.4-46.3); WHITE BLOOD COUNT 6.22 K/uL (4.8-10.8)
[2017-09-11 22:43] LABS: INR 1.4 (0.9-1.1); PTT PATIENT 37.1 SECONDS (21.0-31.0)
--- NOTE | 2017-09-11 22:51 | DIAGNOSTIC IMAGING REPORT ---
HEAD WITHOUT CONTRAST (CT) CLINICAL HISTORY: 77 years-old Female with generalized weakness, ambulatory dysfunction. Acute weakness with difficulty walking TECHNIQUE: Multiple axial CT images of the head were obtained without contrast. A dose lowering technique was utilized adhering to the principles of ALARA. CT DOSE: 537.48 mGy.cm COMPARISON: Head CT 06/23/2017. FINDINGS: No acute intracranial hemorrhage, midline shift, intracranial mass, hydrocephalus, territorial ischemia or abnormal extra-axial collection. Age-related involutional changes with mild ex vacuo ventriculomegaly. The calvarium is intact. Polypoid mucosal thickening about the right maxillary sinus. Remaining paranasal sinuses are generally clear. Mastoid air cells and middle ear cavities are clear. Soft tissues are unremarkable. Prior right-sided cataract repair. IMPRESSION: No acute intracranial abnormal. The above report was generated using voice recognition software. It may contain grammatical, syntax or spelling errors. Electronically signed by: Adi Santos M.D. 09/11/2017 10:50 PM Dictated Date/Time: 09/11/2017 10:47 PM
[2017-09-11 23:02] LABS: ALBUMIN 3.4 gm/dl (3.4-5.0); ALT/SGPT 70 U/L (12-78); AST/SGOT 35 U/L (15-37); BLOOD UREA NITROGEN 33 mg/dl (7-18); CALCIUM 8.4 mg/dl (8.5-10.1); CARBON DIOXIDE 24 mmol/L (21-32); CREATININE 1.21 mg/dl (0.60-1.20); GLUCOSE 96 mg/dl (70-99); POTASSIUM 4.3 mmol/L (3.5-5.1); SODIUM 126 mmol/L (136-145)
[2017-09-11 23:05] LABS: ALKALINE PHOSPHATASE 135 U/L (45-117); TOTAL PROTEIN 6.7 gm/dl (6.4-8.2)
[2017-09-11] MEDS ORDERED: SODIUM CHLORIDE 0.9% 1000ML 1,000 ML IV STA (23:08)
[2017-09-11] MEDS ORDERED: ACETAMINOPHEN IV 1,000 MG in EMPTY BAG 0 ML IV STA (23:57)
[2017-09-12 00:56] VITALS: BP 98/62; PULSE 60; O2SAT 96
[2017-09-20] MEDS ORDERED: TRAM-10 PO (12:15)
[2017-09-20] MEDS ORDERED: LACT10SO3 PO (12:15)
[2017-09-20] MEDS ORDERED: TCMD2 PO (12:15)
[2017-09-20] MEDS ORDERED: FURO80TA63 PO (12:15)
[2017-09-20] MEDS ORDERED: NYSS5 PO (12:15)
[2017-09-20] MEDS ORDERED: ACET-1047 PO (12:15)
[2017-09-21] MEDS ORDERED: ONDA4TAB46 SL (00:17)
[2017-09-21] MEDS ORDERED: CLIN150C PO (00:19)
[2017-09-21] MEDS ORDERED: SYMIN160 INH (00:48)
[2017-09-21] MEDS ORDERED: PANT20TA2 PO (06:04)
[2017-09-21] MEDS ORDERED: SLWMEC PO (06:08)
[2017-09-21] MEDS ORDERED: VNTHFA/IN INH (06:10)
[2017-09-21] MEDS ORDERED: MULT-506 PO (09:47)
[2017-09-21] MEDS ORDERED: DEXT30TA7 PO (17:33)
[2017-09-21] MEDS ORDERED: SALI-3 NAE (17:34)
[2017-09-21] MEDS ORDERED: PSYL48.59 PO (17:36)
[2017-10-02] MEDS ORDERED: SACC250C3 PO (12:20)
[2017-10-02] MEDS ORDERED: LACT10SO3 PO (12:20)
[2017-10-02] MEDS ORDERED: IPRA1AER2 INH (12:20)
[2017-10-02] MEDS ORDERED: TORS20TA3 PO (12:20)
[2017-10-02] MEDS ORDERED: LXP10 PO (12:20)
[2017-10-02] MEDS ORDERED: PRD10 PO (12:20)
[2017-10-02] MEDS ORDERED: NYSS5 PO (12:20)
[2017-10-02] MEDS ORDERED: BENZ100C7 PO (12:20)
[2017-10-02] MEDS ORDERED: GFNSR600 PO (12:20)
[2017-10-02] MEDS ORDERED: RXC5 PO (12:20)
[2017-10-02] MEDS ORDERED: XFX550 PO (12:20)
== END 2017-09-12 00:55 | disposition home or self-care (01) ==
LOC: C.EDB 21:19 → C.EDC 09-12 00:55
DX: E87.1 Hypo-osmolality and hyponatremia (principal); E72.20 Disorder of urea cycle metabolism, unspecified; I95.9 Hypotension, unspecified; I50.23 Acute on chronic systolic (congestive) heart failure; Z79.01 Long term (current) use of anticoagulants; Z86.79 Personal history of other diseases of the circulatory system; Z88.8 Allergy status to other drugs, medicaments and biological substances; Z88.1 Allergy status to other antibiotic agents; Z88.0 Allergy status to penicillin

== ENCOUNTER 2017-09-21 17:59 | Inpatient (IN) | payer BC, OTHER ==
[~2017-09-21] VITALS: Ht 167.6 cm; Wt 65.8 kg
[~2017-09-21 17:59] MED LIST changes: -BENZ100C7 PO; -CMP5 PO; -CRG25 PO; -GFNSR600 PO; -IPRA1AER2 INH; -LXP10 PO; -PRD10 PO; -RXC5 PO; -SACC250C3 PO; -SNG10 PO; -SPIR25TA6 PO; -TORS20TA3 PO; -XFX550 PO
[2017-09-21] MEDS ORDERED: LEVALBUTEROL 1.25MG/0.5ML NEB INH STA (18:19)
[2017-09-21] MEDS ORDERED: SODIUM CHLORIDE 0.9% 1000ML 250 ML IV STA (18:19)
[2017-09-21] MEDS ORDERED: IPRATROPIUM BROMIDE NEB SOLN 0.02% 2.5 ML VIAL INH STA (18:19)
--- NOTE | 2017-09-21 18:46 | EMERGENCY ROOM VISIT NOTE ---
History Report prepared by Hayley: Thomas Hunter Under the Supervision of: Dr. Haja Bedoya M.D. First contact with patient: 18:05 Chief Complaint: SHORTNESS OF BREATH Stated Complaint: COUGH,SOB,WEAKNESS History of Present Illness The patient is a 77 year old female who presents to the Emergency Room with complaints of a constant, productive, cough beginning a week ago. The patient states she was discharged from the hospital yesterday. She reports she was told to hold her Coumadin until it was below 3 because it was over 4. The daughter notes the patient was discharged to the [facility] which is the senior living [facility] of the [facility]. She states the patient could not sleep last night because of her cough. The daughter reports the patient was evaluated by her PCP three times in the past week. She notes the patient was going to be given a z- pack prophylactically, but she decided not to because the patient has a history of c-diff in the fall of 2014. The daughter states the patient is coughing up brown phlegm. She reports the patient is too weak to be home by herself and walks with a walker. The daughter notes the patient was fully discharged from the [facility] back to the [facility] this morning. She states the patient is willing to go back to the [facility], but she needs to be medically cleared. The daughter reports the patient saw her PCP this afternoon and was prescribed Robitussin AC. She notes the patient's INR level was 5.5 today. The daughter states the patient's legs are more swollen than usual as well. The patient reports she has a small cup of OJ and milk for breakfast with her medications. She notes she had a bottle of Boost for lunch. Review of EMR shows the patient was evaluated in the ED a few days ago by me. She was admitted to the hospitalist service from the -20 of September and discharged yesterday. Source of History: patient, family (daughter) Onset: a week ago Quality: other (productive, brown, cough) Timing: constant Associated Symptoms: + weakness Note: Associated symptoms: decreased sleep, swelling to her legs bilaterally Review of Systems See HPI for pertinent positives & negatives. A total of 10 systems reviewed and were otherwise negative. 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 (16) Pneumonia (17) Recurrent right pleural effusion (18) Third degree heart block Surgical Problems: (1) H/O mitral valve repair (2) History of heart valve repair Family History Cancer Diabetes mellitus FH: CVA (cerebrovascular accident) Heart disease Seizures Social History Smoking Status: Never Smoker Alcohol Use: none Drug Use: none Marital Status: Housing Status: lives with family Occupation Status: retired Current/Historical Medications Scheduled Budesonide/Formoterol Fumarate (Symbicort 160/4.5 Inhaler ), 2 PUFFS INH BID Carvedilol (Carvedilol), 25 MG PO BIDM Dextromethorphan-Guaifenesin (Mucinex Dm), 1 TAB PO Q12 Escitalopram Oxalate (Lexapro), 5 MG PO QAM Furosemide (Lasix), 80 MG PO QAM Magnesium Chloride (Slow-Mag Tab), 64 MG PO BID Montelukast Sod (Montelukast Sodium), 10 MG PO HS Multivitamin (Multivitamin), 1 TAB PO DAILY Nystatin (Nystatin), 5 ML PO QID Pantoprazole Sodium (Protonix), 40 MG PO DAILY Psyllium (Metamucil), 1 TSP PO DAILY Saline (Saline Nasal [place]), 1 SPRAY JURGEN TID Spironolactone (Spironolactone), 25 MG PO BID Warfarin Sod (Coumadin), 2 MG PO QPM Scheduled PRN Acetaminophen (Mapap), 650 MG PO Q4H PRN for Pain or Fever Albuterol Hfa (Ventolin Hfa), 2 PUFFS INH QID PRN for Wheezing Clindamycin Hcl (Cleocin), 600 MG PO UD PRN for Dental Appointment Lactulose (Chronulac), 15 ML PO DAILY PRN for IF HAS <2 BMs IN ONE DAY Ondansetron Hcl (Zofran), 4 MG SL Q8 PRN for Nausea Prochlorperazine Maleate (Prochlorperazine Maleate), 5 MG PO TID PRN for Nausea or Vomiting Tramadol (Ultram), 50 MG PO Q6H PRN for severe pain Allergies Coded Allergies: AMADOU Inhibitors (Verified Allergy, Unknown, UNKNOWN, 09/07/17) Amiodarone (Verified Allergy, Unknown, UNKNOWN, 09/07/17) Azithromycin (Verified Allergy, Unknown, UNKNOWN, 09/07/17) Clarithromycin (Verified Allergy, Unknown, UNKNOWN, 09/07/17) Hydralazine (Verified Allergy, Unknown, UNKNOWN, 09/07/17) Hydrochlorothiazide (Verified Allergy, Unknown, RASH, 09/07/17) Pt unsure of reaction, possible rash. Lisinopril (Verified Allergy, Unknown, UNKNOWN, 09/07/17) Penicillins (Verified Allergy, Unknown, UNKNOWN, 09/07/17) Procainamide (Verified Allergy, Unknown, UNKNOWN, 09/07/17) Physical Exam Vital Signs Date Time Temp Pulse Resp B/P (MAP) Pulse Ox O2 Delivery O2 Flow Rate FiO2 09/21/17 19:49 64 09/21/17 19:08 61 26 114/52 96 Nasal Cannula 2.0 09/21/17 19:07 Room Air 09/21/17 19:00 96 Nasal Cannula 2.0 09/21/17 18:47 93 Room Air 09/21/17 18:02 36.7 68 20 102/65 92 Room Air Physical Exam GENERAL: Patient is in no acute distress. HEENT: No acute trauma, normocephalic atraumatic, mucous membranes dry, no nasal congestion, no scleral icterus. NECK: No stridor, no adenopathy, no meningismus, trachea is midline. LUNGS: Moist cough. Crackles at the left base. No wheeze. No respiratory distress. HEART: 4/6 systolic murmur, regular rate and rhythm. ABDOMEN: Soft, nontender, bowel sounds positive, no hernias, no peritonitis. EXTREMITIES: No cyanosis. Mild bilateral pedal edema, full range of motion of all the joints without pain or difficulty, no signs for acute trauma. NEUROLOGIC: Oriented x 3, no acute motor or sensory deficits, no focal weakness. SKIN: No rash, no jaundice, no diaphoresis. Medical Decision & Procedures ER Provider Diagnostic Interpretation: Radiology results as stated below per my review and radiologist interpretation: (CHEST) THORAX WITHOUT CT DOSE: 219.82 mGy.cm CLINICAL HISTORY: 77 years-old Female with poss small pneumonia, worse, negative chest films. Acute cough with shortness of breath TECHNIQUE: Multiaxial CT images of the chest were performed without contrast. A dose lowering technique was utilized adhering to the principles of ALARA. COMPARISON: Chest radiograph of same day, CT abdomen and pelvis 08/21/2017 CT chest 02/24/2015 FINDINGS: Heterogeneous appearance of the thyroid with suggested 12 mm nodule the posterior left thyroid. There is streak artifact about the upper mediastinum secondary to pacer/AICD wires and sternotomy wires. Retained pacer wires are noted about the left upper chest wall. No thoracic aortic aneurysm. Moderate multichamber cardiac enlargement with j[place] coronary arterial calcifications. Mitral valvular prosthesis noted. Mild dilation of the main pulmonary artery, 3.5 cm. Biapical pleural-parenchymal scarring. Mild upper lobe predominant centrilobular emphysema. Calcifications of the tracheobronchial tree. Respiratory motion limits evaluation of the lungs. There is no pneumothorax or pleural effusion. Linear subsegmental lateral consolidation about the lateral basal segment left lower lobe suggest atelectasis/scarring. Subsegmental consolidative opacities are noted about the intersegmental lingula. Patchy tree-in-bud nodules and subsegmental groundglass and consolidative nodular densities are seen about the right upper, middle and lower lobes. 4 mm nodular density of the right lower lobe on image 169 series 4. Subcentimeter calcified granuloma about the basal right lower lobe. Central airways are patent with mild peribronchial secretions. There is moderate narrowing about the bronchus intermedius as noted on image 117 series 4. Additionally, there is a millimeter nodular focus of soft tissue attenuation about the medial aspect of the bronchus intermedius on image 1:15 series 4. No acute process about the imaged upper abdomen. Liver appears enlarged and demonstrates decreased attenuation. Soft tissues are unremarkable. The bones appear intact. Multilevel spondylitic spurring. Schmorl's node seen within the superior right T11 with mild age-indeterminate anterior wedge deformity. No retropulsion. IMPRESSION: 1. Patchy tree-in-bud nodules with subsegmental groundglass and consolidative nodular densities are seen about the right upper, middle and lower lobes with subsegmental alveolar opacities of the inferior segment lingula suggesting infectious bronchiolitis with pneumonitis. 2. Moderate narrowing of the bronchus intermedius is new from comparison chest CT 02/24/2015. Additionally, there is a focal 8 mm area of nodularity about the medial aspect of the bronchus intermedius suspicious for an endobronchial mass lesion. This could be further evaluated with bronchoscopy. 3. Cardiomegaly with prior median sternotomy and prosthetic mitral valve. 4. Hepatomegaly with hepatic steatosis. 5. Additional findings as above. Electronically signed by: Adi Santos M.D. 09/21/2017 7:47 PM Dictated Date/Time: 09/21/2017 7:32 PM GALLBLADDER-ABD LIMITED HISTORY: 77 years-old Female elev lfts acutely elevated LFTs COMPARISON: Chest CT of same day, CT abdomen and pelvis 08/21/2017 TECHNIQUE: Multiple real-time significant images of the abdominal right upper quadrant were obtained assessing grayscale appearance and color flow FINDINGS: Visualized pancreas is unremarkable. Gallbladder is contracted with wall thickening. No shadowing cholelithiasis or pericholecystic fluid. Common bile duct is normal, 3 mm. Echogenic heterogeneous and echogenic appearance of the liver with marginal nodularity. No intrahepatic biliary ductal dilation or focal hepatic mass lesions. No ascites. Imaged right kidney is unremarkable without hydronephrosis. IMPRESSION: 1. Cirrhotic morphology of the liver. Heterogeneous and echogenic appearance of the liver suggests fibrosis or fatty infiltration. 2. Contracted gallbladder without cholelithiasis. 3. No biliary ductal dilation. The above report was generated using voice recognition software. It may contain grammatical, syntax or spelling errors. Electronically signed by: Adi Santos M.D. 09/21/2017 8:35 PM Dictated Date/Time: 09/21/2017 8:30 PM Laboratory Results 09/21/17 19:00 Red Blood Count 4.98, Mean Corpuscular Volume 78.3, Mean Corpuscular Hemoglobin 25.1, Mean Corpuscular Hemoglobin Concent 32.1, Neutrophils (%) (Auto) 89.3, Lymphocytes (%) (Auto) 3.7, Monocytes (%) (Auto) 6.5, Eosinophils (%) (Auto) 0.0 , Basophils (%) (Auto) 0.1, Neutrophils # (Auto) 12.10, Lymphocytes # (Auto) 0.50, Monocytes # (Auto) 0.88, Eosinophils # (Auto) 0.00, Basophils # (Auto) 0.01 09/21/17 19:00 Test 09/21/17 19:00 09/21/17 21:08 White Blood Count 13.55 K/uL (4.8-10.8) Red Blood Count 4.98 M/uL (4.2-5.4) Hemoglobin 12.5 g/dL (12.0-16.0) Hematocrit 39.0 % (37-47) Mean Corpuscular Volume 78.3 fL (80-100) Mean Corpuscular Hemoglobin 25.1 pg (25-34) Mean Corpuscular Hemoglobin Concent 32.1 g/dl (32-36) Platelet Count 185 K/uL (130-400) Neutrophils (%) (Auto) 89.3 % Lymphocytes (%) (Auto) 3.7 % Monocytes (%) (Auto) 6.5 % Eosinophils (%) (Auto) 0.0 % Basophils (%) (Auto) 0.1 % Neutrophils # (Auto) 12.10 K/uL (1.4-6.5) Lymphocytes # (Auto) 0.50 K/uL (1.2-3.4) Monocytes # (Auto) 0.88 K/uL (0.11-0.59) Eosinophils # (Auto) 0.00 K/uL (0-0.5) Basophils # (Auto) 0.01 K/uL (0-0.2) RDW Standard Deviation 53.2 fL (36.4-46.3) RDW Coefficient of Variation 18.8 % (11.5-14.5) Immature Granulocyte % (Auto) 0.4 % Immature Granulocyte # (Auto) 0.06 K/uL (0.00-0.02) Nucleated RBC Absolute Count (auto) 0.26 K/uL (0-0) Nucleated Red Blood Cells % 1.9 % Polychromasia 1+ Hypochromasia PRESENT Echinocytes 1+ Prothrombin Time 87.7 SECONDS (9.0-12.0) Prothromb Time International Ratio 8.7 (0.9-1.1) Anion Gap 9.0 mmol/L (3-11) Estimated GFR () 34.1 Estimated GFR (Non- 29.4 BUN/Creatinine Ratio 41.1 (10-20) Calcium Level 9.5 mg/dl (8.5-10.1) Magnesium Level 2.6 mg/dl (1.8-2.4) Total Bilirubin 1.4 mg/dl (0.2-1) Aspartate Amino Transf (AST/SGOT) 922 U/L (15-37) Alanine Aminotransferase (ALT/SGPT) 905 U/L (12-78) Alkaline Phosphatase 198 U/L (45-117) Pro-B-Type Natriuretic Peptide > 32109 pg/ml (0-900) Total Protein 7.3 gm/dl (6.4-8.2) Albumin 3.4 gm/dl (3.4-5.0) Globulin 3.9 gm/dl (2.5-4.0) Albumin/Globulin Ratio 0.9 (0.9-2) Lipase 61 U/L (73-393) Lactic Acid Level 2.8 mmol/L (0.4-2.0) Ammonia 52.2 umol/L (11-32) Troponin I 0.017 ng/ml (0-0.045) Laboratory results reviewed by me. Medications Administered Medications (Trade) Dose Ordered Sig/Golden Route Start Time Stop Time Status Last Admin Dose Admin Sodium Chloride 250 ml @ 999 mls/hr Q16M STAT IV 09/21/17 18:19 09/21/17 18:34 DC 09/21/17 19:10 999 MLS/HR Levalbuterol (Xopenex 1.25MG/ 0.5ML Neb) 1.25 mg NOW STAT INH 09/21/17 18:19 09/21/17 18:25 DC 09/21/17 18:44 1.25 MG Ipratropium [place] (Atrovent 0.02% 0.5MG/2.5ML Neb) 0.5 mg NOW STAT INH 09/21/17 18:19 09/21/17 18:25 DC 09/21/17 18:43 0.5 MG Sodium Chloride 500 ml @ 999 mls/hr Q31M STAT IV 09/21/17 19:48 09/21/17 20:18 DC 09/21/17 21:18 999 MLS/HR Cefepime HCl 2000 mg/Dextrose 112.5 ml @ 200 mls/hr ONE STAT IV 09/21/17 19:50 09/21/17 20:23 DC 09/21/17 21:19 200 MLS/HR Guaifenesin (Mucinex Contr Rel Tab) 1,200 mg Q12 PO 09/21/17 21:00 10/21/17 20:59 09/21/17 23:37 1,200 MG Budesonide/ Formoterol Fumarate (Symbicort 160/ 4.5 Inh) 2 puffs BID INH 09/21/17 21:00 10/21/17 20:59 09/21/17 23:34 2 PUFFS Montelukast Sodium (Singulair Tab) 10 mg HS PO 09/21/17 21:00 10/21/17 20:59 09/21/17 23:37 10 MG Nystatin (Mycostatin Susp) 5 ml QID PO 09/21/17 21:00 10/01/17 20:59 09/21/17 23:37 5 ML ECG Per My Interpretation Indication: SOB/dyspnea Rate (beats per minute): 60 Rhythm: other (Ventricular pacemaker) Findings: other (No obvious ST elevation. No PVCs.) ED Course 1808: The patient was evaluated in room C06. A complete history and physical exam was performed. 1818: Ordered Ipratropium [place] 0.5mg INH, Levalbuterol 1.25mg INH, Sodium Chloride 250 ml @ 999 mls/hr IV 1947: Ordered Sodium Chloride 500 ml @ 999 mls/hr IV 1949: Ordered Cefepime HCl 2000mg/Dextrose 112.5ml @ 200mls/hr IV 1953: Upon reexamination the patient is resting. I discussed results and treatment plan with the patient and family. They verbalize agreement and understanding. The patient will be evaluated for further management. 1957: I spoke with Dr. Martines, [facility] Hospitalist. We discussed the patient's results and findings. The patient will be evaluated for further management. Medical Decision The patient is a 77 year old female who presents to the ED with complaints of a productive, brown, cough. Differential diagnoses considered include pneumonia or bronchitis, CHF, anemia, electrolyte imbalance, renal failure, UTI, cardiac ischemia. There is a white blood cell count elevation at 13,000, this is consistent with infection. No worrisome anemia. Renal panel testing shows hyponatremia, hyperkalemia and some dehydration-the creatinine has risen. LFTs are elevated significantly. No pancreatitis. Gallbladder ultrasound does not show evidence for acute cholecystitis. EKG shows a ventricular pacemaker, no acute ischemia. Cardiac enzyme testing 1 is not consistent with acute cardiac injury. Chest CT suggests a diffuse pneumonia and/or bronchitis. Ammonia level was somewhat elevated consistent with her history of liver disease. Blood cultures are pending. Lactic acid level was somewhat elevated consistent with infection. She is over anticoagulated with an INR greater than 8. The patient received IV saline, she was given IV cefepime as antibiotic coverage. She was given a Xopenex Atrovent neb. The patient presents worse than when I saw her a few days ago. She has pneumonia by CT, she now has a white blood cell count elevation. She has significant liver enzyme elevations, she is hyperkalemic and hyponatremic. Her INR is quite elevated. Admission/observation is warranted. I spoke to the patient and case management. The on-call hospitalist was consulted. Of note, the hospitalist is attending to the INR elevation. Medication Reconcilliation Current Medication List: was personally reviewed by me Blood Pressure Screening Patient's blood pressure: Normal blood pressure Blood pressure disposition: Did not require urgent referral Consults Time Called: 1955 Consulting Physician: Dr. Martines, [facility] Hospitalist Returned Call: [address] Martines, [facility] Hospitalist. We discussed the patient's results and findings. The patient will be evaluated for further management. Impression Primary Impression: Pneumonia Additional Impressions: Hyperkalemia Liver enzyme elevation Hyponatremia Dehydration Failure of outpatient treatment Critical Care I have personally spent greater than 35 minutes of critical care time in the direct management of this patient. This includes bedside care, interpretation of diagnostic studies, and testing, discussion with consultants, patient, and family members, and other required patient management activities. This 35 minutes is in excess of all separately billable procedures. Scribe Attestation The scribe's documentation has been prepared under my direction and personally reviewed by me in its entirety. I confirm that the note above accurately reflects all work, treatment, procedures, and medical decision making performed by me. Departure Information Dispostion Being Evaluated By Hospitalist Referrals Maia Vega D.O. (PCP) Patient Instructions My [facility] Problem Qualifiers
[2017-09-21 19:14] LABS: HEMOGLOBIN 12.5 g/dL (12.0-16.0); MEAN CELL VOLUME 78.3 fL (80-100); MEAN CORPUSCULAR HEMOGLOBIN 25.1 pg (25-34); MEAN CORPUSCULAR HGB CONC 32.1 g/dl (32-36); NUCLEATED RED BLOOD CELL ABS 0.26 K/uL (0-0); PLATELET COUNT 185 K/uL (130-400); RED CELL DISTRIBUTION WIDTH CV 18.8 % (11.5-14.5); RED CELL DISTRIBUTION WIDTH SD 53.2 fL (36.4-46.3); WHITE BLOOD COUNT 13.55 K/uL (4.8-10.8)
[2017-09-21 19:33] LABS: ALBUMIN 3.4 gm/dl (3.4-5.0); ALT/SGPT 905 U/L (12-78); AST/SGOT 922 U/L (15-37); BLOOD UREA NITROGEN 69 mg/dl (7-18); CALCIUM 9.5 mg/dl (8.5-10.1); CARBON DIOXIDE 24 mmol/L (21-32); CREATININE 1.68 mg/dl (0.60-1.20); GLUCOSE 97 mg/dl (70-99); SODIUM 124 mmol/L (136-145)
[2017-09-21 19:36] LABS: ALKALINE PHOSPHATASE 198 U/L (45-117); TOTAL PROTEIN 7.3 gm/dl (6.4-8.2)
[2017-09-21] MEDS ORDERED: SODIUM CHLORIDE 0.9% 500ML 500 ML IV STA (19:48)
--- NOTE | 2017-09-21 19:49 | DIAGNOSTIC IMAGING REPORT ---
(CHEST) THORAX WITHOUT CT DOSE: 219.82 mGy.cm CLINICAL HISTORY: 77 years-old Female with poss small pneumonia, worse, negative chest films. Acute cough with shortness of breath TECHNIQUE: Multiaxial CT images of the chest were performed without contrast. A dose lowering technique was utilized adhering to the principles of ALARA. COMPARISON: Chest radiograph of same day, CT abdomen and pelvis 08/21/2017 CT chest 02/24/2015 FINDINGS: Heterogeneous appearance of the thyroid with suggested 12 mm nodule the posterior left thyroid. There is streak artifact about the upper mediastinum secondary to pacer/AICD wires and sternotomy wires. Retained pacer wires are noted about the left upper chest wall. No thoracic aortic aneurysm. Moderate multichamber cardiac enlargement with [place] coronary arterial calcifications. Mitral valvular prosthesis noted. Mild dilation of the main pulmonary artery, 3.5 cm. Biapical pleural-parenchymal scarring. Mild upper lobe predominant centrilobular emphysema. Calcifications of the tracheobronchial tree. Respiratory motion limits evaluation of the lungs. There is no pneumothorax or pleural effusion. Linear subsegmental lateral consolidation about the lateral basal segment left lower lobe suggest atelectasis/scarring. Subsegmental consolidative opacities are noted about the intersegmental lingula. Patchy tree-in-bud nodules and subsegmental groundglass and consolidative nodular densities are seen about the right upper, middle and lower lobes. 4 mm nodular density of the right lower lobe on image 169 series 4. Subcentimeter calcified granuloma about the basal right lower lobe. Central airways are patent with mild peribronchial secretions. There is moderate narrowing about the bronchus intermedius as noted on image 117 series 4. Additionally, there is a millimeter nodular focus of soft tissue attenuation about the medial aspect of the bronchus intermedius on image 1:15 series 4. No acute process about the imaged upper abdomen. Liver appears enlarged and demonstrates decreased attenuation. Soft tissues are unremarkable. The bones appear intact. Multilevel spondylitic spurring. Schmorl's node seen within the superior right T11 with mild age-indeterminate anterior wedge deformity. No retropulsion. IMPRESSION: 1. Patchy tree-in-bud nodules with subsegmental groundglass and consolidative nodular densities are seen about the right upper, middle and lower lobes with subsegmental alveolar opacities of the inferior segment lingula suggesting infectious bronchiolitis with pneumonitis. 2. Moderate narrowing of the bronchus intermedius is new from comparison chest CT 02/24/2015. Additionally, there is a focal 8 mm area of nodularity about the medial aspect of the bronchus intermedius suspicious for an endobronchial mass lesion. This could be further evaluated with bronchoscopy. 3. Cardiomegaly with prior median sternotomy and prosthetic mitral valve. 4. Hepatomegaly with hepatic steatosis. 5. Additional findings as above. Electronically signed by: Adi Santos M.D. 09/21/2017 7:47 PM Dictated Date/Time: 09/21/2017 7:32 PM
[2017-09-21] MEDS ORDERED: CEFEPIME IV 2,000 MG in DEXTROSE 5% 100ML 100 ML IV STA (19:50)
[2017-09-21 19:56] LABS: BASO % 0.1 %; BASO ABS # 0.01 K/uL (0-0.2); IG# 0.06 K/uL (0.00-0.02); LYMPH % 3.7 %; MONO % 6.5 %; MONO ABS # 0.88 K/uL (0.11-0.59); NEUT % 89.3 %
[2017-09-21] MEDS ORDERED: SPIR25TA6 PO (20:05)
[2017-09-21] MEDS ORDERED: ESCI1TAB6 PO (20:05)
[2017-09-21] MEDS ORDERED: SNG10 PO (20:05)
[2017-09-21] MEDS ORDERED: CMP5 PO (20:05)
[2017-09-21] MEDS ORDERED: CRG25 PO (20:05)
[2017-09-21 20:17] LABS: LIPASE 61 U/L (73-393)
--- NOTE | 2017-09-21 20:36 | DIAGNOSTIC IMAGING REPORT ---
GALLBLADDER-ABD LIMITED HISTORY: 77 years-old Female elev lfts acutely elevated LFTs COMPARISON: Chest CT of same day, CT abdomen and pelvis 08/21/2017 TECHNIQUE: Multiple real-time significant images of the abdominal right upper quadrant were obtained assessing grayscale appearance and color flow FINDINGS: Visualized pancreas is unremarkable. Gallbladder is contracted with wall thickening. No shadowing cholelithiasis or pericholecystic fluid. Common bile duct is normal, 3 mm. Echogenic heterogeneous and echogenic appearance of the liver with marginal nodularity. No intrahepatic biliary ductal dilation or focal hepatic mass lesions. No ascites. Imaged right kidney is unremarkable without hydronephrosis. IMPRESSION: 1. Cirrhotic morphology of the liver. Heterogeneous and echogenic appearance of the liver suggests fibrosis or fatty infiltration. 2. Contracted gallbladder without cholelithiasis. 3. No biliary ductal dilation. The above report was generated using voice recognition software. It may contain grammatical, syntax or spelling errors. Electronically signed by: Adi Santos M.D. 09/21/2017 8:35 PM Dictated Date/Time: 09/21/2017 8:30 PM
[2017-09-21] MEDS ORDERED: GUAIFENESIN/CODEINE 100MG/10MG 5ML UDC PO PRN (21:00)
[2017-09-21] MEDS ORDERED: LACTULOSE SYRUP 20 GM/30 ML UDC PO PRN (21:00)
[2017-09-21] MEDS ORDERED: PROCHLORPERAZINE MALEATE 5 MG TAB PO PRN (21:00)
[2017-09-21] MEDS ORDERED: ACETAMINOPHEN 325 MG TAB PO PRN (21:00)
[2017-09-21] MEDS ORDERED: SODIUM CHLORIDE 0.65% NA SOLN 45 ML (OCEAN) PRN (21:00)
[2017-09-21] MEDS ORDERED: ONDANSETRON INJ 2 MG/ML 2 ML VIAL IV PRN (21:00)
[2017-09-21] MEDS ORDERED: VANCOMYCIN CONSULT ACTIVE PRN (21:00)
[2017-09-21] MEDS ORDERED: CEFEPIME CONSULT ACTIVE PRN (21:45)
[2017-09-21] MEDS ORDERED: PATIENT'S HEIGHT AND/OR WEIGHT NEEDED SCH (21:45)
[2017-09-21 21:50] LABS: INR 8.7 (0.9-1.1)
--- NOTE | 2017-09-21 21:52 | History and Physical ---
History & Physical Date & Time of Service: Sep 21, 2017 at 21:12 Chief Complaint: Cough,Sob,Weakness Primary Care Physician: Maia Vega D.O. History of Present Illness Source: patient, family 77yo female with multiple medical problems, frequent hospitalizations as of late most recently 09/18-09/20 when she was hospitalized for hyponatremia, viral URI, VAIBHAV and had a supertherapeutic INR. Patient was discharged to the [facility] at the [facility] yesterday afternoon. She states that she was up coughing all night, productive for thick/brown sputum. She was unable to sleep secondary to her cough. She also reports markedly increased diffuse weakness and fatigue as well as poor appetite as well as subjective fevers/chills. Due to miscommunication, details unclear, patient was formally discharged from the [facility] at appx 10AM this morning. She then went to her apartment at the [facility] and spent the day there. Her daughter took her to see Dr. Vega for the aforementioned complaints and the decision was made to give her some cough medicine with codeine and to continue conservative management of suspected URI. However, when she tried to return to the [facility] she was informed that she needed to have medical clearance to return as she had been formally discharged earlier in the day. Patient additionally complains of increase in LE edema as well as abdominal fullness. She denies chest pain/palpitations. Denies abdominal pain/nausea/ vomiting or constipation. Has loose stools at times associated with medications. No other complaints at this time. 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 and R cataract surgery Cardiogenic cirrhosis History of 3rd degree heart block s/p pacemaker Brugada syndrome Paroxysmal ventricular tachycardia s/p ablation Permanent a-fib on Coumadin Hypothyroidism Gastroparesis Chronic abdominal pain secondary to adnexal varices COPD without exacerbation Major depressive disorder CKD stage III Chronic hyponatremia Viral upper respiratory infection Chronic biventricular systolic CHF Moderate mitral valve regurgitation with history of mitral valve repair Acute kidney injury in the setting of CKD III 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 Long-term anticoagulation-on Coumadin Supratherapeutic INR Chronic microcytic anemia of chronic disease and iron deficiency Oral candidiasis Hyperammonemia in the setting of cirrhosis Past Surgical History: Pacemaker placement VT ablation MV repair Right cataract Family History Cancer Diabetes mellitus FH: CVA (cerebrovascular accident) Heart disease Seizures Social History Smoking Status: Never Smoker Smokeless Tobacco Use: No Drug Use: none Marital Status: Housing status: lives with family, assisted living Occupational Status: retired Immunizations History of Influenza Vaccine: Yes Influenza Vaccine Date: Nov 10, 2008 History of Tetanus Vaccine?: Unknown History of Pneumococcal: Yes Pneumococcal Date: Apr 12, 1999 History of Hepatitis B Vaccine: Unknown Allergies Coded Allergies: AMADOU Inhibitors (Verified Allergy, Unknown, UNKNOWN, 09/07/17) Amiodarone (Verified Allergy, Unknown, UNKNOWN, 09/07/17) Azithromycin (Verified Allergy, Unknown, UNKNOWN, 09/07/17) Clarithromycin (Verified Allergy, Unknown, UNKNOWN, 09/07/17) Hydralazine (Verified Allergy, Unknown, UNKNOWN, 09/07/17) Hydrochlorothiazide (Verified Allergy, Unknown, RASH, 09/07/17) Pt unsure of reaction, possible rash. Lisinopril (Verified Allergy, Unknown, UNKNOWN, 09/07/17) Penicillins (Verified Allergy, Unknown, UNKNOWN, 09/07/17) Procainamide (Verified Allergy, Unknown, UNKNOWN, 09/07/17) Home Medications Scheduled Budesonide/Formoterol Fumarate (Symbicort 160/4.5 Inhaler ), 2 PUFFS INH BID Carvedilol (Carvedilol), 25 MG PO BIDM Dextromethorphan-Guaifenesin (Mucinex Dm), 1 TAB PO Q12 Escitalopram Oxalate (Lexapro), 5 MG PO QAM Furosemide (Lasix), 80 MG PO QAM Magnesium Chloride (Slow-Mag Tab), 64 MG PO BID Montelukast Sod (Montelukast Sodium), 10 MG PO HS Multivitamin (Multivitamin), 1 TAB PO DAILY Nystatin (Nystatin), 5 ML PO QID Pantoprazole Sodium (Protonix), 40 MG PO DAILY Psyllium (Metamucil), 1 TSP PO DAILY Saline (Saline Nasal [place]), 1 SPRAY JURGEN TID Spironolactone (Spironolactone), 25 MG PO BID Warfarin Sod (Coumadin), 2 MG PO QPM Scheduled PRN Acetaminophen (Mapap), 650 MG PO Q4H PRN for Pain or Fever Albuterol Hfa (Ventolin Hfa), 2 PUFFS INH QID PRN for Wheezing Clindamycin Hcl (Cleocin), 600 MG PO UD PRN for Dental Appointment Lactulose (Chronulac), 15 ML PO DAILY PRN for IF HAS <2 BMs IN ONE DAY Ondansetron Hcl (Zofran), 4 MG SL Q8 PRN for Nausea Prochlorperazine Maleate (Prochlorperazine Maleate), 5 MG PO TID PRN for Nausea or Vomiting Tramadol (Ultram), 50 MG PO Q6H PRN for severe pain Review of Systems Constitutional: + chills, + sweats, + weight loss, + fatigue, No fever Eyes: No worsening of vision ENT: + hearing loss, No sore throat Respiratory: + cough, + sputum, + shortness of breath, + dyspnea on exertion, + dyspnea at rest Cardiovascular: No chest pain, No palpitations Abdomen: + diarrhea, No pain, No nausea, No vomiting, No constipation Musculoskeletal: No joint pain, No muscle pain Genitourinary - Female: No dysuria, No urinary frequency Neurologic: + weakness Endocrine: + fatigue Hematologic / Lymphatic: No abnormal bleeding/bruising Integumentary: No rash Physical Exam Vital Signs Date Time Temp Pulse Resp B/P (MAP) Pulse Ox O2 Delivery O2 Flow Rate FiO2 09/21/17 19:49 64 09/21/17 19:08 61 26 114/52 96 Nasal Cannula 2.0 09/21/17 19:07 Room Air 09/21/17 19:00 96 Nasal Cannula 2.0 09/21/17 18:47 93 Room Air 09/21/17 18:02 36.7 68 20 102/65 92 Room Air General: patient resting comfortably at the edge of the bed, ill in appearance but in NAD, AA&O x 4 Skin: warm, dry, intact, area of ecchymosis on left flank, no palpable hematoma , scattered ecchymoses on UE and LE HEENT: NC/AT, PERRL, EOMI, anicteric sclera, conjunctiva without injection, nares patent, moist mucus membranes, neck supple, trachea midline, no thyromegaly Heart: +S1/S2, regular, 4/6 holo-systolic ejection murmur across the precordium , no rubs/gallops Lungs: equal air entry bilaterally, +rales in left base Abdomen: soft, NT/ND, no masses/organomegaly/ascites, nonpalpable liver margin Extremities: warm, well perfused, 2+ pitting edema of bilateral LE, 2+ palpable pulses in UE/LE bilaterally, +tortuous varicosities on bilateral LEs Neuro: grossly nonfocal, patient with global weakness and fatigue Diagnostics Laboratory Results Results Past 24 Hours Test 09/21/17 19:00 09/21/17 21:08 Range/Units White Blood Count 13.55 4.8-10.8 K/uL Red Blood Count 4.98 4.2-5.4 M/uL Hemoglobin 12.5 12.0-16.0 g/dL Hematocrit 39.0 37-47 % Mean Corpuscular Volume 78.3 80-100 fL Mean Corpuscular Hemoglobin 25.1 25-34 pg Mean Corpuscular Hemoglobin Concent 32.1 32-36 g/dl Platelet Count 185 130-400 K/uL Neutrophils (%) (Auto) 89.3 % Lymphocytes (%) (Auto) 3.7 % Monocytes (%) (Auto) 6.5 % Eosinophils (%) (Auto) 0.0 % Basophils (%) (Auto) 0.1 % Neutrophils # (Auto) 12.10 1.4-6.5 K/uL Lymphocytes # (Auto) 0.50 1.2-3.4 K/uL Monocytes # (Auto) 0.88 0.11-0.59 K/uL Eosinophils # (Auto) 0.00 0-0.5 K/uL Basophils # (Auto) 0.01 0-0.2 K/uL RDW Standard Deviation 53.2 36.4-46.3 fL RDW Coefficient of Variation 18.8 11.5-14.5 % Immature Granulocyte % (Auto) 0.4 % Immature Granulocyte # (Auto) 0.06 0.00-0.02 K/uL Nucleated RBC Absolute Count (auto) 0.26 0-0 K/uL Nucleated Red Blood Cells % 1.9 % Polychromasia 1+ Hypochromasia PRESENT Echinocytes 1+ Sodium Level 124 136-145 mmol/L Potassium Level 6.0 3.5-5.1 mmol/L Chloride Level 92 98-107 mmol/L Carbon Dioxide Level 24 21-32 mmol/L Anion Gap 9.0 3-11 mmol/L Blood Urea Nitrogen 69 7-18 mg/dl Creatinine 1.68 0.60-1.20 mg/dl Estimated GFR () 34.1 Estimated GFR (Non- 29.4 BUN/Creatinine Ratio 41.1 10-20 Random Glucose 97 70-99 mg/dl Calcium Level 9.5 8.5-10.1 mg/dl Magnesium Level 2.6 1.8-2.4 mg/dl Total Bilirubin 1.4 0.2-1 mg/dl Aspartate Amino Transf (AST/SGOT) 922 15-37 U/L Alanine Aminotransferase (ALT/SGPT) 905 12-78 U/L Alkaline Phosphatase 198 45-117 U/L Troponin I 0.022 0-0.045 ng/ml Total Protein 7.3 6.4-8.2 gm/dl Albumin 3.4 3.4-5.0 gm/dl Globulin 3.9 2.5-4.0 gm/dl Albumin/Globulin Ratio 0.9 0.9-2 Lipase 61 73-393 U/L Microbiology Results 09/21/17 Blood Culture, Ordered Pending 09/21/17 Blood Culture, Ordered Pending Diagnostic Radiology (CHEST) THORAX WITHOUT CT DOSE: 219.82 mGy.cm CLINICAL HISTORY: 77 years-old Female with poss small pneumonia, worse, negative chest films. Acute cough with shortness of breath TECHNIQUE: Multiaxial CT images of the chest were performed without contrast. A dose lowering technique was utilized adhering to the principles of ALARA. COMPARISON: Chest radiograph of same day, CT abdomen and pelvis 08/21/2017 CT chest 02/24/2015 FINDINGS: Heterogeneous appearance of the thyroid with suggested 12 mm nodule the posterior left thyroid. There is streak artifact about the upper mediastinum secondary to pacer/AICD wires and sternotomy wires. Retained pacer wires are noted about the left upper chest wall. No thoracic aortic aneurysm. Moderate multichamber cardiac enlargement with pauma coronary arterial calcifications. Mitral valvular prosthesis noted. Mild dilation of the main pulmonary artery, 3.5 cm. Biapical pleural-parenchymal scarring. Mild upper lobe predominant centrilobular emphysema. Calcifications of the tracheobronchial tree. Respiratory motion limits evaluation of the lungs. There is no pneumothorax or pleural effusion. Linear subsegmental lateral consolidation about the lateral basal segment left lower lobe suggest atelectasis/scarring. Subsegmental consolidative opacities are noted about the intersegmental lingula. Patchy tree-in-bud nodules and subsegmental groundglass and consolidative nodular densities are seen about the right upper, middle and lower lobes. 4 mm nodular density of the right lower lobe on image 169 series 4. Subcentimeter calcified granuloma about the basal right lower lobe. Central airways are patent with mild peribronchial secretions. There is moderate narrowing about the bronchus intermedius as noted on image 117 series 4. Additionally, there is a millimeter nodular focus of soft tissue attenuation about the medial aspect of the bronchus intermedius on image 1:15 series 4. No acute process about the imaged upper abdomen. Liver appears enlarged and demonstrates decreased attenuation. Soft tissues are unremarkable. The bones appear intact. Multilevel spondylitic spurring. Schmorl's node seen within the superior right T11 with mild age-indeterminate anterior wedge deformity. No retropulsion. IMPRESSION: 1. Patchy tree-in-bud nodules with subsegmental groundglass and consolidative nodular densities are seen about the right upper, middle and lower lobes with subsegmental alveolar opacities of the inferior segment lingula suggesting infectious bronchiolitis with pneumonitis. 2. Moderate narrowing of the bronchus intermedius is new from comparison chest CT 02/24/2015. Additionally, there is a focal 8 mm area of nodularity about the medial aspect of the bronchus intermedius suspicious for an endobronchial mass lesion. This could be further evaluated with bronchoscopy. 3. Cardiomegaly with prior median sternotomy and prosthetic mitral valve. 4. Hepatomegaly with hepatic steatosis. 5. Additional findings as above. Electronically signed by: Adi Santos M.D. 09/21/2017 7:47 PM EKG Ventricular paced rhythm at 61bpm. Unchanged from prior Impression Assessment and Plan 77yo female with multiple medical problems, recently admitted 09/18 - 09/20 for hyponatremia, viral URI and VAIBHAV presenting with progressive productive cough, SOB and weakness. Physical exam, laboratory and imaging consistent with PNA 1. Pneumonia - Patient afebrile, hemodynamically stable, no respiratory distress noted. She has mild neutrophil predominant leukocytosis with WBC=13.55 , CT chest with patchy tree-in-bud nodules with subsegmental groundglass and consolidative nodular densities are seen about the right upper, middle and lower lobes with subsegmental alveolar opacities of the inferior segment lingula suggesting infectious bronchiolitis with pneumonitis. Patient with multiple recent hospitalizations. -Blood cultures x 2 sets -Sputum culture -Cefepime 2gm IV q 8 hours -Vancomycin -Supplemental O2 as needed -Mucinex BID -Nasal saline -Robitussin with codeine to assist with cough -DuoNeb q 4 hours with Xopenex PRN 2. Endobronchial mass- CT revealed a focal 8 mm area of nodularity about the medial aspect of the bronchus intermedius suspicious for an endobronchial mass lesion. This is new from prior CT in 2014 -Consult Pulmonary for possible bronchoscopy, patient is known to Dr. Abrams -Will keep NPO after midnight tonight in event of procedure in AM 3. Abnormal LFTs - patient with elevated Tbili = 1.4, BLU=189, DXM=829 and AP= 198. RUQUS performed which revealed liver cirrhosis. Patient with history of cardiogenic cirrhosis. Also with elevated INR, reported to be 5.4 today. Evidence of failing liver. Concern for congestive hepatopathy vs infection vs medication effects. -Check ammonia level -Check INR -Repeat LFTs in AM -Continue Lactulose - patient was recently started on this medication -Salt restriction -Consider GI consultation 4. Hyponatremia - patient with history of the same. Na today 124. Does not seem to have any acute neurologic effects of hyponatremia -Continue to monitor -Fluid restriction 1200mL daily -Heart healthy diet -Patient was scheduled to see Nephrology tomorrow at 2 PM. states he will cancel this appointment. Consider inpatient consult 5. VAIBHAV on CKD with hyperkalemia, K=6 - No EKG changes consistent with hyperkalemia. Patient with Cr of 1.68 today, BUN of 69. Was 54 and 1.21 on discharge. Possibly secondary to poor effective arterial flow in setting of suspected CHF. -Monitor BUN, Cr, electrolytes and UOP -Avoid nephrotoxic agents -Hold Aldactone for now in setting of hyperkalemia -Renal dosing where appropriate -Consider inpatient Nephrology consult as above -Repeat PRP tonight 6. Chronic biventricular systolic CHF/Mod MVR/H/o MV repair- Patient appears to be in mild failure, +edema, +JVD. Last echocardiogram in 06/2017 with EF 20- 25% --Lasix 40mg IV x 1 dose now -Strict I/Os, daily weights -Continue p.o. Lasix daily -Hold Aldactone 25 mg p.o. twice daily today in setting of hyperkalemia -Cont Coreg 25 mg p.o. twice daily 7. Abdominal pain/nausea/vomiting/gastroparesis -Zofran -Compazine -Holding tramadol for now due to VAIBHAV 8. Atrial fibrillation - V paced at 61bpm, anticoagulated with Coumadin. Had supertherapeutic INR recently, possibly secondary to failing liver as well as Coumadin use. -Repeat INR today -Continue to hold Coumadin if elevated INR -Continue Carvedilol 25mg po BID 9. COPD - no exacerbation/wheezing at present -Continue to monitor respiratory status -DuoNeb q 4 -Xopenex PRN -Continue Symbicort and Singulair 10. major depressive disorder-stable -Continue Lexapro 5 mg daily 11. chronic microcytic anemia-iron studies fairly normal last admission except mildly low transferrin saturation at 9%, ferritin normal in the 40s, B12 and folate normal. Hemoccult stool negative last admission -Suspect anemia of chronic kidney disease plus some iron deficiency -Follow CBC as an outpatient 12. Oral candidiasis - -Nystatin suspension QID for total 14 day course -Continue to monitor 13. F/E/N - PIV in place. Diuresis with Lasix 40mg IV x 1 dose, closely monitor. Monitor electrolytes and replete as needed. Repeat PRP this evening to assess K level. Continue SloMag. AHA diet as tolerated with fluid restriction 1200mL, mechanical soft as tolerated. Metamucil and Lactulose for bowel regimen. Boost for supplements. 14. Ppx - Patient on Protonix daily. On coumadin with previously supertherapeutic INR, awaiting lab result 15. Code - DNR 16. Dispo - admit to telemetry Resuscitation Status DNR VTE Prophylaxis Will order VTE Prophylaxis: No Reason for no VTE drug order: Treatment not indicated Reason no Mechanical VTE Order: Treatment not indicated
[2017-09-21 22:00] VITALS: BP 121/74; PULSE 64; TEMP 36.7; O2SAT 95; BMI 24.7
[2017-09-21] MEDS ORDERED: PHYTONADIONE 1MG/5ML SUSP PO SCH (22:15)
[2017-09-21] MEDS ORDERED: ORA PO ONE ×3 (23:00)
[2017-09-21] MEDS ORDERED: [UNRECOGNIZED DRUG - OTHER] PO ONE ×3 (23:00)
[2017-09-21] MEDS ORDERED: VANCOMYCIN IV 1,750 MG in SODIUM CHLORIDE 0.9% 500ML 500 ML IV ONE (23:00)
[2017-09-21] MEDS ORDERED: PHYTONADIONE PED PO ONE ×3 (23:00)
[2017-09-21] MEDS ORDERED: ORA SWEET PO ONE ×3 (23:00)
[2017-09-21] MEDS ORDERED: FUROSEMIDE INJ 40 MG in SYRINGE 0 ML IV ONE (23:00)
[2017-09-21] MEDS: MAGNESIUM CHLORIDE 64MG DELAYED REL TAB PO SCH (23:29)
[2017-09-21] MEDS ORDERED: NURSING VERBAL MED ORDER ONE (23:30)
[2017-09-21] MEDS: BUDESONIDE/FORMOTEROL FUMARATE 160/4.5 60 PUFFS/INHALER INH SCH (23:34)
[2017-09-21] MEDS: BOOST VANILLA OR BOOST GLUCOSE CONTROL CHOCOLATE PO SCH (23:34)
[2017-09-21] MEDS: MONTELUKAST SOD 10 MG TAB PO SCH (23:37)
[2017-09-21] MEDS: GUAIFENESIN 600 MG TABCR PO SCH (23:37)
[2017-09-21] MEDS: NYSTATIN SUSP 500,000 U/5 ML UDC PO SCH (23:37)
[2017-09-22] VITALS (14 sets, daily range): BP systolic 92–114; BP diastolic 56–72; PULSE 58–70; TEMP 36.5–37.1; O2SAT 2–98; Ht 167.6 cm; Wt 65.8 kg
[2017-09-22] MEDS: ALBUT/IPRATROP 3MG/0.5MG NEB 3 ML VIAL INH SCH ×7 (00:06→23:06)
[2017-09-22 02:30] LABS: CALCIUM 8.4 mg/dl (8.5-10.1); CREATININE 1.47 mg/dl (0.60-1.20); POTASSIUM 4.6 mmol/L (3.5-5.1)
[2017-09-22 06:21] LABS: BASO % 0.1 %; BASO ABS # 0.01 K/uL (0-0.2); HEMATOCRIT 36.4 % (37-47); HEMOGLOBIN 11.6 g/dL (12.0-16.0); IG# 0.03 K/uL (0.00-0.02); LYMPH % 2.8 %; LYMPH ABS # 0.36 K/uL (1.2-3.4); MEAN CELL VOLUME 77.9 fL (80-100); MEAN CORPUSCULAR HEMOGLOBIN 24.8 pg (25-34); MEAN CORPUSCULAR HGB CONC 31.9 g/dl (32-36); MONO % 7.6 %; MONO ABS # 0.97 K/uL (0.11-0.59); NEUT % 89.3 %; NEUT ABS # 11.37 K/uL (1.4-6.5); NUCLEATED RED BLOOD CELL ABS 0.25 K/uL (0-0); PLATELET COUNT 171 K/uL (130-400); RED CELL DISTRIBUTION WIDTH CV 18.8 % (11.5-14.5); RED CELL DISTRIBUTION WIDTH SD 53.1 fL (36.4-46.3); WHITE BLOOD COUNT 12.74 K/uL (4.8-10.8)
[2017-09-22 07:02] LABS: ALBUMIN 2.9 gm/dl (3.4-5.0); CALCIUM 8.5 mg/dl (8.5-10.1); CREATININE 1.38 mg/dl (0.60-1.20); POTASSIUM 4.7 mmol/L (3.5-5.1); TOTAL PROTEIN 6.3 gm/dl (6.4-8.2)
[2017-09-22] MEDS ORDERED: PHYTONADIONE 5 MG TAB PO ONE (08:00)
[2017-09-22] MEDS: CARVEDILOL 25 MG TAB PO SCH ×2 (08:04→16:43)
[2017-09-22] MEDS: BUDESONIDE/FORMOTEROL FUMARATE 160/4.5 60 PUFFS/INHALER INH SCH ×2 (08:05→20:46)
[2017-09-22] MEDS: ESCITALOPRAM OXALATE 10 MG TAB PO SCH (08:05)
[2017-09-22] MEDS: BOOST VANILLA OR BOOST GLUCOSE CONTROL CHOCOLATE PO SCH ×2 (08:05→13:19)
[2017-09-22] MEDS: FUROSEMIDE 80 MG TAB PO SCH (08:05)
[2017-09-22] MEDS: GUAIFENESIN 600 MG TABCR PO SCH ×2 (08:06→20:46)
[2017-09-22] MEDS: NYSTATIN SUSP 500,000 U/5 ML UDC PO SCH ×4 (08:06→20:46)
[2017-09-22] MEDS: PSYLLIUM 58.6% PWD PACK S\\F PO SCH (08:06)
[2017-09-22] MEDS: PANTOprazole SOD 40 MG TAB PO SCH (08:06)
[2017-09-22] MEDS: MAGNESIUM CHLORIDE 64MG DELAYED REL TAB PO SCH ×2 (08:07→20:46)
--- NOTE | 2017-09-22 10:40 | Pharmacy Progress Note ---
Pharmacy Abx Initial Consult Date of Service Sep 22, 2017. Pharmacy Dosing Scope Date of Consult: 09/21/17 Consultation requested by: Dr. Martines Pharmacy is consulted to initiate vancomycin IV and cefepime IV dosing therapy, order appropriate labs and adjust drug dose/frequency. Subjective The patient is a 77 year old female admitted on Sep 21, 2017 at 21:11. Objective Height (Feet): 5 Height (Inches): 6.00 Weight (Kilograms): 72.700 Vital Signs (Past 12Hrs) Vital Signs Past 12 Hours Date Time Temp Pulse Resp B/P (MAP) Pulse Ox O2 Delivery O2 Flow Rate FiO2 09/22/17 06:58 60 97 Nasal Cannula 2.0 09/22/17 06:56 36.6 63 17 106/68 (81) 95 Nasal Cannula 1.0 09/22/17 04:33 36.5 62 16 109/66 (80) 96 Room Air 09/22/17 00:08 62 2 Nasal Cannula 95 09/22/17 00:00 95 Nasal Cannula 2.0 Lab Results (24Hrs) Laboratory Tests (24 Hours) Test 09/22/17 01:51 09/22/17 06:07 Lactic Acid Level 1.7 mmol/L (0.4-2.0) White Blood Count 12.74 K/uL (4.8-10.8) H Red Blood Count 4.67 M/uL (4.2-5.4) Hemoglobin 11.6 g/dL (12.0-16.0) L Hematocrit 36.4 % (37-47) L Mean Corpuscular Volume 77.9 fL (80-100) L Mean Corpuscular Hemoglobin 24.8 pg (25-34) L Mean Corpuscular Hemoglobin Concent 31.9 g/dl (32-36) L Platelet Count 171 K/uL (130-400) Neutrophils (%) (Auto) 89.3 % Lymphocytes (%) (Auto) 2.8 % Monocytes (%) (Auto) 7.6 % Eosinophils (%) (Auto) 0.0 % Basophils (%) (Auto) 0.1 % Neutrophils # (Auto) 11.37 K/uL (1.4-6.5) H Lymphocytes # (Auto) 0.36 K/uL (1.2-3.4) L Monocytes # (Auto) 0.97 K/uL (0.11-0.59) H Eosinophils # (Auto) 0.00 K/uL (0-0.5) Basophils # (Auto) 0.01 K/uL (0-0.2) Micro Results Date/Time Source Procedure Growth Status 09/21/17 21:12 Blood Blood Culture Pending Received 09/21/17 21:08 Blood Blood Culture Pending Received 09/22/17 00:04 Nasal MRSA DNA Surveillance Screen - Final Specimen Negative for MRSA by DNA Probe Complete Risk Factors for Resistance * Resident in a long term or extended-care facility * Hospitalization for 48 hours or more within the past 90 days Assessment & Plan Assessment * 77 year old female with multiple medical problems; of note, PMH is significant for COPD and CKD stage III * Recently admitted 09/18-09/20 for hyponatremia, viral URI and VAIBHAV * Presented on 09/21 with productive cough, SOB and weakness; subsequently admitted * Exam findings consistent with PNA Plan Vancomycin IV * Loading dose: 1750 mg (25 mg/kg) * Maintenance dose: 1000 mg IV (14.4 mg/kg) every 24 hours * Goal trough level: 15 to 20 mcg/mL * Trough ordered for 09/24/17 at 1730 * An extended dosing interval has been selected due to likelihood of drug accumulation in patient with h/o CKD. Cefepime * 2g x1 in ED * 2g Q24H, first dose tonight at 2200 * Could consider Q12H dosing if patient's kidney fx continues to improve Pharmacy will continue to follow and will adjust dose/frequency as necessary. Thank you.
--- NOTE | 2017-09-22 11:50 | Clinical Documentation Query ---
CLINICAL DOCUMENTATION QUERY 77 year old female with hx of chronic systolic chf presents with pnuemonia. Query #1/2 In your clinical opinion is this patient being managed for: (x ) Acute on chronic systolic CHF treated with IV Lasix ( ) Not Agree ( ) Other explanation of clinical findings (No explanation is considered a No Response) ( ) Unable to determine ( ) Need to Discuss (Phone CDS or qliq) (No discussion is considered a No Response) The medical record reflects the following clinical findings, treatment, and risk factors. Clinical Indicators: SOB, +rales left base. per h&P "Chronic biventricular systolic CHF/Mod MVR/H/o MV repair- Patient appears to be in mild failure". ProBNAP [id number] Treatment: IV Lasix, Carvalho, I/O's, daily weights Risk Factors: Age, pneumonia, underlying chronic systolic CHF. Query #2/2 This patient has had recent hospital DC 09/20. Now presents with pneumonia. In your clinical opinion is this patient being managed for: (x ) Possible gram negative pneumonia in setting of HAP ( ) Not Agree ( ) Other explanation of clinical findings (No explanation is considered a No Response) ( ) Unable to determine ( ) Need to Discuss (Phone CDS or qliq) (No discussion is considered a No Response) The medical record reflects the following clinical findings, treatment, and risk factors. Clinical Indicators: Pneumonia, +Lactic acid 2.8, Leukocytosis, Treatment: nebs, IV Cefepime, IV Vancomycin Risk Factors: Age, COPD, recent healthcare facility stays. Please clarify and document your clinical opinion in the progress notes and discharge summary. Terms such as "probable", "suspected", "likely", "questionable", "possible", or "still to be ruled out" are acceptable. IF IN AGREEMENT, YOU MUST DOCUMENT ABOVE DIAGNOSTIC STATEMENT IN DAILY PROGRESS NOTES AND DISCHARGE SUMMARY. This document is not part of the patient's record. Thank You, Len Jensen, REYES [phone] & via [email or web address]
--- NOTE | 2017-09-22 11:53 | Gastrointestinal Consultation ---
Gastrointestinal Consultation Date of Consultation: Sep 22, 2017 Attending Physician: Sonja Consulting Physician: Meredith Reason for Consultation: cirrhosis, elevated LFT History of Present Illness Patient is a 77 year old female w/ history of CAD, CHF, CKD, h/o Brugada s/p PPM /defib, hypothyroidism, hyponatremia and others listed below who [place] [facility] [place]. Pt was seen and evaluated at 1130, chart reviewed. Pt is laying in bed. She is awake, alert, oriented x 3 although drowsy at times. She provides her medical history. Indicates cough, congestion treated w/ recent ABX (z-pack codeine and tylenol). She denies abd pain, nausea , vomiting. No black/bloody stools/emesis. Tylenol: 2-3 tabs daily PRN ETOH: none New medications: codeine, z-pack ABD US: Cirrhotic morphology of the liver. Heterogeneous and echogenic appearance of the liver suggests fibrosis or fatty infiltration. Contracted gallbladder without cholelithiasis. No biliary ductal dilation. Past Medical/Surgical History Medical Problems: (1) Abdominal pain Status: Acute (2) Abdominal pain, acute, generalized Status: Acute (3) [id number] kidney injury Status: Acute (4) Chronic hyponatremia Status: Acute (5) Coagulopathy Status: Acute (6) Dehydration Status: Acute (7) Dehydration Status: Acute (8) Failure of outpatient treatment Status: Acute (9) Generalized weakness Status: Acute (10) Hyperammonemia Status: Acute (11) Hyperkalemia Status: Acute (12) Hyponatremia Status: Acute (13) Lactic acidosis Status: Acute (14) Liver enzyme elevation Status: Acute (15) Non-cardiac chest pain Status: Acute (16) Supratherapeutic INR Status: Acute Past Medical History: 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 and R cataract surgery, Cardiogenic cirrhosis, History of 3rd degree heart block s/p pacemaker Brugada syndrome, Paroxysmal ventricular tachycardia s/p ablation, afib on coumadin ckd-3, depression, copd, mitral valve, cirrhosis, gastroparesis Past Surgical History: Pacemaker placement VT ablation MV repair Family History Cancer Diabetes mellitus FH: CVA (cerebrovascular accident) Heart disease Seizures Social History Smoking Status: Never Smoker Alcohol Use: none Drug Use: none Marital Status: Housing Status: lives with family Occupation Status: retired Allergies Coded Allergies: AMADOU Inhibitors (Verified Allergy, Unknown, UNKNOWN, 09/07/17) Amiodarone (Verified Allergy, Unknown, UNKNOWN, 09/07/17) Azithromycin (Verified Allergy, Unknown, UNKNOWN, 09/07/17) Clarithromycin (Verified Allergy, Unknown, UNKNOWN, 09/07/17) Hydralazine (Verified Allergy, Unknown, UNKNOWN, 09/07/17) Hydrochlorothiazide (Verified Allergy, Unknown, RASH, 09/07/17) Pt unsure of reaction, possible rash. Lisinopril (Verified Allergy, Unknown, UNKNOWN, 09/07/17) Penicillins (Verified Allergy, Unknown, UNKNOWN, 09/07/17) Procainamide (Verified Allergy, Unknown, UNKNOWN, 09/07/17) Current Medications Home Meds and Scripts Medications Dose Route/Sig Max Daily Dose Days Date Category Dose Instructions Montelukast Sodium (Montelukast Sod) 10 Mg Tab 10 Mg PO HS 09/21/17 Reported Spironolactone 25 Mg Tab 25 Mg PO BID 09/21/17 Reported Carvedilol 25 Mg Tab 25 Mg PO BIDM 09/21/17 Reported Lexapro (Escitalopram Oxalate) 5 Mg Tab 5 Mg PO QAM 09/21/17 Reported Prochlorperazine Maleate 5 Mg Tab 5 Mg PO TID PRN 09/21/17 Reported Chronulac (Lactulose) 10 Gm/15 Ml Syrp 15 Ml PO DAILY PRN 30 09/20/17 Rx Mapap (Acetaminophen) 325 Mg Tab 650 Mg PO Q4H PRN 30 09/20/17 Rx Coumadin (Warfarin Sod) 2 Mg Tab 2 Mg PO QPM 30 09/20/17 Rx DO NOT START UNTIL INR<3 Nystatin 5 Ml Susp 5 Ml PO QID 12 09/20/17 Rx Ultram (Tramadol HCl) 50 Mg Tab 50 Mg PO Q6H PRN 3 09/20/17 Rx Lasix (Furosemide) 80 Mg Tab 80 Mg PO QAM 30 09/20/17 Rx AND TAKE AN EXTRA 80MG AT 1700 ONLY FOR LEG SWELLING OR WEIGHT GAIN >3 LBS/24 HRS Metamucil (Psyllium) 48.57 % Pow 1 Tsp PO DAILY 09/18/17 Reported Saline Nasal [place] (Saline) 0.65 % Spr 1 [place] JURGEN TID 09/18/17 Reported Mucinex Dm (Dextromethorphan-Guaifenesin) 1 Tab Tab 1 Tab PO Q12 09/18/17 Reported Cleocin (Clindamycin Hcl) 150 Mg Cap 600 Mg PO UD PRN 09/07/17 Reported TAKE 4 CAPSULES ONE HOUR PRIOR TO DENTAL WORK Zofran (Ondansetron HCl) 4 Mg Tab 4 Mg SL Q8 PRN 09/07/17 Reported Multivitamin (Multivitamins) Tab 1 Tab PO DAILY 08/24/17 Reported Ventolin Hfa (Albuterol) 200 Puffs/40139 Mcg Aers 2 Puffs INH QID PRN 06/20/17 Reported Slow-Mag Tab (Magnesium Chloride) 64 Mg Tabcr 64 Mg PO BID 06/20/17 Reported Protonix (Pantoprazole Sodium) 20 Mg Tab 40 Mg PO DAILY 06/20/17 Reported Symbicort 160/4.5 Inhaler (Budesonide/Formoterol Fumarate) Aero 2 Puffs INH BID 04/22/14 Reported Review of Systems Constitutional: + weakness, + fatigue, No fever, No chills Respiratory: + cough, + sputum, + shortness of breath, + dyspnea on exertion, No wheezing Cardiac: No chest pain, No edema Abdomen: No pain, No nausea, No vomiting, No diarrhea, No constipation, No GI bleeding Physical Exam Date Time Temp Pulse Resp B/P (MAP) Pulse Ox O2 Delivery O2 Flow Rate FiO2 09/22/17 11:10 61 96 Nasal Cannula 1.0 09/22/17 08:00 Nasal Cannula 2.0 09/22/17 06:58 60 97 Nasal Cannula 2.0 09/22/17 06:56 36.6 63 17 106/68 (81) 95 Nasal Cannula 1.0 09/22/17 04:33 36.5 62 16 109/66 (80) 96 Room Air 09/22/17 00:08 62 2 Nasal Cannula 95 09/22/17 00:00 95 Nasal Cannula 2.0 09/21/17 22:00 36.7 64 20 121/74 95 Nasal Cannula 2.0 09/21/17 21:38 68 25 125/58 96 09/21/17 21:26 Nasal Cannula 2.0 09/21/17 19:49 64 09/21/17 19:08 61 26 114/52 96 Nasal Cannula 2.0 09/21/17 19:07 Room Air 09/21/17 19:00 96 Nasal Cannula 2.0 09/21/17 18:47 93 Room Air 09/21/17 18:02 36.7 68 20 102/65 92 Room Air General Appearance: + mild distress (respiratory therapy in room, pt is coughing) Eyes: PERRL ENT: hearing grossly normal Neck: supple, trachea midline Respiratory/Chest: no respiratory distress, no accessory muscle use, + crackles , + rales Cardiovascular: + systolic murmur Abdomen: normal bowel sounds, non tender, soft, no organomegaly Neurologic/Psych: alert, normal mood/affect, oriented x 3, + pertinent finding (no asxterixis) Skin: normal color, no jaundice, warm/dry, no rash Laboratory Results Last 24 Hours Test 09/21/17 19:00 09/21/17 21:08 09/22/17 00:04 09/22/17 01:51 White Blood Count 13.55 K/uL Red Blood Count 4.98 M/uL Hemoglobin 12.5 g/dL Hematocrit 39.0 % Mean Corpuscular Volume 78.3 fL Mean Corpuscular Hemoglobin 25.1 pg Mean Corpuscular Hemoglobin Concent 32.1 g/dl Platelet Count 185 K/uL Neutrophils (%) (Auto) 89.3 % Lymphocytes (%) (Auto) 3.7 % Monocytes (%) (Auto) 6.5 % Eosinophils (%) (Auto) 0.0 % Basophils (%) (Auto) 0.1 % Neutrophils # (Auto) 12.10 K/uL Lymphocytes # (Auto) 0.50 K/uL Monocytes # (Auto) 0.88 K/uL Eosinophils # (Auto) 0.00 K/uL Basophils # (Auto) 0.01 K/uL RDW Standard Deviation 53.2 fL RDW Coefficient of Variation 18.8 % Immature Granulocyte % (Auto) 0.4 % Immature Granulocyte # (Auto) 0.06 K/uL Nucleated RBC Absolute Count (auto) 0.26 K/uL Nucleated Red Blood Cells % 1.9 % Polychromasia 1+ Hypochromasia PRESENT Echinocytes 1+ Prothrombin Time 87.7 SECONDS Prothromb Time International Ratio 8.7 Sodium Level 124 mmol/L 126 mmol/L Potassium Level 6.0 mmol/L 4.6 mmol/L Chloride Level 92 mmol/L 94 mmol/L Carbon Dioxide Level 24 mmol/L 22 mmol/L Anion Gap 9.0 mmol/L 10.0 mmol/L Blood Urea Nitrogen 69 mg/dl 66 mg/dl Creatinine 1.68 mg/dl 1.47 mg/dl Estimated GFR () 34.1 40.1 Estimated GFR (Non- 29.4 34.6 BUN/Creatinine Ratio 41.1 44.7 Random Glucose 97 mg/dl 136 mg/dl Calcium Level 9.5 mg/dl 8.4 mg/dl Magnesium Level 2.6 mg/dl Total Bilirubin 1.4 mg/dl Aspartate Amino Transf (AST/SGOT) 922 U/L Alanine Aminotransferase (ALT/SGPT) 905 U/L Alkaline Phosphatase 198 U/L Troponin I 0.022 ng/ml 0.017 ng/ml Pro-B-Type Natriuretic Peptide > 16352 pg/ml Total Protein 7.3 gm/dl Albumin 3.4 gm/dl Globulin 3.9 gm/dl Albumin/Globulin Ratio 0.9 Lipase 61 U/L Lactic Acid Level 2.8 mmol/L 1.7 mmol/L Ammonia 52.2 umol/L Urine Color DK YELLOW Urine Appearance CLEAR Urine pH 5.0 Urine Specific [place] 1.016 Urine Protein NEG Urine Glucose (UA) NEG Urine Ketones NEG Urine Occult Blood NEG Urine Nitrite NEG Urine Bilirubin NEG Urine Urobilinogen NEG Urine Leukocyte Esterase NEG Est Creatinine Clear Calc Drug Dose 30.9 ml/min Test 09/22/17 06:07 White Blood Count 12.74 K/uL Red Blood Count 4.67 M/uL Hemoglobin 11.6 g/dL Hematocrit 36.4 % Mean Corpuscular Volume 77.9 fL Mean Corpuscular Hemoglobin 24.8 pg Mean Corpuscular Hemoglobin Concent 31.9 g/dl Platelet Count 171 K/uL Neutrophils (%) (Auto) 89.3 % Lymphocytes (%) (Auto) 2.8 % Monocytes (%) (Auto) 7.6 % Eosinophils (%) (Auto) 0.0 % Basophils (%) (Auto) 0.1 % Neutrophils # (Auto) 11.37 K/uL Lymphocytes # (Auto) 0.36 K/uL Monocytes # (Auto) 0.97 K/uL Eosinophils # (Auto) 0.00 K/uL Basophils # (Auto) 0.01 K/uL RDW Standard Deviation 53.1 fL RDW Coefficient of Variation 18.8 % Immature Granulocyte % (Auto) 0.2 % Immature Granulocyte # (Auto) 0.03 K/uL Nucleated RBC Absolute Count (auto) 0.25 K/uL Nucleated Red Blood Cells % 2.0 % Hypochromasia PRESENT Echinocytes 1+ Prothrombin Time 71.1 SECONDS Prothromb Time International Ratio 7.0 Sodium Level 127 mmol/L Potassium Level 4.7 mmol/L Chloride Level 94 mmol/L Carbon Dioxide Level 23 mmol/L Anion Gap 10.0 mmol/L Blood Urea Nitrogen 61 mg/dl Creatinine 1.38 mg/dl Est Creatinine Clear Calc Drug Dose 35.9 ml/min Estimated GFR () 43.2 Estimated GFR (Non- 37.3 BUN/Creatinine Ratio 43.9 Random Glucose 101 mg/dl Calcium Level 8.5 mg/dl Total Bilirubin 1.6 mg/dl Direct Bilirubin 0.8 mg/dl Aspartate Amino Transf (AST/SGOT) 571 U/L Alanine Aminotransferase (ALT/SGPT) 773 U/L Alkaline Phosphatase 163 U/L Troponin I 0.026 ng/ml Total Protein 6.3 gm/dl Albumin 2.9 gm/dl Impression Patient is a 77 year old female who presented to the ED for product cough, thick/brown sputum, weakness, fatigue, weight loss - GI was asked to evaluate the pt as it was noted new LFT elevation and ABD US w/ cirrhotic changes. She endorses tylenol use prior to arrival, codeine and z-pack. Ddx: DILI vs cirrhosis vs Coumadin toxicity vs CBD stone vs shock liver vs other Plan - Tylenol level - Start NAC if elevated - Acute Hep - FILOMENA, AMA, ASMA - Needs CT abd/pelvis or MRCP to rule out biliary obstruction - Hepatic duplex to rule out PVT - Urine NA - Daily INR, LFT, Ammonia - No Tylenol products - Low threshold to transfer pt. If there is AMS changes or if INR remains elevated, consider transfer to tertiary care center. If there is a CBD obstruction, in the setting or cirrhotic appearing liver, ERCP will be better linux server administrator at tertiary care center. - Please call with any acute changes, questions or concerns. I have seen and examined the patient with NYDIA Montes. 77 yo fm with a history of cadz, chf, admitted from living facility with a cough. Suspected to have a pna. GB saul suggestive of cirrhosis. Denies any new medications. She is mentating fine currently, with a slightly dropped right eye, scattered echymosis all over her skin. No reported of melena/hematochezia. Labs sig for a very high INR, ast/alt elevation, TB mildly elevated, and alk phos elevated- agree with futher imaging even with a doppler abd saul given she may not be able to get an MRCP. Agree with further plan of care as above.
--- NOTE | 2017-09-22 13:12 | Hospitalist Progress Note ---
Hospitalist Progress Note Date of Service Sep 22, 2017. Subjective Pt evaluation today including: conversation w/ patient, conversation w/ family , conversation w/ surgical consultant (Pulmonology, GI) Patient still coughing quite a bit but finally get some sleep last night with codeine cough syrup. Bringing up sputum. Denies shortness of breath. Is feeling generally weak but improved. Is sitting up at the bedside eating her lunch. Has small amount of hemorrhoidal bleeding today with a bowel movement. Telemetry with paced rhythm, in the 60s, PVCs Constitutional: No fever, No chills All Other Systems: Reviewed and Negative Objective Vital Signs Date Time Temp Pulse Resp B/P (MAP) Pulse Ox O2 Delivery O2 Flow Rate FiO2 09/22/17 11:56 36.8 70 18 114/72 (86) 95 09/22/17 11:10 61 96 Nasal Cannula 1.0 09/22/17 08:00 Nasal Cannula 2.0 09/22/17 06:58 60 97 Nasal Cannula 2.0 09/22/17 06:56 36.6 63 17 106/68 (81) 95 Nasal Cannula 1.0 09/22/17 04:33 36.5 62 16 109/66 (80) 96 Room Air 09/22/17 00:08 62 2 Nasal Cannula 95 09/22/17 00:00 95 Nasal Cannula 2.0 09/21/17 22:00 36.7 64 20 121/74 95 Nasal Cannula 2.0 09/21/17 21:38 68 25 125/58 96 09/21/17 21:26 Nasal Cannula 2.0 09/21/17 19:49 64 09/21/17 19:08 61 26 114/52 96 Nasal Cannula 2.0 09/21/17 19:07 Room Air 09/21/17 19:00 96 Nasal Cannula 2.0 09/21/17 18:47 93 Room Air 09/21/17 18:02 36.7 68 20 102/65 92 Room Air Physical Exam General Appearance: WD/WN, no apparent distress Eyes: normal inspection, sclerae normal ENT: hearing grossly normal, pharynx normal Neck: trachea midline Respiratory/Chest: no respiratory distress, no accessory muscle use, + wheezing (Diffuse) Cardiovascular: regular rate, rhythm, + systolic murmur (3/6 at the RUSB) Abdomen: normal bowel sounds, non tender, soft Extremities: no calf tenderness, + swelling (Trace pitting edema legs bilaterally) Neurologic/Psychiatric: alert, normal mood/affect, oriented x 3 Skin: normal color, warm/dry, no rash Laboratory Results Last 24 Hours Test 09/21/17 19:00 09/21/17 21:08 09/22/17 00:04 09/22/17 01:51 White Blood Count 13.55 K/uL Red Blood Count 4.98 M/uL Hemoglobin 12.5 g/dL Hematocrit 39.0 % Mean Corpuscular Volume 78.3 fL Mean Corpuscular Hemoglobin 25.1 pg Mean Corpuscular Hemoglobin Concent 32.1 g/dl Platelet Count 185 K/uL Neutrophils (%) (Auto) 89.3 % Lymphocytes (%) (Auto) 3.7 % Monocytes (%) (Auto) 6.5 % Eosinophils (%) (Auto) 0.0 % Basophils (%) (Auto) 0.1 % Neutrophils # (Auto) 12.10 K/uL Lymphocytes # (Auto) 0.50 K/uL Monocytes # (Auto) 0.88 K/uL Eosinophils # (Auto) 0.00 K/uL Basophils # (Auto) 0.01 K/uL RDW Standard Deviation 53.2 fL RDW Coefficient of Variation 18.8 % Immature Granulocyte % (Auto) 0.4 % Immature Granulocyte # (Auto) 0.06 K/uL Nucleated RBC Absolute Count (auto) 0.26 K/uL Nucleated Red Blood Cells % 1.9 % Polychromasia 1+ Hypochromasia PRESENT Echinocytes 1+ Prothrombin Time 87.7 SECONDS Prothromb Time International Ratio 8.7 Sodium Level 124 mmol/L 126 mmol/L Potassium Level 6.0 mmol/L 4.6 mmol/L Chloride Level 92 mmol/L 94 mmol/L Carbon Dioxide Level 24 mmol/L 22 mmol/L Anion Gap 9.0 mmol/L 10.0 mmol/L Blood Urea Nitrogen 69 mg/dl 66 mg/dl Creatinine 1.68 mg/dl 1.47 mg/dl Estimated GFR () 34.1 40.1 Estimated GFR (Non- 29.4 34.6 BUN/Creatinine Ratio 41.1 44.7 Random Glucose 97 mg/dl 136 mg/dl Calcium Level 9.5 mg/dl 8.4 mg/dl Magnesium Level 2.6 mg/dl Total Bilirubin 1.4 mg/dl Aspartate Amino Transf (AST/SGOT) 922 U/L Alanine Aminotransferase (ALT/SGPT) 905 U/L Alkaline Phosphatase 198 U/L Troponin I 0.022 ng/ml 0.017 ng/ml Pro-B-Type Natriuretic Peptide > 65997 pg/ml Total Protein 7.3 gm/dl Albumin 3.4 gm/dl Globulin 3.9 gm/dl Albumin/Globulin Ratio 0.9 Lipase 61 U/L Lactic Acid Level 2.8 mmol/L 1.7 mmol/L Ammonia 52.2 umol/L Urine Color DK YELLOW Urine Appearance CLEAR Urine pH 5.0 Urine Specific [place] 1.016 Urine Protein NEG Urine Glucose (UA) NEG Urine Ketones NEG Urine Occult Blood NEG Urine Nitrite NEG Urine Bilirubin NEG Urine Urobilinogen NEG Urine Leukocyte Esterase NEG Est Creatinine Clear Calc Drug Dose 30.9 ml/min Test 09/22/17 06:07 09/22/17 11:55 White Blood Count 12.74 K/uL Red Blood Count 4.67 M/uL Hemoglobin 11.6 g/dL Hematocrit 36.4 % Mean Corpuscular Volume 77.9 fL Mean Corpuscular Hemoglobin 24.8 pg Mean Corpuscular Hemoglobin Concent 31.9 g/dl Platelet Count 171 K/uL Neutrophils (%) (Auto) 89.3 % Lymphocytes (%) (Auto) 2.8 % Monocytes (%) (Auto) 7.6 % Eosinophils (%) (Auto) 0.0 % Basophils (%) (Auto) 0.1 % Neutrophils # (Auto) 11.37 K/uL Lymphocytes # (Auto) 0.36 K/uL Monocytes # (Auto) 0.97 K/uL Eosinophils # (Auto) 0.00 K/uL Basophils # (Auto) 0.01 K/uL RDW Standard Deviation 53.1 fL RDW Coefficient of Variation 18.8 % Immature Granulocyte % (Auto) 0.2 % Immature Granulocyte # (Auto) 0.03 K/uL Nucleated RBC Absolute Count (auto) 0.25 K/uL Nucleated Red Blood Cells % 2.0 % Hypochromasia PRESENT Echinocytes 1+ Prothrombin Time 71.1 SECONDS Prothromb Time International Ratio 7.0 Sodium Level 127 mmol/L Potassium Level 4.7 mmol/L Chloride Level 94 mmol/L Carbon Dioxide Level 23 mmol/L Anion Gap 10.0 mmol/L Blood Urea Nitrogen 61 mg/dl Creatinine 1.38 mg/dl Est Creatinine Clear Calc Drug Dose 35.9 ml/min Estimated GFR () 43.2 Estimated GFR (Non- 37.3 BUN/Creatinine Ratio 43.9 Random Glucose 101 mg/dl Calcium Level 8.5 mg/dl Total Bilirubin 1.6 mg/dl Direct Bilirubin 0.8 mg/dl Aspartate Amino Transf (AST/SGOT) 571 U/L Alanine Aminotransferase (ALT/SGPT) 773 U/L Alkaline Phosphatase 163 U/L Troponin I 0.026 ng/ml Total Protein 6.3 gm/dl Albumin 2.9 gm/dl Acetaminophen Level < 2 ug/ml Hepatitis B Surface Antigen NEG Assessment and Plan This patient is a 77 y/o female with a history of acute angle closure glaucoma s /p laser ablation and R cataract surgery, chronic systolic CHF, cardiogenic cirrhosis, 3rd degree heart block s/p pacemaker, Brugada syndrome, paroxysmal ventricular tachycardia s/p ablation, permanent a-fib, hypothyroidism, gastroparesis, persistent lower abdominal pain, COPD, depression, CKD stage III , chronic hyponatremia, and anemia, recently admitted 09/18 - 09/20 for hyponatremia, viral URI and VAIBHAV, presenting with progressive productive cough, SOB and weakness. Physical exam, laboratory and imaging consistent with PNA and acute hepatic decompensation Pneumonia/possible gram-negative pneumonia in the setting of HAP-patient afebrile, hemodynamically stable, no respiratory distress noted. She has mild neutrophil predominant leukocytosis with WBC=13.55, CT chest with patchy tree-in -bud nodules with subsegmental groundglass and consolidative nodular densities are seen about the right upper, middle and lower lobes with subsegmental alveolar opacities of the inferior segment lingula suggesting infectious bronchiolitis with pneumonitis. Patient with multiple recent hospitalizations. -Blood cultures x 2 sets drawn no growth to date -Sputum culture collected-follow -Continue cefepime 2gm IV q 8 hours -Vancomycin given initially and can be discontinued as MRSA swab is negative and does not appear to have a lobar pneumonia consistent with MRSA pneumonia -Add doxycycline 100 mg IV every 12 to cover for atypicals -Supplemental O2 as needed -Mucinex BID -Nasal saline -Discontinue Robitussin with codeine due to acute hepatic decompensation -Continue DuoNeb q 4 hours with Xopenex PRN -Steroids added by pulmonary for persistent cough and history of severe COPD Endobronchial mass- CT revealed a focal 8 mm area of nodularity about the medial aspect of the bronchus intermedius suspicious for an endobronchial mass lesion. This is new from prior CT in 2014 -Consult Pulmonary-may need bronchoscopy in the future, however not stable at this time and INR significantly elevated which would preclude biopsies Abnormal LFTs/acute hepatic decompensation/cardiogenic cirrhosis-patient with elevated Tbili = 1.4, IMB=415, QUY=573 and FS=042. RUQUS performed which revealed liver cirrhosis. Patient with history of cardiogenic cirrhosis. Also with elevated INR of 8. Concern for congestive hepatopathy vs infection vs medication effects. LFTs are trending downward now with treatment of infection, INR down to 7.0 today-with small amount of rectal bleeding from hemorrhoids-we will give vitamin K 5 mg p.o. 1 Ammonia level mildly elevated at 52 a little more than previous, no evidence of encephalopathy No evidence of biliary dilatation on ultrasound Acetaminophen level is less than 2 -Continue to follow LFTs, INR -Continue Lactulose - patient was recently started on this medication --Appreciate GI consultation-recommend portal vein Dopplers, transfer to tertiary care center if evidence of obstruction or pulmonary vein thrombosis or further decompensation -Discontinue acetaminophen and codeine Hyponatremia - hypovolemic -only mildly reduced from baseline this time at 124. Likely due to acute on chronic hyponatremia secondary to recent poor p.o. intake due to acute illness in the setting of cardiac cirrhosis, exacerbated by diuretic use. Sodium improved today to 127 Management of her condition is typically challenging as she has a very low EF and is prone to volume overload, but also prone to dehydration with poor p.o. intake due to her chronic nausea. -Continue Lasix 80 mg p.o. once daily in the morning and will give 80 mg in the afternoon if has lower extremity edema -Holding Aldactone for hyperkalemia on admission -Continue fluid restriction of 1200 ML's per 24 hours as per nephrology recommendations last admission -Can have some salt in her diet-would recommend heart healthy diet and not 2000 mg sodium diet as per previous nephrology recommendation from last admission -Appreciate nephrology consultation and should follow-up with them as an outpatient-we will have to reschedule visit for today -Would recommend BMP checks q. 1-2 weeks as an outpatient to keep close tabs on her sodium levels VAIBHAV on CKD with hyperkalemia, K=6 - No EKG changes consistent with hyperkalemia. Patient with Cr of 1.68 on admission up from 1.21 yesterday. Possibly secondary to poor effective arterial flow in setting of suspected CHF. Received Lasix yesterday and creatinine now down to 1.38, potassium down 4.7 -Monitor BUN, Cr, electrolytes and UOP -Avoid nephrotoxic agents -Hold Aldactone for now in setting of hyperkalemia -Renal dosing where appropriate Acute on chronic biventricular systolic CHF/Mod MVR/H/o MV repair- Patient appears to be in mild failure, +edema, +JVD. Last echocardiogram in 06/2017 with EF 20-25% --Lasix 40mg IV x 1 was given on admission and improved now -Strict I/Os, daily weights -Continue p.o. Lasix daily -Hold Aldactone 25 mg p.o. twice daily today in setting of hyperkalemia -Cont Coreg 25 mg p.o. twice daily -Is not on AMADOU or ARB-deferred to primary senior investigator Abdominal pain secondary to adnexal varices/nausea/vomiting/gastroparesis -Zofran -Compazine -Tramadol as needed -Discontinue acetaminophen due to acute liver failure Permanent atrial fibrillation/permanent pacemaker in situ V paced at 61bpm, anticoagulated with Coumadin. Had supertherapeutic INR recently, possibly secondary to failing liver as well as Coumadin use. -Repeat INR this afternoon and then daily -Continue to hold Coumadin if elevated INR -Continue Carvedilol 25mg po BID Severe COPD -with exacerbation and wheezing on exam -Continue to monitor respiratory status -DuoNeb q 4 -Xopenex PRN -Continue Symbicort and Singulair -IV steroids as per pulmonary Major depressive disorder-stable -Continue Lexapro 5 mg daily Chronic microcytic anemia-iron studies fairly normal last admission except mildly low transferrin saturation at 9%, ferritin normal in the 40s, B12 and folate normal. Hemoccult stool negative last admission -Suspect anemia of chronic kidney disease plus some iron deficiency -Follow CBC as an outpatient Oral candidiasis - -Nystatin suspension QID for total 14 day course-on day #4 today -Continue to monitor 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. Her TSH was previously high at 4.9 but is now normal at 3.43. This could be followed in the outpt setting. -Not on medication at this time Prophylaxis-patient on Protonix daily. INR elevated-no chemical anticoagulation at this time Dispo -remain on telemetry
[2017-09-22] MEDS ORDERED: NURSING VERBAL MED ORDER ONE ×2 (13:15→20:15)
[2017-09-22] MEDS: METHYLPREDNISOLONE IV 20 MG in SYRINGE 0 ML IV SCH ×2 (13:20→22:22)
--- NOTE | 2017-09-22 13:59 | PULMONARY CONSULTATION ---
DATE OF CONSULTATION: 09/22/2017 PULMONARY CONSULTATION TIME: 12:35 p.m. REPORT OF CONSULTATION: The patient was seen in room 220. She is a 77-year-old female who has a history of numerous illnesses. Most recently she has been having problems with severe hyponatremia. She was admitted from September 07 through September 11 with hyponatremia. The cause is felt to be multifactorial. She is known to have CHF with a markedly decreased ejection fraction. She has cardiohepatic cirrhosis. She was readmitted from September 18 through the with the hyponatremia again. She is currently being seen because of a cough. She states she has had a cough for 7 days or more. She was not the best historian. Her cough is loose. She says she has coughed up a little brown sputum. Her states what he saw was fairly clear. There has been no hemoptysis at any time. The patient is hoarse. She is on Symbicort regularly, but she states the hoarseness is definitely new. She has had sweats. She has not had known fevers and she has not had chills. There has been no chest pain. When she presented back to the Emergency Room yesterday, a CAT scan of the chest was done. This showed some patchy tree-in-bud nodules with ground-glass and some consolidative changes especially on the right. There was a lesser degree in the lingula. Possibility of infectious bronchiolitis with pneumonitis is to be considered. There was also narrowing of the bronchus intermedius, which had not been seen on a prior scan done 02/24/2015. There was a small area of possible nodularity on the medial aspect of the bronchial intermedius and a mass is to be excluded. As noted, the patient has had numerous medical problems. Her energy level has been somewhat decreased. Her appetite has been up and down. They do have trouble controlling her fluids. Currently, she actually is edematous. She does take diuretics at home. Both her and her daughter were with her during this evaluation. Her daughter states that the patient has been on the diuretics for years and she would typically take them at 4:00 a.m. She would then have a few hours of excessive urination, but then she felt like she could go out for the day. The patient follows with Dr. Abrams in the pulmonary office. She has severe COPD by pulmonary function testing. This was last done in 2017. What is quite unusual is that she has never smoked. Even the secondhand smoke exposure has been minimal. PAST SURGICAL HISTORY: 1. Pacemaker and AICD. 2. Mitral valve repair 2000. 3. Cardiac ablation. 4. Cataract surgery. PAST MEDICAL HISTORY: 1. Glaucoma. 2. Cardiogenic cirrhosis. 3. History of third-degree heart block. 4. Brugada syndrome. 5. Atrial fibrillation. 6. Hypothyroidism. 7. Gastroparesis. 8. 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 9. Depression. 10. Chronic kidney disease. 11. Chronic hyponatremia. FAMILY HISTORY: Positive for cancer, diabetes, CVA, heart disease. SOCIAL HISTORY: Tobacco never. ETOH -- None. ALLERGIES: NUMEROUS ALLERGIES INCLUDING AMADOU INHIBITORS, AMIODARONE, AZITHROMYCIN, CLARITHROMYCIN, HYDRALAZINE, HYDROCHLOROTHIAZIDE, PENICILLIN, AND PROCAINAMIDE. The types of reactions are unknown. PULMONARY MEDICATIONS: At home Symbicort 160/4.5 two puffs b.i.d., montelukast 10 mg daily. REVIEW OF SYSTEMS: Negative except as mentioned in the history of present illness. PHYSICAL EXAMINATION: GENERAL: The patient is a 77-year-old female who looked appropriate for her age. She was cooperative, alert and oriented. VITAL SIGNS: Temperature is 36.8. There has been no fever since admission. HEENT: Eye exam revealed evidence of an implant in 1 eye and a cataract in the other eye. Nares were clear. Mouth exam showed no erythema or exudate. NECK: Palpation of the neck reveals no lymph nodes. The patient was overall quite weak. HEART: Heart rate was 70 per minute. The rhythm was regular. It appears to be likely a pacemaker rhythm. Blood pressure is 114/72. CHEST: Showed a mild kyphosis. She was coughing frequently. Audible rhonchi could be heard without a stethoscope. No active wheezing was heard. Respiratory rate was 18. Saturation was 96% on 1 liter. ABDOMEN: Soft and nontender. Good bowel sounds were heard. EXTREMITIES: Reveal +1 to +2 edema of both lower extremities. Her daughter states this is unusual for her as she is not typically edematous. LABORATORY DATA: Gallbladder ultrasound showed cirrhotic morphology of the liver with a contracted gallbladder without cholelithiasis. CT of the chest is as noted. White count is 12.74. Hemoglobin 11.6. Platelets 171,000. Differential did show 89.3 neutrophils. INR on admission was severely elevated at 8.7 and this morning was down to 7.0. Electrolytes show sodium 127, potassium 4.7, chloride 94, bicarbonate 23. BUN 61, creatinine 1.38. AST is elevated at 571. ALT elevated 773. Alkaline phosphatase elevated at 163. Total protein is 6.3 with albumin 2.9. IMPRESSION: 1. Acute asthmatic bronchitis. 2. Chronic obstructive pulmonary disease. 3. Abnormal CAT scan of the chest -- rule out narrowing or mass in the bronchus intermedius. 4. Congestive heart failure. 5. Hyponatremia. COMMENTS AND RECOMMENDATIONS: The patient is on cefepime and vancomycin. I would be surprised if this was a Staph infection. The nasal swab was negative for MRSA. Particularly with her renal insufficiency, I would consider discontinuing the vancomycin fairly soon. She does not have true lobar-type pneumonia and thus I do not consider her a hospital-associated pneumonia. I would like to give her a very short course of steroids, perhaps 48-72 hours and see if this improves her situation. At some point in time she likely will need bronchoscopy. I will discuss with Dr. Abrams and see if he feels that should be done while she is an inpatient or should wait for his followup as an outpatient. Thank you for asking me to assist in her care.
[2017-09-22 14:31] LABS: INR 5.5 (0.9-1.1)
[2017-09-22] MEDS ORDERED: VANCOMYCIN IV 1,000 MG in SODIUM CHLORIDE 0.9% 250ML 250 ML IV SCH (18:00)
--- NOTE | 2017-09-22 20:23 | DIAGNOSTIC IMAGING REPORT ---
DUPLEX PORTAL HEPATIC VEINS CLINICAL HISTORY: elevated LFTs, known cirrhosis COMPARISON STUDY: None. FINDINGS: The hepatic and portal veins are patent. Biphasic flow seen throughout the portal venous system. The splenic vein and IVC are patent. IMPRESSION: 1. No evidence for portal vein thrombosis. 2. Biphasic flow seen throughout the portal venous system consistent with developing portal hypertension Electronically signed by: Broderick Atkinson M.D. 09/22/2017 8:21 PM Dictated Date/Time: 09/22/2017 8:20 PM
[2017-09-22] MEDS: DOXYCYCLINE IV 100 MG in DEXTROSE 5% 100ML 100 ML IV SCH (20:40)
[2017-09-22] MEDS: BOOST VANILLA PUDDING CUP PO SCH (20:40)
[2017-09-22] MEDS: MONTELUKAST SOD 10 MG TAB PO SCH (20:46)
[2017-09-22] MEDS ORDERED: CEFEPIME IV 2,000 MG in SYRINGE 7.5 ML IV SCH (22:00)
[2017-09-23] VITALS (10 sets, daily range): BP systolic 101–123; BP diastolic 65–76; PULSE 59–78; TEMP 36.4–36.9; O2SAT 92–96
[2017-09-23] MEDS: ALBUT/IPRATROP 3MG/0.5MG NEB 3 ML VIAL INH SCH ×6 (04:38→23:15)
[2017-09-23 06:22] LABS: MEAN CORPUSCULAR HGB CONC 31.2 g/dl (32-36); NUCLEATED RED BLOOD CELL ABS 0.23 K/uL (0-0)
[2017-09-23 06:26] LABS: HEMATOCRIT 35.6 % (37-47); HEMOGLOBIN 11.1 g/dL (12.0-16.0); MEAN CELL VOLUME 77.9 fL (80-100); MEAN CORPUSCULAR HEMOGLOBIN 24.3 pg (25-34); RED CELL DISTRIBUTION WIDTH CV 18.9 % (11.5-14.5); RED CELL DISTRIBUTION WIDTH SD 53.6 fL (36.4-46.3); WHITE BLOOD COUNT 7.86 K/uL (4.8-10.8)
[2017-09-23 06:36] LABS: INR 4.7 (0.9-1.1)
[2017-09-23 06:53] LABS: ALBUMIN 2.7 gm/dl (3.4-5.0); CALCIUM 8.6 mg/dl (8.5-10.1); CREATININE 1.14 mg/dl (0.60-1.20); POTASSIUM 4.4 mmol/L (3.5-5.1); TOTAL PROTEIN 6.3 gm/dl (6.4-8.2)
[2017-09-23 07:41] LABS: IG# 0.04 K/uL (0.00-0.02); LYMPH % 3.4 %; LYMPH ABS # 0.27 K/uL (1.2-3.4); MONO % 4.7 %; MONO ABS # 0.37 K/uL (0.11-0.59); NEUT % 91.4 %; NEUT ABS # 7.18 K/uL (1.4-6.5); PLATELET COUNT 144 K/uL (130-400)
[2017-09-23] MEDS: CARVEDILOL 25 MG TAB PO SCH ×2 (07:47→17:04)
[2017-09-23] MEDS: BUDESONIDE/FORMOTEROL FUMARATE 160/4.5 60 PUFFS/INHALER INH SCH ×2 (07:47→22:21)
[2017-09-23] MEDS: BOOST VANILLA PUDDING CUP PO SCH ×2 (07:47→22:20)
[2017-09-23] MEDS: FUROSEMIDE 80 MG TAB PO SCH (07:48)
[2017-09-23] MEDS: SACCHAROMYCES BOUL (FLORASTOR) 250 MG CAP PO SCH (07:48)
[2017-09-23] MEDS: ESCITALOPRAM OXALATE 10 MG TAB PO SCH (07:49)
[2017-09-23] MEDS: NYSTATIN SUSP 500,000 U/5 ML UDC PO SCH ×4 (07:49→22:20)
[2017-09-23] MEDS: PANTOprazole SOD 40 MG TAB PO SCH (07:49)
[2017-09-23] MEDS: GUAIFENESIN 600 MG TABCR PO SCH ×2 (07:49→22:20)
[2017-09-23] MEDS: PSYLLIUM 58.6% PWD PACK S\\F PO SCH (07:49)
[2017-09-23] MEDS: MAGNESIUM CHLORIDE 64MG DELAYED REL TAB PO SCH ×2 (07:50→22:21)
[2017-09-23] MEDS: DOXYCYCLINE IV 100 MG in DEXTROSE 5% 100ML 100 ML IV SCH ×2 (07:54→19:32)
[2017-09-23] MEDS: METHYLPREDNISOLONE IV 20 MG in SYRINGE 0 ML IV SCH ×2 (08:36→22:21)
[2017-09-23] MEDS: CEFEPIME IV 2,000 MG in SYRINGE 7.5 ML IV SCH ×2 (11:40→23:31)
--- NOTE | 2017-09-23 11:40 | PULMONARY PROGRESS NOTE ---
DATE: 09/23/2017 TIME: 11:00 a.m. SUBJECTIVE: The patient today is totally hoarse. She is, however, feeling better. She is coughing much less. She reportedly did cough up a good sputum sample last evening according to her daughter who was present during this evaluation. She feels a little more energy today. She is not winded. OBJECTIVE: GENERAL: The patient is comfortable at rest. VITAL SIGNS: Temperature is 36.4. She has had no significant fevers. Cardiac rate is 59 per minute. She was having frequent extrasystoles. Respiratory rate is 18. CHEST: Auscultation of the lung cloud reveals that the rhonchi have diminished significantly. It would now be mild. Saturation was 93% on room air. EXTREMITIES: Showed no cyanosis, clubbing or edema. LABORATORY DATA: White count today is 7.86. Hemoglobin 11.1. Platelets 144,000. INR today is 4.7. Electrolytes today show sodium 127, potassium 4.4, chloride 94, bicarbonate 25. The BUN is 56 with a creatinine of 1.14. The creatinine on 09/22 was 1.47. AST is 249 and previously had been 571. ALT is 614 and previously had been 773. IMPRESSIONS: 1. Acute bronchitis - improved. 2. Abnormal CAT scan - rule out endobronchial mass. 3. Chronic obstructive pulmonary disease. COMMENTS AND RECOMMENDATIONS: The patient is clinically much improved in just 24 hours. I would continue with her current therapy. Dr. Abrams sees her as an outpatient. I did review the CAT scan with him yesterday. There was concern over a possible mass in the bronchus intermedius. She likely will need bronchoscopy at some point in time. This can be determined as her course proceeds as to whether it should best be done while she is here in the hospital or when stable as an outpatient.
--- NOTE | 2017-09-23 17:21 | Progress Note ---
Progress Note Date of Service Sep 23, 2017. Progress Note Labs reviewed - LFT's trending down, INR improved. Uls without PVT. Please continue to monitor LFT's, INR, lipase daily. Cont supportive care.
[2017-09-23] MEDS: MONTELUKAST SOD 10 MG TAB PO SCH (22:20)
[2017-09-24] VITALS (11 sets, daily range): BP systolic 93–112; BP diastolic 58–78; PULSE 49–89; TEMP 36.7–37; O2SAT 93–98
[2017-09-24] MEDS: ALBUT/IPRATROP 3MG/0.5MG NEB 3 ML VIAL INH SCH ×6 (04:00→23:02)
[2017-09-24 07:06] LABS: INR 4.4 (0.9-1.1)
[2017-09-24 07:34] LABS: ALBUMIN 2.7 gm/dl (3.4-5.0); CALCIUM 9.2 mg/dl (8.5-10.1); CREATININE 0.97 mg/dl (0.60-1.20); POTASSIUM 4.6 mmol/L (3.5-5.1); TOTAL PROTEIN 6.3 gm/dl (6.4-8.2)
--- NOTE | 2017-09-24 08:06 | Progress Note ---
Subjective Date of Service: Sep 23, 2017. Subjective Pt evaluation today including: conversation w/ patient, conversation w/ family (daughter at bedside), physical exam, chart review, lab review, review of studies (CT chest, liver u/s, etc), review of inpatient medication list Pain: no abd pain today PO Intake: improved over last 24 hours Voiding: roche catheter in place tele stable overnight pt feeling better no dyspnea at rest mild cough with some sputum production overall appetite improved no chest pain or abd pain Problem List Medical Problems: (1) Abdominal pain Status: Acute (2) Abdominal pain, acute, generalized Status: Acute (3) Kiwpy-ss-zacirxy kidney injury Status: Acute (4) Chronic hyponatremia Status: Acute (5) Coagulopathy Status: Acute (6) Dehydration Status: Acute (7) Dehydration Status: Acute (8) Failure of outpatient treatment Status: Acute (9) Generalized weakness Status: Acute (10) Hyperammonemia Status: Acute (11) Hyperkalemia Status: Acute (12) Hyponatremia Status: Acute (13) Lactic acidosis Status: Acute (14) Liver enzyme elevation Status: Acute (15) Non-cardiac chest pain Status: Acute (16) Supratherapeutic INR Status: Acute Review of Systems Constitutional: No fever Respiratory: + cough, + sputum, + wheezing, No dyspnea at rest Cardiac: + edema, No chest pain, No orthopnea, No PND Abdomen: No pain, No nausea, No vomiting Objective Vital Signs Date Time Temp Pulse Resp B/P (MAP) Pulse Ox O2 Delivery O2 Flow Rate FiO2 09/23/17 20:04 36.4 60 20 101/65 (77) 94 Room Air 09/23/17 20:00 Room Air 09/23/17 19:01 60 18 93 Room Air 09/23/17 16:18 36.5 60 20 110/73 (85) 94 Room Air 09/23/17 14:40 59 18 94 Room Air 09/23/17 11:54 36.9 78 18 123/74 (90) 96 09/23/17 11:35 63 18 93 Room Air 09/23/17 08:00 Room Air 09/23/17 08:00 36.4 59 18 113/75 (88) 93 Room Air 09/23/17 07:13 60 18 92 Room Air 09/23/17 04:00 36.6 60 17 120/71 (87) 94 Room Air 09/22/17 23:23 36.6 60 18 105/69 (81) 91 09/22/17 23:08 58 18 93 Room Air Physical Exam General Appearance: no apparent distress, + pertinent finding (looks good today ) Eyes: + pertinent finding (mild right eye ptosis ) ENT: pharynx normal Neck: no JVD Respiratory/Chest: no respiratory distress, no accessory muscle use, + wheezing Cardiovascular: + pertinent finding (irregular, s1, s2, 2/6 systolic murmur LSB ) Abdomen: normal bowel sounds, non tender, soft, no organomegaly Extremities: + pedal edema, + swelling (1+ b/l ) Neurologic/Psychiatric: alert, oriented x 3 Skin: + pertinent finding (extensive ecchymoses over arms, legs, etc) Laboratory Results Last 24 Hours Test 09/23/17 06:01 White Blood Count 7.86 K/uL Red Blood Count 4.57 M/uL Hemoglobin 11.1 g/dL Hematocrit 35.6 % Mean Corpuscular Volume 77.9 fL Mean Corpuscular Hemoglobin 24.3 pg Mean Corpuscular Hemoglobin Concent 31.2 g/dl Platelet Count 144 K/uL Neutrophils (%) (Auto) 91.4 % Lymphocytes (%) (Auto) 3.4 % Monocytes (%) (Auto) 4.7 % Eosinophils (%) (Auto) 0.0 % Basophils (%) (Auto) 0.0 % Neutrophils # (Auto) 7.18 K/uL Lymphocytes # (Auto) 0.27 K/uL Monocytes # (Auto) 0.37 K/uL Eosinophils # (Auto) 0.00 K/uL Basophils # (Auto) 0.00 K/uL RDW Standard Deviation 53.6 fL RDW Coefficient of Variation 18.9 % Immature Granulocyte % (Auto) 0.5 % Immature Granulocyte # (Auto) 0.04 K/uL Nucleated RBC Absolute Count (auto) 0.23 K/uL Nucleated Red Blood Cells % 2.9 % Platelet Estimate NORMAL Anisocytosis PRESENT Spherocytes OCCASIONAL Tear Drop Cells 1+ Echinocytes 1+ Schistocytes OCCASIONAL Prothrombin Time 47.7 SECONDS Prothromb Time International Ratio 4.7 Sodium Level 127 mmol/L Potassium Level 4.4 mmol/L Chloride Level 94 mmol/L Carbon Dioxide Level 25 mmol/L Anion Gap 8.0 mmol/L Blood Urea Nitrogen 56 mg/dl Creatinine 1.14 mg/dl Est Creatinine Clear Calc Drug Dose 39.9 ml/min Estimated GFR () 54.5 Estimated GFR (Non- 47.0 BUN/Creatinine Ratio 48.7 Random Glucose 163 mg/dl Calcium Level 8.6 mg/dl Total Bilirubin 1.3 mg/dl Direct Bilirubin 0.8 mg/dl Aspartate Amino Transf (AST/SGOT) 249 U/L Alanine Aminotransferase (ALT/SGPT) 614 U/L Alkaline Phosphatase 174 U/L Total Protein 6.3 gm/dl Albumin 2.7 gm/dl Assessment and Plan 77yo female with: 1. b/l pneumonia, cannot rule out gram negative etiology/healthcare associated pneumonia given her frequent hospital stays - Cont cefepime and doxycycline. Day #3 of cefepime, day #2 of doxy. 2. COPD with exacerbation - improved. Cont inhalers, nebs, and steroids. Pulmonary following and recommendations appreciated. 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 Pulmonary aware - needs bronch in the future once more optimized. 4. elevated/supratherapeutic INR - suspect this happened as a result of her acute hepatitis. Continue to hold warfarin. No indication to give additional vitamin K as she is not bleeding and INR is slowly trending downward. 5. Abnormal LFTs, acute hepatitis in setting of chronic "cardiac" cirrhosis - etiology of acute hepatitis is uncertain. Differential congestive hepatopathy vs infection vs medication effects. LFTs are trending downward daily. She has no evidence of portal vein thrombosis. Acute hepatitis profile is pending. Could consider checking CMV and EBV titers. Hold any tylenol. 6. hyponatremia - acute/chronic - improved. Continue Lasix 80 mg p.o. once daily in the morning and will give 80 mg in the afternoon if has lower extremity edema. Hold Aldactone. Fluid restrict to 1200cc/day. BMP daily. 7. acute kidney injury - resolved. Suspect due to volume depletion in setting of CKD and multiple diuretic use. 8. acute on chronic biventricular systolic CHF - acute component resolved; appears euvolemic today. Cont BB, lasix, etc. 9. h/o MVR - noted. 10. 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 11. chronic nausea likely 2nd to gastroparesis - controlled at this time. 12. permanent atrial fibrillation/permanent pacemaker in place - rates controlled; holding coumadin due to high INR. Cont BB. 13. depression - lexapro. 14. chronic microcytic anemia-iron studies fairly normal last admission except mildly low transferrin saturation at 9%, ferritin normal in the 40s, B12 and folate normal. Hemoccult stool negative last admission. Likely combination of ACD + Fe def. Follow with periodic CBC. 15. thrush - nystatin - improved. PT, OT evals likely needs SNF at the [facility] at d/c. daughter updated at bedside. Continued [facility] stay due to: voiding difficulties, ambulation difficulties, multiple IV medications needed Discharge planning: long-term facility
[2017-09-24] MEDS: CARVEDILOL 25 MG TAB PO SCH ×2 (08:07→17:29)
[2017-09-24] MEDS: DOXYCYCLINE IV 100 MG in DEXTROSE 5% 100ML 100 ML IV SCH ×2 (08:07→21:14)
[2017-09-24] MEDS: BUDESONIDE/FORMOTEROL FUMARATE 160/4.5 60 PUFFS/INHALER INH SCH ×2 (08:07→21:14)
[2017-09-24] MEDS: SACCHAROMYCES BOUL (FLORASTOR) 250 MG CAP PO SCH (08:08)
[2017-09-24] MEDS: FUROSEMIDE 80 MG TAB PO SCH (08:08)
[2017-09-24] MEDS: ESCITALOPRAM OXALATE 10 MG TAB PO SCH (08:09)
[2017-09-24] MEDS: PANTOprazole SOD 40 MG TAB PO SCH (08:09)
[2017-09-24] MEDS: METHYLPREDNISOLONE IV 20 MG in SYRINGE 0 ML IV SCH ×2 (08:10→21:14)
[2017-09-24] MEDS: GUAIFENESIN 600 MG TABCR PO SCH ×2 (08:11→21:16)
[2017-09-24] MEDS: NYSTATIN SUSP 500,000 U/5 ML UDC PO SCH ×4 (08:11→21:15)
[2017-09-24] MEDS: MAGNESIUM CHLORIDE 64MG DELAYED REL TAB PO SCH ×2 (08:11→21:17)
[2017-09-24] MEDS: BOOST VANILLA PUDDING CUP PO SCH ×2 (08:12→21:00)
[2017-09-24] MEDS: PSYLLIUM 58.6% PWD PACK S\\F PO SCH (08:13)
[2017-09-24] MEDS: CEFEPIME IV 2,000 MG in SYRINGE 7.5 ML IV SCH (11:54)
--- NOTE | 2017-09-24 13:40 | PULMONARY PROGRESS NOTE ---
DATE: 09/24/2017 TIME: 1:10 p.m. SUBJECTIVE: The patient is feeling better. She is still complaining of a cough, but it seems dramatically improved compared with when she was admitted. She coughed not at all during my exam. Her voice is also better. She remains fairly weak. OBJECTIVE: GENERAL: The patient was comfortable. VITAL SIGNS: Temperature is 36.7. Heart rate is 66 per minute. Blood pressure 109/74. LUNGS: Lung cloud were clear. No wheezes or rhonchi were heard today. Oxygen saturation 95% on room air. EXTREMITIES: Showed trace edema. No cyanosis or clubbing was noted. LABORATORY DATA: INR today is down to 4.4. AST has improved down to 135 and ALT is down to 517. BUN is 55 with creatinine 0.97. Sodium 128, potassium 4.6, chloride 95, bicarbonate 26. IMPRESSIONS: 1. Acute bronchitis -- improved. 2. Abnormal CAT scan of the chest -- rule out endobronchial mass in bronchus intermedius. 3. Chronic obstructive pulmonary disease. COMMENTS AND RECOMMENDATIONS: The patient is improved significantly. I believe her steroids could be changed to oral. We will stop the methylprednisolone and put her on prednisone. It appears she likely will not get the bronchoscopy done during this hospital stay. We certainly would like to have her liver functions normalized as well as her INR low before that would be considered. The liver functions are improving, but quite gradually. We will reassess her tomorrow and see what her status is.
--- NOTE | 2017-09-24 16:19 | Progress Note ---
Progress Note Date of Service Sep 24, 2017. Progress Note LFTs trending down. INR remains increased, consider additional vit K.
[2017-09-24] MEDS ORDERED: VANCOMYCIN TROUGH ONE (17:30)
[2017-09-24] MEDS: MONTELUKAST SOD 10 MG TAB PO SCH (21:16)
[2017-09-25] VITALS (12 sets, daily range): BP systolic 107–118; BP diastolic 73–82; PULSE 58–69; TEMP 36.3–36.7; O2SAT 91–98
[2017-09-25] MEDS: CEFEPIME IV 2,000 MG in SYRINGE 7.5 ML IV SCH ×3 (00:30→22:30)
[2017-09-25] MEDS: ALBUT/IPRATROP 3MG/0.5MG NEB 3 ML VIAL INH SCH ×6 (03:36→23:41)
[2017-09-25 07:11] LABS: HEMATOCRIT 37.9 % (37-47); MEAN CELL VOLUME 77.5 fL (80-100); MEAN CORPUSCULAR HEMOGLOBIN 24.5 pg (25-34); MEAN CORPUSCULAR HGB CONC 31.7 g/dl (32-36); NUCLEATED RED BLOOD CELL ABS 0.65 K/uL (0-0); PLATELET COUNT 185 K/uL (130-400); RED CELL DISTRIBUTION WIDTH CV 19.1 % (11.5-14.5); RED CELL DISTRIBUTION WIDTH SD 53.3 fL (36.4-46.3); WHITE BLOOD COUNT 9.13 K/uL (4.8-10.8)
[2017-09-25 07:22] LABS: INR 3.5 (0.9-1.1)
--- NOTE | 2017-09-25 07:44 | Progress Note ---
Subjective Date of Service: Sep 24, 2017. Subjective Pt evaluation today including: conversation w/ patient, conversation w/ family ( at bedside), physical exam, chart review, lab review, review of inpatient medication list Pain: none PO Intake: normalizing Voiding: no voiding problems tele stable overnight; mainly paced cough, with some yellow sputum production - but "improving" no new complaints Problem List Medical Problems: (1) Abdominal pain Status: Acute (2) Abdominal pain, acute, generalized Status: Acute (3) [id number] kidney injury Status: Acute (4) Chronic hyponatremia Status: Acute (5) Coagulopathy Status: Acute (6) Dehydration Status: Acute (7) Dehydration Status: Acute (8) Failure of outpatient treatment Status: Acute (9) Generalized weakness Status: Acute (10) Hyperammonemia Status: Acute (11) Hyperkalemia Status: Acute (12) Hyponatremia Status: Acute (13) Lactic acidosis Status: Acute (14) Liver enzyme elevation Status: Acute (15) Non-cardiac chest pain Status: Acute (16) Supratherapeutic INR Status: Acute Review of Systems Constitutional: No fever, No chills Respiratory: No shortness of breath Cardiac: No chest pain Abdomen: No pain, No diarrhea Objective Vital Signs Date Time Temp Pulse Resp B/P (MAP) Pulse Ox O2 Delivery O2 Flow Rate FiO2 09/24/17 19:07 72 18 97 Room Air 09/24/17 14:45 89 18 95 Room Air 09/24/17 11:35 36.7 66 18 109/74 (86) 95 09/24/17 11:15 60 18 96 Room Air 09/24/17 08:00 Room Air 09/24/17 07:46 37.0 64 18 101/58 (72) 97 09/24/17 07:11 63 18 93 Room Air 09/24/17 04:00 37.0 49 18 93/61 (72) 94 Room Air 09/23/17 22:53 36.6 63 18 112/76 (88) 93 Room Air 09/23/17 20:04 36.4 60 20 101/65 (77) 94 Room Air 09/23/17 20:00 Room Air Physical Exam General Appearance: no apparent distress, + pertinent finding (coughing) ENT: pharynx normal Neck: no JVD Respiratory/Chest: no respiratory distress, no accessory muscle use, + wheezing (anteriorly; decreased BS bases) Cardiovascular: regular rate, rhythm, no gallop, + systolic murmur (2/6 LSB) Abdomen: normal bowel sounds, non tender, soft, no organomegaly Extremities: + pedal edema (trace b/l ) Neurologic/Psychiatric: alert, oriented x 3 Laboratory Results Last 24 Hours Test 09/24/17 06:41 Prothrombin Time 45.3 SECONDS Prothromb Time International Ratio 4.4 Sodium Level 128 mmol/L Potassium Level 4.6 mmol/L Chloride Level 95 mmol/L Carbon Dioxide Level 26 mmol/L Anion Gap 7.0 mmol/L Blood Urea Nitrogen 55 mg/dl Creatinine 0.97 mg/dl Est Creatinine Clear Calc Drug Dose 46.9 ml/min Estimated GFR () 66.2 Estimated GFR (Non- 57.1 BUN/Creatinine Ratio 56.5 Random Glucose 117 mg/dl Calcium Level 9.2 mg/dl Total Bilirubin 1.2 mg/dl Direct Bilirubin 0.7 mg/dl Aspartate Amino Transf (AST/SGOT) 135 U/L Alanine Aminotransferase (ALT/SGPT) 517 U/L Alkaline Phosphatase 182 U/L Total Protein 6.3 gm/dl Albumin 2.7 gm/dl Lipase 63 U/L Assessment and Plan 77yo female with: 1. b/l pneumonia, cannot rule out gram negative etiology/healthcare associated pneumonia given her frequent hospital stays - Cont cefepime and doxycycline. Day #4 of cefepime, day #3 of doxy. 2. COPD with exacerbation - improved. Cont inhalers, nebs, and steroids. Pulmonary following and recommendations appreciated. They are changing IV steroids to PO prednisone today. 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 Pulmonary aware - needs bronch in the future once more optimized. 4. elevated/supratherapeutic INR - suspect this happened as a result of her acute hepatitis. Continue to hold warfarin. No indication to give additional vitamin K as she is not bleeding and INR is slowly trending downward. INR qam. 5. Abnormal LFTs, acute hepatitis in setting of chronic "cardiac" cirrhosis - etiology of acute hepatitis is uncertain. Differential -- congestive hepatopathy vs infection vs medication effects. LFTs are trending downward daily. She has no evidence of portal vein thrombosis. Acute hepatitis profile is pending. Could consider checking CMV and EBV titers. Hold any tylenol. LFTs in am. INR in am. 6. hyponatremia - acute/chronic - stable, improving. Continue Lasix 80 mg p.o. once daily in the morning and will give 80 mg in the afternoon if has lower extremity edema. Hold Aldactone. Fluid restrict to 1200cc/day. BMP daily. 7. acute kidney injury - resolved. Suspect due to volume depletion in setting of CKD and multiple diuretic use. 8. acute on chronic biventricular systolic CHF - acute component resolved; again appears euvolemic today. Cont BB, lasix, etc. 9. h/o MVR - noted. 10. 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 11. chronic nausea likely 2nd to gastroparesis - controlled. 12. permanent atrial fibrillation/permanent pacemaker in place - rates controlled; holding coumadin due to high INR. Cont BB. 13. depression - lexapro. 14. chronic microcytic anemia-iron studies fairly normal last admission except mildly low transferrin saturation at 9%, ferritin normal in the 40s, B12 and folate normal. Hemoccult stool negative last admission. Likely combination of ACD + Fe def. Follow with periodic CBC. 15. thrush - nystatin - resolved. PT, OT evals likely needs SNF at the [facility] at d/c. updated at bedside. d/c [facility] today Continued [facility] stay due to: ambulation difficulties, multiple IV medications needed [facility]
[2017-09-25 07:47] LABS: ALBUMIN 2.9 gm/dl (3.4-5.0); CALCIUM 9.7 mg/dl (8.5-10.1); CREATININE 1.17 mg/dl (0.60-1.20); POTASSIUM 5.1 mmol/L (3.5-5.1); TOTAL PROTEIN 6.8 gm/dl (6.4-8.2)
[2017-09-25] MEDS: MAGNESIUM CHLORIDE 64MG DELAYED REL TAB PO SCH ×2 (08:04→20:47)
[2017-09-25] MEDS: PANTOprazole SOD 40 MG TAB PO SCH (08:05)
[2017-09-25] MEDS: GUAIFENESIN 600 MG TABCR PO SCH ×2 (08:05→20:46)
[2017-09-25] MEDS: CARVEDILOL 25 MG TAB PO SCH ×2 (08:05→16:59)
[2017-09-25] MEDS: ESCITALOPRAM OXALATE 10 MG TAB PO SCH (08:05)
[2017-09-25] MEDS: SACCHAROMYCES BOUL (FLORASTOR) 250 MG CAP PO SCH (08:05)
[2017-09-25] MEDS: NYSTATIN SUSP 500,000 U/5 ML UDC PO SCH ×4 (08:06→20:46)
[2017-09-25] MEDS: DOXYCYCLINE IV 100 MG in DEXTROSE 5% 100ML 100 ML IV SCH (08:07)
[2017-09-25] MEDS: PSYLLIUM 58.6% PWD PACK S\\F PO SCH (08:07)
[2017-09-25] MEDS: BUDESONIDE/FORMOTEROL FUMARATE 160/4.5 60 PUFFS/INHALER INH SCH ×2 (08:08→20:44)
[2017-09-25] MEDS: BOOST VANILLA PUDDING CUP PO SCH ×2 (11:15→20:45)
--- NOTE | 2017-09-25 12:05 | Progress Note ---
Subjective Date of Service: Sep 25, 2017. Subjective Pt evaluation today including: conversation w/ patient, conversation w/ family ( at bedside), physical exam, chart review, lab review, conversation w/ parts consultant (nephrology, pulmonary, GI), review of inpatient medication list Pain: none reported PO Intake: ate good breakfast Voiding: no voiding problems standing scale weight -- 71.6 kg pt states she used O2 overnight and that she 'slept better' as a result she feels "more winded today" than yesterday and very fatigued/tired cough improved, and less sputum production Problem List Medical Problems: (1) Abdominal pain Status: Acute (2) Abdominal pain, acute, generalized Status: Acute (3) [id number]-ci-wdgtthu kidney injury Status: Acute (4) Chronic hyponatremia Status: Acute (5) Coagulopathy Status: Acute (6) Dehydration Status: Acute (7) Dehydration Status: Acute (8) Failure of outpatient treatment Status: Acute (9) Generalized weakness Status: Acute (10) Hyperammonemia Status: Acute (11) Hyperkalemia Status: Acute (12) Hyponatremia Status: Acute (13) Lactic acidosis Status: Acute (14) Liver enzyme elevation Status: Acute (15) Non-cardiac chest pain Status: Acute (16) Supratherapeutic INR Status: Acute Review of Systems Constitutional: + fatigue, No fever, No chills Respiratory: + cough, + sputum, + wheezing, + shortness of breath, + dyspnea on exertion Cardiac: + edema, No chest pain, No orthopnea, No PND Abdomen: No pain, No nausea Objective Vital Signs Date Time Temp Pulse Resp B/P (MAP) Pulse Ox O2 Delivery O2 Flow Rate FiO2 09/25/17 08:00 Nasal Cannula 2.0 09/25/17 07:46 36.4 59 18 117/79 (92) 98 Nasal Cannula 2.0 09/25/17 07:20 58 16 98 Nasal Cannula 2.0 09/25/17 03:39 64 16 98 Nasal Cannula 2.0 09/25/17 03:16 36.7 60 18 107/73 (84) 96 Nasal Cannula 2.0 09/25/17 00:00 Nasal Cannula 2.0 09/24/17 23:31 36.7 68 18 112/78 (89) 97 Nasal Cannula 2.0 7/22/18 23:02 60 16 98 Nasal Cannula 2.0 09/24/17 20:00 94 Room Air 09/24/17 19:57 36.7 66 20 111/75 (87) 98 Room Air 09/24/17 19:07 72 18 97 Room Air 09/24/17 14:45 89 18 95 Room Air Physical Exam General Appearance: no apparent distress, + pertinent finding (doesn't look as good as yesterday) ENT: pharynx normal (no thrush) Neck: + JVD (worse today) Respiratory/Chest: no respiratory distress, no accessory muscle use, + rales ( scant - bases), + wheezing (b/l ) Cardiovascular: regular rate, rhythm, no gallop, + systolic murmur (2/6 LLSB) Abdomen: normal bowel sounds, non tender, soft, no organomegaly Extremities: + pedal edema (1+ b/l ) Neurologic/Psychiatric: alert, + pertinent finding (slightly sleepy today and "off") Skin: + pertinent finding (ecchymoses on various locations (arms, legs, etc); no jaundice) Laboratory Results Last 24 Hours Test 09/25/17 06:55 White Blood Count 9.13 K/uL Red Blood Count 4.89 M/uL Hemoglobin 12.0 g/dL Hematocrit 37.9 % Mean Corpuscular Volume 77.5 fL Mean Corpuscular Hemoglobin 24.5 pg Mean Corpuscular Hemoglobin Concent 31.7 g/dl RDW Standard Deviation 53.3 fL RDW Coefficient of Variation 19.1 % Platelet Count 185 K/uL Nucleated RBC Absolute Count (auto) 0.65 K/uL Nucleated Red Blood Cells % 7.2 % Prothrombin Time 35.7 SECONDS Prothromb Time International Ratio 3.5 Sodium Level 125 mmol/L Potassium Level 5.1 mmol/L Chloride Level 92 mmol/L Carbon Dioxide Level 24 mmol/L Anion Gap 9.0 mmol/L Blood Urea Nitrogen 62 mg/dl Creatinine 1.17 mg/dl Est Creatinine Clear Calc Drug Dose 38.9 ml/min Estimated GFR () 52.8 Estimated GFR (Non- 45.5 BUN/Creatinine Ratio 52.9 Random Glucose 139 mg/dl Calcium Level 9.7 mg/dl Total Bilirubin 1.5 mg/dl Aspartate Amino Transf (AST/SGOT) 95 U/L Alanine Aminotransferase (ALT/SGPT) 469 U/L Alkaline Phosphatase 184 U/L Total Protein 6.8 gm/dl Albumin 2.9 gm/dl Globulin 3.9 gm/dl Albumin/Globulin Ratio 0.7 Assessment and Plan 77yo female with: 1. b/l pneumonia, cannot rule out gram negative etiology/healthcare associated pneumonia; cannot rule out invasive aspergillus. Cont cefepime and doxycycline. Day #5 of cefepime, day #4 of doxy. Planning 7 days of Rx. 2. COPD with exacerbation - improving. Cont inhalers, nebs, and steroids. Pulmonary following and recommendations appreciated. They are managing her steroids. 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 Pulmonary aware - needs bronch in the future once more optimized from liver/INR standpoint. 4. elevated/supratherapeutic INR - suspect this happened as a result of her acute hepatitis. Continue to hold warfarin. INR is slowly trending downward. INR qam. 5. Abnormal LFTs, acute hepatitis in setting of chronic "cardiac" cirrhosis - etiology of acute hepatitis is uncertain. Differential -- congestive hepatopathy vs infection vs medication effects vs shock liver. LFTs are trending downward daily. She has no evidence of portal vein thrombosis. Acute hepatitis profile is pending. Could consider checking CMV and EBV titers. Hold any tylenol. LFTs in am. INR in am. 6. hyponatremia - acute/chronic - baseline 125-130. Her Na trended downward overnight, and she is more short of breath. She may need IV lasix for her CHF. Weights need to be standing scale; weight today (standing) is 71.6. This is up 3-4 kg from several weeks ago. She has JVD with peripheral edema. Check CXR. Nephrology consult requested to assist in this incredibly complicated woman with chronic hyponatremia, CKD, liver disease, severe CHF. Fluid restrict to 1200cc/day. BMP daily. Aldactone on hold due to hyperkalemia. 7. acute kidney injury - resolved. 8. 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 See #6 above. CXR now. Consider IV lasix today. 9. h/o MVR - noted. 10. 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 11. chronic nausea likely 2nd to gastroparesis - controlled. 12. permanent atrial fibrillation/permanent pacemaker in place - rates controlled; holding coumadin due to high INR. Cont BB. 13. depression - lexapro. 14. chronic microcytic anemia-iron studies fairly normal last admission except mildly low transferrin saturation at 9%, ferritin normal in the 40s, B12 and folate normal. Hemoccult stool negative last admission. Likely combination of ACD + Fe def. Follow with periodic CBC. 15. thrush - nystatin - resolved. 16. aspergillus on sputum culture - spoke with ID and pulmonary regarding this. needs bronch to determine if truly invasive/pathogenic. consider aspergillus titers. bronch will occur once INR is acceptable, liver issues are resolved, and CHF is optimized. patient/ aware of this finding. 17. fatigue - could be elevated ammonia levels. Could be the Na. Other etiologies also possible. Schedule the lactulose, titrate 2-3 BMs/day. Nephrology to assist with hyponatremia management. PT, OT evals appreciated likely needs SNF at the [facility] at d/c. updated at bedside once again. time - 50 minutes including coordinating care with numerous consultants, etc d/c melchor today Continued [facility] stay due to: ambulation difficulties, multiple IV medications needed, other (abnormal labs, aspergillus in sputum, etc ) Discharge planning: alf facility
--- NOTE | 2017-09-25 12:14 | PULMONARY PROGRESS NOTE ---
DATE: 09/25/2017 TIME: 11:20 a.m. SUBJECTIVE: The patient is still coughing a moderate amount. She indicated she feels it is better, but she was coughing more during this exam than she was when I saw her yesterday. The patient has difficulty remembering things. She does not feel significantly short of breath. She was just up to the restroom with nursing assistance just prior to my getting to examine her. OBJECTIVE: GENERAL: The patient remains afebrile. VITAL SIGNS: Current temperature 36.4. HEART: The heart rate is 60 per minute. The rhythm is regular. Blood pressure is 117/92. LUNGS: Auscultation of the lung cloud revealed [id number] rhonchi. This is increased from yesterday. She did not have oxygen on at the time I saw her and her saturations were 89%. On 2 liters, she was 98% earlier today. EXTREMITIES: Revealed +2 edema of both lower extremities. LABORATORY DATA: Sputum sample was positive for Aspergillus species. The quantity was reported as rare. White count is 9.13. Hemoglobin 12. Platelets 185,000. INR today is 3.5. AST today is down to 95 and most recently was 135. ALT is down to 469 and yesterday was 517. BUN is 62 with a creatinine of 1.17. Electrolytes show sodium 125, potassium 5.1, chloride 92, bicarbonate 24. It is notable the sodium is lower than what it had been. IMPRESSIONS: 1. Acute bronchitis. 2. Sputum culture positive for Aspergillus - questionable colonizer versus true infection. 3. Abnormal CAT scan of the chest - rule out endobronchial mass and bronchus intermedius. 4. Chronic obstructive pulmonary disease. COMMENTS AND RECOMMENDATIONS: The case was discussed with Dr. Matute. The patient had indicated to him that she would like to have the scope done before she went home. Her INR is too prolonged. In addition, with poor liver function, the sedative medications may have a much longer duration of action than desired. Would suggest following clinically and see what happens over the next couple of days. I did suggest an ID opinion as to the significance of the Aspergillus. We will order a repeat sputum and see if the Aspergillus is again documented. The patient obviously has many multiple medical problems.
[2017-09-25] MEDS ORDERED: LACTULOSE SYRUP 20 GM/30 ML UDC PO ONE (12:15)
--- NOTE | 2017-09-25 12:22 | DIAGNOSTIC IMAGING REPORT ---
CHEST 2 VIEWS ROUTINE HISTORY: 77 years-old Female worsening dyspnea, ?CHF acute short of breath with congestive heart failure COMPARISON: Chest radiograph 09/18/2017 TECHNIQUE: AP and lateral views of the chest FINDINGS: Cardiac silhouette is enlarged, unchanged. Right subclavian pacer/AICD. Coiled leads of the left chest wall redemonstrated. Atherosclerosis of the aorta. Prior median sternotomy with prosthetic aortic valve. Unchanged biapical pleural-parenchymal scarring/pleural thickening. No pneumothorax. Trace pleural effusions with subsegmental bibasilar opacities. Mild pulmonary vascular congestion with without overt pulmonary edema. Bones of the chest appear grossly intact. IMPRESSION: 1. Cardiomegaly with mild pulmonary vascular congestion. 2. Trace pleural effusions with subsegmental bibasilar opacities favoring atelectasis. 3. Prior median sternotomy with prosthetic aortic valve. The above report was generated using voice recognition software. It may contain grammatical, syntax or spelling errors. Electronically signed by: Adi Santos M.D. 09/25/2017 12:21 PM Dictated Date/Time: 09/25/2017 12:18 PM
--- NOTE | 2017-09-25 12:36 | Gastroenterology Progress Note ---
Progress Note Date of Service: Sep 25, 2017 Subjective Pt evaluation today including: conversation w/ patient, physical exam, chart review, lab review, review of inpatient medication list Pt feels tired, denies any abd pain, n/v, LFTs coming down. INR 3.5 today Review of Systems Constitutional: No fever, No chills Respiratory: + cough, No shortness of breath Cardiac: No chest pain Abdomen: No pain, No nausea, No vomiting Skin: No jaundice Medications Current Inpatient Medications Medications (Trade) Dose Ordered Sig/Golden Route Start Time Stop Time Status Last Admin Dose Admin Ondansetron HCl (Zofran Inj) 4 mg Q6H PRN IV 09/21/17 21:00 10/21/17 20:59 Guaifenesin (Mucinex Contr Rel Tab) 1,200 mg Q12 PO 09/21/17 21:00 10/21/17 20:59 09/25/17 08:05 1,200 MG Sodium Chloride (Duncan Nasal [place]den) 2 sprays Q8 PRN NA 09/21/17 21:00 10/21/17 20:59 Albuterol/ Ipratropium (Duoneb) 3 ml Q4R INH 09/22/17 00:00 10/22/17 00:00 09/25/17 07:20 3 ML Albuterol (Ventolin Hfa Inhaler) 2 puffs QID PRN INH 09/21/17 21:00 10/21/17 20:59 Budesonide/ Formoterol Fumarate (Symbicort 160/ 4.5 Inh) 2 puffs BID INH 09/21/17 21:00 10/21/17 20:59 09/25/17 08:08 2 PUFFS Carvedilol (Coreg Tab) 25 mg BIDM PO 09/22/17 07:30 10/22/17 07:59 09/25/17 08:05 25 MG Escitalopram Oxalate (Lexapro Tab) 5 mg QAM PO 09/22/17 09:00 10/22/17 08:59 09/25/17 08:05 5 MG Furosemide (Lasix Tab) 80 mg QAM PO 09/22/17 09:00 10/22/17 08:59 Future Hold 09/24/17 08:08 80 MG Magnesium Chloride (Slow-Mag Tab) 64 mg BID PO 09/21/17 21:00 10/21/17 20:59 09/25/17 08:04 64 MG Montelukast Sodium (Singulair Tab) 10 mg HS PO 09/21/17 21:00 10/21/17 20:59 09/24/17 21:16 10 MG Nystatin (Mycostatin Susp) 5 ml QID PO 09/21/17 21:00 10/01/17 20:59 09/25/17 08:06 5 ML Prochlorperazine Maleate (Compazine Tab) 5 mg TID PRN PO 09/21/17 21:00 10/21/17 20:59 Pantoprazole Sodium (Protonix Tab) 40 mg DAILY PO 09/22/17 09:00 10/22/17 08:59 09/25/17 08:05 40 MG Psyllium Hydrophilic Mucilloid (Metamucil Powder) 1 pkt DAILY PO 09/22/17 09:00 10/22/17 08:59 09/24/17 08:13 1 PKT Cefepime HCl (Consult) 1 ea UD PRN N/A 09/21/17 21:45 10/21/17 21:44 Saccharomyces Boulardii (Florastor Cap) 250 mg DAILY PO 09/23/17 09:00 10/23/17 08:59 09/25/17 08:05 250 MG Enteral Nutritional Formula (Boost Pudding) 1 cup BID PO 09/22/17 21:00 10/22/17 20:59 09/25/17 11:15 1 CUP Cefepime HCl 2000 mg/Syringe 20 ml @ 5 mls/min Q12H IV 09/23/17 11:00 09/28/17 22:59 09/25/17 11:17 5 MLS/MIN Prednisone (PredniSONE TAB) 30 mg DAILY PO 09/25/17 09:00 10/25/17 08:59 09/25/17 08:04 30 MG Doxycycline Hyclate (Vibramycin Cap) 100 mg BID PO 09/25/17 21:00 09/29/17 09:01 Lactulose (Chronulac Syrup) 15 gm DAILY PO 09/26/17 09:00 10/21/17 20:59 Objective Vital Signs Date Time Temp Pulse Resp B/P (MAP) Pulse Ox O2 Delivery O2 Flow Rate FiO2 09/25/17 11:56 36.3 60 20 110/77 (88) 96 Nasal Cannula 2.0 09/25/17 08:00 Nasal Cannula 2.0 09/25/17 07:46 36.4 59 18 117/79 (92) 98 Nasal Cannula 2.0 09/25/17 07:20 58 16 98 Nasal Cannula 2.0 09/25/17 03:39 64 16 98 Nasal Cannula 2.0 09/25/17 03:16 36.7 60 18 107/73 (84) 96 Nasal Cannula 2.0 09/25/17 00:00 Nasal Cannula 2.0 09/24/17 23:31 36.7 68 18 112/78 (89) 97 Nasal Cannula 2.0 09/24/17 23:02 60 16 98 Nasal Cannula 2.0 09/24/17 20:00 94 Room Air 09/24/17 19:57 36.7 66 20 111/75 (87) 98 Room Air 09/24/17 19:07 72 18 97 Room Air 09/24/17 14:45 89 18 95 Room Air Physical Exam General Appearance: + mild distress (coughing) Eyes: normal inspection, PERRL, EOMI Neck: supple, no JVD, trachea midline Respiratory/Chest: no respiratory distress, no accessory muscle use, + decreased breath sounds Cardiovascular: regular rate, rhythm, no gallop, no murmur Abdomen: normal bowel sounds, non tender, soft Extremities: normal inspection, no pedal edema, no calf tenderness Neurologic/Psych: alert, normal mood/affect, oriented x 3 Skin: normal color, no jaundice, no rash Laboratory Results Last 24 Hours Test 09/25/17 06:55 White Blood Count 9.13 K/uL Red Blood Count 4.89 M/uL Hemoglobin 12.0 g/dL Hematocrit 37.9 % Mean Corpuscular Volume 77.5 fL Mean Corpuscular Hemoglobin 24.5 pg Mean Corpuscular Hemoglobin Concent 31.7 g/dl RDW Standard Deviation 53.3 fL RDW Coefficient of Variation 19.1 % Platelet Count 185 K/uL Nucleated RBC Absolute Count (auto) 0.65 K/uL Nucleated Red Blood Cells % 7.2 % Prothrombin Time 35.7 SECONDS Prothromb Time International Ratio 3.5 Sodium Level 125 mmol/L Potassium Level 5.1 mmol/L Chloride Level 92 mmol/L Carbon Dioxide Level 24 mmol/L Anion Gap 9.0 mmol/L Blood Urea Nitrogen 62 mg/dl Creatinine 1.17 mg/dl Est Creatinine Clear Calc Drug Dose 38.9 ml/min Estimated GFR () 52.8 Estimated GFR (Non- 45.5 BUN/Creatinine Ratio 52.9 Random Glucose 139 mg/dl Calcium Level 9.7 mg/dl Total Bilirubin 1.5 mg/dl Aspartate Amino Transf (AST/SGOT) 95 U/L Alanine Aminotransferase (ALT/SGPT) 469 U/L Alkaline Phosphatase 184 U/L Total Protein 6.8 gm/dl Albumin 2.9 gm/dl Globulin 3.9 gm/dl Albumin/Globulin Ratio 0.7 Assessment and Plan Patient is a 77 year old female w 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 She mentioned use of Tylenol w Codeine and Also Zpack prior to admission but daughter reports Tylenol use is minimal and they never picked up Zpack prescription. Her liver u/s showed no signs of PVT. She is mentating well , just tired and sluggish. INR is 3.5, previously 8 when admitted. Cr better. LFTs are decreasing. LFT pattern, pt's hx of heart disease, respiratory disease all suspicious for shock liver which is improving. - No further plans from GI standpoint - Continue supportive care and monitor LFTs - Consider Vit K to help reduce INR. - Avoid hepatotoxic meds. ATTESTATION: I have performed a history and physical examination of this patient and reviewed the electronic record. Specifically on physical examination there is no abdominal tenderness. I have discussed the case with NYDIA Castro. The above note reflects my findings, conclusions, and recommendations. Yahir Patrick MD
[2017-09-25] MEDS ORDERED: FUROSEMIDE INJ 80 MG in SYRINGE 0 ML IV ONE (15:00)
--- NOTE | 2017-09-25 16:06 | Medical Consult ---
Consultation Date of Consultation: Sep 25, 2017. Attending Physician: Fabio Matute MD Reason for Consultation: Aspergillus pneumonia? History of Present Illness 77-year-old female with history severe diastolic heart failure, cirrhosis, asthma with COPD on inhaled and intermittent steroids, who presented to the hospital with 7 day history of increasing cough, occasional production of brownish sputum without hemoptysis, sweats and chills. No associated chest pain. She came to the emergency department where chest x-ray and subsequent CT scanning showed evidence of right-sided tree-in-but nodules with ground-glass infiltrate. Also scan raise the possibility of endobronchial lesion. She was started empirically on combination of vancomycin, cefepime, and doxycycline. Blood cultures have been negative, MRSA screen negative. Sputum now growing Aspergillus fumigatus. Past Medical/Surgical History Medical Problems: (1) Abdominal pain Status: Acute (2) Abdominal pain, acute, generalized Status: Acute (3) [id number] kidney injury Status: Acute (4) Chronic hyponatremia Status: Acute (5) Coagulopathy Status: Acute (6) Dehydration Status: Acute (7) Dehydration Status: Acute (8) Failure of outpatient treatment Status: Acute (9) Generalized weakness Status: Acute (10) Hyperammonemia Status: Acute (11) Hyperkalemia Status: Acute (12) Hyponatremia Status: Acute (13) Lactic acidosis Status: Acute (14) Liver enzyme elevation Status: Acute (15) Non-cardiac chest pain Status: Acute (16) Supratherapeutic INR Status: Acute Medical Problems: (1) Acute angle-closure glaucoma (2) Acute hyponatremia (3) Acute on chronic systolic heart failure (4) Ascites (5) BRUGADA SYNDROME (6) Cardiac cirrhosis (7) Chronic systolic CHF (congestive heart failure) (8) Cough (9) Dilated cardiomyopathy (10) Gastroparesis (11) Gastroparesis (12) Hypotension (13) Implantation of automatic cardioverter/defibrillator, total system (14) Liver cirrhosis (15) Pelvic varices (16) Pneumonia (17) Recurrent right pleural effusion (18) Third degree heart block Surgical Problems: (1) H/O mitral valve repair (2) History of heart valve repair Family History Cancer Diabetes mellitus FH: CVA (cerebrovascular accident) Heart disease Seizures Social History Smoking Status: Never Smoker Smokeless Tobacco Use: No Drug Use: none Marital Status: Housing Status: lives with family Occupation Status: retired Allergies Coded Allergies: AMADOU Inhibitors (Verified Allergy, Unknown, UNKNOWN, 09/07/17) Amiodarone (Verified Allergy, Unknown, UNKNOWN, 09/07/17) Azithromycin (Verified Allergy, Unknown, UNKNOWN, 09/07/17) Clarithromycin (Verified Allergy, Unknown, UNKNOWN, 09/07/17) Hydralazine (Verified Allergy, Unknown, UNKNOWN, 09/07/17) Hydrochlorothiazide (Verified Allergy, Unknown, RASH, 09/07/17) Pt unsure of reaction, possible rash. Lisinopril (Verified Allergy, Unknown, UNKNOWN, 09/07/17) Penicillins (Verified Allergy, Unknown, UNKNOWN, 09/07/17) Procainamide (Verified Allergy, Unknown, UNKNOWN, 09/07/17) Current Inpatient Medications Current Inpatient Medications Medications (Trade) Dose Ordered Sig/Golden Route Start Time Stop Time Status Last Admin Dose Admin Ondansetron HCl (Zofran Inj) 4 mg Q6H PRN IV 09/21/17 21:00 10/21/17 20:59 Guaifenesin (Mucinex Contr Rel Tab) 1,200 mg Q12 PO 09/21/17 21:00 10/21/17 20:59 09/25/17 08:05 1,200 MG Sodium Chloride ([place] Nasal [place]) 2 sprays Q8 PRN NA 09/21/17 21:00 10/21/17 20:59 Albuterol/ Ipratropium (Duoneb) 3 ml Q4R INH 09/22/17 00:00 10/22/17 00:00 09/25/17 07:20 3 ML Albuterol (Ventolin Hfa Inhaler) 2 puffs QID PRN INH 09/21/17 21:00 10/21/17 20:59 Budesonide/ Formoterol Fumarate (Symbicort 160/ 4.5 Inh) 2 puffs BID INH 09/21/17 21:00 10/21/17 20:59 09/25/17 08:08 2 PUFFS Carvedilol (Coreg Tab) 25 mg BIDM PO 09/22/17 07:30 10/22/17 07:59 09/25/17 08:05 25 MG Escitalopram Oxalate (Lexapro Tab) 5 mg QAM PO 09/22/17 09:00 8/19/18 08:59 09/25/17 08:05 5 MG Furosemide (Lasix Tab) 80 mg QAM PO 09/22/17 09:00 10/22/17 08:59 Future Hold 09/24/17 08:08 80 MG Magnesium Chloride (Slow-Mag Tab) 64 mg BID PO 09/21/17 21:00 10/21/17 20:59 09/25/17 08:04 64 MG Montelukast Sodium (Singulair Tab) 10 mg HS PO 09/21/17 21:00 10/21/17 20:59 09/24/17 21:16 10 MG Nystatin (Mycostatin Susp) 5 ml QID PO 09/21/17 21:00 10/01/17 20:59 09/25/17 13:08 5 ML Prochlorperazine Maleate (Compazine Tab) 5 mg TID PRN PO 09/21/17 21:00 10/21/17 20:59 Pantoprazole Sodium (Protonix Tab) 40 mg DAILY PO 09/22/17 09:00 10/22/17 08:59 09/25/17 08:05 40 MG Psyllium Hydrophilic Mucilloid (Metamucil Powder) 1 pkt DAILY PO 09/22/17 09:00 10/22/17 08:59 09/24/17 08:13 1 PKT Cefepime HCl (Consult) 1 ea UD PRN N/A 09/21/17 21:45 10/21/17 21:44 Saccharomyces Boulardii (Florastor Cap) 250 mg DAILY PO 09/23/17 09:00 10/23/17 08:59 09/25/17 08:05 250 MG Enteral Nutritional Formula (Boost Pudding) 1 cup BID PO 09/22/17 21:00 10/22/17 20:59 09/25/17 11:15 1 CUP Cefepime HCl 2000 mg/Syringe 20 ml @ 5 mls/min Q12H IV 09/23/17 11:00 09/28/17 22:59 09/25/17 11:17 5 MLS/MIN Prednisone (PredniSONE TAB) 30 mg DAILY PO 09/25/17 09:00 10/25/17 08:59 09/25/17 08:04 30 MG Doxycycline Hyclate (Vibramycin Cap) 100 mg BID PO 09/25/17 21:00 09/29/17 09:01 Lactulose (Chronulac Syrup) 15 gm DAILY PO 09/26/17 09:00 10/21/17 20:59 Review of Systems Constitutional: + fever, + chills, + sweats, + weakness, + fatigue Eyes: No problem reported ENT: No problem reported Respiratory: + cough, + sputum, + shortness of breath, No hemoptysis Cardiovascular: No problem reported Abdomen: No problem reported Musculoskeletal: No problem reported Genitourinary - Female: No problem reported Neurologic: No problem reported Psychiatric: No problem reported Endocrine: No problem reported Hematologic / Lymphatic: No problem reported Integumentary: No problem reported Allergic / Immunologic: No problem reported Physical Exam Date Time Temp Pulse Resp B/P (MAP) Pulse Ox O2 Delivery O2 Flow Rate FiO2 09/25/17 14:17 69 91 09/25/17 11:56 36.3 60 20 110/77 (88) 96 Nasal Cannula 2.0 09/25/17 08:00 Nasal Cannula 2.0 09/25/17 07:46 36.4 59 18 117/79 (92) 98 Nasal Cannula 2.0 09/25/17 07:20 58 16 98 Nasal Cannula 2.0 09/25/17 03:39 64 16 98 Nasal Cannula 2.0 09/25/17 03:16 36.7 60 18 107/73 (84) 96 Nasal Cannula 2.0 09/25/17 00:00 Nasal Cannula 2.0 09/24/17 23:31 36.7 68 18 112/78 (89) 97 Nasal Cannula 2.0 09/24/17 23:02 60 16 98 Nasal Cannula 2.0 09/24/17 20:00 94 Room Air 09/24/17 19:57 36.7 66 20 111/75 (87) 98 Room Air 09/24/17 19:07 72 18 97 Room Air General Appearance: WD/WN, + mild distress Head: normocephalic, atraumatic Eyes: normal inspection, EOMI, sclerae normal ENT: normal ENT inspection, hearing grossly normal, pharynx normal Neck: supple, no adenopathy, thyroid normal, trachea midline Respiratory/Chest: chest non-tender, no respiratory distress, + rales (right) Cardiovascular: regular rate, rhythm, no gallop, no murmur Abdomen/GI: normal bowel sounds, non tender, soft, no organomegaly Back: normal inspection, no CVA tenderness Extremities/Musculoskelatal: normal inspection, no calf tenderness, non-tender Neurologic/Psych: alert, oriented x 3 Skin: normal color, warm/dry, no rash Lymphatic: no adenopathy Laboratory Results -- RUN DATE: 09/25/17 [facility] LAB PAGE 1 RUN TIME: 1128 Specimen Inquiry PATIENT: KATIA SCHAEFER [facility] # : [id number] AGE/SX: 77/F ROOM: [facility] REG : 09/21/[address]: Fabio Matute MD : 1940 BED: 1 DIS : STATUS: ADM IN TLOC: SPEC #: [id number] KATHERYN: 09/22/17 STATUS: COMP REQ #: [id number] RECD: 09/22/[address] [facility] [address]: Leatha Casillas MD SOURCE: SPUTUM ENTR: 09/22/17-[address] [facility] [address]: Cristy Harper M.D. SPDESC: EXP.SPUTUM Maia Vega D.O. Martin, Elizabeth M., D.O. Ratner, Jeffrey A., M.D. ORDERED: SPUT CULT/SMR COMMENTS: Has Specimen Been Obtained/Collected? Y Procedure Result Verified Site GRAM STAIN Final 09/23/17-1124 RESULT FEW EPITHELIAL CELLS MANY POLYS FEW GRAM POSITIVE BACILLI SPUTUM CULTURE Final 09/25/17 Organism 1 ASPERGILLUS FUMIGATUS QUANITY RARE SENS NO SENSITIVITY TO FOLLOW NORMAL GAVIN MODERATE NORMAL GAVIN Last 24 Hours Test 09/25/17 06:55 White Blood Count 9.13 K/uL Red Blood Count 4.89 M/uL Hemoglobin 12.0 g/dL Hematocrit 37.9 % Mean Corpuscular Volume 77.5 fL Mean Corpuscular Hemoglobin 24.5 pg Mean Corpuscular Hemoglobin Concent 31.7 g/dl RDW Standard Deviation 53.3 fL RDW Coefficient of Variation 19.1 % Platelet Count 185 K/uL Nucleated RBC Absolute Count (auto) 0.65 K/uL Nucleated Red Blood Cells % 7.2 % Prothrombin Time 35.7 SECONDS Prothromb Time International Ratio 3.5 Sodium Level 125 mmol/L Potassium Level 5.1 mmol/L Chloride Level 92 mmol/L Carbon Dioxide Level 24 mmol/L Anion Gap 9.0 mmol/L Blood Urea Nitrogen 62 mg/dl Creatinine 1.17 mg/dl Est Creatinine Clear Calc Drug Dose 38.9 ml/min Estimated GFR () 52.8 Estimated GFR (Non- 45.5 BUN/Creatinine Ratio 52.9 Random Glucose 139 mg/dl Calcium Level 9.7 mg/dl Total Bilirubin 1.5 mg/dl Aspartate Amino Transf (AST/SGOT) 95 U/L Alanine Aminotransferase (ALT/SGPT) 469 U/L Alkaline Phosphatase 184 U/L Total Protein 6.8 gm/dl Albumin 2.9 gm/dl Globulin 3.9 gm/dl Albumin/Globulin Ratio 0.7 Patient Name: KATIA SCHAEFER Unit Number: [id number] Dictated: 09/21/171931 Transcribed: 09/21/171931 JRB Printed Date/Time: [~ rep prt dt]/[~ rep prt tm] [~ rep ct labl] - [~ rep ct ivnm] [facility] Radiology Department [place] [id number] Dictated: 09/21/171931 Transcribed: 09/21/171931 JRB Printed Date/Time: [~ rep prt dt]/[~ rep prt tm] [~ rep ct labl] - [~ rep ct ivnm] (CHEST) THORAX WITHOUT CT DOSE: 219.82 mGy.cm CLINICAL HISTORY: 77 years-old Female with poss small pneumonia, worse, negative chest films. Acute cough with shortness of breath TECHNIQUE: Multiaxial CT images of the chest were performed without contrast. A dose lowering technique was utilized adhering to the principles of ALARA. COMPARISON: Chest radiograph of same day, CT abdomen and pelvis 08/21/2017 CT chest 02/24/2015 FINDINGS: Heterogeneous appearance of the thyroid with suggested 12 mm nodule the posterior left thyroid. There is streak artifact about the upper mediastinum secondary to pacer/AICD wires and sternotomy wires. Retained pacer wires are noted about the left upper chest wall. No thoracic aortic aneurysm. Moderate multichamber cardiac enlargement with [place] coronary arterial calcifications. Mitral valvular prosthesis noted. Mild dilation of the main pulmonary artery, 3.5 cm. Biapical pleural-parenchymal scarring. Mild upper lobe predominant centrilobular emphysema. Calcifications of the tracheobronchial tree. Respiratory motion limits evaluation of the lungs. There is no pneumothorax or pleural effusion. Linear subsegmental lateral consolidation about the lateral basal segment left lower lobe suggest atelectasis/scarring. Subsegmental consolidative opacities are noted about the intersegmental lingula. Patchy tree-in-bud nodules and subsegmental groundglass and consolidative nodular densities are seen about the right upper, middle and lower lobes. 4 mm nodular density of the right lower lobe on image 169 series 4. Subcentimeter calcified granuloma about the basal right lower lobe. Central airways are patent with mild peribronchial secretions. There is moderate narrowing about the bronchus intermedius as noted on image 117 series 4. Additionally, there is a millimeter nodular focus of soft tissue attenuation about the medial aspect of the bronchus intermedius on image 1:15 series 4. No acute process about the imaged upper abdomen. Liver appears enlarged and demonstrates decreased attenuation. Soft tissues are unremarkable. The bones appear intact. Multilevel spondylitic spurring. Schmorl's node seen within the superior right T11 with mild age-indeterminate anterior wedge deformity. No retropulsion. IMPRESSION: 1. Patchy tree-in-bud nodules with subsegmental groundglass and consolidative nodular densities are seen about the right upper, middle and lower lobes with subsegmental alveolar opacities of the inferior segment lingula suggesting infectious bronchiolitis with pneumonitis. 2. Moderate narrowing of the bronchus intermedius is new from comparison chest CT 02/24/2015. Additionally, there is a focal 8 mm area of nodularity about the medial aspect of the bronchus intermedius suspicious for an endobronchial mass lesion. This could be further evaluated with bronchoscopy. 3. Cardiomegaly with prior median sternotomy and prosthetic mitral valve. 4. Hepatomegaly with hepatic steatosis. 5. Additional findings as above. Electronically signed by: Adi Santos M.D. 09/21/2017 7:47 PM Dictated Date/Time: 09/21/2017 7:32 PM The status of this report is Signed. Draft = Not yet reviewed or approved by Radiologist. Signed = Reviewed and approved by Radiologist. <AttendingPhy></AttendingPhy> <FamilyPhy>Maia Vega D.O.</FamilyPhy> < PrimaryPhy>Maia Vega D.O.</PrimaryPhy> <UnitNumber>[id number]</ UnitNumber> <VisitNumber>[id number]</VisitNumber> <PatientName>KATIA SCHAEFER</PatientName> <DateOfBirth>1940</DateOfBirth> <Location>[facility]</Location > <ServiceDate>09/21/17</ServiceDate> <MNE>ESINDI</MNE> <OrderingPhy>Haja Bedoya M.D.</OrderingPhy> <OrderingPhyMNE>f rep ord dr de anda</OrderingPhyMNE> < DictatingPhyMNE>f rep dict dr de anda</DictatingPhyMNE> <CCListMNE>f rep ct yaminie</ CCListMNE> <AdmittingPhyMNE>f pt admit dr de anda</AdmittingPhyMNE> <AttendingPhyMNE >f pt attend dr de anda</AttendingPhyMNE> <ConsultingPhyMNE>f pt consult dr de anda</ConsultingPhyMNE> <FamilyPhyMNE>f pt fam dr de anad</FamilyPhyMNE> <OtherPhyMNE>f pt other dr de anda</OtherPhyMNE> < PrimaryPhyMNE>f pt prim care dr de anda</PrimaryPhyMNE> <ReferringPhyMNE>f pt referring dr de anda</ReferringPhyMNE> Assessment & Plan 77-year-old female with COPD on inhaled and intermittent oral steroid therapy, now with acute pulmonary process with CT scan suggesting infectious bronchiolitis with pneumonitis with positive sputum culture for Aspergillus. Association of SIADH with Aspergillus infections has been reported, so need to take this positive culture seriously. Agree that bronchoscopy would be quite useful in helping with diagnosis. May want to consider empiric trial of voriconazole. Will discuss with all involved. Will follow.
--- NOTE | 2017-09-25 16:13 | Nephrology Consultation ---
Nephrology Consultation Date & Providers Date of Consultation: Sep 25, 2017. Primary Care Provider: Maia Vega D.O. Referring Provider: Reason for Consultation CKD, hyponatremia and pulmonary vascular congestion History of Present Illness Mrs. Rod is a 77-year-old white female who is seen at the request of Dr. Matute for evaluation of CKD, hyponatremia and pulmonary vascular congestion. Medical records in the hospital EMR were reviewed during the patient's evaluation today and are summarized as follows: Mrs. Rod has a history of dilated cardiomyopathy and valvular heart disease. She has undergone mitral valve annuloplasty in the past. Echocardiogram 06/21 has revealed an LVEF 20 - 25% w/ global hypokinesis of the LV, moderate MR, pulmonary hypertension and moderate tricuspid regurgitation. There was moderate RV dilation and severe biatrial dilation. The patient has a history of Brugada syndrome (right ventricular arrhythmias). She has undergone AICD implantation. She has amiodarone induced hypothyroidism. Patient presented to the ED 09/21/17 for evaluation of cough productive of brown sputum, weakness and progressive LE swelling. She was also found to have significant transaminitis. 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 Lisinopril (Verified Allergy, Unknown, UNKNOWN, 09/07/17) Penicillins (Verified Allergy, Unknown, UNKNOWN, 09/07/17) Procainamide (Verified Allergy, Unknown, UNKNOWN, 09/07/17) Inpatient Medications Current Inpatient Medications Medications (Trade) Dose Ordered Sig/Golden Route Start Time Stop Time Status Last Admin Dose Admin Ondansetron HCl (Zofran Inj) 4 mg Q6H PRN IV 09/21/17 21:00 10/21/17 20:59 Guaifenesin (Mucinex Contr Rel Tab) 1,200 mg Q12 PO 09/21/17 21:00 10/21/17 20:59 09/25/17 08:05 1,200 MG Sodium Chloride ([place] Nasal [place]) 2 sprays Q8 PRN NA 09/21/17 21:00 10/21/17 20:59 Albuterol/ Ipratropium (Duoneb) 3 ml Q4R INH 09/22/17 00:00 10/22/17 00:00 09/25/17 15:40 3 ML Albuterol (Ventolin Hfa Inhaler) 2 puffs QID PRN INH 09/21/17 21:00 10/21/17 20:59 Budesonide/ Formoterol Fumarate (Symbicort 160/ 4.5 Inh) 2 puffs BID INH 09/21/17 21:00 10/21/17 20:59 09/25/17 08:08 2 PUFFS Carvedilol (Coreg Tab) 25 mg BIDM PO 09/22/17 07:30 10/22/17 07:59 09/25/17 08:05 25 MG Escitalopram Oxalate (Lexapro Tab) 5 mg QAM PO 09/22/17 09:00 10/22/17 08:59 09/25/17 08:05 5 MG Furosemide (Lasix Tab) 80 mg QAM PO 09/22/17 09:00 10/22/17 08:59 Future Hold 09/24/17 08:08 80 MG Magnesium Chloride (Slow-Mag Tab) 64 mg BID PO 09/21/17 21:00 10/21/17 20:59 09/25/17 08:04 64 MG Montelukast Sodium (Singulair Tab) 10 mg HS PO 09/21/17 21:00 10/21/17 20:59 09/24/17 21:16 10 MG Nystatin (Mycostatin Susp) 5 ml QID PO 09/21/17 21:00 7/29/18 20:59 09/25/17 13:08 5 ML Prochlorperazine Maleate (Compazine Tab) 5 mg TID PRN PO 09/21/17 21:00 10/21/17 20:59 Pantoprazole Sodium (Protonix Tab) 40 mg DAILY PO 09/22/17 09:00 10/22/17 08:59 09/25/17 08:05 40 MG Psyllium Hydrophilic Mucilloid (Metamucil Powder) 1 pkt DAILY PO 09/22/17 09:00 10/22/17 08:59 09/24/17 08:13 1 PKT Cefepime HCl (Consult) 1 ea UD PRN N/A 09/21/17 21:45 10/21/17 21:44 Saccharomyces Boulardii (Florastor Cap) 250 mg DAILY PO 09/23/17 09:00 10/23/17 08:59 09/25/17 08:05 250 MG Enteral Nutritional Formula (Boost Pudding) 1 cup BID PO 09/22/17 21:00 10/22/17 20:59 09/25/17 11:15 1 CUP Cefepime HCl 2000 mg/Syringe 20 ml @ 5 mls/min Q12H IV 09/23/17 11:00 09/28/17 22:59 09/25/17 11:17 5 MLS/MIN Prednisone (PredniSONE TAB) 30 mg DAILY PO 09/25/17 09:00 10/25/17 08:59 09/25/17 08:04 30 MG Doxycycline Hyclate (Vibramycin Cap) 100 mg BID PO 09/25/17 21:00 09/29/17 09:01 Lactulose (Chronulac Syrup) 15 gm DAILY PO 09/26/17 09:00 10/21/17 20:59 Family History Cancer Diabetes mellitus FH: CVA (cerebrovascular accident) Heart disease Seizures Negative for CKD / ESRD Social History Smoking Status: Never Smoker Smokeless Tobacco Use: No Drug Use: none Marital Status: Housing Status: lives with family, assisted living Occupation: retired . Lives with in [place], [place]. Denies tobacco or alcohol use. Review of Systems Constitutional: No fever Respiratory: + dyspnea on exertion, No cough Cardiovascular: No chest pain Abdomen: No pain, No nausea, No vomiting Genitourinary - Female: No dysuria Neurologic: + weakness A complete review of systems was performed. Pertinent positives are noted above. All other systems are negative. Physical Exam Date Time Temp Pulse Resp B/P (MAP) Pulse Ox O2 Delivery O2 Flow Rate FiO2 09/25/17 15:40 58 16 95 Room Air 09/25/17 14:17 69 91 09/25/17 11:56 36.3 60 20 110/77 (88) 96 Nasal Cannula 2.0 09/25/17 08:00 Nasal Cannula 2.0 09/25/17 07:46 36.4 59 18 117/79 (92) 98 Nasal Cannula 2.0 09/25/17 07:20 58 16 98 Nasal Cannula 2.0 09/25/17 03:39 64 16 98 Nasal Cannula 2.0 09/25/17 03:16 36.7 60 18 107/73 (84) 96 Nasal Cannula 2.0 09/25/17 00:00 Nasal Cannula 2.0 09/24/17 23:31 36.7 68 18 112/78 (89) 97 Nasal Cannula 2.0 09/24/17 23:02 60 16 98 Nasal Cannula 2.0 09/24/17 20:00 94 Room Air 09/24/17 19:57 36.7 66 20 111/75 (87) 98 Room Air 09/24/17 19:07 72 18 97 Room Air General Appearance: + mild distress (develops [place]) Head: atraumatic Eyes: PERRL, EOMI Neck: + JVD (to angle of jaw) Respiratory/Chest: + rales Cardiovascular: regular rate, rhythm Abdomen/GI: normal bowel sounds, non tender, soft Extremities/Musculoskelatal: + swelling (trace to 1+ pretibial edema) Neurologic/Psych: alert, oriented x 3 Laboratory Results Last 24 Hours Test 09/25/17 06:55 White Blood Count 9.13 K/uL Red Blood Count 4.89 M/uL Hemoglobin 12.0 g/dL Hematocrit 37.9 % Mean Corpuscular Volume 77.5 fL Mean Corpuscular Hemoglobin 24.5 pg Mean Corpuscular Hemoglobin Concent 31.7 g/dl RDW Standard Deviation 53.3 fL RDW Coefficient of Variation 19.1 % Platelet Count 185 K/uL Nucleated RBC Absolute Count (auto) 0.65 K/uL Nucleated Red Blood Cells % 7.2 % Prothrombin Time 35.7 SECONDS Prothromb Time International Ratio 3.5 Sodium Level 125 mmol/L Potassium Level 5.1 mmol/L Chloride Level 92 mmol/L Carbon Dioxide Level 24 mmol/L Anion Gap 9.0 mmol/L Blood Urea Nitrogen 62 mg/dl Creatinine 1.17 mg/dl Est Creatinine Clear Calc Drug Dose 38.9 ml/min Estimated GFR () 52.8 Estimated GFR (Non- 45.5 BUN/Creatinine Ratio 52.9 Random Glucose 139 mg/dl Calcium Level 9.7 mg/dl Total Bilirubin 1.5 mg/dl Aspartate Amino Transf (AST/SGOT) 95 U/L Alanine Aminotransferase (ALT/SGPT) 469 U/L Alkaline Phosphatase 184 U/L Total Protein 6.8 gm/dl Albumin 2.9 gm/dl Globulin 3.9 gm/dl Albumin/Globulin Ratio 0.7 Impression (1) Chronic kidney disease (2) Hyponatremia (3) Pneumonia (4) Congestive heart failure (5) Implantation of automatic cardioverter/defibrillator, total system (6) Weakness (7) Liver enzyme elevation (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 Kidney function remains stable at this time. Will monitor. -- Urine sediment is benign. No hematuria, proteinuria or cellular casts -- CKD is likely on the basis of impaired renal perfusion related to chronic CHF HYPONATREMIA: -- Patient has chronic hyponatremia on the basis of chronic CHF. Serum sodium typically runs 125 - 130 mmol / L. Serum sodium is stable at this time. Will monitor CHRONIC CHF: -- CXR film reviewed today. Patient does have mild pulmonary vascular congestion. EDW appears to be ~ 70 kg. -- Will provide IV Furosemide today to help alleviate pulmonary vascular congestion and LE edema. May need to accept worsening kidney function in order to alleviate edema and maintain patient's functionality GI: -- Patient presented w/ marked transaminitis. LFT's are trending down. Will monitor
[2017-09-25] MEDS: MONTELUKAST SOD 10 MG TAB PO SCH (20:46)
[2017-09-25] MEDS: DOXYCYCLINE HYCLATE 100 MG CAP PO SCH (20:48)
[2017-09-26] VITALS (13 sets, daily range): BP systolic 109–121; BP diastolic 74–82; PULSE 59–73; TEMP 36.4–36.9; O2SAT 91–97
[2017-09-26] MEDS: ALBUT/IPRATROP 3MG/0.5MG NEB 3 ML VIAL INH SCH ×6 (03:35→23:25)
[2017-09-26 07:44] LABS: INR 2.9 (0.9-1.1)
[2017-09-26] MEDS: PANTOprazole SOD 40 MG TAB PO SCH (07:50)
[2017-09-26] MEDS: GUAIFENESIN 600 MG TABCR PO SCH ×2 (07:50→21:18)
[2017-09-26] MEDS: ESCITALOPRAM OXALATE 10 MG TAB PO SCH (07:50)
[2017-09-26] MEDS: DOXYCYCLINE HYCLATE 100 MG CAP PO SCH ×2 (07:51→21:18)
[2017-09-26] MEDS: MAGNESIUM CHLORIDE 64MG DELAYED REL TAB PO SCH ×2 (07:51→21:18)
[2017-09-26] MEDS: CARVEDILOL 25 MG TAB PO SCH ×2 (07:51→17:52)
[2017-09-26] MEDS: SACCHAROMYCES BOUL (FLORASTOR) 250 MG CAP PO SCH (07:51)
[2017-09-26] MEDS: BUDESONIDE/FORMOTEROL FUMARATE 160/4.5 60 PUFFS/INHALER INH SCH ×2 (07:52→21:17)
[2017-09-26] MEDS: PSYLLIUM 58.6% PWD PACK S\\F PO SCH (07:52)
[2017-09-26] MEDS: NYSTATIN SUSP 500,000 U/5 ML UDC PO SCH ×4 (07:52→21:18)
[2017-09-26] MEDS: LACTULOSE SYRUP 20 GM/30 ML UDC PO SCH (07:53)
[2017-09-26 08:04] LABS: CALCIUM 9.5 mg/dl (8.5-10.1); CREATININE 1.11 mg/dl (0.60-1.20); POTASSIUM 4.8 mmol/L (3.5-5.1); TOTAL PROTEIN 6.9 gm/dl (6.4-8.2)
[2017-09-26] MEDS: BOOST VANILLA PUDDING CUP PO SCH ×2 (09:00→22:29)
--- NOTE | 2017-09-26 09:39 | Gastroenterology Progress Note ---
Progress Note Date of Service: Sep 26, 2017 Subjective Pt evaluation today including: conversation w/ patient, physical exam, chart review, lab review, review of inpatient medication list Pt feels tired today, having trouble swallowing magnesium med, some n/v this AM. Denies any abd pain. Review of Systems Constitutional: No fever, No chills Respiratory: No cough, No shortness of breath Cardiac: No chest pain Abdomen: + nausea, + vomiting, No pain Medications Current Inpatient Medications Medications (Trade) Dose Ordered Sig/Golden Route Start Time Stop Time Status Last Admin Dose Admin Ondansetron HCl (Zofran Inj) 4 mg Q6H PRN IV 09/21/17 21:00 10/21/17 20:59 Guaifenesin (Mucinex Contr Rel Tab) 1,200 mg Q12 PO 09/21/17 21:00 10/21/17 20:59 09/26/17 07:50 1,200 MG Sodium Chloride ([place] Nasal [place]) 2 sprays Q8 PRN NA 09/21/17 21:00 10/21/17 20:59 Albuterol/ Ipratropium (Duoneb) 3 ml Q4R INH 09/22/17 00:00 10/22/17 00:00 09/26/17 07:13 3 ML Albuterol (Ventolin Hfa Inhaler) 2 puffs QID PRN INH 09/21/17 21:00 10/21/17 20:59 Budesonide/ Formoterol Fumarate (Symbicort 160/ 4.5 Inh) 2 puffs BID INH 09/21/17 21:00 10/21/17 20:59 09/26/17 07:52 2 PUFFS Carvedilol (Coreg Tab) 25 mg BIDM PO 09/22/17 07:30 10/22/17 07:59 09/26/17 07:51 25 MG Escitalopram Oxalate (Lexapro Tab) 5 mg QAM PO 09/22/17 09:00 10/22/17 08:59 09/26/17 07:50 5 MG Furosemide (Lasix Tab) 80 mg QAM PO 09/22/17 09:00 10/22/17 08:59 Future Hold 09/24/17 08:08 80 MG Magnesium Chloride (Slow-Mag Tab) 64 mg BID PO 09/21/17 21:00 10/21/17 20:59 09/26/17 07:51 64 MG Montelukast Sodium (Singulair Tab) 10 mg HS PO 09/21/17 21:00 10/21/17 20:59 09/25/17 20:46 10 MG Nystatin (Mycostatin Susp) 5 ml QID PO 09/21/17 21:00 10/01/17 20:59 09/26/17 07:52 5 ML Prochlorperazine Maleate (Compazine Tab) 5 mg TID PRN PO 09/21/17 21:00 10/21/17 20:59 Pantoprazole Sodium (Protonix Tab) 40 mg DAILY PO 09/22/17 09:00 10/22/17 08:59 09/26/17 07:50 40 MG Psyllium Hydrophilic Mucilloid (Metamucil Powder) 1 pkt DAILY PO 09/22/17 09:00 10/22/17 08:59 09/24/17 08:13 1 PKT Cefepime HCl (Consult) 1 ea UD PRN N/A 09/21/17 21:45 10/21/17 21:44 Saccharomyces Boulardii (Florastor Cap) 250 mg DAILY PO 09/23/17 09:00 10/23/17 08:59 09/26/17 07:51 250 MG Enteral Nutritional Formula (Boost Pudding) 1 cup BID PO 09/22/17 21:00 10/22/17 20:59 09/25/17 20:45 1 CUP Cefepime HCl 2000 mg/Syringe 20 ml @ 5 mls/min Q12H IV 09/23/17 11:00 09/28/17 22:59 09/25/17 22:30 5 MLS/MIN Prednisone (PredniSONE TAB) 30 mg DAILY PO 09/25/17 09:00 10/25/17 08:59 09/26/17 07:50 30 MG Doxycycline Hyclate (Vibramycin Cap) 100 mg BID PO 09/25/17 21:00 09/29/17 09:01 09/26/17 07:51 100 MG Lactulose (Chronulac Syrup) 15 gm DAILY PO 09/26/17 09:00 10/21/17 20:59 09/26/17 07:53 15 GM Objective Vital Signs Date Time Temp Pulse Resp B/P (MAP) Pulse Ox O2 Delivery O2 Flow Rate FiO2 09/26/17 07:46 36.4 63 20 112/74 (87) 97 Room Air 09/26/17 07:13 59 16 92 Room Air 09/26/17 03:00 36.6 69 17 109/79 (89) 96 Room Air 09/26/17 00:00 36.7 59 18 115/78 (90) 97 Room Air 09/25/17 23:59 Room Air 09/25/17 23:43 60 16 96 Room Air 09/25/17 20:08 60 16 97 Room Air 09/25/17 19:08 36.5 62 20 116/77 (90) 95 Room Air 09/25/17 16:19 36.6 61 20 108/80 (89) 96 Room Air 09/25/17 16:00 96 Room Air 09/25/17 15:40 58 16 95 Room Air 09/25/17 14:17 69 91 09/25/17 11:56 36.3 60 20 110/77 (88) 96 Nasal Cannula 2.0 Physical Exam General Appearance: + mild distress (states feel tired) Neck: supple, no JVD, trachea midline Respiratory/Chest: no respiratory distress, no accessory muscle use, + decreased breath sounds Cardiovascular: regular rate, rhythm, no gallop, no murmur Abdomen: normal bowel sounds, non tender, soft Extremities: normal inspection, no pedal edema, no calf tenderness Neurologic/Psych: alert, normal mood/affect, oriented x 3 Skin: normal color, no jaundice, no rash Laboratory Results Last 24 Hours Test 09/26/17 07:17 Prothrombin Time 29.4 SECONDS Prothromb Time International Ratio 2.9 Sodium Level 127 mmol/L Potassium Level 4.8 mmol/L Chloride Level 94 mmol/L Carbon Dioxide Level 23 mmol/L Anion Gap 10.0 mmol/L Blood Urea Nitrogen 74 mg/dl Creatinine 1.11 mg/dl Est Creatinine Clear Calc Drug Dose 41.0 ml/min Estimated GFR () 56.3 Estimated GFR (Non- 48.5 BUN/Creatinine Ratio 66.9 Random Glucose 117 mg/dl Calcium Level 9.5 mg/dl Magnesium Level 2.3 mg/dl Total Bilirubin 1.5 mg/dl Direct Bilirubin 0.8 mg/dl Aspartate Amino Transf (AST/SGOT) 73 U/L Alanine Aminotransferase (ALT/SGPT) 407 U/L Alkaline Phosphatase 190 U/L Ammonia 38.1 umol/L Total Protein 6.9 gm/dl Albumin 3.0 gm/dl Assessment and Plan Patient is a 77 year old female w 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 She mentioned use of Tylenol w Codeine and Also Zpack prior to admission but daughter reports Tylenol use is minimal and they never picked up Zpack prescription. Her liver u/s showed no signs of PVT. She is mentating well , just tired and sluggish. INR is 3.5, previously 8 when admitted. Cr better. LFTs are decreasing. LFT pattern, pt's hx of heart disease, respiratory disease all suspicious for shock liver which is improving. - No further plans from GI standpoint ; will watch peripherally - Continue supportive care and monitor LFTs - Consider Vit K to help reduce INR -> spoke w Dr. Juarez, INR trending down, will hold Vit K for now - Ammonia level 38, decreased from prior. She doesn't have asterixis or other signs of encephalopathy. Was started on Lactulose this AM but I don't feel she has strong indication for this thus may DC. Lactulose also can have side effect of abd distension, pain and these in the past had been a problem with pt. - Avoid hepatotoxic meds. ATTESTATION: I have performed a history and physical examination of this patient and reviewed the electronic record. Specifically on physical examination there is no abdominal tenderness. I have discussed the case with NYDIA Castro. The above note reflects my findings, conclusions, and recommendations. Yahir Patrick MD
[2017-09-26] MEDS: CEFEPIME IV 2,000 MG in SYRINGE 7.5 ML IV SCH ×2 (11:03→22:30)
--- NOTE | 2017-09-26 11:50 | Nephrology Progress Note ---
Nephrology Progress Note Date of Service Sep 26, 2017. Chief Complaint CKD, hyponatremia and pulmonary vascular congestion Subjective Mrs. Rod was seen & examined in her hospital room this morning. She reports nausea and difficulty keeping down her oral medications. She had one episode of emesis this morning. Her breathing is improved. She is breathing comfortably flat in bed on RA. Review of Systems Constitutional: No fever Cardiovascular: No chest pain Respiratory: No dyspnea at rest Abdomen: + nausea, + vomiting Extremities: + leg edema A complete review of systems was performed. Pertinent positives are noted above. All other systems are negative. Vital Signs Last 8 Hrs Date Time Temp Pulse Resp B/P (MAP) Pulse Ox O2 Delivery O2 Flow Rate FiO2 09/26/17 11:41 36.9 62 18 120/78 (92) 92 09/26/17 11:15 60 16 94 Room Air 09/26/17 08:00 Room Air 09/26/17 07:46 36.4 63 20 112/74 (87) 97 Room Air 09/26/17 07:13 59 16 92 Room Air Last Recorded Weight Weight (Kilograms): 69.600 Physical Exam General Appearance: no apparent distress, + pertinent finding (frail appearing) Head: atraumatic Eyes: PERRL Neck: no adenopathy Respiratory/Chest: no respiratory distress, + crackles Cardiovascular: regular rate, rhythm Abdomen/GI: normal bowel sounds, non tender, soft Extremities/Musculoskelatal: + swelling (1+ pretibial piting edema) Neurologic/Psych: alert Family History Cancer Diabetes mellitus FH: CVA (cerebrovascular accident) Heart disease Seizures Negative for CKD / ESRD Social History Smoking Status: Never smoker Smokeless Tobacco Use: No Drug Use: none Marital Status: Housing Status: lives with family, assisted living Occupation: retired . Lives with in [place], [place]. Denies tobacco or alcohol use. Laboratory Results Past 24 Hours 09/26/17 07:17 Test 09/26/17 07:17 Prothrombin Time 29.4 SECONDS (9.0-12.0) Prothromb Time International Ratio 2.9 (0.9-1.1) Anion Gap 10.0 mmol/L (3-11) Est Creatinine Clear Calc Drug Dose 41.0 ml/min Estimated GFR () 56.3 Estimated GFR (Non- 48.5 BUN/Creatinine Ratio 66.9 (10-20) Calcium Level 9.5 mg/dl (8.5-10.1) Magnesium Level 2.3 mg/dl (1.8-2.4) Total Bilirubin 1.5 mg/dl (0.2-1) Direct Bilirubin 0.8 mg/dl (0-0.2) Aspartate Amino Transf (AST/SGOT) 73 U/L (15-37) Alanine Aminotransferase (ALT/SGPT) 407 U/L (12-78) Alkaline Phosphatase 190 U/L (45-117) Ammonia 38.1 umol/L (11-32) Total Protein 6.9 gm/dl (6.4-8.2) Albumin 3.0 gm/dl (3.4-5.0) Allergies Coded Allergies: AMADOU Inhibitors (Verified Allergy, Unknown, UNKNOWN, 09/07/17) Amiodarone (Verified Allergy, Unknown, UNKNOWN, 09/07/17) Azithromycin (Verified Allergy, Unknown, UNKNOWN, 09/07/17) Clarithromycin (Verified Allergy, Unknown, UNKNOWN, 09/07/17) Hydralazine (Verified Allergy, Unknown, UNKNOWN, 09/07/17) Hydrochlorothiazide (Verified Allergy, Unknown, RASH, 09/07/17) Pt unsure of reaction, possible rash. Lisinopril (Verified Allergy, Unknown, UNKNOWN, 09/07/17) Penicillins (Verified Allergy, Unknown, UNKNOWN, 09/07/17) Procainamide (Verified Allergy, Unknown, UNKNOWN, 09/07/17) Medications Current Inpatient Medications Medications (Trade) Dose Ordered Sig/Golden Route Start Time Stop Time Status Last Admin Dose Admin Ondansetron HCl (Zofran Inj) 4 mg Q6H PRN IV 09/21/17 21:00 10/21/17 20:59 Guaifenesin (Mucinex Contr Rel Tab) 1,200 mg Q12 PO 09/21/17 21:00 10/21/17 20:59 09/26/17 07:50 1,200 MG Sodium Chloride ([place] Nasal [place]) 2 sprays Q8 PRN NA 09/21/17 21:00 10/21/17 20:59 Albuterol/ Ipratropium (Duoneb) 3 ml Q4R INH 09/22/17 00:00 10/22/17 00:00 09/26/17 11:15 3 ML Albuterol (Ventolin Hfa Inhaler) 2 puffs QID PRN INH 09/21/17 21:00 10/21/17 20:59 Budesonide/ Formoterol Fumarate (Symbicort 160/ 4.5 Inh) 2 puffs BID INH 09/21/17 21:00 10/21/17 20:59 09/26/17 07:52 2 PUFFS Carvedilol (Coreg Tab) 25 mg BIDM PO 09/22/17 07:30 10/22/17 07:59 09/26/17 07:51 25 MG Escitalopram Oxalate (Lexapro Tab) 5 mg QAM PO 09/22/17 09:00 10/22/17 08:59 09/26/17 07:50 5 MG Furosemide (Lasix Tab) 80 mg QAM PO 09/22/17 09:00 10/22/17 08:59 Future Hold 09/24/17 08:08 80 MG Magnesium Chloride (Slow-Mag Tab) 64 mg BID PO 09/21/17 21:00 10/21/17 20:59 09/26/17 07:51 64 MG Montelukast Sodium (Singulair Tab) 10 mg HS PO 09/21/17 21:00 10/21/17 20:59 09/25/17 20:46 10 MG Nystatin (Mycostatin Susp) 5 ml QID PO 09/21/17 21:00 10/01/17 20:59 09/26/17 07:52 5 ML Prochlorperazine Maleate (Compazine Tab) 5 mg TID PRN PO 09/21/17 21:00 10/21/17 20:59 Pantoprazole Sodium (Protonix Tab) 40 mg DAILY PO 09/22/17 09:00 10/22/17 08:59 09/26/17 07:50 40 MG Psyllium Hydrophilic Mucilloid (Metamucil Powder) 1 pkt DAILY PO 09/22/17 09:00 10/22/17 08:59 09/24/17 08:13 1 PKT Cefepime HCl (Consult) 1 ea UD PRN N/A 09/21/17 21:45 10/21/17 21:44 Saccharomyces Boulardii (Florastor Cap) 250 mg DAILY PO 09/23/17 09:00 10/23/17 08:59 09/26/17 07:51 250 MG Enteral Nutritional Formula (Boost Pudding) 1 cup BID PO 09/22/17 21:00 10/22/17 20:59 09/25/17 20:45 1 CUP Cefepime HCl 2000 mg/Syringe 20 ml @ 5 mls/min Q12H IV 09/23/17 11:00 09/28/17 22:59 09/26/17 11:03 5 MLS/MIN Prednisone (PredniSONE TAB) 30 mg DAILY PO 09/25/17 09:00 10/25/17 08:59 09/26/17 07:50 30 MG Doxycycline Hyclate (Vibramycin Cap) 100 mg BID PO 09/25/17 21:00 09/29/17 09:01 09/26/17 07:51 100 MG Lactulose (Chronulac Syrup) 15 gm DAILY PO 09/26/17 09:00 10/21/17 20:59 09/26/17 07:53 15 GM Impression (1) Chronic kidney disease (2) Hyponatremia (3) Pneumonia (4) Congestive heart failure (5) Implantation of automatic cardioverter/defibrillator, total system (6) Weakness (7) Liver enzyme elevation (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 Kidney function remains stable at this time. Will monitor. -- Urine sediment is benign. No hematuria, proteinuria or cellular casts -- CKD is likely on the basis of impaired renal perfusion related to chronic CHF HYPONATREMIA: -- Patient has chronic hyponatremia on the basis of chronic CHF. Serum sodium typically runs 125 - 130 mmol / L. Serum sodium is stable at this time. Will monitor CHRONIC CHF: -- I&O's matched overnight however patient is clinically improved. She is breathing comfortably on RA flat in bed -- Will provide IV Furosemide today to help alleviate pulmonary vascular congestion and LE edema. May need to accept worsening kidney function in order to alleviate edema and maintain patient's functionality GI: -- Patient presented w/ marked transaminitis. LFT's are trending down. Will monitor ID: -- Bronchiolitis w/ pneumonitis. Sputum is positive for aspergillus. ID has been consulted.
[2017-09-26] MEDS ORDERED: FUROSEMIDE INJ 80 MG in SYRINGE 0 ML IV SCH (12:00)
[2017-09-26] MEDS ORDERED: BENZONATATE 100MG CAP PO ONE (14:45)
--- NOTE | 2017-09-26 14:58 | PULMONARY PROGRESS NOTE ---
DATE: 09/26/2017 TIME: 2:40 p.m. SUBJECTIVE: The patient feels about the same. She is very fatigued and sleepy. She is weak. She is still coughing. She states the cough bothers her a lot at night. We had ordered a sputum for fungal smear and culture, which apparently has not been collected as of yet. OBJECTIVE: GENERAL: The patient appears weak. She appears very sleepy. She does orient. VITAL SIGNS: Temperature is 36.9. Her cardiac rate was 62 beats per minute. The rhythm was regular. Blood pressure was 120/78. She has a prominent left ventricular lift. HEART: There is a grade 2-3/6 systolic murmur. LUNGS: Auscultation of the lung cloud again revealed mild rhonchi bilaterally. Respiratory rate 18 breaths per minute. Saturation 92%. This was on room air. EXTREMITIES: Again revealed +1 to +2 edema. LABORATORY DATA: INR today is 2.9. It is slowly decreasing. Chemistry today showed the AST down to 73 and it previously was 95. ALT is 407 and previously had been 469. Total bilirubin is 1.5. Sodium is 127, potassium 4.8, chloride 94, bicarbonate 23. BUN was 74 with a creatinine of 1.1. IMPRESSIONS: 1. Acute bronchitis. 2. Sputum positive for Aspergillus. 3. Abnormal CAT scan of the chest - rule out endobronchial mass. 4. Chronic obstructive pulmonary disease. COMMENTS AND RECOMMENDATIONS: The patient's overall status remains about the same, but it certainly is not great. She seems not quite as good since the methylprednisolone was stopped and prednisone was started. There obviously could be other factors as well. She remains on the cefepime and doxycycline. She remains on the albuterol/ipratropium. Case was discussed with Dr. Matute. She is certainly not a candidate for bronchoscopy at present. Her INR is prolonged. Her liver functions are still significantly abnormal. If the liver functions stay elevated, they would worsen the risk for side effects from sedation. We will keep reevaluating her on a day by day basis. It seems that she just has multiple overall complications from different organ systems. MTDD
[2017-09-26 15:44] LABS: ANA SCREEN TC 249X NEGATIVE (NEGATIVE); HEPATITIS A IGM TC 51813E NON-REACTIVE (NON-REACTIVE); HEPATITIS B CORE IGM TC51854R NON-REACTIVE (NON-REACTIVE)
--- NOTE | 2017-09-26 15:51 | Infectious Disease Progress Nt ---
Progress Note Date of Service Sep 26, 2017. Subjective Pt evaluation today including: conversation w/ patient, physical exam, chart review, lab review, review of studies, conversation w/ it solutions sales consultant, review of inpatient medication list Still weak and fatigued with persistent cough. Feels slightly worse than yesterday. Remains afebrile. All Other Systems: Reviewed and Negative Medications Current Inpatient Medications Medications (Trade) Dose Ordered Sig/Golden Route Start Time Stop Time Status Last Admin Dose Admin Ondansetron HCl (Zofran Inj) 4 mg Q6H PRN IV 09/21/17 21:00 10/21/17 20:59 Guaifenesin (Mucinex Contr Rel Tab) 1,200 mg Q12 PO 09/21/17 21:00 10/21/17 20:59 09/26/17 07:50 1,200 MG Sodium Chloride ([place] Nasal [place]) 2 sprays Q8 PRN NA 09/21/17 21:00 10/21/17 20:59 Albuterol/ Ipratropium (Duoneb) 3 ml Q4R INH 09/22/17 00:00 10/22/17 00:00 09/26/17 15:12 3 ML Albuterol (Ventolin Hfa Inhaler) 2 puffs QID PRN INH 09/21/17 21:00 10/21/17 20:59 Budesonide/ Formoterol Fumarate (Symbicort 160/ 4.5 Inh) 2 puffs BID INH 09/21/17 21:00 10/21/17 20:59 09/26/17 07:52 2 PUFFS Carvedilol (Coreg Tab) 25 mg BIDM PO 09/22/17 07:30 10/22/17 07:59 09/26/17 07:51 25 MG Escitalopram Oxalate (Lexapro Tab) 5 mg QAM PO 09/22/17 09:00 10/22/17 08:59 09/26/17 07:50 5 MG Furosemide (Lasix Tab) 80 mg QAM PO 09/22/17 09:00 10/22/17 08:59 Future Hold 09/24/17 08:08 80 MG Magnesium Chloride (Slow-Mag Tab) 64 mg BID PO 09/21/17 21:00 10/21/17 20:59 09/26/17 07:51 64 MG Montelukast Sodium (Singulair Tab) 10 mg HS PO 09/21/17 21:00 10/21/17 20:59 09/25/17 20:46 10 MG Nystatin (Mycostatin Susp) 5 ml QID PO 09/21/17 21:00 10/01/17 20:59 09/26/17 12:57 5 ML Prochlorperazine Maleate (Compazine Tab) 5 mg TID PRN PO 09/21/17 21:00 10/21/17 20:59 Pantoprazole Sodium (Protonix Tab) 40 mg DAILY PO 09/22/17 09:00 10/22/17 08:59 09/26/17 07:50 40 MG Psyllium Hydrophilic Mucilloid (Metamucil Powder) 1 pkt DAILY PO 09/22/17 09:00 10/22/17 08:59 09/24/17 08:13 1 PKT Cefepime HCl (Consult) 1 ea UD PRN N/A 09/21/17 21:45 10/21/17 21:44 Saccharomyces Boulardii (Florastor Cap) 250 mg DAILY PO 09/23/17 09:00 10/23/17 08:59 09/26/17 07:51 250 MG Enteral Nutritional Formula (Boost Pudding) 1 cup BID PO 09/22/17 21:00 10/22/17 20:59 09/25/17 20:45 1 CUP Cefepime HCl 2000 mg/Syringe 20 ml @ 5 mls/min Q12H IV 09/23/17 11:00 09/28/17 22:59 09/26/17 11:03 5 MLS/MIN Prednisone (PredniSONE TAB) 30 mg DAILY PO 09/25/17 09:00 10/25/17 08:59 09/26/17 07:50 30 MG Doxycycline Hyclate (Vibramycin Cap) 100 mg BID PO 09/25/17 21:00 09/29/17 09:01 09/26/17 07:51 100 MG Lactulose (Chronulac Syrup) 15 gm DAILY PO 09/26/17 09:00 10/21/17 20:59 09/26/17 07:53 15 GM Benzonatate (Tessalon Perles Cap) 100 mg TID PO 09/26/17 21:00 10/26/17 20:59 Objective Vital Signs Date Time Temp Pulse Resp B/P (MAP) Pulse Ox O2 Delivery O2 Flow Rate FiO2 09/26/17 15:31 36.8 61 18 118/77 (91) 91 09/26/17 15:12 69 16 96 Room Air 09/26/17 11:41 36.9 62 18 120/78 (92) 92 09/26/17 11:15 60 16 94 Room Air 09/26/17 08:00 Room Air 09/26/17 07:46 36.4 63 20 112/74 (87) 97 Room Air 09/26/17 07:13 59 16 92 Room Air 09/26/17 03:00 36.6 69 17 109/79 (89) 96 Room Air 09/26/17 00:00 36.7 59 18 115/78 (90) 97 Room Air 09/25/17 23:59 Room Air 09/25/17 23:43 60 16 96 Room Air 09/25/17 20:08 60 16 97 Room Air 09/25/17 19:08 36.5 62 20 116/77 (90) 95 Room Air 09/25/17 16:19 36.6 61 20 108/80 (89) 96 Room Air 09/25/17 16:00 96 Room Air Physical Exam General Appearance: WD/WN, no apparent distress Eyes: normal inspection, EOMI, sclerae normal ENT: normal ENT inspection, pharynx normal Neck: supple, no adenopathy, trachea midline Respiratory/Chest: chest non-tender, no respiratory distress, no accessory muscle use, + rhonchi Cardiovascular: regular rate, rhythm, no gallop, + systolic murmur Abdomen: normal bowel sounds, non tender, soft, no organomegaly Extremities: non-tender, no calf tenderness, + pedal edema Neurologic/Psychiatric: alert, oriented x 3 Skin: normal color, no rash Lymphatic: no adenopathy Laboratory Results Last 24 Hours Test 09/26/17 07:17 Prothrombin Time 29.4 SECONDS Prothromb Time International Ratio 2.9 Sodium Level 127 mmol/L Potassium Level 4.8 mmol/L Chloride Level 94 mmol/L Carbon Dioxide Level 23 mmol/L Anion Gap 10.0 mmol/L Blood Urea Nitrogen 74 mg/dl Creatinine 1.11 mg/dl Est Creatinine Clear Calc Drug Dose 41.0 ml/min Estimated GFR () 56.3 Estimated GFR (Non- 48.5 BUN/Creatinine Ratio 66.9 Random Glucose 117 mg/dl Calcium Level 9.5 mg/dl Magnesium Level 2.3 mg/dl Total Bilirubin 1.5 mg/dl Direct Bilirubin 0.8 mg/dl Aspartate Amino Transf (AST/SGOT) 73 U/L Alanine Aminotransferase (ALT/SGPT) 407 U/L Alkaline Phosphatase 190 U/L Ammonia 38.1 umol/L Total Protein 6.9 gm/dl Albumin 3.0 gm/dl Assessment and Plan 77-year-old female with COPD on inhaled and intermittent oral steroid therapy, now with acute pulmonary process with CT scan suggesting infectious bronchiolitis with pneumonitis with positive sputum culture for Aspergillus. Association of SIADH with Aspergillus infections has been reported, so need to take this positive culture seriously. Given inability to do bronchoscopy at this time, would consider trial of voriconazole. Will discuss with all involved.
--- NOTE | 2017-09-26 18:55 | Progress Note ---
Subjective Date of Service: Sep 26, 2017. Subjective Pt evaluation today including: conversation w/ patient, conversation w/ family (daughter at bedside ), physical exam, chart review, lab review, conversation w / cardiology consultants (pulmonary, GI), review of inpatient medication list Pain: none reported PO Intake: ate well at breakfast then had emesis afterwards Voiding: no voiding problems tele with stable paced rhythm patient very sleepy today reports she slept poorly last night cough kept her awake last evening cough is continuing to be productive no dyspnea today, however having multiple stools with lactulose Problem List Medical Problems: (1) Abdominal pain Status: Acute (2) Abdominal pain, acute, generalized Status: Acute (3) [id number]-[id number] kidney injury Status: Acute (4) Chronic hyponatremia Status: Acute (5) Coagulopathy Status: Acute (6) Dehydration Status: Acute (7) Dehydration Status: Acute (8) Failure of outpatient treatment Status: Acute (9) Generalized weakness Status: Acute (10) Hyperammonemia Status: Acute (11) Hyperkalemia Status: Acute (12) Hyponatremia Status: Acute (13) Lactic acidosis Status: Acute (14) Liver enzyme elevation Status: Acute (15) Non-cardiac chest pain Status: Acute (16) Supratherapeutic INR Status: Acute Review of Systems Constitutional: + fatigue, No fever Respiratory: + cough, + sputum, No shortness of breath Cardiac: + edema, No chest pain, No orthopnea, No PND Abdomen: + vomiting, No pain Psychiatric: + insomnia Endo: + fatigue Objective Vital Signs Date Time Temp Pulse Resp B/P (MAP) Pulse Ox O2 Delivery O2 Flow Rate FiO2 09/26/17 16:00 Room Air 09/26/17 15:31 36.8 61 18 118/77 (91) 91 09/26/17 15:12 69 16 96 Room Air 09/26/17 11:41 36.9 62 18 120/78 (92) 92 09/26/17 11:15 60 16 94 Room Air 09/26/17 08:00 Room Air 09/26/17 07:46 36.4 63 20 112/74 (87) 97 Room Air 09/26/17 07:13 59 16 92 Room Air 09/26/17 03:00 36.6 69 17 109/79 (89) 96 Room Air 09/26/17 00:00 36.7 59 18 115/78 (90) 97 Room Air 09/25/17 23:59 Room Air 09/25/17 23:43 60 16 96 Room Air 09/25/17 20:08 60 16 97 Room Air 09/25/17 19:08 36.5 62 20 116/77 (90) 95 Room Air Physical Exam General Appearance: no apparent distress, + pertinent finding (very sleepy today, falling asleep during the encounter ) ENT: pharynx normal Neck: + JVD (to the jaw ) Respiratory/Chest: no respiratory distress, no accessory muscle use, + wheezing (extensive b/l; no rales ) Cardiovascular: regular rate, rhythm, no gallop, + systolic murmur (2-3/6 LLSB ), + pertinent finding (+thrill/lift left side of chest) Abdomen: normal bowel sounds, non tender, soft, no organomegaly Extremities: + pedal edema (2+ b/l ), + swelling (2+ b/l ) Neurologic/Psychiatric: + pertinent finding (sleepy; +asterixis ) Skin: + pallor Laboratory Results Last 24 Hours Test 09/26/17 07:17 Prothrombin Time 29.4 SECONDS Prothromb Time International Ratio 2.9 Sodium Level 127 mmol/L Potassium Level 4.8 mmol/L Chloride Level 94 mmol/L Carbon Dioxide Level 23 mmol/L Anion Gap 10.0 mmol/L Blood Urea Nitrogen 74 mg/dl Creatinine 1.11 mg/dl Est Creatinine Clear Calc Drug Dose 41.0 ml/min Estimated GFR () 56.3 Estimated GFR (Non- 48.5 BUN/Creatinine Ratio 66.9 Random Glucose 117 mg/dl Calcium Level 9.5 mg/dl Magnesium Level 2.3 mg/dl Total Bilirubin 1.5 mg/dl Direct Bilirubin 0.8 mg/dl Aspartate Amino Transf (AST/SGOT) 73 U/L Alanine Aminotransferase (ALT/SGPT) 407 U/L Alkaline Phosphatase 190 U/L Ammonia 38.1 umol/L Total Protein 6.9 gm/dl Albumin 3.0 gm/dl Assessment and Plan 77yo female with: 1. b/l pneumonia, cannot rule out gram negative etiology/healthcare associated pneumonia; cannot rule out invasive aspergillus. Cont cefepime and doxycycline. Day #6 of cefepime, day #5 of doxy. Planning 7 days of Rx. 2. COPD with exacerbation - was improving, now with worsening cough and wheezing. Cont inhalers, nebs, and steroids. Pulmonary following and recommendations appreciated. They are managing her steroids. Some of her symptoms could be due to decompensated CHF. 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 Pulmonary aware - needs bronch in the future once more optimized from liver/INR standpoint. 4. elevated/supratherapeutic INR - suspect this happened as a result of her acute hepatitis. Continue to hold warfarin. INR is slowly trending downward (<3 today). INR qam. 5. Abnormal LFTs, acute hepatitis in setting of chronic "cardiac" cirrhosis - etiology of acute hepatitis is uncertain. Differential -- congestive hepatopathy vs infection vs medication effects vs shock liver. LFTs are trending downward daily. She has no evidence of portal vein thrombosis. Acute hepatitis profile is negative. Could consider checking CMV and EBV titers. Hold any tylenol. LFTs & INR am. 6. hyponatremia - acute/chronic - baseline 125-130. 127 today. Nephrology consult requested to assist in this incredibly complicated woman with chronic hyponatremia, CKD, liver disease, severe CHF. Fluid restrict to 1200cc/day. BMP daily. Aldactone on hold due to hyperkalemia. IV Lasix to be given again today. 7. acute kidney injury - resolved. 8. 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 9. h/o MVR - noted. 10. 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 11. chronic nausea likely 2nd to gastroparesis - had emesis this am likely 2nd to such. Follow. 12. permanent atrial fibrillation/permanent pacemaker in place - rates controlled; holding coumadin due to high INR. Cont BB. 13. depression - lexapro. 14. chronic microcytic anemia - likely combination of ACD + Fe def. Follow with periodic CBC. 15. thrush - nystatin - resolved. 16. 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 consider aspergillus titers. bronch will occur once INR is acceptable, liver issues are resolved, CHF is optimized, encephalopathy is better, etc. patient//daughter aware of this finding. 17. encephalopathy - likely metabolic (pneumonia/infectious issues) +/- hepatic encephalopathy from elevated ammonia. Cont lactulose. Cont abx for pneumonia. Cont supportive care. Serial exams, ammonia in am, etc. PT, OT evals appreciated needs SNF at the [facility] at d/c. daughter updated at bedside extensively today prognosis is fair at best Continued [facility] stay due to: ambulation difficulties, multiple IV medications needed, other (abnormal labs, aspergillus in sputum, lethargy (?hepatic encephalopathy)) [facility]charge planning[facility] jail facility
[2017-09-26] MEDS: BENZONATATE 100MG CAP PO SCH (21:18)
[2017-09-26] MEDS: MONTELUKAST SOD 10 MG TAB PO SCH (21:18)
[2017-09-27] VITALS (9 sets, daily range): BP systolic 103–122; BP diastolic 68–83; PULSE 61–86; TEMP 36.4–36.6; O2SAT 93–96
[2017-09-27] MEDS: ALBUT/IPRATROP 3MG/0.5MG NEB 3 ML VIAL INH SCH ×3 (03:50→11:15)
[2017-09-27] MEDS: BOOST VANILLA PUDDING CUP PO SCH ×2 (07:46→20:51)
[2017-09-27] MEDS: PANTOprazole SOD 40 MG TAB PO SCH (07:47)
[2017-09-27] MEDS: BUDESONIDE/FORMOTEROL FUMARATE 160/4.5 60 PUFFS/INHALER INH SCH ×2 (07:47→20:53)
[2017-09-27] MEDS: LACTULOSE SYRUP 20 GM/30 ML UDC PO SCH (07:47)
[2017-09-27] MEDS: NYSTATIN SUSP 500,000 U/5 ML UDC PO SCH ×4 (07:47→20:52)
[2017-09-27] MEDS: DOXYCYCLINE HYCLATE 100 MG CAP PO SCH ×2 (07:48→20:52)
[2017-09-27] MEDS: MAGNESIUM CHLORIDE 64MG DELAYED REL TAB PO SCH ×2 (07:48→20:52)
[2017-09-27] MEDS: ESCITALOPRAM OXALATE 10 MG TAB PO SCH (07:48)
[2017-09-27] MEDS: GUAIFENESIN 600 MG TABCR PO SCH ×2 (07:48→20:51)
[2017-09-27] MEDS: BENZONATATE 100MG CAP PO SCH ×3 (07:49→20:52)
[2017-09-27] MEDS: PSYLLIUM 58.6% PWD PACK S\\F PO SCH (07:49)
[2017-09-27] MEDS: SACCHAROMYCES BOUL (FLORASTOR) 250 MG CAP PO SCH (07:49)
[2017-09-27] MEDS: CARVEDILOL 25 MG TAB PO SCH ×2 (07:49→17:19)
[2017-09-27 08:45] LABS: INR 2.1 (0.9-1.1)
[2017-09-27 09:03] LABS: CALCIUM 9.7 mg/dl (8.5-10.1); CREATININE 1.19 mg/dl (0.60-1.20); TOTAL PROTEIN 6.8 gm/dl (6.4-8.2)
--- NOTE | 2017-09-27 11:54 | DIAGNOSTIC IMAGING REPORT ---
CHEST ONE VIEW PORTABLE CLINICAL HISTORY: CHF, pneumonia dyspnea COMPARISON STUDY: 09/25/2017 FINDINGS: Moderate stable cardiomegaly. Prior median sternotomy. Cardiac pacemaker leads are intact. Diaphragms are smooth. IMPRESSION: Mild stable cardiomegaly. No acute infiltrate. The above report was generated using voice recognition software. It may contain grammatical, syntax or spelling errors. Electronically signed by: Derek Castanon M.D. 09/27/2017 11:53 AM Dictated Date/Time: 09/27/2017 11:52 AM
[2017-09-27] MEDS: CEFEPIME IV 2,000 MG in SYRINGE 7.5 ML IV SCH ×2 (11:58→20:53)
--- NOTE | 2017-09-27 12:45 | Nephrology Progress Note ---
Nephrology Progress Note Date of Service Sep 27, 2017. Chief Complaint CKD, hyponatremia and pulmonary vascular congestion Subjective Mrs. Rod was seen & examined in her hospital room this morning. She complains of fatigue but notes that her breathing has improved. She is now breathing comfortably flat in bed on room air. CXR film this am shows interval resolution of pulmonary edema. Patient has had good response to IV loop diuretic therapy Review of Systems Constitutional: No fever Cardiovascular: No chest pain Respiratory: No dyspnea at rest Abdomen: No pain, No nausea, No vomiting Extremities: + leg edema A complete review of systems was performed. Pertinent positives are noted above. All other systems are negative. Vital Signs Last 8 Hrs Date Time Temp Pulse Resp B/P (MAP) Pulse Ox O2 Delivery O2 Flow Rate FiO2 09/27/17 11:00 36.5 86 18 122/68 (86) 95 09/27/17 08:00 Room Air 09/27/17 07:44 36.4 64 18 103/72 (82) 96 Room Air 09/27/17 07:15 67 16 96 Room Air Last Recorded Weight Weight (Kilograms): 69.000 Physical Exam General Appearance: + pertinent finding (frail, chronically ill appearing) Head: atraumatic Eyes: PERRL, EOMI Neck: no adenopathy Respiratory/Chest: lungs clear, no respiratory distress Cardiovascular: regular rate, rhythm Abdomen/GI: normal bowel sounds, non tender, soft Extremities/Musculoskelatal: + swelling (1+ LE swelling) Neurologic/Psych: + depressed affect Family History Cancer Diabetes mellitus FH: CVA (cerebrovascular accident) Heart disease Seizures Negative for CKD / ESRD Social History Smoking Status: Never smoker Smokeless Tobacco Use: No Drug Use: none Marital Status: Housing Status: lives with family, assisted living Occupation: retired . Lives with in [place], [place]. Denies tobacco or alcohol use. Laboratory Results Past 24 Hours 09/27/17 08:17 Test 09/27/17 08:17 Prothrombin Time 22.1 SECONDS (9.0-12.0) Prothromb Time International Ratio 2.1 (0.9-1.1) Anion Gap 8.0 mmol/L (3-11) Est Creatinine Clear Calc Drug Dose 38.2 ml/min Estimated GFR () 51.7 Estimated GFR (Non- 44.6 BUN/Creatinine Ratio 60.3 (10-20) Calcium Level 9.7 mg/dl (8.5-10.1) Total Bilirubin 1.6 mg/dl (0.2-1) Direct Bilirubin 0.8 mg/dl (0-0.2) Aspartate Amino Transf (AST/SGOT) 56 U/L (15-37) Alanine Aminotransferase (ALT/SGPT) 341 U/L (12-78) Alkaline Phosphatase 198 U/L (45-117) Ammonia 48.8 umol/L (11-32) Total Protein 6.8 gm/dl (6.4-8.2) Albumin 3.0 gm/dl (3.4-5.0) Allergies Coded Allergies: AMADOU Inhibitors (Verified Allergy, Unknown, UNKNOWN, 09/07/17) Amiodarone (Verified Allergy, Unknown, UNKNOWN, 09/07/17) Azithromycin (Verified Allergy, Unknown, UNKNOWN, 09/07/17) Clarithromycin (Verified Allergy, Unknown, UNKNOWN, 09/07/17) Hydralazine (Verified Allergy, Unknown, UNKNOWN, 09/07/17) Hydrochlorothiazide (Verified Allergy, Unknown, RASH, 09/07/17) Pt unsure of reaction, possible rash. Lisinopril (Verified Allergy, Unknown, UNKNOWN, 09/07/17) Penicillins (Verified Allergy, Unknown, UNKNOWN, 09/07/17) Procainamide (Verified Allergy, Unknown, UNKNOWN, 09/07/17) Medications Current Inpatient Medications Medications (Trade) Dose Ordered Sig/Golden Route Start Time Stop Time Status Last Admin Dose Admin Ondansetron HCl (Zofran Inj) 4 mg Q6H PRN IV 09/21/17 21:00 10/21/17 20:59 Guaifenesin (Mucinex Contr Rel Tab) 1,200 mg Q12 PO 09/21/17 21:00 10/21/17 20:59 09/27/17 07:48 1,200 MG Sodium Chloride ([place] Nasal [place]) 2 sprays Q8 PRN NA 09/21/17 21:00 10/21/17 20:59 Albuterol/ Ipratropium (Duoneb) 3 ml Q4R INH 09/22/17 00:00 10/22/17 00:00 09/27/17 07:15 3 ML Albuterol (Ventolin Hfa Inhaler) 2 puffs QID PRN INH 09/21/17 21:00 10/21/17 20:59 Budesonide/ Formoterol Fumarate (Symbicort 160/ 4.5 Inh) 2 puffs BID INH 09/21/17 21:00 10/21/17 20:59 09/27/17 07:47 2 PUFFS Carvedilol (Coreg Tab) 25 mg BIDM PO 09/22/17 07:30 10/22/17 07:59 09/27/17 07:49 25 MG Escitalopram Oxalate (Lexapro Tab) 5 mg QAM PO 09/22/17 09:00 10/22/17 08:59 09/27/17 07:48 5 MG Furosemide (Lasix Tab) 80 mg QAM PO 09/22/17 09:00 10/22/17 08:59 Future Hold 09/24/17 08:08 80 MG Magnesium Chloride (Slow-Mag Tab) 64 mg BID PO 09/21/17 21:00 10/21/17 20:59 09/27/17 07:48 64 MG Montelukast Sodium (Singulair Tab) 10 mg HS PO 09/21/17 21:00 10/21/17 20:59 09/26/17 21:18 10 MG Nystatin (Mycostatin Susp) 5 ml QID PO 09/21/17 21:00 10/01/17 20:59 09/27/17 07:47 5 ML Prochlorperazine Maleate (Compazine Tab) 5 mg TID PRN PO 09/21/17 21:00 10/21/17 20:59 Pantoprazole Sodium (Protonix Tab) 40 mg DAILY PO 09/22/17 09:00 10/22/17 08:59 09/27/17 07:47 40 MG Psyllium Hydrophilic Mucilloid (Metamucil Powder) 1 pkt DAILY PO 09/22/17 09:00 10/22/17 08:59 09/24/17 08:13 1 PKT Cefepime HCl (Consult) 1 ea UD PRN N/A 09/21/17 21:45 10/21/17 21:44 Saccharomyces Boulardii (Florastor Cap) 250 mg DAILY PO 09/23/17 09:00 10/23/17 08:59 09/27/17 07:49 250 MG Enteral Nutritional Formula (Boost Pudding) 1 cup BID PO 09/22/17 21:00 10/22/17 20:59 09/27/17 07:46 1 CUP Cefepime HCl 2000 mg/Syringe 20 ml @ 5 mls/min Q12H IV 09/23/17 11:00 09/28/17 22:59 09/27/17 11:58 5 MLS/MIN Prednisone (PredniSONE TAB) 30 mg DAILY PO 09/25/17 09:00 10/25/17 08:59 09/27/17 07:48 30 MG Doxycycline Hyclate (Vibramycin Cap) 100 mg BID PO 09/25/17 21:00 09/29/17 09:01 09/27/17 07:48 100 MG Lactulose (Chronulac Syrup) 15 gm DAILY PO 09/26/17 09:00 10/21/17 20:59 09/27/17 07:47 15 GM Benzonatate (Tessalon Perles Cap) 100 mg TID PO 09/26/17 21:00 10/26/17 20:59 09/27/17 07:49 100 MG Impression (1) Chronic kidney disease (2) Hyponatremia (3) Pneumonia (4) Congestive heart failure (5) Implantation of automatic cardioverter/defibrillator, total system (6) Weakness (7) Liver enzyme elevation (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 Kidney function remains stable at this time -- Urine sediment is benign. No hematuria, proteinuria or cellular casts -- CKD is likely on the basis of impaired renal perfusion related to chronic CHF HYPONATREMIA: -- Patient has chronic hyponatremia on the basis of chronic CHF. Serum sodium typically runs 125 - 130 mmol / L. Serum sodium is stable at this time CHRONIC CHF: -- Good response to IV Furosemide therapy. Patient remains nonoliguric. -- Will schedule oral loop diuretic. Patient had been on Furosemide 80 mg each morning. Will change to Torsemide 40 mg each morning for improved absorption / bioavailability GI: -- Patient presented w/ marked transaminitis. LFT's are trending down. ID: -- Bronchiolitis w/ pneumonitis. Sputum is positive for aspergillus. ID has been consulted Kidney function and serum sodium are stable. Pulmonary edema has resolved. Patient will resume oral loop diuretic therapy. Will sign off. Please call if further assistance is needed.
[2017-09-27] MEDS ORDERED: RIFAXIMIN TAB 550 MG TAB PO STA (13:42)
--- NOTE | 2017-09-27 17:59 | PULMONARY PROGRESS NOTE ---
DATE: 09/27/2017 PULMONARY PROGRESS NOTE TIME: 5:05 p.m. SUBJECTIVE: The patient states she thinks her cough is less today. She is not complaining of shortness of breath. Her granddaughter was with her during this evaluation. I believe the patient seemed a little more alert and interested because her granddaughter was there. OBJECTIVE: GENERAL: She looked comfortable at rest. VITAL SIGNS: Temperature was 36.5. CARDIOLOGIC: Heart rate is 84 per minute. Blood pressure is 122/68. Prominent systolic murmur was again heard. LUNGS: Lung cloud did reveal rhonchi bilaterally, greater on the right than the left. These are perhaps slightly better than prior. They are still abnormal. Saturation remains good at 96% on room air. EXTREMITIES: Continue to show edema at approximately +2. LABORATORY DATA: INR today is down to 2.1. Electrolytes show sodium 129, potassium 5, chloride 96, bicarbonate 25. BUN is 72 with a creatinine of 1.19. AST is now 56 and yesterday was 73. ALT is now 341 and had been 407. Alkaline phosphatase is 198 and yesterday was 190. Ammonia level today is high at 48.8. Yesterday the ammonia was 38.1. Antismooth muscle antibody was positive at 1:80. IMPRESSIONS: 1. Acute bronchitis. 2. Sputum positive for Aspergillus. 3. Abnormal CAT scan of the chest -- rule out mass in bronchus intermedius. 4. Chronic obstructive pulmonary disease. COMMENTS AND RECOMMENDATIONS: Dr. Chou's progress note was noted. He was considering a trial of voriconazole. Perhaps this should be evaluated in terms of using it with her liver problems. I believe it is metabolized through the liver. She has multiple medical problems concurrently making overall management difficult. Her INR is getting lower. Bronchoscopy could still present some challenges with the liver abnormality. I did discuss with Dr. Matute. He has started Rifaximin. The patient is having a lot of tremors. I do support stopping the neb treatments for now and seeing if that helps. She was started on Combivent Respimat. Usually that is a 4 times per day dose, but it is ordered every 4 hours. That will also result in her being awakened in all likelihood twice at night. Thus, we will change that to q.i.d. and see how it goes. MTDD
[2017-09-27] MEDS ORDERED: IPRATROPIUM BROMIDE/ALBUTEROL respimat INH INH SCH (20:00)
[2017-09-27] MEDS: MONTELUKAST SOD 10 MG TAB PO SCH (20:51)
[2017-09-27] MEDS: IPRATROPIUM BROMIDE/ALBUTEROL respimat INH INH SCH (20:52)
[2017-09-27] MEDS: RIFAXIMIN TAB 550 MG TAB PO SCH (20:52)
[2017-09-28 03:09] VITALS: BP 122/78; PULSE 61; TEMP 36.6; O2SAT 94
--- NOTE | 2017-09-28 05:06 | Progress Note ---
Subjective Date of Service: Sep 27, 2017. Subjective Pt evaluation today including: conversation w/ patient, conversation w/ family (daughter - briefly), physical exam, chart review, lab review, conversation w/ analysis consultant (GI, pulmonary) Pain: none reported PO Intake: fair tele stable overnight paced rhythm during the visit she said "I'm just so tired" seemed uncomfortable in some way but did not have pain she seemed mildly confused, asking for my name although we have met many times still with cough reported sleeping better last night Problem List Medical Problems: (1) Abdominal pain Status: Acute (2) Abdominal pain, acute, generalized Status: Acute (3) Vrkgy-[id number] kidney injury Status: Acute (4) Chronic hyponatremia Status: Acute (5) Coagulopathy Status: Acute (6) Dehydration Status: Acute (7) Dehydration Status: Acute (8) Failure of outpatient treatment Status: Acute (9) Generalized weakness Status: Acute (10) Hyperammonemia Status: Acute (11) Hyperkalemia Status: Acute (12) Hyponatremia Status: Acute (13) Lactic acidosis Status: Acute (14) Liver enzyme elevation Status: Acute (15) Non-cardiac chest pain Status: Acute (16) Supratherapeutic INR Status: Acute Review of Systems Constitutional: No fever Respiratory: No shortness of breath Cardiac: No chest pain, No orthopnea Abdomen: No pain, No nausea Objective Vital Signs Date Time Temp Pulse Resp B/P (MAP) Pulse Ox O2 Delivery O2 Flow Rate FiO2 09/27/17 19:25 36.4 68 20 122/83 (96) 95 Room Air 09/27/17 16:00 Room Air 09/27/17 15:53 84 16 96 Room Air 09/27/17 11:15 85 16 96 Room Air 09/27/17 11:00 36.5 86 18 122/68 (86) 95 09/27/17 08:00 Room Air 09/27/17 07:44 36.4 64 18 103/72 (82) 96 Room Air 09/27/17 07:15 67 16 96 Room Air 09/27/17 04:00 36.6 65 18 106/73 (84) 93 Room Air 09/27/17 00:22 36.5 61 18 113/77 (89) 96 Room Air 09/26/17 23:59 95 Room Air 09/26/17 23:25 68 14 95 Room Air 09/26/17 20:00 95 Room Air Physical Exam General Appearance: no apparent distress, + pertinent finding (myoclonic jerking intermittently noted) ENT: pharynx normal Neck: + JVD Respiratory/Chest: no respiratory distress, no accessory muscle use, + rales ( some - bases), + wheezing Cardiovascular: regular rate, rhythm, no gallop, + systolic murmur (2/6 LLSB) Abdomen: normal bowel sounds, non tender, soft, no organomegaly Extremities: + pedal edema, + swelling (1-2+ b/l) Neurologic/Psychiatric: alert, + disoriented, + pertinent finding (asterixis flap b/l hands, myoclonic jerking noted occasionally) Laboratory Results Last 24 Hours Test 09/27/17 08:17 Prothrombin Time 22.1 SECONDS Prothromb Time International Ratio 2.1 Sodium Level 129 mmol/L Potassium Level 5.0 mmol/L Chloride Level 96 mmol/L Carbon Dioxide Level 25 mmol/L Anion Gap 8.0 mmol/L Blood Urea Nitrogen 72 mg/dl Creatinine 1.19 mg/dl Est Creatinine Clear Calc Drug Dose 38.2 ml/min Estimated GFR () 51.7 Estimated GFR (Non- 44.6 BUN/Creatinine Ratio 60.3 Random Glucose 132 mg/dl Calcium Level 9.7 mg/dl Total Bilirubin 1.6 mg/dl Direct Bilirubin 0.8 mg/dl Aspartate Amino Transf (AST/SGOT) 56 U/L Alanine Aminotransferase (ALT/SGPT) 341 U/L Alkaline Phosphatase 198 U/L Ammonia 48.8 umol/L Total Protein 6.8 gm/dl Albumin 3.0 gm/dl Assessment and Plan 77yo female with: 1. b/l pneumonia, cannot rule out gram negative etiology/healthcare associated pneumonia; cannot rule out invasive aspergillus. Cont d/c cefepime as today is day #7 of Rx. Cont doxy for another day (day #6). 2. COPD with exacerbation - was improving but still quite wheezing and still w / considerable cough. Cont inhalers, nebs, and steroids. Pulmonary following and recommendations appreciated. They are managing her steroids. Some of her symptoms could be due to decompensated CHF/cardiac wheezing. See below re: aspergillus. 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 Pulmonary aware - needs bronch in the future once more optimized from liver/INR standpoint. 4. elevated/supratherapeutic INR - suspect this happened as a result of her acute hepatitis. Continue to hold warfarin. INR again down today. INR qam. 5. Abnormal LFTs, acute hepatitis in setting of chronic "cardiac" cirrhosis - etiology of acute hepatitis is uncertain. Differential -- congestive hepatopathy vs infection vs medication effects vs shock liver. LFTs are trending downward daily. She has no evidence of portal vein thrombosis. Acute hepatitis profile is negative. Hold any tylenol. LFTs & INR am. 6. hyponatremia - acute/chronic - baseline 125-130. 128 today. Nephrology consult requested to assist in this incredibly complicated woman with chronic hyponatremia, CKD, liver disease, severe CHF. Fluid restrict to 1200cc/day. BMP daily. Diuretic management per nephrology. Weights acceptable. CXR w/o overt edema. 7. acute kidney injury - resolved. 8. 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 9. h/o MVR - noted. 10. 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 11. chronic nausea likely 2nd to gastroparesis - had emesis this am likely 2nd to such. Follow. 12. permanent atrial fibrillation/permanent pacemaker in place - rates controlled; holding coumadin due to high INR. Cont BB. 13. depression - lexapro. 14. chronic microcytic anemia - likely combination of ACD + Fe def. Follow with periodic CBC. 15. thrush - nystatin - resolved. 16. 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 consider aspergillus titers. bronch will occur once INR is acceptable, liver issues are resolved, CHF is optimized, encephalopathy is better, etc. 17. encephalopathy - likely metabolic (pneumonia/infectious issues) + hepatic encephalopathy. Despite adequate stooling her ammonia level remains high and she has ongoing confusion/fatigue/asterixis. Spoke with GI - will add rifaximin 550mg BID. Recheck ammonia in am. . PT, OT evals appreciated needs SNF at the [facility] at d/c. daughter updated briefly today Continued [facility] stay due to: ambulation difficulties, multiple IV medications needed, other (abnormal labs, aspergillus in sputum, lethargy (hepatic encephalopathy)) Discharge planning: senior care facility
[2017-09-28 07:02] VITALS: BP 115/80; PULSE 65; TEMP 36.4; O2SAT 92
[2017-09-28] MEDS: CARVEDILOL 25 MG TAB PO SCH ×2 (07:41→17:21)
[2017-09-28] MEDS: SACCHAROMYCES BOUL (FLORASTOR) 250 MG CAP PO SCH (07:45)
[2017-09-28] MEDS: ESCITALOPRAM OXALATE 10 MG TAB PO SCH (07:45)
[2017-09-28] MEDS: PANTOprazole SOD 40 MG TAB PO SCH (07:46)
[2017-09-28] MEDS: GUAIFENESIN 600 MG TABCR PO SCH ×2 (07:46→21:17)
[2017-09-28] MEDS: BENZONATATE 100MG CAP PO SCH ×3 (07:47→21:18)
[2017-09-28 07:48] LABS: INR 1.8 (0.9-1.1)
[2017-09-28] MEDS: MAGNESIUM CHLORIDE 64MG DELAYED REL TAB PO SCH ×2 (07:48→21:18)
[2017-09-28] MEDS: RIFAXIMIN TAB 550 MG TAB PO SCH ×2 (07:48→21:18)
[2017-09-28] MEDS: NYSTATIN SUSP 500,000 U/5 ML UDC PO SCH ×4 (07:49→21:18)
[2017-09-28] MEDS: ALBUTEROL HFA 8 GM INHALER INH PRN ×2 (07:49→21:18)
[2017-09-28] MEDS: IPRATROPIUM BROMIDE/ALBUTEROL respimat INH INH SCH ×4 (07:50→21:55)
[2017-09-28] MEDS: LACTULOSE SYRUP 20 GM/30 ML UDC PO SCH (07:50)
[2017-09-28] MEDS: BUDESONIDE/FORMOTEROL FUMARATE 160/4.5 60 PUFFS/INHALER INH SCH ×2 (07:50→21:18)
[2017-09-28] MEDS: PSYLLIUM 58.6% PWD PACK S\\F PO SCH (07:51)
[2017-09-28] MEDS: TORSEMIDE 20 MG TAB PO SCH (07:53)
[2017-09-28] MEDS: BOOST VANILLA PUDDING CUP PO SCH ×2 (07:54→21:18)
[2017-09-28] MEDS: DOXYCYCLINE HYCLATE 100 MG CAP PO SCH ×2 (07:54→21:18)
[2017-09-28 08:04] LABS: CALCIUM 9.3 mg/dl (8.5-10.1); CREATININE 1.06 mg/dl (0.60-1.20); POTASSIUM 5.6 mmol/L (3.5-5.1); TOTAL PROTEIN 6.9 gm/dl (6.4-8.2)
[2017-09-28] MEDS ORDERED: SODIUM POLYST. SULF SUSP 15G/60ML PO ONE (09:00)
--- NOTE | 2017-09-28 10:57 | PULMONARY PROGRESS NOTE ---
DATE: 09/28/2017 TIME: 10:30 a.m. SUBJECTIVE: The patient is severely anxious this morning. She is stating that she is fearful of dying. Apparently, she and her daughter had been discussing her arrangements and so forth and I believe this has carried on with her. She admits that she does not feel too much different than before. She does not feel worse, but she is afraid of leaving her family. Her registered nurse was in the room with her. She states she has not had this patient previously. I have not heard the patient speaking like this in the multiple times I have seen her. She is still coughing some. She denies shortness of breath. She had an episode of nausea and vomiting within the past hour. It may have been after receiving Kayexalate. She had received this not too much earlier. OBJECTIVE: GENERAL: The patient looks the same as previous. She did not appear in distress. She coughed very little. She is overall weak. VITAL SIGNS: Temperature 36.4. HEART: Rate was 65 per minute. Rhythm was regular. Systolic murmur grade 2-3 was heard. Blood pressure 115/80. LUNGS: Lung cloud revealed mild rhonchi. Respiratory rate was 20. Pulse oximetry done by myself was 97% on room air. EXTREMITIES: Reveal [id number] edema. I would estimate this at a +1 to +2. LABORATORY DATA: INR today is down to 1.8. Ammonia level today is still elevated at 43. Liver functions are gradually improving. AST today is down to 44 and now ALT is down to 282. Electrolytes show sodium 130, potassium 5.6, chloride 98, bicarbonate 22. BUN is 66 with a creatinine of 1.06. IMPRESSION: 1. Acute bronchitis. 2. Sputum positive for Aspergillus. 3. Abnormal CAT scan of the chest -- rule out endobronchial mass versus secretions. 4. Chronic obstructive pulmonary disease. RECOMMENDATIONS: The patient clinically seems the same. She has multiple chronic illnesses as noted. Ideally, bronchoscopy may be helpful in terms of evaluating the Aspergillus culture and from the perspective of trying to rule out a mass in the bronchus intermedius area. I discussed the case and reviewed it with Dr. Arango yesterday. He felt that with her multiple comorbidities and particularly with the liver dysfunction as well as her cardiac and other disease that right now the risk would be higher than desirable considering the potential return. This can be reassessed on a daily basis. Will follow. MTDD
[2017-09-28 12:16] VITALS: BP 138/66; PULSE 60; TEMP 36.5; O2SAT 95
[2017-09-28] MEDS: CEFEPIME IV 2,000 MG in SYRINGE 7.5 ML IV SCH (12:26)
[2017-09-28 20:07] VITALS: BP 112/70; PULSE 74; TEMP 36.4; O2SAT 96
--- NOTE | 2017-09-28 20:15 | Infectious Disease Progress Nt ---
Progress Note Date of Service Sep 28, 2017. Subjective Pt evaluation today including: conversation w/ patient, physical exam, chart review, lab review, review of studies, conversation w/ sales and leasing consultant, review of inpatient medication list Patient states she is about the same today. Very tearful and anxious. Remains afebrile, no increase in cough or shortness of breath. All Other Systems: Reviewed and Negative Medications Current Inpatient Medications Medications (Trade) Dose Ordered Sig/Golden Route Start Time Stop Time Status Last Admin Dose Admin Ondansetron HCl (Zofran Inj) 4 mg Q6H PRN IV 09/21/17 21:00 10/21/17 20:59 09/28/17 10:26 4 MG Guaifenesin (Mucinex Contr Rel Tab) 1,200 mg Q12 PO 09/21/17 21:00 10/21/17 20:59 09/28/17 07:46 1,200 MG Sodium Chloride ([place] Nasal [place]) 2 sprays Q8 PRN NA 09/21/17 21:00 10/21/17 20:59 Albuterol (Ventolin Hfa Inhaler) 2 puffs QID PRN INH 09/21/17 21:00 10/21/17 20:59 09/28/17 07:49 2 PUFFS Budesonide/ Formoterol Fumarate (Symbicort 160/ 4.5 Inh) 2 puffs BID INH 09/21/17 21:00 10/21/17 20:59 09/28/17 07:50 2 PUFFS Carvedilol (Coreg Tab) 25 mg BIDM PO 09/22/17 07:30 10/22/17 07:59 09/28/17 17:21 25 MG Magnesium Chloride (Slow-Mag Tab) 64 mg BID PO 09/21/17 21:00 10/21/17 20:59 09/28/17 07:48 64 MG Montelukast Sodium (Singulair Tab) 10 mg HS PO 09/21/17 21:00 10/21/17 20:59 09/27/17 20:51 10 MG Nystatin (Mycostatin Susp) 5 ml QID PO 09/21/17 21:00 10/01/17 20:59 09/28/17 17:21 5 ML Prochlorperazine Maleate (Compazine Tab) 5 mg TID PRN PO 09/21/17 21:00 10/21/17 20:59 Pantoprazole Sodium (Protonix Tab) 40 mg DAILY PO 09/22/17 09:00 10/22/17 08:59 09/28/17 07:46 40 MG Psyllium Hydrophilic Mucilloid (Metamucil Powder) 1 pkt DAILY PO 09/22/17 09:00 10/22/17 08:59 09/28/17 07:51 1 PKT Saccharomyces Boulardii (Florastor Cap) 250 mg DAILY PO 09/23/17 09:00 10/23/17 08:59 09/28/17 07:45 250 MG Enteral Nutritional Formula (Boost Pudding) 1 cup BID PO 09/22/17 21:00 10/22/17 20:59 09/28/17 07:54 1 CUP Prednisone (PredniSONE TAB) 30 mg DAILY PO 09/25/17 09:00 10/25/17 08:59 09/28/17 07:46 30 MG Doxycycline Hyclate (Vibramycin Cap) 100 mg BID PO 09/25/17 21:00 09/29/17 09:01 09/28/17 07:54 100 MG Lactulose (Chronulac Syrup) 15 gm DAILY PO 09/26/17 09:00 10/21/17 20:59 09/28/17 07:50 15 GM Benzonatate (Tessalon Perles Cap) 100 mg TID PO 09/26/17 21:00 10/26/17 20:59 09/28/17 14:26 100 MG Torsemide (Demadex Tab) 40 mg QAM PO 09/28/17 09:00 10/28/17 08:59 09/28/17 07:53 40 MG Rifaximin (Xifaxan Tab) 550 mg BID PO 09/27/17 21:00 10/27/17 20:59 09/28/17 07:48 550 MG Albuterol/ Ipratropium (Combivent Respimat Inh) 1 puffs QID INH 09/27/17 21:00 10/27/17 19:59 09/28/17 17:21 1 PUFFS Escitalopram Oxalate (Lexapro Tab) 10 mg QAM PO 09/29/17 09:00 10/22/17 08:59 Objective Vital Signs Date Time Temp Pulse Resp B/P (MAP) Pulse Ox O2 Delivery O2 Flow Rate FiO2 09/28/17 20:07 36.4 74 20 112/70 (84) 96 Room Air 09/28/17 20:00 Room Air 09/28/17 12:16 36.5 60 18 138/66 (90) 95 09/28/17 08:00 Room Air 09/28/17 07:02 36.4 65 19 115/80 (92) 92 Room Air 09/28/17 03:09 36.6 61 23 122/78 (93) 94 Room Air 09/27/17 23:59 Room Air 09/27/17 23:14 36.5 63 19 121/82 (95) 94 Room Air Physical Exam General Appearance: WD/WN, no apparent distress Eyes: normal inspection, EOMI, sclerae normal ENT: normal ENT inspection, hearing grossly normal, pharynx normal Neck: supple, no adenopathy, thyroid normal, trachea midline Respiratory/Chest: chest non-tender, no respiratory distress, no accessory muscle use, + wheezing Cardiovascular: regular rate, rhythm, no edema, no gallop, no JVD, no murmur Abdomen: normal bowel sounds, non tender, soft, no organomegaly Extremities: non-tender, no calf tenderness Neurologic/Psychiatric: alert, + disoriented Skin: normal color, no rash Lymphatic: no adenopathy Laboratory Results Last 24 Hours Test 09/28/17 07:28 09/28/17 19:21 Prothrombin Time 19.0 SECONDS Prothromb Time International Ratio 1.8 Sodium Level 130 mmol/L Potassium Level 5.6 mmol/L 4.9 mmol/L Chloride Level 98 mmol/L Carbon Dioxide Level 22 mmol/L Anion Gap 10.0 mmol/L Blood Urea Nitrogen 66 mg/dl Creatinine 1.06 mg/dl Est Creatinine Clear Calc Drug Dose 42.9 ml/min Estimated GFR () 59.5 Estimated GFR (Non- 51.3 BUN/Creatinine Ratio 61.8 Random Glucose 114 mg/dl Calcium Level 9.3 mg/dl Total Bilirubin 1.9 mg/dl Direct Bilirubin 1.0 mg/dl Aspartate Amino Transf (AST/SGOT) 44 U/L Alanine Aminotransferase (ALT/SGPT) 282 U/L Alkaline Phosphatase 187 U/L Ammonia 43.0 umol/L Total Protein 6.9 gm/dl Albumin 3.0 gm/dl Assessment and Plan 77-year-old female with COPD on inhaled and intermittent oral steroid therapy, now with acute pulmonary process with CT scan suggesting infectious bronchiolitis with pneumonitis with positive sputum culture for Aspergillus. Association of SIADH with Aspergillus infections has been reported, so need to take this positive culture seriously. Given liver problems, improvement on current RX, to hold voriconazole therapy. Will follow.
[2017-09-28] MEDS: MONTELUKAST SOD 10 MG TAB PO SCH (21:18)
[2017-09-28 23:57] VITALS: BP 123/76; PULSE 60; TEMP 36.6; O2SAT 93
[2017-09-29] VITALS (7 sets, daily range): BP systolic 105–120; BP diastolic 66–75; PULSE 59–65; TEMP 36.5–36.8; O2SAT 94–96
[2017-09-29 07:36] LABS: INR 1.6 (0.9-1.1)
[2017-09-29 08:03] LABS: CALCIUM 9.2 mg/dl (8.5-10.1); CREATININE 0.97 mg/dl (0.60-1.20); POTASSIUM 3.9 mmol/L (3.5-5.1)
--- NOTE | 2017-09-29 08:15 | Progress Note ---
Subjective Date of Service: Sep 28, 2017. Subjective Pt evaluation today including: conversation w/ patient, conversation w/ family (daughter, grand-daughter), physical exam, chart review, lab review, conversation w/ senior [employer] consultant (pulmonary), review of inpatient medication list Pain: none voiced PO Intake: fair; had emesis again earlier today Voiding: no voiding problems much more awake, alert, and talking today she voiced feelings of sadness, stating "I worked on my arrangements with my family a few days ago" denies suicidal ideation she then stated "I'm not ready to leave this earth" "I want to get better" knew it was September 2017 and that she was in the hospital Problem List Medical Problems: (1) Abdominal pain Status: Acute (2) Abdominal pain, acute, generalized Status: Acute (3) [id number] kidney injury Status: Acute (4) Chronic hyponatremia Status: Acute (5) Coagulopathy Status: Acute (6) Dehydration Status: Acute (7) Dehydration Status: Acute (8) Failure of outpatient treatment Status: Acute (9) Generalized weakness Status: Acute (10) Hyperammonemia Status: Acute (11) Hyperkalemia Status: Acute (12) Hyponatremia Status: Acute (13) Lactic acidosis Status: Acute (14) Liver enzyme elevation Status: Acute (15) Non-cardiac chest pain Status: Acute (16) Supratherapeutic INR Status: Acute Review of Systems Constitutional: No fever, No chills Respiratory: + cough, + sputum, + wheezing, + dyspnea on exertion, No dyspnea at rest, No hemoptysis Cardiac: + edema, No chest pain, No orthopnea, No PND Abdomen: No pain, No nausea Objective Vital Signs Date Time Temp Pulse Resp B/P (MAP) Pulse Ox O2 Delivery O2 Flow Rate FiO2 09/28/17 12:16 36.5 60 18 138/66 (90) 95 09/28/17 08:00 Room Air 09/28/17 07:02 36.4 65 19 115/80 (92) 92 Room Air 09/28/17 03:09 36.6 61 23 122/78 (93) 94 Room Air 09/27/17 23:59 Room Air 09/27/17 23:14 36.5 63 19 121/82 (95) 94 Room Air Physical Exam General Appearance: no apparent distress, + pertinent finding (looks very sad today; but she was quite awake, alert ) ENT: pharynx normal Neck: + JVD Respiratory/Chest: + crackles (especially right base), + rhonchi (occasional), + wheezing (especially right lung) Cardiovascular: regular rate, rhythm, no gallop, + systolic murmur (2/6 LLSB) Abdomen: normal bowel sounds, non tender, soft, no organomegaly Extremities: + pedal edema (R>L legs ) Neurologic/Psychiatric: alert, oriented x 3, + depressed affect Skin: + pertinent finding (scattered ecchymoses on limbs, etc ) Laboratory Results Last 24 Hours Test 09/28/17 07:28 09/28/17 19:21 Prothrombin Time 19.0 SECONDS Prothromb Time International Ratio 1.8 Sodium Level 130 mmol/L Potassium Level 5.6 mmol/L 4.9 mmol/L Chloride Level 98 mmol/L Carbon Dioxide Level 22 mmol/L Anion Gap 10.0 mmol/L Blood Urea Nitrogen 66 mg/dl Creatinine 1.06 mg/dl Est Creatinine Clear Calc Drug Dose 42.9 ml/min Estimated GFR () 59.5 Estimated GFR (Non- 51.3 BUN/Creatinine Ratio 61.8 Random Glucose 114 mg/dl Calcium Level 9.3 mg/dl Total Bilirubin 1.9 mg/dl Direct Bilirubin 1.0 mg/dl Aspartate Amino Transf (AST/SGOT) 44 U/L Alanine Aminotransferase (ALT/SGPT) 282 U/L Alkaline Phosphatase 187 U/L Ammonia 43.0 umol/L Total Protein 6.9 gm/dl Albumin 3.0 gm/dl Assessment and Plan 77yo female with: 1. b/l pneumonia, cannot rule out gram negative etiology/healthcare associated pneumonia; cannot rule out invasive aspergillus. Finished 7-day course of cefepime. Stop doxy after today. 2. COPD with exacerbation - has finished steroid course. 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 Pulmonary aware - needs bronch in the future once more optimized from liver/INR standpoint and other active medical issues. 4. elevated/supratherapeutic INR - likely due to acute hepatitis - resolved. INR am. 5. Abnormal LFTs, acute hepatitis in setting of chronic "cardiac" cirrhosis - etiology of acute hepatitis is uncertain. Either way it continues to improve. Differential -- congestive hepatopathy vs infection vs medication effects vs shock liver. LFTs are trending downward daily. She has no evidence of portal vein thrombosis. Acute hepatitis profile is negative. Hold any tylenol. LFTs & INR am. 6. hyponatremia - acute/chronic - baseline 125-130. Nephrology consult requested to assist in this incredibly complicated woman with chronic hyponatremia, CKD, liver disease, severe CHF. Fluid restrict to 1200cc/day. BMP daily. Diuretic management per nephrology. Weights acceptable. Volume status acceptable today. 7. acute kidney injury - resolved. 8. 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 9. h/o MVR - noted. 10. 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 11. hyperkalemia - 2nd to acute kidney injury - kayexalate 15gm po x 1 with repeat K later tonight. 12. permanent atrial fibrillation/permanent pacemaker in place - rates controlled; holding coumadin due to high INR. Cont BB. 13. depression - lexapro. Ongoing thus will increase dose to 10mg/day. I encouraged her to contact her [employer] Sales Director from her congregational and continue outpatient counseling. Supportive therapy given today. 14. chronic microcytic anemia - likely combination of ACD + Fe def. Follow with periodic CBC. 15. thrush - nystatin - resolved. 16. 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 consider aspergillus titers. bronch will occur once INR is acceptable, liver issues are resolved, CHF is optimized, encephalopathy is better, etc. 17. encephalopathy - likely metabolic (pneumonia/infectious issues) + hepatic encephalopathy. THIS IS IMPROVED TODAY. MUCH MORE AWAKE TODAY. Cont rifaximin & lactulose for elevated ammonia levels. PT, OT evals appreciated needs SNF at the [facility] at d/c. daughter extensively updated today progressing slowly but surely Continued [facility] stay due to: multiple IV medications needed, other (abnormal labs, aspergillus in sputum, lethargy (hepatic encephalopathy)) [facility]
[2017-09-29] MEDS: BOOST VANILLA PUDDING CUP PO SCH ×2 (09:00→21:38)
[2017-09-29] MEDS: ESCITALOPRAM OXALATE 10 MG TAB PO SCH (09:58)
[2017-09-29] MEDS: PSYLLIUM 58.6% PWD PACK S\\F PO SCH (09:58)
[2017-09-29] MEDS: CARVEDILOL 25 MG TAB PO SCH ×2 (09:58→16:58)
[2017-09-29] MEDS: SACCHAROMYCES BOUL (FLORASTOR) 250 MG CAP PO SCH (09:58)
[2017-09-29] MEDS: BUDESONIDE/FORMOTEROL FUMARATE 160/4.5 60 PUFFS/INHALER INH SCH ×2 (09:59→21:37)
[2017-09-29] MEDS: IPRATROPIUM BROMIDE/ALBUTEROL respimat INH INH SCH ×4 (09:59→21:36)
[2017-09-29] MEDS: DOXYCYCLINE HYCLATE 100 MG CAP PO SCH (09:59)
[2017-09-29] MEDS: PANTOprazole SOD 40 MG TAB PO SCH (09:59)
[2017-09-29] MEDS: GUAIFENESIN 600 MG TABCR PO SCH ×2 (10:00→21:43)
[2017-09-29] MEDS: NYSTATIN SUSP 500,000 U/5 ML UDC PO SCH ×4 (10:00→21:49)
[2017-09-29] MEDS: BENZONATATE 100MG CAP PO SCH ×3 (10:01→21:47)
[2017-09-29] MEDS: MAGNESIUM CHLORIDE 64MG DELAYED REL TAB PO SCH ×2 (10:01→21:46)
[2017-09-29] MEDS: TORSEMIDE 20 MG TAB PO SCH (10:01)
[2017-09-29] MEDS: LACTULOSE SYRUP 20 GM/30 ML UDC PO SCH (10:03)
[2017-09-29] MEDS: RIFAXIMIN TAB 550 MG TAB PO SCH ×2 (10:03→21:48)
--- NOTE | 2017-09-29 10:43 | PULMONARY PROGRESS NOTE ---
DATE: 09/29/2017 TIME: 10:05 a.m. SUBJECTIVE: The patient remains about the same. She still has a loose cough without significant production. She is not complaining of significant shortness of breath. Her daughter was present and indicated that her mother is very weak and that she does get winded just going to the bathroom. She apparently has not had any vomiting this morning. OBJECTIVE: GENERAL: The patient appears comfortable. She is sitting in a chair. VITAL SIGNS: Temperature is 36.5. Heart rate was 62 per minute. Rhythm is regular. A left ventricular lift can be palpated. Blood pressure is 109/71. Respiratory rate was 18 and not labored. Saturation 95% on room air. LUNGS: Auscultation of the lung cloud revealed mild scattered rhonchi. EXTREMITIES: Reveals at least +2 edema, which is now more prominent on the dorsum of the feet than prior and it extends up to the lower legs. This is despite the fact she had a very excellent diuresis yesterday of 2350 mL for a net loss of 1660. LABORATORY DATA: INR today is down to 1.6. Electrolytes show sodium 134, potassium 3.9, chloride 97, bicarbonate 31. There were no liver function tests today. Ammonia level yesterday was still elevated at 43. IMPRESSIONS: 1. Acute bronchitis. 2. Sputum culture positive for Aspergillus. 3. Abnormal CAT scan of the chest - rule out mass in the bronchus intermedius. 4. Chronic obstructive pulmonary disease. 5. Abnormal liver functions. 6. Congestive heart failure. COMMENTS AND RECOMMENDATIONS: The patient is doing about the same. As noted in the past, she has multiple medical problems complicating her course. I believe it is reasonable to cut her prednisone down from 30 mg to 20 mg. The issue still exists as to whether she has clinically significant aspergillosis or not and whether there is a mass density in the right main bronchus and into the bronchus intermedius. Dr. Arango will be on pulmonary service as of tomorrow. He will follow up with her and make suggestions as indicated.
[2017-09-29] MEDS ORDERED: OXYCODONE HCL IR 5 MG TAB (IMMEDIATE RELEASE) PO PRN (21:00)
[2017-09-29] MEDS ORDERED: ENOXAPARIN 40 MG/0.4 ML SYR SQ ONE (21:15)
[2017-09-29] MEDS: MONTELUKAST SOD 10 MG TAB PO SCH (21:45)
--- NOTE | 2017-09-30 00:37 | Progress Note ---
Subjective Date of Service: Sep 29, 2017. Subjective Pt evaluation today including: conversation w/ patient, conversation w/ family (, daughter at bedside), physical exam, chart review, lab review, conversation w/ case consultant (nephrology, pulmonary), review of inpatient medication list Pain: legs - feel achy PO Intake: ate very well for breakfast Voiding: no voiding problems tele - paced rhythm overnight wide awake, alert, and oriented today smiling coughing still with sputum production no dyspnea at rest slept ok last pm tremors are much better; family agrees it is better Problem List Medical Problems: (1) Abdominal pain Status: Acute (2) Abdominal pain, acute, generalized Status: Acute (3) Owuln-ci-[id number] kidney injury Status: Acute (4) Chronic hyponatremia Status: Acute (5) Coagulopathy Status: Acute (6) Dehydration Status: Acute (7) Dehydration Status: Acute (8) Failure of outpatient treatment Status: Acute (9) Generalized weakness Status: Acute (10) Hyperammonemia Status: Acute (11) Hyperkalemia Status: Acute (12) Hyponatremia Status: Acute (13) Lactic acidosis Status: Acute (14) Liver enzyme elevation Status: Acute (15) Non-cardiac chest pain Status: Acute (16) Supratherapeutic INR Status: Acute Review of Systems Constitutional: No fever Respiratory: + cough, + sputum, + wheezing, No dyspnea at rest, No hemoptysis Cardiac: + edema, No chest pain, No orthopnea Abdomen: No pain, No nausea, No vomiting Objective Vital Signs Date Time Temp Pulse Resp B/P (MAP) Pulse Ox O2 Delivery O2 Flow Rate FiO2 09/29/17 19:45 36.8 60 20 120/73 (89) 94 Room Air 09/29/17 16:51 36.5 65 20 111/73 (86) 95 Room Air 09/29/17 16:00 Room Air 09/29/17 11:41 36.6 61 20 105/66 (79) 96 Room Air 09/29/17 06:56 36.5 62 18 109/71 (84) 95 Room Air 09/29/17 04:24 36.5 61 18 108/75 (86) 95 Room Air 09/28/17 23:57 36.6 60 18 123/76 (92) 93 Room Air Physical Exam General Appearance: no apparent distress, + pertinent finding (sitting in chair , comfortable, a/o x 3) ENT: pharynx normal Neck: + JVD Respiratory/Chest: no respiratory distress, no accessory muscle use, + rales, + wheezing (similar to yesterday's exam; b/l wheeze, worse on right) Cardiovascular: regular rate, rhythm, no gallop, + systolic murmur (2/6 RUSB) Abdomen: normal bowel sounds, non tender, soft, no organomegaly, + distended ( probable mild ascites) Extremities: + pedal edema (1-2+ b/l, worse on right; varicose veins b/l legs) Neurologic/Psychiatric: alert, oriented x 3, + pertinent finding (asterixis much improved; tremors much improved) Skin: + pertinent finding (ecchymoses on limbs) Laboratory Results Last 24 Hours Test 09/29/17 06:48 Prothrombin Time 16.5 SECONDS Prothromb Time International Ratio 1.6 Sodium Level 134 mmol/L Potassium Level 3.9 mmol/L Chloride Level 97 mmol/L Carbon Dioxide Level 31 mmol/L Anion Gap 6.0 mmol/L Blood Urea Nitrogen 63 mg/dl Creatinine 0.97 mg/dl Est Creatinine Clear Calc Drug Dose 46.9 ml/min Estimated GFR () 66.2 Estimated GFR (Non- 57.1 BUN/Creatinine Ratio 64.9 Random Glucose 86 mg/dl Calcium Level 9.2 mg/dl Assessment and Plan 77yo female with: 1. b/l pneumonia, cannot rule out gram negative etiology/healthcare associated pneumonia; cannot rule out invasive aspergillus. Finished 7-day course of cefepime and doxy. Bronchoscopy being planned to r/o aspergillosis - next week by Dr. Arango? 2. COPD with exacerbation - tapering on PO steroids; managed by Dr. Amador/ pulmonary. Cont inhalers, nebs, etc. 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 Pulmonary aware - needs bronch in the future once more optimized from liver/INR standpoint and other active medical issues. 4. elevated/supratherapeutic INR - likely due to acute hepatitis - resolved. INR 1.6 today. Add lovenox 40mg daily for DVT proph while off coumadin. 5. Abnormal LFTs, acute hepatitis in setting of chronic "cardiac" cirrhosis - etiology of acute hepatitis is uncertain. Either way it continues to improve. Differential -- congestive hepatopathy vs infection vs medication effects vs shock liver. LFTs continue to trend down - repeat LFTs tomorrow AM. She has no evidence of portal vein thrombosis. Acute hepatitis profile negative. Hold any tylenol. LFTs & INR am. 6. hyponatremia - acute/chronic - baseline 125-130. Nephrology consult requested to assist in this incredibly complicated woman with chronic hyponatremia, CKD, liver disease, severe CHF. Fluid restrict to 1200cc/day. BMP daily. Diuretic management per nephrology appreciated; remains on torsemide daily with net negative balance each day over the last few days. Weights acceptable. Volume status acceptable. 7. acute kidney injury - resolved. 8. acute on chronic biventricular systolic CHF - acute component resolved. continue BB, diuretics, etc. 9. h/o MVR - noted. 10. 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 11. hyperkalemia - 2nd to acute kidney injury - resolved. 12. permanent atrial fibrillation/permanent pacemaker in place - rates controlled; holding coumadin due to high INR. Cont BB. 13. depression - lexapro. Ongoing thus increased dose to 10mg/day on 09/28/17. I encouraged her to contact her [employer] S[employer] Apprentice from her spiritism and continue outpatient counseling. Supportive therapy given each day. 14. chronic microcytic anemia - likely combination of ACD + Fe def. Repeat CBC in am for stability. 15. thrush - nystatin - resolved. 16. 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 consider aspergillus titers. bronch will occur once INR is acceptable, liver issues are resolved, CHF is optimized, encephalopathy is better, etc. early this coming week? defer to pulmonary. 17. encephalopathy - likely metabolic (pneumonia/infectious issues) + hepatic encephalopathy. Continues to improve nicely every day. Cont rifaximin & lactulose for elevated ammonia levels. Check ammonia in am. PT, OT evals appreciated needs SNF at the [facility] at d/c. & daughter extensively updated once again today I answered their questions and discussed in detail why she has mild peripheral edema consider d/c tele tomorrow Continued [facility] stay due to: multiple IV medications needed, other (abnormal labs, aspergillus in sputum, lethargy (hepatic encephalopathy)) [facility]
[2017-09-30 02:34] VITALS: BP 113/71; PULSE 65; TEMP 36.7; O2SAT 94
[2017-09-30 05:47] LABS: HEMATOCRIT 38.9 % (37-47); MEAN CELL VOLUME 78.3 fL (80-100); MEAN CORPUSCULAR HEMOGLOBIN 24.1 pg (25-34); MEAN CORPUSCULAR HGB CONC 30.8 g/dl (32-36); NUCLEATED RED BLOOD CELL ABS 0.16 K/uL (0-0); PLATELET COUNT 233 K/uL (130-400); RED CELL DISTRIBUTION WIDTH CV 20.6 % (11.5-14.5); RED CELL DISTRIBUTION WIDTH SD 55.3 fL (36.4-46.3); WHITE BLOOD COUNT 9.83 K/uL (4.8-10.8)
[2017-09-30 06:11] LABS: ALBUMIN 2.8 gm/dl (3.4-5.0); CALCIUM 8.7 mg/dl (8.5-10.1); CREATININE 1.02 mg/dl (0.60-1.20); POTASSIUM 3.9 mmol/L (3.5-5.1); TOTAL PROTEIN 6.6 gm/dl (6.4-8.2)
[2017-09-30] MEDS: SACCHAROMYCES BOUL (FLORASTOR) 250 MG CAP PO SCH (07:39)
[2017-09-30] MEDS: BENZONATATE 100MG CAP PO SCH ×3 (07:39→20:40)
[2017-09-30] MEDS: LACTULOSE SYRUP 20 GM/30 ML UDC PO SCH (07:39)
[2017-09-30] MEDS: PANTOprazole SOD 40 MG TAB PO SCH (07:39)
[2017-09-30] MEDS: ESCITALOPRAM OXALATE 10 MG TAB PO SCH (07:39)
[2017-09-30] MEDS: NYSTATIN SUSP 500,000 U/5 ML UDC PO SCH ×3 (07:39→17:20)
[2017-09-30] MEDS: MAGNESIUM CHLORIDE 64MG DELAYED REL TAB PO SCH ×2 (07:40→20:41)
[2017-09-30] MEDS: TORSEMIDE 20 MG TAB PO SCH (07:40)
[2017-09-30] MEDS: RIFAXIMIN TAB 550 MG TAB PO SCH ×2 (07:40→20:41)
[2017-09-30] MEDS: GUAIFENESIN 600 MG TABCR PO SCH ×2 (07:40→20:40)
[2017-09-30] MEDS: PSYLLIUM 58.6% PWD PACK S\\F PO SCH (07:41)
[2017-09-30] MEDS: CARVEDILOL 25 MG TAB PO SCH ×2 (07:41→17:20)
[2017-09-30] MEDS: BOOST VANILLA PUDDING CUP PO SCH (07:41)
[2017-09-30] MEDS: BUDESONIDE/FORMOTEROL FUMARATE 160/4.5 60 PUFFS/INHALER INH SCH ×2 (07:42→20:38)
[2017-09-30] MEDS: IPRATROPIUM BROMIDE/ALBUTEROL respimat INH INH SCH ×4 (07:42→20:38)
[2017-09-30 13:30] VITALS: BP 113/67; PULSE 58; TEMP 37; O2SAT 95
--- NOTE | 2017-09-30 14:44 | Pulmonology Progress Note ---
Pulmonary Progress Note Date of Service Sep 30, 2017. Attending Dr. Arango Subjective I walked in to the room the patient, and daughter were in the room. Patient was able to sit up in her chair during our our lung can for sedation and engage with no signs of accessory muscle use or respiratory insufficiency. She did note that she is very fatigued. Objective Patient was sitting up in her chair and engaging in an hour long conversation about her current health in the possibility of a bronchoscopic intervention. The patient was notably emotional but showed no signs of respiratory insufficiency during our conversation. Past Medical: Angle closure glaucoma, cardiogenic cirrhosis, third-degree heart block, Brugada syndrome, paroxysmal ventricular tachycardia, atrial fibrillation/Coumadin, hypothyroidism, gastroparesis, chronic abdominal pain, COPD, major depressive disorder, CKD stage 3, chronic hyponatremia, chronic biventricular systolic CHF, moderate MR regurgitation, amiodarone induced hypothyroidism, chronic anemia/iron deficiency, oral candidiasis, hyperammonemia Surgical History: Right cataract surgery/laser ablation, status post pacemaker , [place] cardiac ablation, MVR repair Respiratory Medications: 1. Lovenox 40 mg subcu 2. Prednisone 20 mg daily 3. Oxycodone 2.5 mg q.8 hours 4. Combivent 1 puff q.i.d. 5. Benzonate 100 mg t.i.d 6. Protonix 40 mg 7. Guaifenesin 1.2 grams q.12 hours 8. Ventolin HFA 2 puffs q.i.d. 9. Symbicort 160-4.52 puffs b.i.d. Vital signs: Stable on room air Respiratory: Notable rhonchi on the right hemithorax especially in the lower posterior subsegments Cardiac: S1-S2 distant heart sounds irregular rhythm Extremities: Minimal pitting edema but right is greater than left in the lower extremities Patient was initially admitted 09/21/2017 for shortness of breath and fatigue with some altered mental status. During her hospital stay she has been noted to have multiple issues including congestive heart failure, shock liver with a history of cirrhosis, abnormal CT scan with bronchus intermedius abnormality and sputum positive Aspergillus. Patient was also diagnosed with COPD treatment is been slowly taper down on prednisone currently 25 mg daily and had supratherapeutic INR on Coumadin current INR 1.6. Assessment & Plan 77-year-old female with multiple medical problems admitted with diagnosis of pneumonia, COPD flare and abnormal CT scan: 1. Abnormal CT scan: The etiology of the abnormality noted on CAT scan in the bronchus intermedius is unknown. For more definitive look at this would require bronchoscopic intervention. At this time I recommend a gets bronchoscopic intervention as I do not believe the patient is currently capable of understanding the benefits and/or hazards in performing the study and also nor is her DPOA/ at this time. There is also confusion as the patient is a DNR status but during our conversation was asking to be kept alive at all cost. As there is notable confusion with the family and also the patient is overall risk for sincere bronchoscopic respiratory complications I believe the negatives outweigh the benefits at this time. Will continue to monitor. 2. Sputum Aspergillus: Patient did have sputum positive Aspergillus which can often be contaminant or possibly secondary colonization. To prove invasive Aspergillus infection the lung parenchyma this would require transbronchial biopsy and as the patient has signs consistent with pulmonary hypertension and underlying liver disease she has not increased risk of bleeding. Once again at this time I suggest negative outweigh the benefits with this particular procedure will continue to monitor. 3. COPD: Patient does have very severe COPD with an FEV1 of 30% predicted. She is currently stabilizing and doing well on slow prednisone taper. Also should note this very severe COPD does have complications/increased risk of bronchoscopic intervention. Data Medications: Current Inpatient Medications Medications (Trade) Dose Ordered Sig/Golden Route Start Time Stop Time Status Last Admin Dose Admin Ondansetron HCl (Zofran Inj) 4 mg Q6H PRN IV 09/21/17 21:00 10/21/17 20:59 09/28/17 10:26 4 MG Guaifenesin (Mucinex Contr Rel Tab) 1,200 mg Q12 PO 09/21/17 21:00 10/21/17 20:59 09/30/17 07:40 1,200 MG Sodium Chloride ([place] Nasal [place]) 2 sprays Q8 PRN NA 09/21/17 21:00 10/21/17 20:59 Albuterol (Ventolin Hfa Inhaler) 2 puffs QID PRN INH 09/21/17 21:00 10/21/17 20:59 09/28/17 21:18 2 PUFFS Budesonide/ Formoterol Fumarate (Symbicort 160/ 4.5 Inh) 2 puffs BID INH 09/21/17 21:00 10/21/17 20:59 09/30/17 07:42 2 PUFFS Carvedilol (Coreg Tab) 25 mg BIDM PO 09/22/17 07:30 10/22/17 07:59 09/30/17 07:41 25 MG Magnesium Chloride (Slow-Mag Tab) 64 mg BID PO 09/21/17 21:00 10/21/17 20:59 09/30/17 07:40 64 MG Montelukast Sodium (Singulair Tab) 10 mg HS PO 09/21/17 21:00 10/21/17 20:59 09/29/17 21:45 10 MG Nystatin (Mycostatin Susp) 5 ml QID PO 09/21/17 21:00 10/01/17 20:59 09/30/17 07:39 5 ML Prochlorperazine Maleate (Compazine Tab) 5 mg TID PRN PO 09/21/17 21:00 10/21/17 20:59 Pantoprazole Sodium (Protonix Tab) 40 mg DAILY PO 09/22/17 09:00 10/22/17 08:59 09/30/17 07:39 40 MG Psyllium Hydrophilic Mucilloid (Metamucil Powder) 1 pkt DAILY PO 09/22/17 09:00 10/22/17 08:59 09/30/17 07:41 1 PKT Saccharomyces Boulardii (Florastor Cap) 250 mg DAILY PO 09/23/17 09:00 10/23/17 08:59 09/30/17 07:39 250 MG Enteral Nutritional Formula (Boost Pudding) 1 cup BID PO 09/22/17 21:00 10/22/17 20:59 09/30/17 07:41 1 CUP Lactulose (Chronulac Syrup) 15 gm DAILY PO 09/26/17 09:00 10/21/17 20:59 09/30/17 07:39 15 GM Benzonatate (Tessalon Perles Cap) 100 mg TID PO 09/26/17 21:00 10/26/17 20:59 09/30/17 07:39 100 MG Torsemide (Demadex Tab) 40 mg QAM PO 09/28/17 09:00 10/28/17 08:59 09/30/17 07:40 40 MG Rifaximin (Xifaxan Tab) 550 mg BID PO 09/27/17 21:00 10/27/17 20:59 09/30/17 07:40 550 MG Albuterol/ Ipratropium (Combivent Respimat Inh) 1 puffs QID INH 09/27/17 21:00 10/27/17 19:59 09/30/17 07:42 1 PUFFS Escitalopram Oxalate (Lexapro Tab) 10 mg QAM PO 09/29/17 09:00 10/22/17 08:59 09/30/17 07:39 10 MG Prednisone (PredniSONE TAB) 20 mg DAILY PO 09/30/17 09:00 10/25/17 08:59 09/30/17 07:40 20 MG Enoxaparin Sodium (Lovenox Inj) 40 mg Q24H SQ 09/30/17 21:00 10/30/17 20:59 Oxycodone HCl (Roxicodone Immediate Rel Tab) 2.5 mg Q8H PRN PO 09/29/17 21:00 10/13/17 20:59 Vital Signs: Date Time Temp Pulse Resp B/P (MAP) Pulse Ox O2 Delivery O2 Flow Rate FiO2 09/30/17 12:28 Room Air 09/30/17 02:34 36.7 65 18 113/71 (85) 94 Room Air 09/29/17 23:29 36.5 59 17 119/72 (88) 95 Room Air 09/29/17 22:59 94 Room Air 95 09/29/17 19:45 36.8 60 20 120/73 (89) 94 Room Air 09/29/17 16:51 36.5 65 20 111/73 (86) 95 Room Air 09/29/17 16:00 Room Air Laboratory Results: Last 24 Hours Test 09/30/17 05:36 White Blood Count 9.83 K/uL Red Blood Count 4.97 M/uL Hemoglobin 12.0 g/dL Hematocrit 38.9 % Mean Corpuscular Volume 78.3 fL Mean Corpuscular Hemoglobin 24.1 pg Mean Corpuscular Hemoglobin Concent 30.8 g/dl RDW Standard Deviation 55.3 fL RDW Coefficient of Variation 20.6 % Platelet Count 233 K/uL Nucleated RBC Absolute Count (auto) 0.16 K/uL Nucleated Red Blood Cells % 1.6 % Sodium Level 134 mmol/L Potassium Level 3.9 mmol/L Chloride Level 93 mmol/L Carbon Dioxide Level 34 mmol/L Anion Gap 7.0 mmol/L Blood Urea Nitrogen 56 mg/dl Creatinine 1.02 mg/dl Est Creatinine Clear Calc Drug Dose 44.6 ml/min Estimated GFR () 62.3 Estimated GFR (Non- 53.8 BUN/Creatinine Ratio 54.7 Random Glucose 105 mg/dl Calcium Level 8.7 mg/dl Total Bilirubin 2.2 mg/dl Direct Bilirubin 1.1 mg/dl Aspartate Amino Transf (AST/SGOT) 41 U/L Alanine Aminotransferase (ALT/SGPT) 194 U/L Alkaline Phosphatase 205 U/L Ammonia 34.0 umol/L Total Protein 6.6 gm/dl Albumin 2.8 gm/dl
--- NOTE | 2017-09-30 17:50 | Hospitalist Progress Note ---
Hospitalist Progress Note Date of Service Sep 30, 2017. Subjective Pt evaluation today including: conversation w/ patient, conversation w/ family , conversation w/ healthcare economics consultant (Pulmonology) Patient reports her cough is improved but still present. Denies shortness of breath. Denies abdominal pain. She is not nauseated. She is eating all of her trays of meals plus extra food. All Other Systems: Reviewed and Negative Objective Vital Signs Date Time Temp Pulse Resp B/P (MAP) Pulse Ox O2 Delivery O2 Flow Rate FiO2 09/30/17 12:28 Room Air 09/30/17 02:34 36.7 65 18 113/71 (85) 94 Room Air 09/29/17 23:29 36.5 59 17 119/72 (88) 95 Room Air 09/29/17 22:59 94 Room Air 95 09/29/17 19:45 36.8 60 20 120/73 (89) 94 Room Air Physical Exam General Appearance: WD/WN, no apparent distress (Sitting in chair eating her dinner) Eyes: normal inspection, sclerae normal ENT: hearing grossly normal, pharynx normal (No thrush) Neck: trachea midline Respiratory/Chest: no respiratory distress, no accessory muscle use, + decreased breath sounds (Slightly at the bases but otherwise clear) Cardiovascular: regular rate, rhythm, + systolic murmur (3/6 RUSB) Abdomen: normal bowel sounds, non tender, soft Extremities: no calf tenderness, + swelling (1+ pitting edema in the legs to the mid tibia bilaterally) Neurologic/Psychiatric: alert, normal mood/affect Skin: normal color, warm/dry, no rash Laboratory Results Last 24 Hours Test 09/30/17 05:36 White Blood Count 9.83 K/uL Red Blood Count 4.97 M/uL Hemoglobin 12.0 g/dL Hematocrit 38.9 % Mean Corpuscular Volume 78.3 fL Mean Corpuscular Hemoglobin 24.1 pg Mean Corpuscular Hemoglobin Concent 30.8 g/dl RDW Standard Deviation 55.3 fL RDW Coefficient of Variation 20.6 % Platelet Count 233 K/uL Nucleated RBC Absolute Count (auto) 0.16 K/uL Nucleated Red Blood Cells % 1.6 % Sodium Level 134 mmol/L Potassium Level 3.9 mmol/L Chloride Level 93 mmol/L Carbon Dioxide Level 34 mmol/L Anion Gap 7.0 mmol/L Blood Urea Nitrogen 56 mg/dl Creatinine 1.02 mg/dl Est Creatinine Clear Calc Drug Dose 44.6 ml/min Estimated GFR () 62.3 Estimated GFR (Non- 53.8 BUN/Creatinine Ratio 54.7 Random Glucose 105 mg/dl Calcium Level 8.7 mg/dl Total Bilirubin 2.2 mg/dl Direct Bilirubin 1.1 mg/dl Aspartate Amino Transf (AST/SGOT) 41 U/L Alanine Aminotransferase (ALT/SGPT) 194 U/L Alkaline Phosphatase 205 U/L Ammonia 34.0 umol/L Total Protein 6.6 gm/dl Albumin 2.8 gm/dl Assessment and Plan This patient is a 77 y/o female with a history of acute angle closure glaucoma s /p laser ablation and R cataract surgery, chronic systolic CHF, cardiogenic cirrhosis, 3rd degree heart block s/p pacemaker, Brugada syndrome, paroxysmal ventricular tachycardia s/p ablation, permanent a-fib, hypothyroidism, gastroparesis, persistent lower abdominal pain, COPD, depression, CKD stage III , chronic hyponatremia, and anemia, recently admitted 09/18 - 09/20 for hyponatremia, viral URI and VAIBHAV, presenting with progressive productive cough, SOB and weakness. Physical exam, laboratory and imaging consistent with PNA and acute hepatic decompensation Pneumonia/possible gram-negative pneumonia in the setting of HAP-upon admission , patient afebrile, hemodynamically stable, no respiratory distress noted. She has mild neutrophil predominant leukocytosis with WBC=13.55, CT chest with patchy tree-in-bud nodules with subsegmental groundglass and consolidative nodular densities are seen about the right upper, middle and lower lobes with subsegmental alveolar opacities of the inferior segment lingula suggesting infectious bronchiolitis with pneumonitis. Patient with multiple recent hospitalizations. Is significantly improved from previous -cannot rule out invasive aspergillus given the growth of this on sputum culture , however she does not seem sick enough to have this -Discussed with pulmonology-he does not feel comfortable doing bronchoscopy at this time as she does not seem to understand the risks versus benefits and he feels the risks outweigh the benefits at this time. -Finished 7-day course of cefepime and doxy. -Blood cultures x 2 sets drawn no growth to date -Weaned off oxygen -Continue Mucinex BID -Nasal saline -Continue Tessalon Perles for cough -Continue bronchodilators -Continues on prednisone taper downward Endobronchial mass- CT revealed a focal 8 mm area of nodularity about the medial aspect of the bronchus intermedius suspicious for an endobronchial mass lesion. This is new from prior CT in 2015 Pulmonary aware - needs bronch in the future once more optimized from liver/INR standpoint and other active medical issues. Versus repeat CT of the chest no bronchoscopy at this time Abnormal LFTs/acute hepatic decompensation/cardiogenic cirrhosis-patient with elevated Tbili = 1.4, KLN=355, OGT=844 and NB=036 on admission which are all now significantly improved. RUQUS performed which revealed liver cirrhosis. Portal vein Dopplers negative for thrombosis. Patient with history of cardiogenic cirrhosis. Also with elevated INR of 8 which is now improved. Concern for congestive hepatopathy vs infection vs medication effects versus shock liver from infection. Ammonia level mildly elevated at 52 on admission and did develop some evidence of encephalopathy which is now improved with starting lactulose and Xifaxan No evidence of biliary dilatation on ultrasound Acetaminophen level is less than 2 Anti-smooth muscle antibody is mildly positive at 1:80-would appreciate GI input on this result ordered by them -Continue to follow LFTs, INR -Continue Lactulose and Xifaxan -We will not give any acetaminophen containing products Acute hepatitis profile negative. Hyponatremia - hypovolemic -only mildly reduced from baseline this time at 124 on admission. Likely due to acute on chronic hyponatremia secondary to recent poor p.o. intake due to acute illness in the setting of cardiac cirrhosis, exacerbated by diuretic use. Sodium significantly improved now at 134 Management of her condition is typically challenging as she has a very low EF and is prone to volume overload, but also prone to dehydration with poor p.o. intake due to her chronic nausea. -Has been changed to torsemide 40 mg daily with net negative balance each day over the last few days. Weights acceptable. Volume status acceptable despite peripheral edema on exam. -Discontinued Aldactone for hyperkalemia on admission -Continue fluid restriction of 1200 ML's per 24 hours as per nephrology recommendations -Can have some salt in her diet-would recommend heart healthy diet and not 2000 mg sodium diet as per previous nephrology recommendation from last admission -Appreciate nephrology consultation and should follow-up with them as an outpatient -Would recommend BMP checks q. 1-2 weeks as an outpatient to keep close tabs on her sodium levels VAIBHAV on CKD with hyperkalemia, K=6 - No EKG changes consistent with hyperkalemia. Patient with Cr of 1.68 on admission-both no completely resolved. Possibly secondary to poor effective arterial flow in setting of suspected CHF. -Monitor BUN, Cr, electrolytes and UOP -Avoid nephrotoxic agents -Hold Aldactone for now in setting of hyperkalemia -Renal dosing where appropriate Acute on chronic biventricular systolic CHF/Mod MVR/H/o MV repair- Patient appears to be in mild failure, +edema, +JVD. Last echocardiogram in 06/2017 with EF 20-25% --Was given IV Lasix on admission and now resolved -Strict I/Os, daily weights -Continue p.o. torsemide as above -Hold Aldactone 25 mg p.o. twice daily today in setting of hyperkalemia -Cont Coreg 25 mg p.o. twice daily -Is not on AMADOU or ARB-deferred to primary feed miller Abdominal pain secondary to adnexal varices/nausea/vomiting/gastroparesis- stable to improved -Zofran as needed -Compazine as needed -Oxycodone as needed -Discontinue acetaminophen due to acute liver failure Permanent atrial fibrillation/permanent pacemaker in situ V paced at 61bpm, anticoagulated with Coumadin. Had supertherapeutic INR recently, possibly secondary to failing liver as well as Coumadin use. INR now down to 1.6 with holding Coumadin -Continue to follow INR -Continue to hold Coumadin -Continue Carvedilol 25mg po BID -Okay to transfer off telemetry Severe COPD -with exacerbation and wheezing on exam initially-now significantly improved -Continue to monitor respiratory status -DuoNeb q 4 -Xopenex PRN -Continue Symbicort and Singulair -Tapering steroids down Major depressive disorder-worsened by multiple recent hospitalizations -Continue Lexapro at increased dose of 10 mg Chronic microcytic anemia-iron studies fairly normal last admission except mildly low transferrin saturation at 9%, ferritin normal in the 40s, B12 and folate normal. Hemoccult stool negative last admission -Suspect anemia of chronic kidney disease plus some iron deficiency -Follow CBC as an outpatient Oral candidiasis - -Nystatin suspension QID for total 14 day course-now completed -Continue to monitor 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. Her TSH was previously high at 4.9 but is now normal at 3.43. This could be followed in the outpt setting. -Not on medication at this time Prophylaxis-patient on Protonix daily. INR elevated-no chemical anticoagulation at this time Dispo -transfer to medical floor and expect discharge to SNF probably on Monday Daughter, son, and [id number] extensively updated at the bedside today
[2017-09-30 20:21] VITALS: BP 110/74; PULSE 60; TEMP 36.5; O2SAT 95
[2017-09-30] MEDS: ENOXAPARIN 40 MG/0.4 ML SYR SQ SCH (20:39)
[2017-09-30] MEDS: MONTELUKAST SOD 10 MG TAB PO SCH (20:42)
[2017-09-30 22:47] VITALS: BP 105/65; PULSE 61; TEMP 36.4; O2SAT 95
[2017-10-01 07:01] LABS: INR 1.2 (0.9-1.1)
[2017-10-01 07:05] VITALS: BP 119/80; PULSE 60; TEMP 36.4; O2SAT 97
[2017-10-01] MEDS: BUDESONIDE/FORMOTEROL FUMARATE 160/4.5 60 PUFFS/INHALER INH SCH ×2 (07:51→20:37)
[2017-10-01] MEDS: IPRATROPIUM BROMIDE/ALBUTEROL respimat INH INH SCH ×4 (07:51→20:35)
[2017-10-01] MEDS: LACTULOSE SYRUP 20 GM/30 ML UDC PO SCH (07:52)
[2017-10-01] MEDS: CARVEDILOL 25 MG TAB PO SCH ×2 (07:53→17:38)
[2017-10-01] MEDS: TORSEMIDE 20 MG TAB PO SCH (07:54)
[2017-10-01] MEDS: SACCHAROMYCES BOUL (FLORASTOR) 250 MG CAP PO SCH (07:55)
[2017-10-01] MEDS: ESCITALOPRAM OXALATE 10 MG TAB PO SCH (07:55)
[2017-10-01] MEDS: PSYLLIUM 58.6% PWD PACK S\\F PO SCH (07:56)
[2017-10-01] MEDS: PANTOprazole SOD 40 MG TAB PO SCH (07:56)
[2017-10-01] MEDS: BENZONATATE 100MG CAP PO SCH ×3 (07:57→20:36)
[2017-10-01] MEDS: RIFAXIMIN TAB 550 MG TAB PO SCH ×2 (07:57→20:36)
[2017-10-01] MEDS: MAGNESIUM CHLORIDE 64MG DELAYED REL TAB PO SCH ×2 (07:57→20:36)
[2017-10-01] MEDS: GUAIFENESIN 600 MG TABCR PO SCH ×2 (07:58→20:35)
[2017-10-01 08:00] VITALS: O2SAT 97
[2017-10-01 08:45] LABS: ALBUMIN 2.8 gm/dl (3.4-5.0); CREATININE 0.89 mg/dl (0.60-1.20); POTASSIUM 3.8 mmol/L (3.5-5.1); TOTAL PROTEIN 6.1 gm/dl (6.4-8.2)
--- NOTE | 2017-10-01 13:33 | Hospitalist Progress Note ---
Hospitalist Progress Note Date of Service Oct 01, 2017. Subjective Pt evaluation today including: conversation w/ patient, conversation w/ family Patient feeling very well today. She has no complaints and has not coughed at all. She denies chest pain or shortness of breath. She is moving her bowels, no nausea, no abdominal pain. Is in very good spirits and smiling. All Other Systems: Reviewed and Negative Objective Vital Signs Date Time Temp Pulse Resp B/P (MAP) Pulse Ox O2 Delivery O2 Flow Rate FiO2 10/01/17 08:00 97 Room Air 10/01/17 07:05 36.4 60 20 119/80 (93) 97 Room Air 10/01/17 00:00 Room Air 09/30/17 22:47 36.4 61 16 105/65 (78) 95 Room Air 09/30/17 20:21 36.5 60 16 110/74 (86) 95 Room Air Physical Exam General Appearance: WD/WN, no apparent distress Eyes: normal inspection, sclerae normal ENT: hearing grossly normal Neck: trachea midline Respiratory/Chest: lungs clear, normal breath sounds, no respiratory distress, no accessory muscle use Cardiovascular: regular rate, rhythm, + systolic murmur (3/6 at the RUSB), + pertinent finding (1-2+ pitting edema in the legs to the knees bilaterally) Abdomen: normal bowel sounds, non tender, soft Extremities: no calf tenderness, + swelling (As above) Neurologic/Psychiatric: alert, normal mood/affect, oriented x 3 Skin: normal color, warm/dry, no rash Laboratory Results Last 24 Hours Test 10/01/17 06:37 Prothrombin Time 12.9 SECONDS Prothromb Time International Ratio 1.2 Sodium Level 131 mmol/L Potassium Level 3.8 mmol/L Chloride Level 92 mmol/L Carbon Dioxide Level 35 mmol/L Anion Gap 4.0 mmol/L Blood Urea Nitrogen 51 mg/dl Creatinine 0.89 mg/dl Est Creatinine Clear Calc Drug Dose 51.1 ml/min Estimated GFR () 73.5 Estimated GFR (Non- 63.4 BUN/Creatinine Ratio 57.7 Random Glucose 92 mg/dl Calcium Level 9.0 mg/dl Magnesium Level 2.1 mg/dl Total Bilirubin 2.1 mg/dl Direct Bilirubin 1.0 mg/dl Aspartate Amino Transf (AST/SGOT) 48 U/L Alanine Aminotransferase (ALT/SGPT) 167 U/L Alkaline Phosphatase 188 U/L Total Protein 6.1 gm/dl Albumin 2.8 gm/dl Assessment and Plan This patient is a 77 y/o female with a history of acute angle closure glaucoma s /p laser ablation and R cataract surgery, chronic systolic CHF, cardiogenic cirrhosis, 3rd degree heart block s/p pacemaker, Brugada syndrome, paroxysmal ventricular tachycardia s/p ablation, permanent a-fib, hypothyroidism, gastroparesis, persistent lower abdominal pain, COPD, depression, CKD stage III , chronic hyponatremia, and anemia, recently admitted 09/18 - 09/20 for hyponatremia, viral URI and VAIBHAV, presenting with progressive productive cough, SOB and weakness. Physical exam, laboratory and imaging consistent with PNA and acute hepatic decompensation Pneumonia/possible gram-negative pneumonia in the setting of HAP-upon admission , patient afebrile, hemodynamically stable, no respiratory distress noted. She has mild neutrophil predominant leukocytosis with WBC=13.55, CT chest with patchy tree-in-bud nodules with subsegmental groundglass and consolidative nodular densities are seen about the right upper, middle and lower lobes with subsegmental alveolar opacities of the inferior segment lingula suggesting infectious bronchiolitis with pneumonitis. Patient with multiple recent hospitalizations. Is significantly improved from previous Repeat chest x-ray is clear now -cannot rule out invasive aspergillus given the growth of this on sputum culture , however she does not seem sick enough to have this and continues to improve clinically -Discussed with pulmonology-he does not feel comfortable doing bronchoscopy at this time as she does not seem to understand the risks versus benefits and he feels the risks outweigh the benefits at this time. -Finished 7-day course of cefepime and doxy. -Blood cultures x 2 sets drawn no growth to date -Weaned off oxygen -Continue Mucinex BID -Nasal saline -Continue Tessalon Perles for cough -Continue bronchodilators -Continues on prednisone taper downward-go down to 10 mg daily for tomorrow -Will need outpatient follow-up with pulmonology within 2 weeks Endobronchial mass- CT revealed a focal 8 mm area of nodularity about the medial aspect of the bronchus intermedius suspicious for an endobronchial mass lesion. This is new from prior CT in 2015 Pulmonary aware - needs bronch in the future once more optimized from liver/INR standpoint and other active medical issues. Versus repeat CT of the chest no bronchoscopy at this time Abnormal LFTs/acute hepatic decompensation/cardiogenic cirrhosis/hepatic encephalopathy-patient with elevated Tbili = 1.4, ZWF=388, BJD=264 and SF=618 on admission which are all continuing to improve. RUQ US performed which revealed liver cirrhosis. Portal vein Dopplers negative for thrombosis. Patient with history of cardiogenic cirrhosis. Also with elevated INR of 8 which is now improved down to 1.2. Concern for congestive hepatopathy vs infection vs medication effects versus shock liver from infection. Ammonia level mildly elevated at 52 on admission and did develop some evidence of encephalopathy which is now improved with starting lactulose and Xifaxan No evidence of biliary dilatation on ultrasound Acetaminophen level is less than 2 Anti-smooth muscle antibody is mildly positive at 1:80-would appreciate GI input on this result ordered by them-can be managed as an outpatient -Continue to follow LFTs, INR in the morning -Continue Lactulose and Xifaxan -We will not give any acetaminophen containing products Acute hepatitis profile negative. Hyponatremia - hypovolemic -only mildly reduced from baseline this time at 124 on admission. Likely due to acute on chronic hyponatremia secondary to recent poor p.o. intake due to acute illness in the setting of cardiac cirrhosis, exacerbated by diuretic use. Sodium significantly improved and stable at 131 Management of her condition is typically challenging as she has a very low EF and is prone to volume overload, but also prone to dehydration with poor p.o. intake due to her chronic nausea. -Has been changed to torsemide 40 mg daily with net negative balance each day over the last few days. Still with pitting edema-will increase torsemide to 60 mg daily Weights acceptable and continues with net negative balance if I's and O's are properly recorded -Discontinued Aldactone for hyperkalemia on admission -Continue fluid restriction of 1200 ML's per 24 hours as per nephrology recommendations -Can have some salt in her diet-would recommend heart healthy diet and not 2000 mg sodium diet as per previous nephrology recommendation from last admission -Appreciate nephrology consultation and should follow-up with them as an outpatient -Would recommend BMP checks q. 1-2 weeks as an outpatient to keep close tabs on her sodium levels VAIBHAV on CKD with hyperkalemia, K=6 - No EKG changes consistent with hyperkalemia. Patient with Cr of 1.68 on admission-both now completely resolved. Possibly secondary to poor effective arterial flow in setting of suspected CHF. -Monitor BUN, Cr, electrolytes and UOP -Avoid nephrotoxic agents -Will not restart Aldactone in setting of recurrent hyperkalemia -Renal dosing where appropriate Acute on chronic biventricular systolic CHF/Mod MVR/H/o MV repair- Patient appears to be in mild failure, +edema, +JVD. Last echocardiogram in 06/2017 with EF 20-25% --Was given IV Lasix on admission and now resolved -Strict I/Os, daily weights -Continue p.o. torsemide as above -Hold Aldactone 25 mg p.o. twice daily today in setting of hyperkalemia -Cont Coreg 25 mg p.o. twice daily -Is not on AMADOU or ARB-deferred to primary medical receptionist but with recurrent hyperkalemia, may not be cunningham Abdominal pain secondary to adnexal varices/nausea/vomiting/gastroparesis- stable to improved -Zofran as needed -Compazine as needed -Oxycodone as needed -Discontinue acetaminophen due to acute liver failure Permanent atrial fibrillation/permanent pacemaker in situ V paced at 61bpm, anticoagulated with Coumadin. Had supertherapeutic INR recently, possibly secondary to failing liver as well as Coumadin use. INR now down to 1.2 with holding Coumadin and with receiving oral vitamin K early in the admission -Continue to follow INR -Should be okay to restart Coumadin at a much lower dose tomorrow -Continue Carvedilol 25mg po BID Severe COPD -with exacerbation and wheezing on exam initially-now significantly improved -Continue to monitor respiratory status -DuoNeb q 4 -Xopenex PRN -Continue Symbicort and Singulair -Tapering steroids down as above Major depressive disorder-worsened by multiple recent hospitalizations -Continue Lexapro at increased dose of 10 mg Chronic microcytic anemia-iron studies fairly normal last admission except mildly low transferrin saturation at 9%, ferritin normal in the 40s, B12 and folate normal. 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 Her TSH was previously high at 4.9 but is now normal at 3.43. This could be followed in the outpt setting. -Not on medication at this time Prophylaxis-patient on Protonix daily. INR previously elevated-no chemical anticoagulation at this time Dispo -doing very well-expect discharge to SNF probably on Monday Daughter, son, and extensively updated at the bedside today
--- NOTE | 2017-10-01 14:48 | Pulmonology Progress Note ---
Pulmonary Progress Note Date of Service Oct 01, 2017. Attending Dr. Arango Subjective Patient was sitting up in her chair notably in good spirits with no signs of respiratory insufficiency no active respiratory complaints: Objective Patient was sitting up in her chair by the window when I walked in the room eating. We with a long conversation and she had no active respiratory complaints nor did she show any signs of respiratory insufficiency during our conversation such as accessory muscle use and/or tachypnea: Past Medical: Angle closure glaucoma, cirrhosis, third-degree heart block, Brugada syndrome, paroxysmal ventricular tachycardia, atrial fibrillation/ Coumadin, cardiomyopathy EF=20% hypothyroidism, gastroparesis, chronic abdominal pain, Very Severe COPD (FEV1=30%), major depressive disorder, CKD stage 3, chronic hyponatremia, chronic biventricular systolic CHF, moderate MR regurgitation, amiodarone induced hypothyroidism, chronic anemia/iron deficiency , oral candidiasis, hyperammonemia Surgical History: Right cataract surgery/laser ablation, status post pacemaker , [place] cardiac ablation, MVR repair Respiratory Medications: 1. Lovenox 40 mg subcu 2. Prednisone 20 mg daily 3. Oxycodone 2.5 mg q.8 hours 4. Combivent 1 puff q.i.d. 5. Benzonate 100 mg t.i.d 6. Protonix 40 mg 7. Guaifenesin 1.2 grams q.12 hours 8. Ventolin HFA 2 puffs q.i.d. 9. Symbicort 160-4.52 puffs b.i.d. Vital signs: Stable on room air Respiratory: Notable rhonchi on the right hemithorax especially in the lower posterior subsegments Cardiac: S1-S2 distant heart sounds irregular rhythm Extremities: Minimal pitting edema but right is greater than left in the lower extremities INR: 1.2 Patient was initially admitted 09/21/2017 for shortness of breath and fatigue with some altered mental status. During her hospital stay she has been noted to have multiple issues including congestive heart failure, shock liver with a history of cirrhosis, abnormal CT scan with bronchus intermedius abnormality and sputum positive Aspergillus. Patient was also diagnosed with COPD treatment is been slowly taper down on prednisone currently 25 mg daily and had supratherapeutic INR on Coumadin current INR 1.2. Assessment & Plan 77-year-old female with multiple medical problems admitted with diagnosis of pneumonia, COPD flare and abnormal CT scan: 1. Abnormal CT scan: At this time the patient is notably improving. Like to continue to monitor this patient clinically at this time and over the next week repeat her high-resolution CT scan to see if there is any improvement in the previously seen bronchus intermedius infiltrate. 2. Sputum Aspergillus: Patient did have sputum positive Aspergillus which can often be contaminant or possibly secondary colonization. To prove invasive Aspergillus infection the lung parenchyma this would require transbronchial biopsy and as the patient has signs consistent with pulmonary hypertension and underlying liver disease she has not increased risk of bleeding. Once again at this time I suggest negative outweigh the benefits with this particular procedure will continue to monitor. 3. COPD: Patient does have very severe COPD with an FEV1 of 30% predicted. She is currently stabilizing and doing well on slow prednisone taper. Also should note this very severe COPD does have complications/increased risk of bronchoscopic intervention. Data Medications: Current Inpatient Medications Medications (Trade) Dose Ordered Sig/Golden Route Start Time Stop Time Status Last Admin Dose Admin Ondansetron HCl (Zofran Inj) 4 mg Q6H PRN IV 09/21/17 21:00 10/21/17 20:59 09/28/17 10:26 4 MG Guaifenesin (Mucinex Contr Rel Tab) 1,200 mg Q12 PO 09/21/17 21:00 10/21/17 20:59 10/01/17 07:58 1,200 MG Sodium Chloride ([place] Nasal [place]) 2 sprays Q8 PRN NA 09/21/17 21:00 10/21/17 20:59 Albuterol (Ventolin Hfa Inhaler) 2 puffs QID PRN INH 09/21/17 21:00 10/21/17 20:59 09/28/17 21:18 2 PUFFS Budesonide/ Formoterol Fumarate (Symbicort 160/ 4.5 Inh) 2 puffs BID INH 09/21/17 21:00 10/21/17 20:59 10/01/17 07:51 2 PUFFS Carvedilol (Coreg Tab) 25 mg BIDM PO 09/22/17 07:30 10/22/17 07:59 10/01/17 07:53 25 MG Magnesium Chloride (Slow-Mag Tab) 64 mg BID PO 09/21/17 21:00 10/21/17 20:59 10/01/17 07:57 64 MG Montelukast Sodium (Singulair Tab) 10 mg HS PO 09/21/17 21:00 10/21/17 20:59 09/30/17 20:42 10 MG Prochlorperazine Maleate (Compazine Tab) 5 mg TID PRN PO 09/21/17 21:00 10/21/17 20:59 Pantoprazole Sodium (Protonix Tab) 40 mg DAILY PO 09/22/17 09:00 10/22/17 08:59 10/01/17 07:56 40 MG Psyllium Hydrophilic Mucilloid (Metamucil Powder) 1 pkt DAILY PO 09/22/17 09:00 10/22/17 08:59 10/01/17 07:56 1 PKT Saccharomyces Boulardii (Florastor Cap) 250 mg DAILY PO 09/23/17 09:00 10/23/17 08:59 10/01/17 07:55 250 MG Lactulose (Chronulac Syrup) 15 gm DAILY PO 09/26/17 09:00 10/21/17 20:59 10/01/17 07:52 15 GM Benzonatate (Tessalon Perles Cap) 100 mg TID PO 09/26/17 21:00 10/26/17 20:59 10/01/17 14:11 100 MG Torsemide (Demadex Tab) 40 mg QAM PO 09/28/17 09:00 10/28/17 08:59 10/01/17 07:54 40 MG Rifaximin (Xifaxan Tab) 550 mg BID PO 09/27/17 21:00 10/27/17 20:59 10/01/17 07:57 550 MG Albuterol/ Ipratropium (Combivent Respimat Inh) 1 puffs QID INH 09/27/17 21:00 10/27/17 19:59 10/01/17 13:03 1 PUFFS Escitalopram Oxalate (Lexapro Tab) 10 mg QAM PO 09/29/17 09:00 10/22/17 08:59 10/01/17 07:55 10 MG Prednisone (PredniSONE TAB) 20 mg DAILY PO 09/30/17 09:00 10/25/17 08:59 10/01/17 07:56 20 MG Enoxaparin Sodium (Lovenox Inj) 40 mg Q24H SQ 09/30/17 21:00 10/30/17 20:59 09/30/17 20:39 40 MG Oxycodone HCl (Roxicodone Immediate Rel Tab) 2.5 mg Q8H PRN PO 09/29/17 21:00 10/13/17 20:59 I & O: 24-Hour Column 10/02/17 08:00 Intake Total 240 ml Output Total 350 ml Balance -110 ml Vital Signs: Date Time Temp Pulse Resp B/P (MAP) Pulse Ox O2 Delivery O2 Flow Rate FiO2 10/01/17 08:00 97 Room Air 10/01/17 07:05 36.4 60 20 119/80 (93) 97 Room Air 10/01/17 00:00 Room Air 09/30/17 22:47 36.4 61 16 105/65 (78) 95 Room Air 09/30/17 20:21 36.5 60 16 110/74 (86) 95 Room Air Laboratory Results: Last 24 Hours Test 10/01/17 06:37 Prothrombin Time 12.9 SECONDS Prothromb Time International Ratio 1.2 Sodium Level 131 mmol/L Potassium Level 3.8 mmol/L Chloride Level 92 mmol/L Carbon Dioxide Level 35 mmol/L Anion Gap 4.0 mmol/L Blood Urea Nitrogen 51 mg/dl Creatinine 0.89 mg/dl Est Creatinine Clear Calc Drug Dose 51.1 ml/min Estimated GFR () 73.5 Estimated GFR (Non- 63.4 BUN/Creatinine Ratio 57.7 Random Glucose 92 mg/dl Calcium Level 9.0 mg/dl Magnesium Level 2.1 mg/dl Total Bilirubin 2.1 mg/dl Direct Bilirubin 1.0 mg/dl Aspartate Amino Transf (AST/SGOT) 48 U/L Alanine Aminotransferase (ALT/SGPT) 167 U/L Alkaline Phosphatase 188 U/L Total Protein 6.1 gm/dl Albumin 2.8 gm/dl
[2017-10-01 15:19] VITALS: BP 119/72; PULSE 59; TEMP 36.6; O2SAT 96
[2017-10-01 16:10] VITALS: O2SAT 96
[2017-10-01] MEDS: ALBUTEROL HFA 8 GM INHALER INH PRN (20:35)
[2017-10-01] MEDS: MONTELUKAST SOD 10 MG TAB PO SCH (20:35)
[2017-10-01] MEDS: ENOXAPARIN 40 MG/0.4 ML SYR SQ SCH (20:37)
[2017-10-01 23:48] VITALS: BP 115/66; PULSE 60; TEMP 36.7; O2SAT 97
[2017-10-02 06:13] LABS: EOS % 0.4 %; EOS ABS # 0.04 K/uL (0-0.5); HEMATOCRIT 38.8 % (37-47); HEMOGLOBIN 11.9 g/dL (12.0-16.0); IG# 0.04 K/uL (0.00-0.02); LYMPH % 9.1 %; LYMPH ABS # 0.82 K/uL (1.2-3.4); MEAN CELL VOLUME 78.7 fL (80-100); MEAN CORPUSCULAR HEMOGLOBIN 24.1 pg (25-34); MEAN CORPUSCULAR HGB CONC 30.7 g/dl (32-36); MONO % 10.4 %; MONO ABS # 0.94 K/uL (0.11-0.59); NEUT % 79.7 %; NUCLEATED RED BLOOD CELL ABS 0.03 K/uL (0-0); PLATELET COUNT 203 K/uL (130-400); RED CELL DISTRIBUTION WIDTH CV 21.7 % (11.5-14.5); RED CELL DISTRIBUTION WIDTH SD 57.8 fL (36.4-46.3); WHITE BLOOD COUNT 9.04 K/uL (4.8-10.8)
[2017-10-02 06:19] LABS: INR 1.2 (0.9-1.1)
[2017-10-02 06:43] LABS: ALBUMIN 2.9 gm/dl (3.4-5.0); CALCIUM 8.7 mg/dl (8.5-10.1); CREATININE 0.81 mg/dl (0.60-1.20); POTASSIUM 3.8 mmol/L (3.5-5.1); TOTAL PROTEIN 6.2 gm/dl (6.4-8.2)
[2017-10-02 07:23] VITALS: BP 123/78; PULSE 62; TEMP 36.6; O2SAT 95
[2017-10-02] MEDS ORDERED: TORSEMIDE 20 MG TAB PO SCH (08:00)
[2017-10-02] MEDS: LACTULOSE SYRUP 20 GM/30 ML UDC PO SCH (08:30)
[2017-10-02] MEDS: RIFAXIMIN TAB 550 MG TAB PO SCH (08:31)
[2017-10-02] MEDS: MAGNESIUM CHLORIDE 64MG DELAYED REL TAB PO SCH (08:32)
[2017-10-02] MEDS: ESCITALOPRAM OXALATE 10 MG TAB PO SCH (08:32)
[2017-10-02] MEDS: SACCHAROMYCES BOUL (FLORASTOR) 250 MG CAP PO SCH (08:32)
[2017-10-02] MEDS: BENZONATATE 100MG CAP PO SCH ×2 (08:32→13:34)
[2017-10-02] MEDS: PANTOprazole SOD 40 MG TAB PO SCH (08:32)
[2017-10-02] MEDS: CARVEDILOL 25 MG TAB PO SCH (08:33)
[2017-10-02] MEDS: BUDESONIDE/FORMOTEROL FUMARATE 160/4.5 60 PUFFS/INHALER INH SCH (08:33)
[2017-10-02] MEDS: PSYLLIUM 58.6% PWD PACK S\\F PO SCH (08:33)
[2017-10-02] MEDS: GUAIFENESIN 600 MG TABCR PO SCH (08:33)
[2017-10-02] MEDS: IPRATROPIUM BROMIDE/ALBUTEROL respimat INH INH SCH ×2 (08:33→12:14)
[2017-10-02] MEDS ORDERED: IPRA1AER2 INH (12:20)
[2017-10-02] MEDS ORDERED: PRD10 PO (12:20)
[2017-10-02] MEDS ORDERED: RXC5 PO (12:20)
[2017-10-02] MEDS ORDERED: LXP10 PO (12:20)
[2017-10-02] MEDS ORDERED: GFNSR600 PO (12:20)
[2017-10-02] MEDS ORDERED: NYSS5 PO (12:20)
[2017-10-02] MEDS ORDERED: BENZ100C7 PO (12:20)
[2017-10-02] MEDS ORDERED: TORS20TA3 PO (12:20)
[2017-10-02] MEDS ORDERED: SACC250C3 PO (12:20)
[2017-10-02] MEDS ORDERED: XFX550 PO (12:20)
[2017-10-02] MEDS ORDERED: LACT10SO3 PO (12:20)
--- NOTE | 2017-10-02 12:41 | Discharge Instructions ---
Discharge Instructions Date of Service Oct 02, 2017. Admission Reason for Admission: COUGH Discharge Discharge Diagnosis / Problem: Pneumonia, shock liver Discharge Goals Goal(s): Improve disease control, Diagnostic testing, Therapeutic intervention Activity Recommendations Activity Level: Assistance Required Therapies: Physical Therapy, Occupational Therapy Exercise/Sports Limitations: gradually increase as tolerated Shower/Bathe: no limitations (With assistance) . 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 Physical exam, laboratory and imaging consistent with PNA and acute hepatic decompensation Pneumonia/possible gram-negative pneumonia in the setting of HAP-upon admission , patient afebrile, hemodynamically stable, no respiratory distress noted. She has mild neutrophil predominant leukocytosis with WBC=13.55, CT chest with patchy tree-in-bud nodules with subsegmental groundglass and consolidative nodular densities are seen about the right upper, middle and lower lobes with subsegmental alveolar opacities of the inferior segment lingula suggesting infectious bronchiolitis with pneumonitis. Patient with multiple recent hospitalizations. Is significantly improved from previous Repeat chest x-ray is clear now -cannot rule out invasive aspergillus given the growth of this on sputum culture , however she does not seem sick enough to have this and continues to improve clinically -Discussed with pulmonology-he does not feel comfortable doing bronchoscopy at this time as she does not seem to understand the risks versus benefits and he feels the risks outweigh the benefits at this time. -Finished 7-day course of cefepime and doxy. -Blood cultures x 2 sets drawn no growth to date -Weaned off oxygen -Continue Mucinex BID -Continue nasal saline -Continue Tessalon Perles for cough 3 times daily scheduled for 1 week and then as needed after that -Continue bronchodilators with Combivent 4 times daily -Continues on prednisone taper downward- down to 10 mg daily for 3 more days and then stop -Will need outpatient follow-up with pulmonology within 1 week and will need repeat CT chest as below Endobronchial mass- CT revealed a focal 8 mm area of nodularity about the medial aspect of the bronchus intermedius suspicious for an endobronchial mass lesion. This is new from prior CT in 2015 Pulmonary following - needs bronch in the future once more optimized from liver/ INR standpoint and other active medical issues. -Pulmonary recommending repeat high-resolution CT of the chest in 1 week-can be ordered by pulmonary at follow-up visit within 1 week Abnormal LFTs/acute hepatic decompensation/cardiogenic cirrhosis/hepatic encephalopathy-patient with elevated Tbili = 1.4, RKH=211, ZYF=094 and DD=413 on admission which are all continuing to improve. RUQ US performed which revealed liver cirrhosis. Portal vein Dopplers negative for thrombosis. Patient with history of cardiogenic cirrhosis. Also with elevated INR of 8 which is now improved down to 1.2 and stable but still mildly elevated. Concern for congestive hepatopathy vs infection vs medication effects versus shock liver from infection. Ammonia level mildly elevated at 52 on admission and did develop some evidence of encephalopathy which is now improved with starting lactulose and Xifaxan- most recent ammonia level down to 34 No evidence of biliary dilatation on ultrasound Acetaminophen level is less than 2 Anti-smooth muscle antibody is mildly positive at 1:80-would appreciate GI input on this result ordered by them-can be managed as an outpatient-should have follow-up appointment scheduled with gastroenterology -Continue to follow LFTs, INR q. 2-[address] [facility] -Continue Lactulose and Xifaxan -We will not give any acetaminophen containing products Acute hepatitis profile negative. -Would not restart Coumadin until acute liver issues are resolved Hyponatremia - hypovolemic -only mildly reduced from baseline on admission at 124. Likely due to acute on chronic hyponatremia secondary to recent poor p.o. intake due to acute illness in the setting of cardiac cirrhosis, exacerbated by diuretic use. Sodium significantly improved and stable at 132 with discontinuation of Lasix and starting torsemide Management of her condition is typically challenging as she has a very low EF and is prone to volume overload, but also prone to dehydration with poor p.o. intake due to her chronic nausea. -Has been changed to torsemide 60 mg daily with net negative balance each day over the last few days. Still with pitting edema which is improving Weights acceptable and continues with net negative balance if I's and O's are properly recorded -Discontinued Aldactone for hyperkalemia on admission -Continue fluid restriction of 1200 ML's per 24 hours as per nephrology recommendations -Can have some salt in her diet-would recommend heart healthy diet and not 2000 mg sodium diet as per previous nephrology recommendation from last admission -Appreciate nephrology consultation and should follow-up with them as an outpatient -Would recommend BMP checks once weekly as an outpatient to keep close tabs on her sodium levels VAIBHAV on CKD with hyperkalemia, K=6 - No EKG changes consistent with hyperkalemia. Patient with Cr of 1.68 on admission-both now completely resolved. Possibly secondary to poor effective arterial flow in setting of suspected CHF. -Monitor BUN, Cr, electrolytes and UOP -Avoid nephrotoxic agents -Will not restart Aldactone in setting of recurrent hyperkalemia -Renal dosing where appropriate Acute on chronic biventricular systolic CHF/Mod MVR/H/o MV repair- Patient appears to be in mild failure, +edema, +JVD. Last echocardiogram in 06/2017 with EF 20-25% --Was given IV Lasix on admission and now resolved -Strict I/Os, daily weights -Continue p.o. torsemide as above -Hold Aldactone 25 mg p.o. twice daily today in setting of hyperkalemia -Cont Coreg 25 mg p.o. twice daily -Is not on AMADOU or ARB-deferred to primary wallpaper scraper but with recurrent hyperkalemia, may not be cunningham Abdominal pain secondary to adnexal varices/nausea/vomiting/gastroparesis- stable to improved -Zofran as needed -Compazine as needed -Oxycodone as needed -Discontinue acetaminophen due to acute liver failure Permanent atrial fibrillation/permanent pacemaker in situ V paced at 61bpm, anticoagulated with Coumadin. Had supratherapeutic INR recently, possibly secondary to failing liver as well as Coumadin use. INR now down to 1.2 with holding Coumadin and with receiving oral vitamin K early in the admission -Continue to follow INR -Will not restart Coumadin until acute liver issues completely resolved -Continue Carvedilol 25mg po BID Severe COPD -with exacerbation and wheezing on exam initially-now significantly improved -Continue to monitor respiratory status -Continue Combivent 1 puff 4 times daily -Continue Symbicort and Singulair -Tapering steroids down as above Major depressive disorder-worsened by multiple recent hospitalizations -Continue Lexapro at increased dose of 10 mg Chronic microcytic anemia-iron studies fairly normal last admission except mildly low transferrin saturation at 9%, ferritin normal in the 40s, B12 and folate normal. Iron studies this time now normal despite microcytosis. 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 Her TSH was previously high at 4.9 but is now normal at 3.43. This could be followed in the outpt setting. -Not on medication at this time Dispel-discharge to SNF today Current Hospital Diet Patient's current hospital diet: AHA Diet (Heart Healthy), Low Fiber Diet Discharge Diet Recommended Diet: AHA Diet (Heart Healthy) Procedures Procedures Performed: CT chest Chest x-rays Gallbladder ultrasound Portal venous duplex ultrasound Pending Studies Studies pending at discharge: no Physician Orders On Transfer Special Precautions: Fall risk IV Therapy: None Vital Signs: Daily Weigh: Daily Additional Orders: Check LFTs, BMP, PT/INR in 3 days and then once weekly after that POLST Discussion: Not Applicable Laboratory Results Last 24 Hours Test 10/02/17 05:42 White Blood Count 9.04 K/uL Red Blood Count 4.93 M/uL Hemoglobin 11.9 g/dL Hematocrit 38.8 % Mean Corpuscular Volume 78.7 fL Mean Corpuscular Hemoglobin 24.1 pg Mean Corpuscular Hemoglobin Concent 30.7 g/dl Platelet Count 203 K/uL Neutrophils (%) (Auto) 79.7 % Lymphocytes (%) (Auto) 9.1 % Monocytes (%) (Auto) 10.4 % Eosinophils (%) (Auto) 0.4 % Basophils (%) (Auto) 0.0 % Neutrophils # (Auto) 7.20 K/uL Lymphocytes # (Auto) 0.82 K/uL Monocytes # (Auto) 0.94 K/uL Eosinophils # (Auto) 0.04 K/uL Basophils # (Auto) 0.00 K/uL RDW Standard Deviation 57.8 fL RDW Coefficient of Variation 21.7 % Immature Granulocyte % (Auto) 0.4 % Immature Granulocyte # (Auto) 0.04 K/uL Nucleated RBC Absolute Count (auto) 0.03 K/uL Nucleated Red Blood Cells % 0.4 % Polychromasia 1+ Hypochromasia PRESENT Anisocytosis PRESENT Target Cells 1+ Echinocytes 1+ Prothrombin Time 12.1 SECONDS Prothromb Time International Ratio 1.2 Sodium Level 132 mmol/L Potassium Level 3.8 mmol/L Chloride Level 94 mmol/L Carbon Dioxide Level 33 mmol/L Anion Gap 5.0 mmol/L Blood Urea Nitrogen 42 mg/dl Creatinine 0.81 mg/dl Est Creatinine Clear Calc Drug Dose 56.2 ml/min Estimated GFR () 82.3 Estimated GFR (Non- 71.0 BUN/Creatinine Ratio 51.7 Random Glucose 83 mg/dl Calcium Level 8.7 mg/dl Magnesium Level 2.0 mg/dl Iron Level 132 mcg/dl Total Iron Binding Capacity 399 mcg/dl Transferrin 317 mg/dl Transferrin % Saturation 30 % Ferritin 47.4 ng/ml Total Bilirubin 2.1 mg/dl Direct Bilirubin 1.0 mg/dl Aspartate Amino Transf (AST/SGOT) 54 U/L Alanine Aminotransferase (ALT/SGPT) 165 U/L Alkaline Phosphatase 183 U/L Total Protein 6.2 gm/dl Albumin 2.9 gm/dl Medical Emergencies . Who to Call and When: Medical Emergencies: If at any time you feel your situation is an emergency, please call 911 immediately. . Non-Emergent Contact Non-Emergency issues call your: Primary Care Provider, Manager Life Insurance, Formula Clerk, Soundscriber Mechanic, Inspector Metal Can Call Non-Emergent contact if: temperature is above 101, your pain is not controlled, your pain is worsening, your pain is unusual for you, your pain is concerning you, you have any medication questions . . "Provider Documentation" section prepared by Leatha Casillas. . Core Measure Problem Core Measures: None [place] Drug Monitoring Program Search Results: patient reviewed within database, no issues identified
--- NOTE | 2017-10-02 12:52 | Discharge Summary ---
Discharge Summary Date of Service Oct 02, 2017. 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 History of 3rd degree heart block s/p pacemaker Brugada syndrome History of paroxysmal ventricular tachycardia s/p ablation Permanent a-fib no longer on anticoagulation Hypothyroidism Gastroparesis Chronic lower abdominal pain secondary to adnexal varices COPD-severe, with exacerbation Major depressive disorder CKD stage III Acute on chronic hyponatremia Anemia of chronic disease Pneumonia/possible gram-negative pneumonia in the setting of HAP 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 about the medial aspect of the bronchus intermedius Hepatic encephalopathy Elevated INR VAIBHAV on CKD Hyperkalemia Moderate MVR with H/o MV repair Oral candidiasis 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 Immunizations: Have You Had Influenza Vaccine: Yes Influenza Vaccine Date: Nov 10, 2008 History of Tetanus Vaccine?: Unknown History of Pneumococcal: Yes Pneumococcal Date: Apr 12, 1999 History of Hepatitis B Vaccine: Unknown Procedures: Chest x-rays CT chest Liver ultrasound Portal venous duplex Consultations: Gastroenterology Pulmonology Nephrology Medication Reconciliation New Medications: Benzonatate (Benzonatate) 100 Mg Cap 100 MG PO TID for 7 Days, CAP and then can be given prn cough after the first 7 days Escitalopram Oxalate (Escitalopram Oxalate) 10 Mg Tab 10 MG PO QAM for 30 Days, TAB Guaifenesin Ext Rel (Mucinex Ext Rel) 600 Mg Tabcr 1200 MG PO Q12 for 14 Days Ipratropium-Albuterol (Combivent Respimat) 1 Aer Aer 1 PUFFS INH QID for 30 Days Oxycodone HCl (Oxycodone HCl) 5 Mg Tab 2.5 MG PO Q8H PRN for Pain for 3 Days, #6 TAB Prednisone (Prednisone) 10 Mg Tab 10 MG PO DAILY for 3 Days, TAB Rifaximin (Xifaxan) 550 Mg Tab 550 MG PO BID for 30 Days, TAB Saccharomyces Boulardii (Florastor) 250 Mg Cap 250 MG PO DAILY for 30 Days, CAP Torsemide (Torsemide) 20 Mg Tab 60 MG PO QAM for 30 Days, TAB Continued Medications: Budesonide/Formoterol Fumarate (Symbicort 160/4.5 Inhaler ) Aero 2 PUFFS INH BID Carvedilol (Carvedilol) 25 Mg Tab 25 MG PO BIDM Clindamycin Hcl (Cleocin) 150 Mg Cap 600 MG PO UD PRN for Dental Appointment TAKE 4 CAPSULES ONE HOUR PRIOR TO DENTAL WORK Lactulose (Chronulac) 10 Gm/15 Ml Syrp 15 ML PO DAILY for 30 Days (This prescription has been renewed) Magnesium Chloride (Slow-Mag Tab) 64 Mg Tabcr 64 MG PO BID, TAB Montelukast Sod (Montelukast Sodium) 10 Mg Tab 10 MG PO HS Nystatin (Nystatin) 5 Ml Susp 5 ML PO QID for 7 Days (This prescription has been renewed) Ondansetron Hcl (Zofran) 4 Mg Tab 4 MG SL Q8 PRN for Nausea, TAB Pantoprazole Sodium (Protonix) 20 Mg Tab 40 MG PO DAILY Prochlorperazine Maleate (Prochlorperazine Maleate) 5 Mg Tab 5 MG PO TID PRN for Nausea or Vomiting Psyllium (Metamucil) 48.57 % Pow 1 TSP PO DAILY Saline (Saline Nasal [place]) 0.65 % Spr 1 SPRAY JURGEN TID Discontinued Medications: Acetaminophen (Mapap) 325 Mg Tab 650 MG PO Q4H PRN for Pain or Fever for 30 Days, #240 TAB Albuterol Hfa (Ventolin Hfa) 200 Puffs/64583 Mcg Aers 2 PUFFS INH QID PRN for Wheezing, INHALER Dextromethorphan-Guaifenesin (Mucinex Dm) 1 Tab Tab 1 TAB PO Q12, TAB Escitalopram Oxalate (Lexapro) 5 Mg Tab 5 MG PO QAM Furosemide (Lasix) 80 Mg Tab 80 MG PO QAM for 30 Days, #30 TAB AND TAKE AN EXTRA 80MG AT 1700 ONLY FOR LEG SWELLING OR WEIGHT GAIN >3 LBS/24 HRS Multivitamin (Multivitamin) Tab 1 TAB PO DAILY, TAB Spironolactone (Spironolactone) 25 Mg Tab 25 MG PO BID Tramadol (Ultram) 50 Mg Tab 50 MG PO Q6H PRN for severe pain for 3 Days, #12 TAB Warfarin Sod (Coumadin) 2 Mg Tab 2 MG PO QPM for 30 Days DO NOT START UNTIL INR<3 Discharge Exam Patient feeling very well, no cough or sputum production, no shortness of breath , no chest pain, minimal abdominal pain which is chronic. She is tolerating p.o. No other concerns. Physical Exam General Appearance: WD/WN, no apparent distress Eyes: normal inspection, sclerae normal ENT: hearing grossly normal Neck: trachea midline Respiratory/Chest: lungs clear, normal breath sounds, no respiratory distress, no accessory muscle use Cardiovascular: regular rate, rhythm, + systolic murmur (3/6 at the RUSB), + pertinent finding (1+ pitting edema in the legs to the knees bilaterally) Abdomen: normal bowel sounds, non tender, soft Extremities: no calf tenderness, + swelling (As above) Neurologic/Psychiatric: alert, normal mood/affect, oriented x 3 Skin: normal color, warm/dry, no rash Review of Systems: Constitutional: No problem reported Eyes: No problem reported ENT: No problem reported Respiratory: No problem reported Cardiovascular: No problem reported Abdomen: No problem reported Musculoskeletal: No problem reported Genitourinary - Female: No problem reported Neurologic: No problem reported Psychiatric: No problem reported Endocrine: No problem reported Hematologic / Lymphatic: No problem reported Integumentary: No problem reported Hospital Course This patient is a 77 y/o female with a history of acute angle closure glaucoma s /p laser ablation and R cataract surgery, chronic systolic CHF, presumed cardiogenic cirrhosis, 3rd degree heart block s/p pacemaker, Brugada syndrome, paroxysmal ventricular tachycardia s/p ablation, permanent a-fib, hypothyroidism , gastroparesis, persistent lower abdominal pain, COPD, depression, CKD stage III, chronic hyponatremia, and anemia, recently admitted 09/18 - 09/20 for hyponatremia, viral URI and VAIBHAV, presenting with progressive productive cough, SOB and weakness. Physical exam, laboratory and imaging consistent with PNA and acute hepatic decompensation Pneumonia/possible gram-negative pneumonia in the setting of HAP-upon admission , patient afebrile, hemodynamically stable, no respiratory distress noted. She has mild neutrophil predominant leukocytosis with WBC=13.55, CT chest with patchy tree-in-bud nodules with subsegmental groundglass and consolidative nodular densities are seen about the right upper, middle and lower lobes with subsegmental alveolar opacities of the inferior segment lingula suggesting infectious bronchiolitis with pneumonitis. Patient with multiple recent hospitalizations. Is significantly improved from previous Repeat chest x-ray is clear now -cannot rule out invasive aspergillus given the growth of this on sputum culture , however she does not seem sick enough to have this and continues to improve clinically -Discussed with pulmonology-he does not feel comfortable doing bronchoscopy at this time as she does not seem to understand the risks versus benefits and he feels the risks outweigh the benefits at this time. -Finished 7-day course of cefepime and doxy. -Blood cultures x 2 sets drawn no growth to date -Weaned off oxygen -Continue Mucinex BID -Continue nasal saline -Continue Tessalon Perles for cough 3 times daily scheduled for 1 week and then as needed after that -Continue bronchodilators with Combivent 4 times daily -Continues on prednisone taper downward- down to 10 mg daily for 3 more days and then stop -Will need outpatient follow-up with pulmonology within 1 week and will need repeat CT chest as below Endobronchial mass- CT revealed a focal 8 mm area of nodularity about the medial aspect of the bronchus intermedius suspicious for an endobronchial mass lesion. This is new from prior CT in 2015 Pulmonary following - needs bronch in the future once more optimized from liver/ INR standpoint and other active medical issues. -Pulmonary recommending repeat high-resolution CT of the chest in 1 week-can be ordered by pulmonary at follow-up visit within 1 week Abnormal LFTs/acute hepatic decompensation/cardiogenic cirrhosis/hepatic encephalopathy-patient with elevated Tbili = 1.4, HVF=972, VUD=460 and VF=362 on admission which are all continuing to improve. RUQ US performed which revealed liver cirrhosis. Portal vein Dopplers negative for thrombosis. Patient with history of cardiogenic cirrhosis. Also with elevated INR of 8 which is now improved down to 1.2 and stable but still mildly elevated. Concern for congestive hepatopathy vs infection vs medication effects versus shock liver from infection. Ammonia level mildly elevated at 52 on admission and did develop some evidence of encephalopathy which is now improved with starting lactulose and Xifaxan- most recent ammonia level down to 34 No evidence of biliary dilatation on ultrasound Acetaminophen level is less than 2 Anti-smooth muscle antibody is mildly positive at 1:80-would appreciate GI input on this result ordered by them-can be managed as an outpatient-should have follow-up appointment scheduled with gastroenterology -Continue to follow LFTs, INR q. 2-3 days at the [facility] -Continue Lactulose and Xifaxan -We will not give any acetaminophen containing products Acute hepatitis profile negative. -Would not restart Coumadin until acute liver issues are resolved Hyponatremia - hypovolemic -only mildly reduced from baseline on admission at 124. Likely due to acute on chronic hyponatremia secondary to recent poor p.o. intake due to acute illness in the setting of cardiac cirrhosis, exacerbated by diuretic use. Sodium significantly improved and stable at 132 with discontinuation of Lasix and starting torsemide Management of her condition is typically challenging as she has a very low EF and is prone to volume overload, but also prone to dehydration with poor p.o. intake due to her chronic nausea. -Has been changed to torsemide 60 mg daily with net negative balance each day over the last few days. Still with pitting edema which is improving Weights acceptable and continues with net negative balance if I's and O's are properly recorded -Discontinued Aldactone for hyperkalemia on admission -Continue fluid restriction of 1200 ML's per 24 hours as per nephrology recommendations -Can have some salt in her diet-would recommend heart healthy diet and not 2000 mg sodium diet as per previous nephrology recommendation from last admission -Appreciate nephrology consultation and should follow-up with them as an outpatient -Would recommend BMP checks once weekly as an outpatient to keep close tabs on her sodium levels VAIBHAV on CKD with hyperkalemia, K=6 - No EKG changes consistent with hyperkalemia. Patient with Cr of 1.68 on admission-both now completely resolved. Possibly secondary to poor effective arterial flow in setting of suspected CHF. -Monitor BUN, Cr, electrolytes and UOP -Avoid nephrotoxic agents -Will not restart Aldactone in setting of recurrent hyperkalemia -Renal dosing where appropriate Acute on chronic biventricular systolic CHF/Mod MVR/H/o MV repair- Patient appears to be in mild failure, +edema, +JVD. Last echocardiogram in 06/2017 with EF 20-25% --Was given IV Lasix on admission and now resolved -Strict I/Os, daily weights -Continue p.o. torsemide as above -Hold Aldactone 25 mg p.o. twice daily today in setting of hyperkalemia -Cont Coreg 25 mg p.o. twice daily -Is not on AMADOU or ARB-deferred to primary spindle maker but with recurrent hyperkalemia, may not be cunningham Abdominal pain secondary to adnexal varices/nausea/vomiting/gastroparesis- stable to improved -Zofran as needed -Compazine as needed -Oxycodone as needed -Discontinue acetaminophen due to acute liver failure Permanent atrial fibrillation/permanent pacemaker in situ V paced at 61bpm, anticoagulated with Coumadin. Had supratherapeutic INR recently, possibly secondary to failing liver as well as Coumadin use. INR now down to 1.2 with holding Coumadin and with receiving oral vitamin K early in the admission -Continue to follow INR -Will not restart Coumadin until acute liver issues completely resolved -Continue Carvedilol 25mg po BID Severe COPD -with exacerbation and wheezing on exam initially-now significantly improved -Continue to monitor respiratory status -Continue Combivent 1 puff 4 times daily -Continue Symbicort and Singulair -Tapering steroids down as above Major depressive disorder-worsened by multiple recent hospitalizations -Continue Lexapro at increased dose of 10 mg Chronic microcytic anemia-iron studies fairly normal last admission except mildly low transferrin saturation at 9%, ferritin normal in the 40s, B12 and folate normal. Iron studies this time now normal despite microcytosis. 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 Her TSH was previously high at 4.9 but is now normal at 3.43. This could be followed in the outpt setting. -Not on medication at this time Dispel-discharge to SNF today Total Time Spent: Greater than 30 minutes This includes examination of the patient, discharge planning, medication reconciliation, and communication with other providers. Discharge Instructions Please refer to the electronic Patient Visit Report (Discharge Instructions) for additional information. Follow-Up With PCP within 1 week With nephrology within 2 weeks With gastroenterology within 2 weeks With pulmonology within 1 week with repeat high-resolution CT scan of chest Additional Copies To Rafael Christian M.D.; Maia Vega D.O.; Sai Edwards M.D.; Tere Baires CRNP; Edouard Arango MD
--- NOTE | 2017-10-02 13:20 | Infectious Disease Progress Nt ---
Progress Note Date of Service Oct 02, 2017. Subjective Pt evaluation today including: conversation w/ patient, physical exam, chart review, lab review, review of studies, conversation w/ senior wind energy consultant, review of inpatient medication list Patient feeling significantly better than on admission. No shortness of breath at rest, still with dyspnea on exertion. Remains afebrile. No worsening cough , no hemoptysis. All Other Systems: Reviewed and Negative Medications Current Inpatient Medications Medications (Trade) Dose Ordered Sig/Golden Route Start Time Stop Time Status Last Admin Dose Admin Ondansetron HCl (Zofran Inj) 4 mg Q6H PRN IV 09/21/17 21:00 10/21/17 20:59 09/28/17 10:26 4 MG Guaifenesin (Mucinex Contr Rel Tab) 1,200 mg Q12 PO 09/21/17 21:00 10/21/17 20:59 10/02/17 08:33 1,200 MG Sodium Chloride (Drew Nasal [place]) 2 sprays Q8 PRN NA 09/21/17 21:00 10/21/17 20:59 Albuterol (Ventolin Hfa Inhaler) 2 puffs QID PRN INH 09/21/17 21:00 10/21/17 20:59 10/01/17 20:35 2 PUFFS Budesonide/ Formoterol Fumarate (Symbicort 160/ 4.5 Inh) 2 puffs BID INH 09/21/17 21:00 10/21/17 20:59 10/02/17 08:33 2 PUFFS Carvedilol (Coreg Tab) 25 mg BIDM PO 09/22/17 07:30 10/22/17 07:59 10/02/17 08:33 25 MG Magnesium Chloride (Slow-Mag Tab) 64 mg BID PO 09/21/17 21:00 10/21/17 20:59 10/02/17 08:32 64 MG Montelukast Sodium (Singulair Tab) 10 mg HS PO 09/21/17 21:00 10/21/17 20:59 10/01/17 20:35 10 MG Prochlorperazine Maleate (Compazine Tab) 5 mg TID PRN PO 09/21/17 21:00 10/21/17 20:59 Pantoprazole Sodium (Protonix Tab) 40 mg DAILY PO 09/22/17 09:00 10/22/17 08:59 10/02/17 08:32 40 MG Psyllium Hydrophilic Mucilloid (Metamucil Powder) 1 pkt DAILY PO 09/22/17 09:00 10/22/17 08:59 10/02/17 08:33 1 PKT Saccharomyces Boulardii (Florastor Cap) 250 mg DAILY PO 09/23/17 09:00 10/23/17 08:59 10/02/17 08:32 250 MG Lactulose (Chronulac Syrup) 15 gm DAILY PO 09/26/17 09:00 10/21/17 20:59 10/02/17 08:30 15 GM Benzonatate (Tessalon Perles Cap) 100 mg TID PO 09/26/17 21:00 10/26/17 20:59 10/02/17 08:32 100 MG Rifaximin (Xifaxan Tab) 550 mg BID PO 09/27/17 21:00 10/27/17 20:59 10/02/17 08:31 550 MG Albuterol/ Ipratropium (Combivent Respimat Inh) 1 puffs QID INH 09/27/17 21:00 10/27/17 19:59 10/02/17 12:14 1 PUFFS Escitalopram Oxalate (Lexapro Tab) 10 mg QAM PO 09/29/17 09:00 10/22/17 08:59 10/02/17 08:32 10 MG Enoxaparin Sodium (Lovenox Inj) 40 mg Q24H SQ 09/30/17 21:00 10/30/17 20:59 10/01/17 20:37 40 MG Oxycodone HCl (Roxicodone Immediate Rel Tab) 2.5 mg Q8H PRN PO 09/29/17 21:00 10/13/17 20:59 Prednisone (PredniSONE TAB) 10 mg DAILY PO 10/02/17 08:00 10/25/17 08:59 10/02/17 08:29 10 MG Torsemide (Demadex Tab) 60 mg QAM PO 10/02/17 08:00 10/28/17 08:59 10/02/17 08:30 60 MG Objective Vital Signs Date Time Temp Pulse Resp B/P (MAP) Pulse Ox O2 Delivery O2 Flow Rate FiO2 10/02/17 07:44 Room Air 10/02/17 07:23 36.6 62 18 123/78 (93) 95 Room Air 10/02/17 00:00 Room Air 10/01/17 23:48 36.7 60 18 115/66 (82) 97 Room Air 10/01/17 16:10 96 Room Air 10/01/17 15:19 36.6 59 20 119/72 (88) 96 Room Air Physical Exam General Appearance: WD/WN, no apparent distress Eyes: normal inspection, EOMI, sclerae normal ENT: normal ENT inspection, pharynx normal Neck: supple, no adenopathy, thyroid normal, trachea midline Respiratory/Chest: chest non-tender, no respiratory distress, no accessory muscle use, + rhonchi (right sided) Cardiovascular: regular rate, rhythm, no gallop, no murmur Abdomen: normal bowel sounds, non tender, soft, no organomegaly Extremities: non-tender, no calf tenderness, + pedal edema Neurologic/Psychiatric: alert, oriented x 3 Skin: normal color, warm/dry, no rash Lymphatic: no adenopathy Laboratory Results RUN DATE: 10/02/17 [facility] PAGE 1 RUN TIME: 1100 Specimen Inquiry PATIENT: KATIA SCHAEFER LOC: [id number] U # : [id number] AGE/SX: 77/F ROOM: [facility] REG : 09/21/[address]: Leatha Casillas MD : [id number] BED: 2 DIS : STATUS: ADM IN TLOC: SPEC #: [id number] KATHERYN: 09/29/17 STATUS: RES REQ #: [id number] RECD: 09/29/[address] [facility] [address]: Steve Amador DO SOURCE: SPUTUM ENTR: 09/29/17 [facility] DR: Cristy Harper M.D. SPDESC: EXP.SPUTUM Rich Chou MD, Stephen M., M.D. Grine, Kristen M., D.O. Martin, Elizabeth M., D.O. Ratner, Jeffrey A., M.D. Siuta, Jonathan R., MD ORDERED: TERESA GONZALES/ION COMMENTS: Has Specimen Been Obtained/Collected? Y Procedure Result Verified Site FUNGAL DIRECT PREP Final 07/27/18-0803 FUNGAL DIRECT PREP RARE YEAST SEEN FUNGAL CULTURE OTHER CULT Preliminary 10/02/17-1100 NO YEAST OR FUNGUS ISOLATED - REPORT 1, Additional Report to Follow. Last 24 Hours Test 10/02/17 05:42 White Blood Count 9.04 K/uL Red Blood Count 4.93 M/uL Hemoglobin 11.9 g/dL Hematocrit 38.8 % Mean Corpuscular Volume 78.7 fL Mean Corpuscular Hemoglobin 24.1 pg Mean Corpuscular Hemoglobin Concent 30.7 g/dl Platelet Count 203 K/uL Neutrophils (%) (Auto) 79.7 % Lymphocytes (%) (Auto) 9.1 % Monocytes (%) (Auto) 10.4 % Eosinophils (%) (Auto) 0.4 % Basophils (%) (Auto) 0.0 % Neutrophils # (Auto) 7.20 K/uL Lymphocytes # (Auto) 0.82 K/uL Monocytes # (Auto) 0.94 K/uL Eosinophils # (Auto) 0.04 K/uL Basophils # (Auto) 0.00 K/uL RDW Standard Deviation 57.8 fL RDW Coefficient of Variation 21.7 % Immature Granulocyte % (Auto) 0.4 % Immature Granulocyte # (Auto) 0.04 K/uL Nucleated RBC Absolute Count (auto) 0.03 K/uL Nucleated Red Blood Cells % 0.4 % Polychromasia 1+ Hypochromasia PRESENT Anisocytosis PRESENT Target Cells 1+ Echinocytes 1+ Prothrombin Time 12.1 SECONDS Prothromb Time International Ratio 1.2 Sodium Level 132 mmol/L Potassium Level 3.8 mmol/L Chloride Level 94 mmol/L Carbon Dioxide Level 33 mmol/L Anion Gap 5.0 mmol/L Blood Urea Nitrogen 42 mg/dl Creatinine 0.81 mg/dl Est Creatinine Clear Calc Drug Dose 56.2 ml/min Estimated GFR () 82.3 Estimated GFR (Non- 71.0 BUN/Creatinine Ratio 51.7 Random Glucose 83 mg/dl Calcium Level 8.7 mg/dl Magnesium Level 2.0 mg/dl Iron Level 132 mcg/dl Total Iron Binding Capacity 399 mcg/dl Transferrin 317 mg/dl Transferrin % Saturation 30 % Ferritin 47.4 ng/ml Total Bilirubin 2.1 mg/dl Direct Bilirubin 1.0 mg/dl Aspartate Amino Transf (AST/SGOT) 54 U/L Alanine Aminotransferase (ALT/SGPT) 165 U/L Alkaline Phosphatase 183 U/L Total Protein 6.2 gm/dl Albumin 2.9 gm/dl Assessment and Plan 77-year-old female with COPD on inhaled and intermittent oral steroid therapy, now with acute pulmonary process with CT scan suggesting infectious bronchiolitis with pneumonitis with positive sputum culture for Aspergillus. Association of SIADH with Aspergillus infections has been reported, so need to take this positive culture seriously. Given liver problems, improvement on current RX, to hold voriconazole therapy. To consider outpatient bronchoscopy abnormal findings on CT as outpatient.
[2017-10-02 13:26] VITALS: BP 123/78; PULSE 62; TEMP 36.6; O2SAT 95
--- NOTE | 2017-10-02 13:30 | Pulmonology Progress Note ---
Pulmonary Progress Note Date of Service Oct 02, 2017. Attending Dr. Arango Subjective Patient is sitting up in her chair speaking to her and granddaughter showing no signs of respiratory insufficiency but notes she still has intermittent dyspnea with exertion and not back to her baseline: Objective Was able to have a conversation with the patient, her and her granddaughter. The patient did look comfortable showing no signs of accessory muscle use or tachypnea. She did note intermittent dyspnea on exertion but greatly improved since her admission. Her noted when she become short of breath that she has almost no paradoxical chest motion which has not been present since approximately 2-3 days after her admission. Past Medical: Angle closure glaucoma, cirrhosis, third-degree heart block, Brugada syndrome, paroxysmal ventricular tachycardia, atrial fibrillation/ Coumadin, cardiomyopathy EF=20% hypothyroidism, gastroparesis, chronic abdominal pain, Very Severe COPD (FEV1=30%), major depressive disorder, CKD stage 3, chronic hyponatremia, chronic biventricular systolic CHF, moderate MR regurgitation, amiodarone induced hypothyroidism, chronic anemia/iron deficiency , oral candidiasis, hyperammonemia Surgical History: Right cataract surgery/laser ablation, status post pacemaker , [place] cardiac ablation, MVR repair Respiratory Medications: 1. Lovenox 40 mg subcu 2. Prednisone 10 mg daily 3. Oxycodone 2.5 mg q.8 hours 4. Combivent 1 puff q.i.d. 5. Benzonate 100 mg t.i.d 6. Protonix 40 mg 7. Guaifenesin 1.2 grams q.12 hours 8. Ventolin HFA 2 puffs q.i.d. 9. Symbicort 160-4.52 puffs b.i.d. Vital signs: Stable on room air Respiratory: Notable rhonchi on the right hemithorax especially in the lower posterior subsegments Cardiac: S1-S2 distant heart sounds irregular rhythm Extremities: Minimal pitting edema but right is greater than left in the lower extremities INR: 1.2 Patient was initially admitted 09/21/2017 for shortness of breath and fatigue with some altered mental status. During her hospital stay she has been noted to have multiple issues including congestive heart failure, shock liver with a history of cirrhosis, abnormal CT scan with bronchus intermedius abnormality and sputum positive Aspergillus. Patient was also diagnosed with COPD treatment is been slowly taper down on prednisone currently 25 mg daily and had supratherapeutic INR on Coumadin current INR 1.2. Assessment & Plan 77-year-old female with multiple medical problems admitted with diagnosis of pneumonia, COPD flare and abnormal CT scan: 1. Abnormal CT scan: Patient's abnormal CT imaging will require follow-up. I suggest next 2-3 weeks after discharge she is followed up in the Pulmonary Clinic. Prior to her visit a high-resolution noncontrast CT can be repeated for further evaluation. If at that time the abnormality in the bronchus intermedius continues and the patient is notably stable perform bronchoscopic intervention may be warranted. 2. Sputum Aspergillus: Patient did have sputum positive Aspergillus which can often be contaminant or possibly secondary colonization. To prove invasive Aspergillus infection the lung parenchyma this would require transbronchial biopsy and as the patient has signs consistent with pulmonary hypertension and underlying liver disease she has not increased risk of bleeding. Once again at this time I suggest negative outweigh the benefits with this particular procedure will continue to monitor. 3. COPD: Patient does have very severe COPD with an FEV1 of 30% predicted. She is currently stabilizing and doing well on slow prednisone taper. Also should note this very severe COPD does have complications/increased risk of bronchoscopic intervention. Data Medications: Current Inpatient Medications Medications (Trade) Dose Ordered Sig/Golden Route Start Time Stop Time Status Last Admin Dose Admin Ondansetron HCl (Zofran Inj) 4 mg Q6H PRN IV 09/21/17 21:00 10/21/17 20:59 09/28/17 10:26 4 MG Guaifenesin (Mucinex Contr Rel Tab) 1,200 mg Q12 PO 09/21/17 21:00 10/21/17 20:59 10/02/17 08:33 1,200 MG Sodium Chloride (Murray Nasal [place]) 2 sprays Q8 PRN NA 09/21/17 21:00 10/21/17 20:59 Albuterol (Ventolin Hfa Inhaler) 2 puffs QID PRN INH 09/21/17 21:00 10/21/17 20:59 10/01/17 20:35 2 PUFFS Budesonide/ Formoterol Fumarate (Symbicort 160/ 4.5 Inh) 2 puffs BID INH 09/21/17 21:00 10/21/17 20:59 10/02/17 08:33 2 PUFFS Carvedilol (Coreg Tab) 25 mg BIDM PO 09/22/17 07:30 10/22/17 07:59 10/02/17 08:33 25 MG Magnesium Chloride (Slow-Mag Tab) 64 mg BID PO 09/21/17 21:00 10/21/17 20:59 10/02/17 08:32 64 MG Montelukast Sodium (Singulair Tab) 10 mg HS PO 09/21/17 21:00 10/21/17 20:59 10/01/17 20:35 10 MG Prochlorperazine Maleate (Compazine Tab) 5 mg TID PRN PO 09/21/17 21:00 10/21/17 20:59 Pantoprazole Sodium (Protonix Tab) 40 mg DAILY PO 09/22/17 09:00 10/22/17 08:59 10/02/17 08:32 40 MG Psyllium Hydrophilic Mucilloid (Metamucil Powder) 1 pkt DAILY PO 09/22/17 09:00 10/22/17 08:59 10/02/17 08:33 1 PKT Saccharomyces Boulardii (Florastor Cap) 250 mg DAILY PO 09/23/17 09:00 10/23/17 08:59 10/02/17 08:32 250 MG Lactulose (Chronulac Syrup) 15 gm DAILY PO 09/26/17 09:00 10/21/17 20:59 10/02/17 08:30 15 GM Benzonatate (Tessalon Perles Cap) 100 mg TID PO 09/26/17 21:00 10/26/17 20:59 10/02/17 08:32 100 MG Rifaximin (Xifaxan Tab) 550 mg BID PO 09/27/17 21:00 10/27/17 20:59 10/02/17 08:31 550 MG Albuterol/ Ipratropium (Combivent Respimat Inh) 1 puffs QID INH 09/27/17 21:00 10/27/17 19:59 10/02/17 12:14 1 PUFFS Escitalopram Oxalate (Lexapro Tab) 10 mg QAM PO 09/29/17 09:00 10/22/17 08:59 10/02/17 08:32 10 MG Enoxaparin Sodium (Lovenox Inj) 40 mg Q24H SQ 09/30/17 21:00 10/30/17 20:59 10/01/17 20:37 40 MG Oxycodone HCl (Roxicodone Immediate Rel Tab) 2.5 mg Q8H PRN PO 09/29/17 21:00 10/13/17 20:59 Prednisone (PredniSONE TAB) 10 mg DAILY PO 10/02/17 08:00 10/25/17 08:59 10/02/17 08:29 10 MG Torsemide (Demadex Tab) 60 mg QAM PO 10/02/17 08:00 10/28/17 08:59 10/02/17 08:30 60 MG Vital Signs: Date Time Temp Pulse Resp B/P (MAP) Pulse Ox O2 Delivery O2 Flow Rate FiO2 10/02/17 07:44 Room Air 10/02/17 07:23 36.6 62 18 123/78 (93) 95 Room Air 10/02/17 00:00 Room Air 10/01/17 23:48 36.7 60 18 115/66 (82) 97 Room Air 10/01/17 16:10 96 Room Air 10/01/17 15:19 36.6 59 20 119/72 (88) 96 Room Air Laboratory Results: Last 24 Hours Test 10/02/17 05:42 White Blood Count 9.04 K/uL Red Blood Count 4.93 M/uL Hemoglobin 11.9 g/dL Hematocrit 38.8 % Mean Corpuscular Volume 78.7 fL Mean Corpuscular Hemoglobin 24.1 pg Mean Corpuscular Hemoglobin Concent 30.7 g/dl Platelet Count 203 K/uL Neutrophils (%) (Auto) 79.7 % Lymphocytes (%) (Auto) 9.1 % Monocytes (%) (Auto) 10.4 % Eosinophils (%) (Auto) 0.4 % Basophils (%) (Auto) 0.0 % Neutrophils # (Auto) 7.20 K/uL Lymphocytes # (Auto) 0.82 K/uL Monocytes # (Auto) 0.94 K/uL Eosinophils # (Auto) 0.04 K/uL Basophils # (Auto) 0.00 K/uL RDW Standard Deviation 57.8 fL RDW Coefficient of Variation 21.7 % Immature Granulocyte % (Auto) 0.4 % Immature Granulocyte # (Auto) 0.04 K/uL Nucleated RBC Absolute Count (auto) 0.03 K/uL Nucleated Red Blood Cells % 0.4 % Polychromasia 1+ Hypochromasia PRESENT Anisocytosis PRESENT Target Cells 1+ Echinocytes 1+ Prothrombin Time 12.1 SECONDS Prothromb Time International Ratio 1.2 Sodium Level 132 mmol/L Potassium Level 3.8 mmol/L Chloride Level 94 mmol/L Carbon Dioxide Level 33 mmol/L Anion Gap 5.0 mmol/L Blood Urea Nitrogen 42 mg/dl Creatinine 0.81 mg/dl Est Creatinine Clear Calc Drug Dose 56.2 ml/min Estimated GFR () 82.3 Estimated GFR (Non- 71.0 BUN/Creatinine Ratio 51.7 Random Glucose 83 mg/dl Calcium Level 8.7 mg/dl Magnesium Level 2.0 mg/dl Iron Level 132 mcg/dl Total Iron Binding Capacity 399 mcg/dl Transferrin 317 mg/dl Transferrin % Saturation 30 % Ferritin 47.4 ng/ml Total Bilirubin 2.1 mg/dl Direct Bilirubin 1.0 mg/dl Aspartate Amino Transf (AST/SGOT) 54 U/L Alanine Aminotransferase (ALT/SGPT) 165 U/L Alkaline Phosphatase 183 U/L Total Protein 6.2 gm/dl Albumin 2.9 gm/dl
== END 2017-10-02 14:20 | DRG 177 ==
LOC: C.EDB 18:01 → C.2T 21:11 → ENRESERV 21:19 → C.MS4W 09-30 19:56
PROVIDERS: ADMIT Internal Medicine; ATTEND Family Medicine
DX: J15.6 Pneumonia due to other Gram-negative bacteria (principal); K72.00 Acute and subacute hepatic failure without coma; B37.0 Candidal stomatitis; I50.43 Acute on chronic combined systolic (congestive) and diastolic (congestive) heart failure; N17.9 Acute kidney failure, unspecified; E87.1 Hypo-osmolality and hyponatremia; I42.0 Dilated cardiomyopathy; I86.8 Varicose veins of other specified sites; J44.1 Chronic obstructive pulmonary disease with (acute) exacerbation; J44.0 Chronic obstructive pulmonary disease with (acute) lower respiratory infection; Z79.01 Long term (current) use of anticoagulants; Z95.810 Presence of automatic (implantable) cardiac defibrillator; Z83.3 Family history of diabetes mellitus; Z82.49 Family history of ischemic heart disease and other diseases of the circulatory system; E86.0 Dehydration; B17.9 Acute viral hepatitis, unspecified; J20.9 Acute bronchitis, unspecified; E87.5 Hyperkalemia; N18.3 Chronic kidney disease, stage 3 (moderate); R22.2 Localized swelling, mass and lump, trunk; K31.84 Gastroparesis; H40.20X0 Unspecified primary angle-closure glaucoma, stage unspecified; I48.2 Chronic atrial fibrillation; Z66 Do not resuscitate; E03.9 Hypothyroidism, unspecified

== ENCOUNTER → 2017-09-21 | Outpatient (CLI) | payer BC ==
[~2017-09-21] MED LIST changes: +ACET-1047 PO; +BENZ100C7 PO; -CHOL1000 PO; -CHOL100010 PO; +CLIN150C PO; +CRG25 PO; +DEXT30TA7 PO; -DICY10CA12 PO; +GFNSR600 PO; +IPRA1AER2 INH; +LACT10SO3 PO; +LXP10 PO; -METO2.5T PO; +MULT-506 PO; +NYSS5 PO; +ONDA4TAB46 SL; +PANT20TA2 PO; -POTA10CA28 PO; +PRD10 PO; +PROC5TAB PO; +PSYL48.59 PO; +RXC5 PO; +SACC250C3 PO; +SALI-3 NAE; +SLWMEC PO; +SNG10 PO; +SPIR25TA6 PO; +SYMIN160 INH; +TCMD2 PO; +TORS20TA3 PO; +TRAM-10 PO; -ULT50X PO; +VNTHFA/IN INH; -WARF2.5T8 PO; +XFX550 PO
[2017-09-21 08:55] LABS: INR 5.5 (0.9-1.1)
== END | disposition home or self-care (01) ==
LOC: C.LABVPSUA 08:01
PROVIDERS: ATTEND Internal Medicine Critical Care Medicine
DX: I44.2 Atrioventricular block, complete (principal)

== ENCOUNTER → 2017-10-05 | Outpatient (CLI) | payer BC ==
[~2017-10-05] MED LIST changes: -ACET-1047 PO; +BENZ100C7 PO; -CARV25TA2 PO; +CMP5 PO; +CRG25 PO; -DEXT30TA7 PO; -ESCI1TAB6 PO; -FURO80TA63 PO; +GFNSR600 PO; +IPRA1AER2 INH; +LXP10 PO; -MONT1TAB3 PO; -MULT-506 PO; +PRD10 PO; -PROC5TAB PO; +RXC5 PO; +SACC250C3 PO; +SNG10 PO; -SPIR25TA PO; -TCMD2 PO; +TORS20TA3 PO; -TRAM-10 PO; -VNTHFA/IN INH; +XFX550 PO
[2017-10-05 10:12] LABS: ALBUMIN 2.9 gm/dl (3.4-5.0); ALKALINE PHOSPHATASE 211 U/L (45-117); ALT/SGPT 138 U/L (12-78); AST/SGOT 56 U/L (15-37); BLOOD UREA NITROGEN 33 mg/dl (7-18); CALCIUM 9.3 mg/dl (8.5-10.1); CARBON DIOXIDE 32 mmol/L (21-32); CREATININE 0.74 mg/dl (0.60-1.20); GLUCOSE 77 mg/dl (70-99); POTASSIUM 4.2 mmol/L (3.5-5.1); SODIUM 135 mmol/L (136-145); TOTAL PROTEIN 6.4 gm/dl (6.4-8.2)
== END ==
LOC: C.LABVPSUA 09:31
PROVIDERS: ATTEND Internal Medicine Critical Care Medicine
DX: I50.9 Heart failure, unspecified (principal); I48.91 Unspecified atrial fibrillation; K74.60 Unspecified cirrhosis of liver

== ENCOUNTER → 2017-10-09 | Outpatient (CLI) | payer BC ==
[2017-10-09 11:57] LABS: BLOOD UREA NITROGEN 32 mg/dl (7-18); CALCIUM 8.8 mg/dl (8.5-10.1); CARBON DIOXIDE 29 mmol/L (21-32); CREATININE 0.69 mg/dl (0.60-1.20); GLUCOSE 74 mg/dl (70-99); POTASSIUM 3.5 mmol/L (3.5-5.1); SODIUM 138 mmol/L (136-145)
== END ==
LOC: C.LABVPSUA 10:26
PROVIDERS: ATTEND Internal Medicine Critical Care Medicine
DX: E87.1 Hypo-osmolality and hyponatremia (principal)

== ENCOUNTER → 2017-10-13 | Outpatient (CLI) | payer BC ==
[2017-10-13 09:11] LABS: ALBUMIN 2.9 gm/dl (3.4-5.0); ALKALINE PHOSPHATASE 255 U/L (45-117); ALT/SGPT 86 U/L (12-78); AST/SGOT 43 U/L (15-37); BLOOD UREA NITROGEN 25 mg/dl (7-18); CALCIUM 8.9 mg/dl (8.5-10.1); CARBON DIOXIDE 28 mmol/L (21-32); CREATININE 0.64 mg/dl (0.60-1.20); GLUCOSE 80 mg/dl (70-99); SODIUM 137 mmol/L (136-145); TOTAL PROTEIN 6.5 gm/dl (6.4-8.2)
== END | disposition home or self-care (01) ==
LOC: C.LABVPSUA 08:48
PROVIDERS: ATTEND Internal Medicine Critical Care Medicine
DX: I50.9 Heart failure, unspecified (principal); I48.91 Unspecified atrial fibrillation; K74.60 Unspecified cirrhosis of liver

== ENCOUNTER → 2017-10-26 | Outpatient (CLI) | payer BC ==
[~2017-10-26] MED LIST changes: +ACET-1047 PO; +CARV25TA2 PO; +CHOL1000 PO; +CHOL100010 PO; +DEXT30TA7 PO; +DICY10CA12 PO; +ESCI1TAB6 PO; +FURO80TA63 PO; +METO2.5T PO; +MONT1TAB3 PO; +MULT-506 PO; +POTA10CA28 PO; +PROC5TAB PO; +SPIR25TA PO; +SPIR25TA6 PO; +TCMD2 PO; +TRAM-10 PO; +ULT50X PO; +VNTHFA/IN INH; +WARF2.5T8 PO
[2017-10-26 16:17] LABS: BLOOD UREA NITROGEN 20 mg/dl (7-18); CALCIUM 8.8 mg/dl (8.5-10.1); CARBON DIOXIDE 29 mmol/L (21-32); GLUCOSE 89 mg/dl (70-99); POTASSIUM 3.1 mmol/L (3.5-5.1); SODIUM 133 mmol/L (136-145)
== END | disposition home or self-care (01) ==
LOC: C.LAB1850 12:09
PROVIDERS: ATTEND Physician Assistant
DX: I50.22 Chronic systolic (congestive) heart failure (principal)